=== PATIENT | female | born 1945 | race Caucasian/White ===

== ENCOUNTER → 2018-07-24 14:12 | Outpatient (CLI) | payer MEDICARE, SELFPAY ==
[2018-07-24 16:03] LABS: Microalbumin,Random Urine < 5.0 mg/L (NO RANGE EST.)
[2018-07-24 16:08] LABS: ALB/GLOB Ratio 1.2 RATIO (0.9-2.4); AST(SGOT) 15 U/L (15-37); Alanine Aminotransfer ALT/SGPT 24 U/L (13-56); Albumin, Serum 4.2 g/dL (3.2-5.0); Alkaline Phosphatase 95 U/L (45-117); Anion Gap 11 (5-15); BUN 17 mg/dL (7-18); Calcium,Total 9.4 mg/dL (8.5-10.1); Chloride 87 mmol/L (98-107); Cholesterol 201 mg/dL (200); Creatinine, Serum 1.21 mg/dL (0.55-1.02); EST Glomerular Filtration Rate 46 mL/min (>60); Est Glom Filt Rate - Afr Amer 56 mL/min (>60); Globulin 3.6 g/dL (2.2-4.2); Glucose 93 mg/dL (74-106); High Density Lipoprotein 50 mg/dL; Potassium 3.4 mmol/L (3.5-5.1); Protein, Total 7.8 g/dL (6.4-8.2); Sodium Level 129 mmol/L (136-145); Thyroid Stim Hormone (TSH) 1.27 uIU/mL (0.358-3.74); Triglycerides 247 mg/dL; Very Low Density Lipoprotein 49 mg/dL (5-40)
== END ==
PROVIDERS: Family Provider Family Medicine; PCP Family Medicine; Visit Provider Family Medicine
DX: E11.9 Type 2 diabetes mellitus without complications (principal); I10 Essential (primary) hypertension; E03.9 Hypothyroidism, unspecified; E78.5 Hyperlipidemia, unspecified
CPT/HCPCS: 36415; 80053; 80061; 82043; 82570; 84443

== ENCOUNTER → 2018-08-07 13:58 | Outpatient (CLI) | payer MEDICARE, SELFPAY ==
[2018-08-07 15:53] LABS: Anion Gap 12 (5-15); BUN 19 mg/dL (7-18); Calcium,Total 9.4 mg/dL (8.5-10.1); Chloride 98 mmol/L (98-107); Creatinine, Serum 1.27 mg/dL (0.55-1.02); EST Glomerular Filtration Rate 44 mL/min (>60); Est Glom Filt Rate - Afr Amer 53 mL/min (>60); Glucose 96 mg/dL (74-106); Magnesium 2.4 mg/dL (1.6-2.6); Sodium Level 137 mmol/L (136-145)
== END ==
PROVIDERS: Family Provider Family Medicine; PCP Family Medicine; Visit Provider Family Medicine
DX: E87.1 Hypo-osmolality and hyponatremia (principal)
CPT/HCPCS: 36415; 80048; 83735

== ENCOUNTER 2018-12-25 15:08 | Emergency (ER) | payer MEDICARE, SELFPAY ==
[2018-12-25 15:08] VITALS: BP 145/64; PULSE 68; RESP 14; TEMP 36.6; O2SAT 94; BMI 29.8
--- NOTE | 2018-12-25 15:13 | RAD_ITS ---
STUDY: X-RAY - LEFT ANKLE REASON FOR EXAM: Female, 73 years old. Pain following a fall. TECHNIQUE: 3 view(s) of the ankle. COMPARISON: None. FINDINGS: Normal visualized distal tibia and fibula. Normal medial and lateral malleoli. Normal tibiotalar articulation and ankle mortise. Spur at the insertion of the Achilles tendon. The visualized subtalar, talonavicular, calcaneocuboid and tarsal articulations are normal. Diffuse soft tissue swelling. RAD/Ankle min 3 Views IMPRESSION: Diffuse soft tissue swelling. Electronically Signed: Mario Handley MD at 15:42 EST , Service support ,
--- NOTE | 2018-12-25 16:10 | RAD_ITS ---
STUDY: X-RAY - LEFT HAND REASON FOR EXAM: Female, 73 years old. Pain and swelling TECHNIQUE: 3 view(s) of the hand. COMPARISON: None. FINDINGS: The bones are diffusely demineralized. Degenerative arthrosis noted at all visualized joint spaces. No demonstrated fracture or suspicious osseous lesion. There is however nonspecific soft tissue swelling and a subtle occult fracture cannot be excluded. If there is strong clinical suspicion of a fracture, recommend further evaluation with CT. RAD/Hand Min 3 Views IMPRESSION: Profound osteopenia with degenerative arthrosis. No demonstrated fracture, please see discussion above Electronically Signed: Bentley Hinojosa MD at 17:09 EST , Service support ,
--- NOTE | 2018-12-25 16:10 | RAD_ITS ---
STUDY: X-RAY - LEFT FOOT CLINICAL: Female, 73 years old. Foot pain after a fall TECHNIQUE: 3 view(s) of the foot. COMPARISON: None. FINDINGS: Bones are diffusely demineralized. Degenerative arthrosis noted at all visualized joint spaces, with small calcaneal spurs. No demonstrated fracture or suspicious osseous lesion. However, subtle fracture could be present and overlooked due to the diffuse osteopenia. If there is strong clinical suspicion of a fracture, recommend further evaluation with CT RAD/Foot min 3 Views IMPRESSION: Profound osteopenia with degenerative arthrosis and calcaneal spurs. Electronically Signed: Bentley Hinojosa MD at 17:12 EST , Service support ,
--- NOTE | 2018-12-25 16:50 | ED.DCSUM_ITS ---
- ER Visit Summary Date of Service: 12/25/18 Chief Complaint: [] Fall left hand left foot and ankle pain History of Present Illness: The patient is a 73 F [] lives alone at home she indicates she wears a neck brace chronically related to chronic neck discomfort she was walking holding onto banisters when she inadvertently slipped and fell landing on her left side she did not hit her head or neck or chest she has no head neck pain, her chief complaint is left ankle and foot pain and a contusion to her left hand she has walking aid such as a walker but in general she tries to get around her apartment using holding onto objects that are close to her, a neighbor had to help her back up to her feet she had trouble walking she was brought to the hospital Physical Examination: [] 145/64 General, no distress resting comfortably, she leaned to the right she has no head neck chest or abdominal pain HEENT is generally unremarkable The neck is supple no adenopathy Cardiovascular, regular rate and rhythm Lungs, clear bilateral Abdomen, soft nontender Extremities, no clubbing cyanosis or edema she does have a contusion to the left hand that has full range of motion to all 4 extremities in all major joints, she has contusion and swelling to the left ankle into the left lateral foot Neurologic, awake alert answering questions appropriately moving all 4 extremities her nerves are normal she is awake and alert no neurologic deficits Test Results: [] Emergency Department Course and Treatment: [] X-rays were obtained Aircast we are going to try to walk her in the ED she feels if she can walk in the ED she will be safe for discharge home Hand left ankle left foot x-ray unremarkable for any acute she was for the Aircast and walk around the emergency department and she walk without difficulty felt comfortable with discharge home she will follow with her primary care physicians she is given referral to Dr. Acosta orthopedics, she is given Naprosyn for pain for 5 days ice elevation return for change in symptoms Treatment Plan: [] Disposition: [] Home stable Impression: [] Fall with left lower extremity ankle injury This note was generated with Newtron dictation software. It may contain incorrect words, spelling, and punctuation that were not noted in review of the chart prior to signing ED Disposition - Plan for ED Patient: Referrals: Madhuri Alvarado MD [Primary Care Provider] -
[2018-12-25 19:27] VITALS: BP 156/80; PULSE 67; RESP 18; O2SAT 96
== END 2018-12-25 19:28 | disposition home or self-care (01) ==
LOC: ED 16:47
PROVIDERS: Emergency Provider Emergency Medicine; Family Provider Family Medicine; PCP Family Medicine
DX: S90.02XA Contusion of left ankle, initial encounter (principal); Z79.84 Long term (current) use of oral hypoglycemic drugs; Z79.899 Other long term (current) drug therapy; W01.0XXA Fall on same level from slipping, tripping and stumbling without subsequent striking against object, initial encounter; Y93.01 Activity, walking, marching and hiking; Y92.039 Unspecified place in apartment as the place of occurrence of the external cause; Y99.8 Other external cause status
CPT/HCPCS: 73130; 73610; 73630; 99284

== ENCOUNTER → 2019-01-06 13:14 | Outpatient (CLI) | payer MEDICARE, SELFPAY ==
[2018-12-25 15:08] VITALS: BMI 29.8
[2019-01-06 15:52] LABS: ALB/GLOB Ratio 1.2 RATIO (0.9-2.4); AST(SGOT) 17 U/L (15-37); Alanine Aminotransfer ALT/SGPT 19 U/L (13-56); Albumin, Serum 4.1 g/dL (3.2-5.0); Alkaline Phosphatase 103 U/L (45-117); Anion Gap 10 (5-15); BUN 21 mg/dL (7-18); BUN/Creat Ratio 17.9 RATIO (10-20); Calcium,Total 9.1 mg/dL (8.5-10.1); Chloride 103 mmol/L (98-107); Creatinine, Serum 1.17 mg/dL (0.55-1.02); EST Glomerular Filtration Rate 48 mL/min (>60); Est Glom Filt Rate - Afr Amer 58 mL/min (>60); Globulin 3.5 g/dL (2.2-4.2); Glucose 120 mg/dL (74-106); Potassium 4.4 mmol/L (3.5-5.1); Protein, Total 7.6 g/dL (6.4-8.2); Sodium Level 143 mmol/L (136-145)
== END ==
PROVIDERS: Family Provider Family Medicine; PCP Family Medicine; Visit Provider Family Medicine
DX: E11.9 Type 2 diabetes mellitus without complications (principal); I10 Essential (primary) hypertension
CPT/HCPCS: 36415; 80053

== ENCOUNTER → 2019-03-05 | Outpatient (CLI) | payer MEDICARE, MEDICAID, SELFPAY ==
--- NOTE | 2019-03-05 12:01 | RAD_ITS ---
STUDY: X-RAY - LEFT HAND REASON FOR EXAM: Female, 73 years old. Pain after a fall TECHNIQUE: 3 view(s) of the hand. COMPARISON: FINDINGS: The bones are diffusely demineralized. Degenerative arthrosis noted at all visualized joint spaces. No demonstrated fracture or suspicious osseous lesion. There is however nonspecific soft tissue swelling and a subtle occult fracture cannot be excluded. If there is strong clinical suspicion of a fracture, recommend further evaluation with CT. RAD/Hand Min 3 Views IMPRESSION: Profound osteopenia with degenerative arthrosis. No demonstrated fracture, please see discussion above No interval change Electronically Signed: Bentley Hinojosa MD at 12:29 EDT , Service support ,
== END | disposition home or self-care (01) ==
LOC: HPRAD 11:57
PROVIDERS: Family Provider Family Medicine; PCP Family Medicine; Referring Provider Family Medicine; Visit Provider Family Medicine
DX: M79.646 Pain in unspecified finger(s) (principal)
CPT/HCPCS: 73130

== ENCOUNTER → 2019-04-08 | Outpatient (CLI) | payer MEDICARE, MEDICAID, SELFPAY ==
--- NOTE | 2019-04-08 15:48 | CT_ITS ---
STUDY: CT LEFT HAND REASON FOR EXAM: Female, 73 years old. Fall 5 weeks ago, left hand/wrist injury. Check for occult fracture base of thumb. RADIATION DOSAGE (If Supplied By Facility): CTDIvol = ( ) mGy, DLP = ( ) mGycm TECHNIQUE: Thin section transaxial imaging of the hand was obtained, with sagittal and coronal reconstructed images. Individualized dose optimization techniques were used for this CT. COMPARISON: 3 plain film left hand March 05, 2019 views of the FINDINGS: Normal visualized distal radius and ulna. Normal radiocarpal articulation. Normal distal radioulnar joint. Cystic degenerative changes noted in the lunate and medial distal aspect of the trapezium. Normal carpal articulations There is degenerative arthrosis of the carpometacarpal (CMC) articulation of the thumb. Normal second through fifth carpometacarpal joints. Normal metacarpi. Normal metacarpophalangeal joint of the thumb. Normal interphalangeal joint of the thumb. Normal proximal and distal phalanges of the thumb. Normal metacarpophalangeal joints of the second through fifth fingers. There is some misregistration artifact in the mid to distal phalanges of the fourth and fifth fingers secondary to patient motion. Allowing for this, there are normal proximal and distal interphalangeal joints of the second through fifth fingers. As a normal phalanges of the second through fifth fingers. The soft tissue structures are unremarkable. There is no demonstrated acute fracture. CT/Extremity Upper without Contra IMPRESSION: 1. No acute fracture of the left hand or base of the thumb. There is degenerative arthrosis at the first carpometacarpal joint. 2. Incidental note of cystic degenerative changes in the lunate and trapezium. Electronically Signed: Bentley Dhillon MD at 20:02 EDT , Service support ,
== END | disposition home or self-care (01) ==
PROVIDERS: Family Provider Family Medicine; PCP Family Medicine; Referring Provider Family Medicine; Visit Provider Family Medicine
DX: M25.542 Pain in joints of left hand (principal)
CPT/HCPCS: 73200

== ENCOUNTER → 2019-04-23 | Outpatient (CLI) | payer MEDICARE, SELFPAY ==
--- NOTE | 2019-04-23 13:51 | BI_ITS ---
MAMMOGRAPHY - BILATERAL SCREENING REASON FOR EXAM: Female, 73 years old. Routine annual screening examination. PERTINENT HISTORY: Non-contributory. TECHNIQUE: Digital bilateral breast bjorn (3D mammographic acquisition) in the CC and MLO projections. 2-D mediolateral oblique (MLO) and craniocaudad (CC) views of both breasts were obtained. CAD: Full Field Digital Mammography with Computer Added Detection was performed. COMPARISON: Comparison is made with prior outside examination dated December 27, 2017. FINDINGS: Breast Composition: There are scattered areas of fibroglandular density. There are no dominant masses or suspicious calcifications. No other significant abnormalities are identified. There has been no significant change since the prior study. BI/SCREEN MAMM (CAD) W/BJORN BILAT IMPRESSION: Stable bilateral screening mammogram. Yearly follow-up mammogram recommended. (A) ASSESSMENT CATEGORY: BIRADS Category 1: Negative. A letter regarding these results will be sent to the patient by the facility within 30 days. Approximately 10% of breast cancers are not detected by mammography. A normal mammogram should not delay biopsy of a clinically suspicious abnormality. [id number] Electronically Signed: Mario Handley, at 8:42 EDT , Service support ,
== END | disposition home or self-care (01) ==
LOC: OPBI 13:49
PROVIDERS: Family Provider Family Medicine; PCP Family Medicine; Referring Provider Family Medicine; Visit Provider Family Medicine
DX: Z12.31 Encounter for screening mammogram for malignant neoplasm of breast (principal)
CPT/HCPCS: 77063; 77067

== ENCOUNTER → 2019-06-18 11:52 | Outpatient (CLI) | payer MEDICARE, MEDICAID, SELFPAY ==
[2019-06-18 16:00] LABS: ALB/GLOB Ratio 1.1 RATIO (0.9-2.4); AST(SGOT) 14 U/L (15-37); Alanine Aminotransfer ALT/SGPT 21 U/L (13-56); Albumin, Serum 4.1 g/dL (3.2-5.0); Alkaline Phosphatase 97 U/L (45-117); Anion Gap 10 (5-15); BUN 19 mg/dL (7-18); Calcium,Total 8.9 mg/dL (8.5-10.1); Chloride 104 mmol/L (98-107); Cholesterol 242 mg/dL (200); Creatinine, Serum 1.19 mg/dL (0.55-1.02); EST Glomerular Filtration Rate 47 mL/min (>60); Est Glom Filt Rate - Afr Amer 57 mL/min (>60); Globulin 3.8 g/dL (2.2-4.2); Glucose 109 mg/dL (74-106); High Density Lipoprotein 52 mg/dL; Potassium 4.2 mmol/L (3.5-5.1); Protein, Total 7.9 g/dL (6.4-8.2); Sodium Level 141 mmol/L (136-145); Triglycerides 299 mg/dL; Very Low Density Lipoprotein 60 mg/dL (5-40)
[2019-06-18 16:10] LABS: Microalbumin,Random Urine 27.5 mg/L (NO RANGE EST.); Microalbumin:Creatinine Ratio 76.6 mg/g CRE (<30 mg/g CRE)
== END ==
PROVIDERS: Family Provider Family Medicine; PCP Family Medicine; Referring Provider Family Medicine; Visit Provider Family Medicine
DX: E11.9 Type 2 diabetes mellitus without complications (principal); E03.9 Hypothyroidism, unspecified
CPT/HCPCS: 36415; 80053; 80061; 82043; 82570; 84443

== ENCOUNTER → 2021-04-11 04:00 | Outpatient (REF) | payer MEDICARE, OTHER, SELFPAY ==
[2021-04-11 08:39] LABS: Absolute Lymphocyte Count 1.98 X10^3/uL (0.83-4.51); Absolute Neutrophil Count 6.1 X10^3/uL (2.0-7.7); Basophil# 0.07 X10^3/uL; Basophil% 0.7 % (0-1); Eosinophil# 0.48 X10^3/uL; Eosinophils% 5.1 % (0-5); Hematocrit 35.4 % (37-47); Hemoglobin 10.8 g/dL (12.0-15.0); Lymphocyte # 1.98 X10^3/ul (0.83-4.51); Lymphocyte % 21.1 % (19-41); Mean Corp Hgb Conc 30.5 g/dL (32-36); Mean Corpuscular Volume 95.2 fL (81-99); Mean Platelet Vol. 8.8 fl (6.2-12.0); Monocyte# 0.74 X10^3/uL; Monocyte% 7.9 % (0-10); NRBC Flagged by Analyzer 0 % (0-5); Neutrophil # 6.08 X10^3/uL (2.7-7.7); Neutrophil % 64.7 % (47-70); Platelet Count 426 K/mm3 (150-450); RBC Distribution Width CV 13.3 % (11.6-14.6); RBC Distribution Width SD 46.5 fl (35.1-43.9); Red Blood Count 3.72 M/mm3 (4.2-5.4); White Blood Count 9.4 K/mm3 (4.4-11.0)
[2021-04-11 08:59] LABS: Hemoglobin A1c 6.5 % (3.8-5.6)
[2021-04-11 09:10] LABS: AST(SGOT) 10 U/L (15-37); Alanine Aminotransfer ALT/SGPT 15 U/L (13-56); Albumin, Serum 3.4 g/dL (3.2-5.0); Alkaline Phosphatase 86 U/L (45-117); Anion Gap 8 (5-15); BUN 18 mg/dL (7-18); BUN/Creat Ratio 21.2 RATIO (10-20); Calcium,Total 8.6 mg/dL (8.5-10.1); Chloride 103 mmol/L (98-107); Creatinine, Serum 0.85 mg/dL (0.55-1.02); EST Glomerular Filtration Rate 69 mL/min (>60); Est Glom Filt Rate - Afr Amer 83 mL/min (>60); Globulin 3.4 g/dL (2.2-4.2); Glucose 128 mg/dL (74-106); Potassium 3.9 mmol/L (3.5-5.1); Protein, Total 6.8 g/dL (6.4-8.2); Sodium Level 138 mmol/L (136-145); Thyroid Stim Hormone (TSH) 1.32 uIU/mL (0.358-3.74)
== END ==
LOC: OLS.ACH 04:00
PROVIDERS: PCP Family Medicine; Referring Provider Family Medicine; Visit Provider Family Medicine
DX: E11.42 Type 2 diabetes mellitus with diabetic polyneuropathy (principal); R80.9 Proteinuria, unspecified; E78.5 Hyperlipidemia, unspecified; E03.9 Hypothyroidism, unspecified
CPT/HCPCS: 36415; 80053; 83036; 84443; 85025

== ENCOUNTER → 2021-04-27 00:40 | Outpatient (REF) | payer MEDICARE, MEDICAID, SELFPAY ==
[2021-04-27 07:42] LABS: Bacteria 0 SEEN /hpf (None Seen); Mucous, Urine 0 SEEN /hpf (<or=2+); Red Blood Cells-Urine 0 SEEN /hpf (0-5); Squamous Epithelial Cells - UA 0 SEEN /hpf (5-10); White Blood Cells 0 SEEN /hpf (0-5)
[2021-04-27 07:57] LABS: Color, Urine Yellow (Yellow); Glucose, Dipstick Normal (Normal); Ketone-Dipstick Negative (Negative); Leukocyte Esterase-Dipstick Negative /ul (Negative); Nitrite-Dipstick Negative (Negative); Occult Blood-Urine Negative /ul (Negative); Protein-Dipstick 30 mg/dl (Negative); Urine Bilirubin Dipstick Negative (Negative); Urine Clarity Sl. Cloudy (Clear); Urine Urobilinogen Normal (Normal)
== END ==
LOC: OLS.ACH 00:40
PROVIDERS: PCP Family Medicine; Visit Provider Family Medicine
DX: R32 Unspecified urinary incontinence (principal); R30.0 Dysuria
CPT/HCPCS: 81001; 87086; 87088

== ENCOUNTER → 2021-06-12 04:00 | Outpatient (REF) | payer MEDICARE, MEDICAID, SELFPAY ==
[2021-06-12 08:20] LABS: Absolute Lymphocyte Count 1.85 X10^3/uL (0.83-4.51); Basophil# 0.07 X10^3/uL; Basophil% 0.8 % (0-1); Eosinophil# 0.34 X10^3/uL; Eosinophils% 3.8 % (0-5); Hematocrit 35.2 % (37-47); Hemoglobin 11.1 g/dL (12.0-15.0); Lymphocyte # 1.85 X10^3/ul (0.83-4.51); Lymphocyte % 20.7 % (19-41); Mean Corp Hgb Conc 31.5 g/dL (32-36); Mean Corpuscular Hgb 29.4 pg (27.0-32.0); Mean Corpuscular Volume 93.1 fL (81-99); Mean Platelet Vol. 8.6 fl (6.2-12.0); Monocyte# 0.65 X10^3/uL; Monocyte% 7.3 % (0-10); NRBC Flagged by Analyzer 0 % (0-5); Platelet Count 389 K/mm3 (150-450); RBC Distribution Width CV 13.1 % (11.6-14.6); RBC Distribution Width SD 44.2 fl (35.1-43.9); Red Blood Count 3.78 M/mm3 (4.2-5.4)
[2021-06-12 09:21] LABS: ALB/GLOB Ratio 1.1 RATIO (0.9-2.4); AST(SGOT) 14 U/L (15-37); Alanine Aminotransfer ALT/SGPT 23 U/L (13-56); Albumin, Serum 3.7 g/dL (3.2-5.0); Alkaline Phosphatase 88 U/L (45-117); Anion Gap 8 (5-15); BUN 20 mg/dL (7-18); BUN/Creat Ratio 24.8 RATIO (10-20); Calcium,Total 8.4 mg/dL (8.5-10.1); Chloride 103 mmol/L (98-107); Creatinine, Serum 0.81 mg/dL (0.55-1.02); EST Glomerular Filtration Rate 73 mL/min (>60); Est Glom Filt Rate - Afr Amer 88 mL/min (>60); Globulin 3.3 g/dL (2.2-4.2); Glucose 110 mg/dL (74-106); Potassium 3.9 mmol/L (3.5-5.1); Sodium Level 137 mmol/L (136-145)
[2021-06-12 09:22] LABS: Ferritin 23 ng/mL (8-252); Iron 50 ug/dL (50-170); Iron Binding Capacity,Total 314 ug/dL (250-450); PERCENT IRON SATURATION 15.9 % (15.0-55.0); T4 Total, Thyroxin 8.9 ug/dL (4.8-13.9); Thyroid Stim Hormone (TSH) 0.81 uIU/mL (0.358-3.74)
[2021-06-12 09:35] LABS: T3 Total - Triiodothyronine 0.71 ng/mL (0.6-1.81); Vitamin B12 831 pg/mL (211-911)
[2021-06-13 16:09] LABS: PROEL- A/G Ratio 1.2 (0.7-1.7); PROEL- Albumin 3.6 g/dL (2.9-4.4); PROEL- Alpha-1 Globulin 0.3 g/dL (0.0-0.4); PROEL- Alpha-2 Globulin 0.8 g/dL (0.4-1.0); PROEL- Beta Globulin 1.1 g/dL (0.7-1.3); PROEL- Gamma Globulin 0.8 g/dL (0.4-1.8); PROEL- TOTAL PROTEIN 6.6 g/dL (6.0-8.5)
== END ==
LOC: OLS.ACH 04:00
PROVIDERS: PCP Family Medicine; Visit Provider Family Medicine
DX: M15.9 Polyosteoarthritis, unspecified (principal); I10 Essential (primary) hypertension; K76.89 Other specified diseases of liver; E78.5 Hyperlipidemia, unspecified
CPT/HCPCS: 36415; 80053; 82607; 82728; 82746; 83540; 83550; 84165; 84436; 84443; 84480; 85025

== ENCOUNTER → 2021-07-03 04:00 | Outpatient (REF) | payer MEDICARE, MEDICAID, SELFPAY ==
[2021-07-03 08:12] LABS: Absolute Lymphocyte Count 1.83 X10^3/uL (0.83-4.51); Absolute Neutrophil Count 5.6 X10^3/uL (2.0-7.7); Basophil# 0.05 X10^3/uL; Basophil% 0.6 % (0-1); Eosinophil# 0.34 X10^3/uL; Hematocrit 34.6 % (37-47); Hemoglobin 11.1 g/dL (12.0-15.0); Lymphocyte # 1.83 X10^3/ul (0.83-4.51); Lymphocyte % 21.5 % (19-41); Mean Corp Hgb Conc 32.1 g/dL (32-36); Mean Corpuscular Hgb 29.7 pg (27.0-32.0); Mean Corpuscular Volume 92.5 fL (81-99); Mean Platelet Vol. 8.4 fl (6.2-12.0); Monocyte# 0.67 X10^3/uL; Monocyte% 7.9 % (0-10); NRBC Flagged by Analyzer 0 % (0-5); Neutrophil % 65.8 % (47-70); Platelet Count 382 K/mm3 (150-450); RBC Distribution Width CV 13.4 % (11.6-14.6); RBC Distribution Width SD 45.2 fl (35.1-43.9); Red Blood Count 3.74 M/mm3 (4.2-5.4); White Blood Count 8.5 K/mm3 (4.4-11.0)
[2021-07-03 08:29] LABS: Hemoglobin A1c 6.4 % (3.8-5.6)
[2021-07-03 08:40] LABS: ALB/GLOB Ratio 1.1 RATIO (0.9-2.4); AST(SGOT) 12 U/L (15-37); Alanine Aminotransfer ALT/SGPT 21 U/L (13-56); Albumin, Serum 3.6 g/dL (3.2-5.0); Alkaline Phosphatase 93 U/L (45-117); Anion Gap 8 (5-15); BUN 16 mg/dL (7-18); BUN/Creat Ratio 19.2 RATIO (10-20); Calcium,Total 8.7 mg/dL (8.5-10.1); Chloride 102 mmol/L (98-107); Creatinine, Serum 0.83 mg/dL (0.55-1.02); EST Glomerular Filtration Rate 70 mL/min (>60); Est Glom Filt Rate - Afr Amer 85 mL/min (>60); Globulin 3.3 g/dL (2.2-4.2); Glucose 112 mg/dL (74-106); Potassium 3.6 mmol/L (3.5-5.1); Protein, Total 6.9 g/dL (6.4-8.2); Sodium Level 138 mmol/L (136-145)
== END ==
LOC: OLS.ACH 04:00
PROVIDERS: PCP Family Medicine; Referring Provider Family Medicine; Visit Provider Family Medicine
DX: E11.42 Type 2 diabetes mellitus with diabetic polyneuropathy (principal); R80.9 Proteinuria, unspecified; E78.5 Hyperlipidemia, unspecified
CPT/HCPCS: 36415; 80053; 83036; 85025

== ENCOUNTER → 2021-09-25 05:00 | Outpatient (REF) | payer MEDICARE, MEDICAID, SELFPAY ==
[2021-09-25 08:07] LABS: Absolute Lymphocyte Count 1.82 X10^3/uL (0.83-4.51); Absolute Neutrophil Count 4.3 X10^3/uL (2.0-7.7); Basophil# 0.08 X10^3/uL; Basophil% 1.1 % (0-1); Eosinophil# 0.37 X10^3/uL; Eosinophils% 5.1 % (0-5); Hematocrit 33.4 % (37-47); Hemoglobin 10.7 g/dL (12.0-15.0); Lymphocyte # 1.82 X10^3/ul (0.83-4.51); Mean Corpuscular Hgb 29.6 pg (27.0-32.0); Mean Corpuscular Volume 92.5 fL (81-99); Mean Platelet Vol. 8.6 fl (6.2-12.0); Monocyte# 0.72 X10^3/uL; Monocyte% 9.9 % (0-10); NRBC Flagged by Analyzer 0 % (0-5); Neutrophil # 4.25 X10^3/uL (2.7-7.7); Neutrophil % 58.5 % (47-70); Platelet Count 414 K/mm3 (150-450); RBC Distribution Width CV 14.3 % (11.6-14.6); RBC Distribution Width SD 48.3 fl (35.1-43.9); Red Blood Count 3.61 M/mm3 (4.2-5.4); White Blood Count 7.3 K/mm3 (4.4-11.0)
[2021-09-25 08:18] LABS: Hemoglobin A1c 6.3 % (3.8-5.6)
[2021-09-25 08:23] LABS: AST(SGOT) 13 U/L (15-37); Alanine Aminotransfer ALT/SGPT 14 U/L (13-56); Albumin, Serum 3.4 g/dL (3.2-5.0); Alkaline Phosphatase 88 U/L (45-117); Anion Gap 9 (5-15); BUN 21 mg/dL (7-18); BUN/Creat Ratio 18.1 RATIO (10-20); Calcium,Total 8.8 mg/dL (8.5-10.1); Chloride 103 mmol/L (98-107); Creatinine, Serum 1.16 mg/dL (0.55-1.02); EST Glomerular Filtration Rate 48 mL/min (>60); Est Glom Filt Rate - Afr Amer 58 mL/min (>60); Globulin 3.5 g/dL (2.2-4.2); Glucose 109 mg/dL (74-106); Potassium 3.6 mmol/L (3.5-5.1); Protein, Total 6.9 g/dL (6.4-8.2); Sodium Level 137 mmol/L (136-145)
== END ==
LOC: OLS.ACH 05:00
PROVIDERS: PCP Family Medicine; Visit Provider Family Medicine
DX: E11.42 Type 2 diabetes mellitus with diabetic polyneuropathy (principal); R80.9 Proteinuria, unspecified; E78.5 Hyperlipidemia, unspecified
CPT/HCPCS: 36415; 80053; 83036; 85025

== ENCOUNTER 2021-09-30 15:39 | Inpatient (IN) | payer MEDICARE, MEDICAID, SELFPAY ==
[2021-09-30] VITALS (12 sets, daily range): BP systolic 134–186; BP diastolic 50–91; PULSE 55–86; RESP 12–22; TEMP 36.1–36.8; O2SAT 87–97; BMI 29.7
--- NOTE | 2021-09-30 16:02 | EX.ED.DYSGE1 ---
HPI History of Present Illness Chief Complaint: Constipation Informant: patient Narrative Narrative: 76-year-old female presenting for constipation. Patient states she has been unable to have a bowel movement for the past 4 days. They have tried multiple medications including mag citrate, stool softeners, fleets enema. She had a KUB and chest x-ray today which showed no evidence of bowel obstruction. She denies fever or vomiting. Prior similar symptoms: No Recent Illness/Hospitalization: No PFSH PFSH Medical History (Updated 09/30/21 @ 19:[address] Effie Jaimes MD) Anxiety Depression Diabetes type 2, controlled Dysphagia GERD (gastroesophageal reflux disease) Hyperlipemia Hypertension Hypothyroid Insomnia Liver disease PTSD (post-traumatic stress disorder) Home Medications diltiazem HCl 360 mg PO BID 12/10/15 [History Last Taken 12/10/15] levothyroxine 88 mcg PO DAILY 12/10/15 [History Last Taken 12/10/15] meloxicam 15 mg PO PRN PRN 12/10/15 [History Last Taken Unknown] metformin 500 mg PO DAILY 12/19/16 [History Last Taken Unknown] gabapentin [Neurontin] 100 mg PO QHS 12/20/16 [History Last Taken Unknown] oxybutynin chloride 10 mg PO DAILY 12/20/16 [History Last Taken Unknown] sertraline 100 mg PO DAILY 12/20/16 [History Last Taken Unknown] labetalol 300 mg PO BID 12/25/18 [History Last Taken Unknown] naproxen 500 mg PO BID #14 tab 12/25/18 [Rx Last Taken Unknown] pantoprazole 40 mg PO DAILY 12/25/18 [History Last Taken Unknown] atorvastatin 20 mg DAILY 09/30/21 [History Last Taken Unknown] glucosamine sulfate [Glucosamine] 1,000 mg PO QHS 09/30/21 [History Last Taken Unknown] hydrochlorothiazide 12.5 mg DAILY 09/30/21 [History Last Taken Unknown] losartan 100 mg DAILY 09/30/21 [History Last Taken Unknown] melatonin 10 mg PO QHS 09/30/21 [History Last Taken Unknown] Allergy/AdvReac Type Severity Reaction Status Date / Time ANTIHISTAMINES Allergy PT UNABLE Uncoded 09/30/21 16:08 TO RESPOND-NEEDS F/U DECONGESTANTS Allergy Shortness Uncoded 09/30/21 16:08 of breath Social History Smoking Status: Never smoker ROS ROS ED Constitutional Constitutional ED: Denies fever(s) Eyes Eyes: Denies change in vision ENT ENT ED: Denies rhinorrhea or sore throat Cardiovascular Cardiovascular: Denies chest pain or palpitations Respiratory/Chest Respiratory/Chest: Denies cough or dyspnea Gastrointestinal Gastrointestinal: Reports abdominal pain and constipation; Denies diarrhea, nausea or vomiting Genitourinary Genitourinary ED: Denies dysuria Musculoskeletal Musculoskeletal: Denies myalgias Integumentary Denies rash Neurologic Neurologic: Denies headache(s) EXAM Physical Exam Const Vital Signs: 09/30/21 15:40 09/30/21 17:26 09/30/21 18:00 Temperature 98.3 F Temperature Source Oral Pulse Rate 63 66 55 L Respiratory Rate 12 22 H 20 H Blood Pressure 171/70 H 168/70 H 158/69 H Blood Pressure Mean 103 102 98 Pulse Ox 90 Oxygen Delivery Method Room Air Room Air Positive well nourished and well developed General Appearance ED: well developed HEENT Reports normocephalic and head/scalp atraumatic Eyes PERRL and EOMs intact bilaterally Neck supple General: Negative for tenderness Chest Wall inspection of chest normal Resp normal respiratory effort and clear to auscultation bilaterally Cardio regular rate and regular rhythm GI Inspection: abdominal distention Palpation: soft and tender; Negative for guarding or rebound tenderness present no CVA tenderness Extremity normal to inspection Neuro oriented x3 Sensorium / Orientation: alert Psych mental status grossly normal MDM MDM MDM Narrative Medical decision making narrative: Soapsuds enema was ordered and given without improvement. CBC, chemistries are unremarkable other than creatinine 1.13, glucose 153. CT abdomen pelvis was obtained which shows sigmoid volvulus with probable component of obstruction. Pericolonic edema. No pneumoperitoneum. Findings were discussed with Dr. Balderas who will evaluate the patient in the emergency department. Lab Data Attestation: I reviewed the patient's lab results. Labs: Laboratory Results - last 24 hr 09/30/21 09/30/21 17:05 17:05 WBC 9.8 RBC 4.02 L Hgb 12.1 Hct 36.7 L MCV 91.3 MCH 30.1 MCHC 33.0 RDW Std Deviation 48.0 H RDW Coeff of Tuan 14.4 Plt Count 400 MPV 8.3 Immature Gran % (Auto) 0.600 Neut % (Auto) 82.7 H Lymph % (Auto) 8.8 L Stanly % (Auto) 5.8 Eos % (Auto) 1.5 Baso % (Auto) 0.6 Absolute Neuts (auto) 8.1 H Absolute Lymphs (auto) 0.86 Nucleated RBC % 0 Sodium 134 L Potassium 4.5 Chloride 102 Carbon Dioxide 26.0 Anion Gap 6 BUN 18 Creatinine 1.13 H Estim Creat Clear Calc 38.41 Est GFR (MDRD) Af Amer 60 Est GFR (MDRD) Non-Af 49 L BUN/Creatinine Ratio 15.9 Glucose 153 H Calcium 9.1 Radiography Diagnostic Testing: Clinical Impression(s) from Imaging Studies Abdomen/Pelvis CT 09/30/21 17:58 IMPRESSION: 1. Sigmoid volvulus with probable component of obstruction. Pericolonic edema. No pneumoperitoneum. 2. Right hepatic cyst with central calcifications. ACR White Paper guidelines (Nanette et al. JACR 2017; 14(11):4952-4591.) recommend hepatic MR. Electronically Signed: Medardo Chavarria MD ([place]) at 18:43 EST , Service support , Discharge Plan Triage Chief Complaint: Constipation ED Provider: Effie Jaimes Dx/Rx/DC Orders Clinical Impression: Sigmoid volvulus, Constipation Primary Care Provider: Madhuri Alvarado Disposition Disposition: Acute Care Hospital [facility]
[2021-09-30 17:14] LABS: Absolute Lymphocyte Count 0.86 X10^3/uL (0.83-4.51); Absolute Neutrophil Count 8.1 X10^3/uL (2.0-7.7); Basophil# 0.06 X10^3/uL; Basophil% 0.6 % (0-1); Eosinophil# 0.15 X10^3/uL; Eosinophils% 1.5 % (0-5); Hematocrit 36.7 % (37-47); Hemoglobin 12.1 g/dL (12.0-15.0); Lymphocyte # 0.86 X10^3/ul (0.83-4.51); Lymphocyte % 8.8 % (19-41); Mean Corpuscular Hgb 30.1 pg (27.0-32.0); Mean Corpuscular Volume 91.3 fL (81-99); Mean Platelet Vol. 8.3 fl (6.2-12.0); Monocyte# 0.57 X10^3/uL; Monocyte% 5.8 % (0-10); NRBC Flagged by Analyzer 0 % (0-5); Neutrophil # 8.12 X10^3/uL (2.7-7.7); Neutrophil % 82.7 % (47-70); Platelet Count 400 K/mm3 (150-450); RBC Distribution Width CV 14.4 % (11.6-14.6); Red Blood Count 4.02 M/mm3 (4.2-5.4); White Blood Count 9.8 K/mm3 (4.4-11.0)
[2021-09-30 17:27] LABS: Anion Gap 6 (5-15); BUN 18 mg/dL (7-18); BUN/Creat Ratio 15.9 RATIO (10-20); Calcium,Total 9.1 mg/dL (8.5-10.1); Chloride 102 mmol/L (98-107); Creatinine, Serum 1.13 mg/dL (0.55-1.02); EST Glomerular Filtration Rate 49 mL/min (>60); Est Glom Filt Rate - Afr Amer 60 mL/min (>60); Estimated Creatinine Clearance 38.41 ml/min; Glucose 153 mg/dL (74-106); Potassium 4.5 mmol/L (3.5-5.1); Sodium Level 134 mmol/L (136-145)
[2021-09-30] MEDS: fentaNYL 100 MCG/2 ML Ampul 50 MCG IV ×2 (17:30→19:49)
--- NOTE | 2021-09-30 17:58 | CT_ITS ---
STUDY: CT ABDOMEN AND PELVIS WITH CONTRAST REASON FOR EXAM: Female, 76 years old. abdominal pain RADIATION DOSAGE (If Supplied By Facility): CTDIvol = ( 12.98 ) mGy, DLP = ( 1279.52 ) mGycm TECHNIQUE: Transaxial images were obtained from the dome of the diaphragm to the symphysis pubis without oral contrast. IV 100mL Isovue-370 was administered. Sagittal and coronal images were reconstructed. Individualized dose optimization techniques were used for this CT. COMPARISON: None. FINDINGS: Mild atelectasis in the lung bases. Granuloma in the left lung base. The visualized portions of the heart are within normal limits. Complex cystic lesion of the posterior medial right hepatic lobe measures 2.6 x 4.4 cm with lobular central calcifications. Normal gallbladder and extrahepatic biliary system. Normal spleen. Normal pancreas. Normal bilateral adrenal glands. Bilateral simple renal cysts. No required imaging follow-up needed given high likelihood of benign nature. There is a small hiatal hernia. Nondilated small bowel. The proximal colon is dilated with moderate fecal residue and fluid. The sigmoid colon is tortuous positioned in the right upper abdomen, dilated measuring 7.2 cm. There is swirling of vessels in the lower mesentery with sigmoid feeding (image 83 series 2). Mild pericolonic induration adjacent to the sigmoid colon (image 48 The appendix is visualized and appears normal. There is diffuse atherosclerotic calcification of the abdominal aorta, without a demonstrated aneurysm. Normal inferior vena cava. Normal retroperitoneum. Normal urinary bladder. There is a left-sided inguinal hernia containing adipose tissue. Degenerative changes of the lumbar spine and bilateral hips. CT/Abdomen/Pelvis W IV Cont ONLY IMPRESSION: 1. Sigmoid volvulus with probable component of obstruction. Pericolonic edema. No pneumoperitoneum. 2. Right hepatic cyst with central calcifications. ACR White Paper guidelines (Nanette, et al. JACR 2017; 14(11):1145-8066.) recommend hepatic MR. Electronically Signed: Medardo Chavarria MD (Brooks) at 18:43 EST , Service support ,
--- NOTE | 2021-09-30 19:26 | EKG12_ITS ---
Test Reason : DYSRHYTHMIA Blood Pressure : / mmHG Vent. Rate : 061 BPM Atrial Rate : 061 BPM P-R Int : 200 ms QRS Dur : 092 ms QT Int : 440 ms P-R-T Axes : 047 -21 084 degrees QTc Int : 442 ms Normal sinus rhythm Normal ECG Confirmed by KP CORONA, KRISTINA ([id number]), web editor NELSON GRUBBS ([id number]) on 10/02/2021 1:40:42 PM Referred By: Confirmed By:KRISTINA GOODRICH MD
--- NOTE | 2021-09-30 20:00 | PCM.HP.STD ---
HPI - General General Date of Admission: 09/30/21 HPI Narrative REHAN DUNLAP, is a 76 F who presents from [facility] due to constipation and abdominal distention/pain. Patient states she has not had a bowel movement for 4 days. Patient states she normally has issues with bowel movements and needs laxatives. Patient states she is gotten suppositories and enemas at the [facility] but did not have any results. Patient also got a bottle magnesium citrate here as well as another enema with no results. CT abdomen pelvis was done which showed a sigmoid volvulus. Patient has normal white blood cell count with a left shift. Patient states her abdominal pain started today as well as her abdominal distention. Patient did not have anything to eat today [facility] Medical History (Updated 09/30/21 @ 21:[address] Mei Tineo MD) Anxiety Depression Diabetes type 2, controlled Dysphagia GERD (gastroesophageal reflux disease) Hyperlipemia Hypertension Hypothyroid Insomnia Liver disease PTSD (post-traumatic stress disorder) Home Medications diltiazem HCl 360 mg PO BID 12/10/15 [History Last Taken 12/10/15] levothyroxine 88 mcg PO DAILY 12/10/15 [History Last Taken 12/10/15] meloxicam 15 mg PO PRN PRN 12/10/15 [History Last Taken Unknown] metformin 500 mg PO DAILY 12/19/16 [History Last Taken Unknown] gabapentin [Neurontin] 100 mg PO QHS 12/20/16 [History Last Taken Unknown] oxybutynin chloride 10 mg PO DAILY 12/20/16 [History Last Taken Unknown] sertraline 100 mg PO DAILY 12/20/16 [History Last Taken Unknown] labetalol 300 mg PO BID 12/25/18 [History Last Taken Unknown] naproxen 500 mg PO BID #14 tab 12/25/18 [Rx Last Taken Unknown] pantoprazole 40 mg PO DAILY 12/25/18 [History Last Taken Unknown] atorvastatin 20 mg DAILY 09/30/21 [History Last Taken Unknown] glucosamine sulfate [Glucosamine] 1,000 mg PO QHS 09/30/21 [History Last Taken Unknown] hydrochlorothiazide 12.5 mg DAILY 09/30/21 [History Last Taken Unknown] losartan 100 mg DAILY 09/30/21 [History Last Taken Unknown] melatonin 10 mg PO QHS 09/30/21 [History Last Taken Unknown] Allergy/AdvReac Type Severity Reaction Status Date / Time ANTIHISTAMINES Allergy PT UNABLE Uncoded 09/30/21 16:08 TO RESPOND-NEEDS F/U DECONGESTANTS Allergy Shortness Uncoded 09/30/21 16:08 of breath Surgical History (Updated 09/30/21 @ 21:[address] Mei Tineo MD) History of ankle surgery S/P partial thyroidectomy Social History Smoking Status: Never smoker Vital Signs Vital Signs Vital Signs: 09/30/21 15:40 09/30/21 17:26 09/30/21 18:00 Temperature 98.3 F Temperature Source Oral Pulse Rate 63 66 55 L Respiratory Rate 12 22 H 20 H Blood Pressure 171/70 H 168/70 H 158/69 H Blood Pressure Mean 103 102 98 Pulse Ox 90 Oxygen Delivery Method Room Air Room Air Weight Weight: 183 lb 13.848 oz Body Mass Index (BMI) 29.7 Physical Exam Const alert, oriented x3 and no apparent distress HEENT normocephalic and head/scalp atraumatic Resp normal respiratory effort Cardio regular rate GI soft to palpation; Negative for non-distended Inspection: abdominal distention Palpation: tender other (Mainly in the lower abdomen, mild epigastric, equivocal rebound, no guarding); Negative for guarding Extremity no clubbing, cyanosis or edema Neuro CN's II-XII intact bilaterally Psych mental status grossly normal Results Lab / Micro Data Result Diagrams: 09/30/21 17:05 09/30/21 17:05 Labs: Laboratory Results - last 24 hr 09/30/21 17:05: WBC 9.8, RBC 4.02 L, Hgb 12.1, Hct 36.7 L, MCV 91.3, MCH 30.1, MCHC 33.0, RDW Std Deviation 48.0 H, RDW Coeff of Tuan 14.4, Plt Count 400, MPV 8.3, Immature Gran % (Auto) 0.600, Neut % (Auto) 82.7 H, Lymph % (Auto) 8.8 L, Davie % (Auto) 5.8, Eos % (Auto) 1.5, Baso % (Auto) 0.6, Absolute Neuts (auto) 8.1 H, Absolute Lymphs (auto) 0.86, Nucleated RBC % 0 09/30/21 17:05: Sodium 134 L, Potassium 4.5, Chloride 102, Carbon Dioxide 26.0, Anion Gap 6, BUN 18, Creatinine 1.13 H, Estim Creat Clear Calc 38.41, Est GFR (MDRD) Af Amer 60, Est GFR (MDRD) Non-Af 49 L, BUN/Creatinine Ratio 15.9, Glucose 153 H, Calcium 9.1 Micro: Microbiology 09/30/21 19:30 Nasal Secretion SARS-CoV-2 Antigen (Rapid) - Final Radiology Impression Abdomen/Pelvis CT 09/30/21 17:58 IMPRESSION: 1. Sigmoid volvulus with probable component of obstruction. Pericolonic edema. No pneumoperitoneum. 2. Right hepatic cyst with central calcifications. ACR White Paper guidelines (Nanette, et al. JACR 2017; 14(11):0050-5244.) recommend hepatic MR. Electronically Signed: Medardo Chavarria MD (Brooks) at 18:43 EST , Service support , Assessment & Plan Assessment/Plan (1) Sigmoid volvulus: PLAN: Discussed with the patient as well as the patient's sister who is also the POA plan for a flexible sigmoidoscopy with insertion of rectal tube. As well as the possibility of possible sigmoidectomy/possible ostomy if we are unable to place a rectal tube to decompress the sigmoid volvulus. Discussed the procedure including not limited to risk of bleeding, infection, injury to another organ, need for further surgery/procedure and anesthesia. I also discussed that would recommend prior to discharge from his hospitalization if the rectal tube is successful to have a sigmoidectomy as she does have a higher chance of a repeat volvulus without this. Would plan to try to prep the patient first if possible. Patient and her sister had no further question this time. Marisol Hunt M.D. Pager: [phone] [facility] [address] [place] [address], [address] [place] [address] Office: [phone] Procedure Criteria Type of Procedure Procedure Type: Elective Elective Risks - COVID COVID Risk Discussion: The surgeon/proceduralist and patient have discussed in detail the risk of exposure to and/or potential harm posed by the COVID-19 virus with having a surgery/procedure at this time versus the risk of delaying the surgery/procedure. It is not possible to know either the risk of delaying the surgery or procedure or chance of getting an infection with perfect accuracy, but a joint decision was made between the patient and the surgeon/proceduralist to proceed at this time with the scheduled surgery/procedure as indicated on the consent form.
--- NOTE | 2021-09-30 20:01 | ED.RN ---
HALF-WAY MADE AWARE OF ADMISSION AT THIS TIME
--- NOTE | 2021-09-30 20:16 | PN.HOSP_ITS ---
Subjective Subjective The patient is a 76 y/o F w/ PMHx: HTN, HLD, Hypothyroidism, Anxiety and Depression/PTSD, GERD, Chronic dysphagia, Diabetes mellitus type II, chronic debility with baseline usage frequently of a wheelchair with some ambulation with history of frequent falls who presents to the [facility] ED from the [facility] on 09/30/21 with history of ongoing generalized abdominal discomfort without any bowel movements and decreased flatus over the last 4 days with administration of mag citrate, stool softeners as well as fleets enemas at the facility without any resolution as well as reported KUB and plain film of the c hest with no acute evidence of any obstruction or acute findings with no fevers or chills associated prompting eventual ED evaluation. She currently is rating her pain 10 out of 10. Work-up in the ED included T 98.3, heart rate 63, BP initially 171/70, respiratory rate 12, 90% on room air, CBC with WBC 9.8, hemoglobin 12.1, platelet 400 with left shift, BMP with sodium 134, BUN/creatinine 18/1.13, glucose 153, CT abdomen and pelvis with sigmoid volvulus with probable component of obstruction with pericolonic edema with no evidence of pneumoperitoneum with a right hepatic cyst with central calcifications. In the ED patient ministered fentanyl 50 mcg IV x1. Objective Data Objective Data Vital Signs: Vital Signs Temp Pulse Resp BP Pulse Ox 97.6 F L 58 L 15 186/68 H 96 09/30/21 20:04 09/30/21 20:04 09/30/21 20:04 09/30/21 20:04 09/30/21 20:04 Oxygen Flow Rate (L/min) 2 Oxygen Delivery Method Nasal Cannula Weight: 183 lb 13.848 oz Body Mass Index (BMI) 29.7 Lab / Micro Data Result Diagrams: 09/30/21 17:05 09/30/21 17:05 Labs: Laboratory Results - last 24 hr 09/30/21 17:05: WBC 9.8, RBC 4.02 L, Hgb 12.1, Hct 36.7 L, MCV 91.3, MCH 30.1, MCHC 33.0, RDW Std Deviation 48.0 H, RDW Coeff of Tuan 14.4, Plt Count 400, MPV 8.3, Immature Gran % (Auto) 0.600, Neut % (Auto) 82.7 H, Lymph % (Auto) 8.8 L, Rush % (Auto) 5.8, Eos % (Auto) 1.5, Baso % (Auto) 0.6, Absolute Neuts (auto) 8.1 H, Absolute Lymphs (auto) 0.86, Nucleated RBC % 0 09/30/21 17:05: Sodium 134 L, Potassium 4.5, Chloride 102, Carbon Dioxide 26.0, Anion Gap 6, BUN 18, Creatinine 1.13 H, Estim Creat Clear Calc 38.41, Est GFR (MDRD) Af Amer 60, Est GFR (MDRD) Non-Af 49 L, BUN/Creatinine Ratio 15.9, Glucose 153 H, Calcium 9.1 Micro: Microbiology 09/30/21 19:30 Nasal Secretion SARS-CoV-2 Antigen (Rapid) - Final Radiography Diagnostic Testing: Radiology Impression Abdomen/Pelvis CT 09/30/21 17:58 IMPRESSION: 1. Sigmoid volvulus with probable component of obstruction. Pericolonic edema. No pneumoperitoneum. 2. Right hepatic cyst with central calcifications. ACR White Paper guidelines (Nanette, et al. JACR 2017; 14(11):2437-5866.) recommend hepatic MR. Electronically Signed: Medardo Chavarria MD (Brooks) at 18:43 EST , Service support , Physical Exam Narrative Physical Examination: General: Awake, alert, oriented x 3 and cooperative, seated upright in the ED bed, no acute distress, noting on nominal pain. Skin: Normal color, normal turgor, no icterus, no cyanosis. HEENT: AT/NC, EOMI, PERRLA, mildly dry MM, no carotid bruits or JVD noted. Lungs: Diminished, greater bases, appropriate effort, no rales, ronchi or wheezing. Heart: Regular rate and rhythm; no gallop, rub audible. Abdomen: Soft, obese, generalized discomfort especially bilateral lower quadrant, left greater than right, appears moderately distended, decreased distant nearly absent bowel sounds, difficult assess HSM secondary to pain. Extremities: No cyanosis, clubbing, or edema. Neurological: Patient awake, alert, oriented as noted, cognitive function intact; pupils equally reactive to light and accommodation, cranial nerves II- XII grossly normal, moving all 4 extremities however patient does have chronic debility using a wheelchair frequently baseline but no specific no focal deficits, strength moderately to severely global decrease secondary to acute presentation. Psychiatric: Affect appears fatigued, uncomfortable especially with evaluation, no acute evidence of depressive or anxiety feelings. Assessment & Plan Assessment/Plan (1) Sigmoid volvulus: (2) Constipation: QUALIFIERS: Constipation type: unspecified constipation type Qualified Code(s): K59.00 - Constipation, unspecified PLAN: The patient is a 76 y/o F w/ PMHx: HTN, HLD, Hypothyroidism, Anxiety and Depression/PTSD, GERD, Chronic dysphagia, Diabetes mellitus type II, chronic debility with baseline usage frequently of a wheelchair with some ambulation with history of frequent falls who presents to the [facility] ED from the [facility] on 09/30/21 with history of ongoing generalized abdominal discomfort without any bowel movements and decreased flatus over the last 4 days with administration of mag citrate, stool softeners as well as fleets enemas at the facility without any resolution as well as reported KUB and plain film of the chest with no acute evidence of any obstruction or acute findings. 1. Acute sigmoid volvulus with probable obstruction component with associated pericolonic edema: Patient being transition from the ED to the OR per general surgery with plan admission to suspected medical surgical floor if appropriate following OR per general surgery discretion, would expect continuation of IV fluids, strict I&Os, IV pain/anti-emetics PRN, will defer further imaging to monitor bowel function per general surgery, would expect IV PPI versus famotidine, n.p.o. currently. 2. Diabetes mellitus type II with neuropathy: Hold oral home regimen, n.p.o. status given acute presentation #1, every 6 hours while n.p.o. accu checks w/ ISS until cleared for oral intake by surgery. Holding home gabapentin regimen temporarily. 3. Hypertension: We will temporarily hold patient home diltiazem, hydrochlorothiazide, labetalol, losartan given acute presentation as noted #1, resume once appropriate, IV as needed hydralazine in interim. 4. Hypothyroidism: We will temporarily hold patient Synthroid regimen. 5. Anxiety and depression/PTSD: Temporarily holding patient home sertraline regimen, resume once clinically appropriate. 6. Obesity: Weight loss and lifestyle changes encouraged. 7. GERD: Would expect continuation of IV PPI versus IV PPI until oral intake allowed. 8. DVT prophylaxis: SCDs, will defer any chemoprophylaxis to surgery given plan transition to the OR as noted. 9. CODE status: Patient JATINDER is her sister who is present and living will is currently in place. Discussed CODE status at length including difference between FULL code, DNR-CCA and DNR-CC status. Following discussions about the differences in these status, requested Full Code status. Advanced Care Planning Face to Face Time: 16 minutes. Charges/Coding Visit Charges Inpatient E&M: 80594 Subs Hosp L3 Procedures Hospitalists Procedures: 75977 Advncd Care Plan 30 Min
--- NOTE | 2021-09-30 21:19 | RAD_ITS ---
STUDY: X-RAY - ABDOMEN/PELVIS REASON FOR EXAM: Female, 76 years old. rectal tube -- pacu TECHNIQUE: AP COMPARISON: CT from earlier today FINDINGS: Normal visualized lung bases. Tube overlies the rectum, directed towards the right upper quadrant. No dilated loops of large or small bowel seen. There is no demonstrated free abdominal air. The visualized liver, spleen and kidneys are grossly normal in size and morphology. Excreted contrast in the urinary tract. Normal visualized osseous structures. RAD/Abdomen Single View (Portable) IMPRESSION: Rectal tube placed. Nondilated bowel gas pattern. Electronically Signed: Medardo Chavarria MD (Brooks) at 21:48 EST , Service support ,
--- NOTE | 2021-09-30 21:26 | OP.CCLET_ITS ---
09/30/2021 Madhuri Alvarado [place] [address] [address] Re : Colonoscopy procedure for Hayley Durham Dear Dr. Alvarado This procedure was performed on Saturday, September 30, 2021. My impressions and recommendations are as follows: Impressions : - Decompression of the volvulus was attempted and was successful, with complete decompression achieved. - No specimens collected. Recommendations : - Admit the patient to [facility] for observation. - NPO. - Continue present medications. - No recommendation at this time regarding repeat colonoscopy due to age. My findings are described in the full procedure note, which is enclosed. If I can be of further assistance, please feel free to contact me at Doctor phone number(s): , Work: . Sincerely, MD Marisol Silva MD 09/30/2021 9:25:29 PM This report has been signed electronically.
--- NOTE | 2021-09-30 21:26 | OP.COLON_ITS ---
Patient Name: Hayley Durham Procedure Date: 09/30/2021 8:36 PM Date of : 1945 Age: 76 Procedure: Colonoscopy Indications: Abnormal CT of the GI tract, For therapy of volvulus Providers: Marisol Hunt MD Medicines: Monitored Anesthesia Care Patient Profile: This is a 76 year old female. Last Colonoscopy: date unknown. Complications: No immediate complications. Procedure: Pre-Anesthesia Assessment: - Prior to the procedure, a History and Physical was performed, and patient medications and allergies were reviewed. The patient's tolerance of previous anesthesia was also reviewed. The risks and benefits of the procedure and the sedation options and risks were discussed with the patient. All questions were answered, and informed consent was obtained. Prior Anticoagulants: The patient has taken no previous anticoagulant or antiplatelet agents. ASA Grade Assessment: Per anesthesia. After reviewing the risks and benefits, the patient was deemed in satisfactory condition to undergo the procedure. After I obtained informed consent, the scope was passed under direct vision. Throughout the procedure, the patient's blood pressure, pulse, and oxygen saturations were monitored continuously. The pediatric colonoscope was introduced through the anus and advanced to the descending colon for evaluation. This was the intended extent. The colonoscopy was performed without difficulty. The patient tolerated the procedure well. No bowel preparation was given prior to the procedure. Scope In: 8:47:32 PM Scope Out: 8:54:29 PM Total Procedure Duration Time 0 hours 6 minutes 57 seconds Findings: Decompression of the volvulus was attempted and was successful, with complete decompression achieved. Following the maneuver, a tube was placed to maintain the decompression. Impression: - Decompression of the volvulus was attempted and was successful, with complete decompression achieved. - No specimens collected. Recommendation: - Admit the patient to [facility] for observation. - NPO. - Continue present medications. - No recommendation at this time regarding repeat colonoscopy due to age. Procedure Code(s): --- Professional --- 86987, 52, Colonoscopy, flexible; with decompression (for pathologic distention) (eg, volvulus, megacolon), including placement of decompression tube, when performed Diagnosis Code(s): --- Professional --- K56.2, Volvulus R93.3, Abnormal findings on diagnostic imaging of other parts of digestive tract CPT copyright 2017 [employer]. All rights reserved. The codes documented in this report are preliminary and upon professor of architecture review may be revised to meet current compliance requirements. MD Marisol Silva MD 09/30/2021 9:25:29 PM This report has been signed electronically. Number of Addenda: 0 Note Initiated On: 09/30/2021 8:36 PM
[2021-09-30] MEDS: Ondansetron 4 MG/2 ML Vial IV (22:52)
[2021-09-30] MEDS: Lactated Ringers 1,000 ML 100 ML IV (22:55)
[2021-09-30 23:21] LABS: Bedside Glucose 104 mg/dL (70-110)
[2021-09-30 23:58] LABS: Mucous, Urine 0 SEEN /hpf (<or=2+)
[2021-10-01 00:14] LABS: Color, Urine Yellow (Yellow); Glucose, Dipstick Normal (Normal); Ketone-Dipstick Negative (Negative); Leukocyte Esterase-Dipstick 100 /ul (Negative); Nitrite-Dipstick Negative (Negative); Occult Blood-Urine 25 /ul (Negative); Protein-Dipstick 15 mg/dl (Negative); Urine Bilirubin Dipstick Negative (Negative); Urine Clarity Clear (Clear); Urine Urobilinogen Normal (Normal)
[2021-10-01 00:22] LABS: Bacteria RARE /hpf (None Seen); Red Blood Cells-Urine 0-5 SEEN /hpf (0-5); Squamous Epithelial Cells - UA 0-5 SEEN /hpf (5-10); White Blood Cells 10-25 SEEN /hpf (0-5)
[2021-10-01] MEDS: Lactated Ringers 1,000 ML 100 ML IV ×2 (03:35→15:02)
[2021-10-01 04:00] VITALS: BP 137/43; PULSE 68; RESP 16; TEMP 37.2; O2SAT 94
[2021-10-01 04:01] VITALS: O2SAT 94
[2021-10-01 05:53] LABS: Absolute Lymphocyte Count 1.56 X10^3/uL (0.83-4.51); Absolute Neutrophil Count 6.7 X10^3/uL (2.0-7.7); Basophil# 0.06 X10^3/uL; Basophil% 0.6 % (0-1); Eosinophil# 0.39 X10^3/uL; Hematocrit 32.3 % (37-47); Hemoglobin 10.6 g/dL (12.0-15.0); Lymphocyte # 1.56 X10^3/ul (0.83-4.51); Lymphocyte % 16.1 % (19-41); Mean Corp Hgb Conc 32.8 g/dL (32-36); Mean Corpuscular Hgb 30.1 pg (27.0-32.0); Mean Corpuscular Volume 91.8 fL (81-99); Mean Platelet Vol. 8.4 fl (6.2-12.0); Monocyte# 0.89 X10^3/uL; Monocyte% 9.2 % (0-10); NRBC Flagged by Analyzer 0 % (0-5); Neutrophil # 6.74 X10^3/uL (2.7-7.7); Neutrophil % 69.8 % (47-70); Platelet Count 363 K/mm3 (150-450); RBC Distribution Width CV 14.5 % (11.6-14.6); RBC Distribution Width SD 48.3 fl (35.1-43.9); Red Blood Count 3.52 M/mm3 (4.2-5.4); White Blood Count 9.7 K/mm3 (4.4-11.0)
[2021-10-01 06:19] LABS: AST(SGOT) 12 U/L (15-37); Alanine Aminotransfer ALT/SGPT 15 U/L (13-56); Albumin, Serum 3.2 g/dL (3.2-5.0); Alkaline Phosphatase 84 U/L (45-117); Anion Gap 4 (5-15); BUN 16 mg/dL (7-18); BUN/Creat Ratio 15.8 RATIO (10-20); Calcium,Total 8.3 mg/dL (8.5-10.1); Chloride 101 mmol/L (98-107); Creatinine, Serum 1.01 mg/dL (0.55-1.02); EST Glomerular Filtration Rate 56 mL/min (>60); Est Glom Filt Rate - Afr Amer 68 mL/min (>60); Estimated Creatinine Clearance 42.97 ml/min; Globulin 3.3 g/dL (2.2-4.2); Glucose 100 mg/dL (74-106); Protein, Total 6.5 g/dL (6.4-8.2); Sodium Level 135 mmol/L (136-145)
[2021-10-01 06:56] LABS: Bedside Glucose 97 mg/dL (70-110)
--- NOTE | 2021-10-01 08:18 | PN.SURG_ITS ---
Subjective Subjective Patient denies any abdominal pain or abdominal distention currently. Denies any flatus or bowel movement, rectal tube placed last night Objective Data Objective Data Vital Signs: Vital Signs Temp Pulse Resp BP Pulse Ox 99.0 F 68 16 137/43 H 94 10/01/21 04:00 10/01/21 04:00 10/01/21 04:00 10/01/21 04:00 10/01/21 04:01 Oxygen Flow Rate (L/min) 2 Oxygen Delivery Method Nasal Cannula Weight: 183 lb 13.848 oz Body Mass Index (BMI) 29.7 Intake & Output: Intake and Output for Last 24 Hours 09/29/21 09/30/21 10/01/21 23:59 23:59 23:59 Intake Total 110 / 110 466.67 / 466.67 Output Total 200 / 200 Balance 110 / -90 266.67 / 266.67 Lab / Micro Data Result Diagrams: 10/02/21 06:10 10/02/21 06:10 Labs: Laboratory Results - last 24 hr 09/30/21 17:05: WBC 9.8, RBC 4.02 L, Hgb 12.1, Hct 36.7 L, MCV 91.3, MCH 30.1, MCHC 33.0, RDW Std Deviation 48.0 H, RDW Coeff of Tuan 14.4, Plt Count 400, MPV 8.3, Immature Gran % (Auto) 0.600, Neut % (Auto) 82.7 H, Lymph % (Auto) 8.8 L, Rooks % (Auto) 5.8, Eos % (Auto) 1.5, Baso % (Auto) 0.6, Absolute Neuts (auto) 8.1 H, Absolute Lymphs (auto) 0.86, Nucleated RBC % 0 09/30/21 17:05: Sodium 134 L, Potassium 4.5, Chloride 102, Carbon Dioxide 26.0, Anion Gap 6, BUN 18, Creatinine 1.13 H, Estim Creat Clear Calc 38.41, Est GFR (MDRD) Af Amer 60, Est GFR (MDRD) Non-Af 49 L, BUN/Creatinine Ratio 15.9, Glucose 153 H, Calcium 9.1 09/30/21 23:10: POC Glucose 104 09/30/21 23:45: Urine Color Yellow, Urine Clarity Clear, Urine pH 7.0, Ur Specific [place] 1.010, Urine Protein 15 H, Urine Glucose (UA) Normal, Urine Ketones Negative, Urine Occult Blood 25 H, Urine Nitrite Negative, Urine Bilirubin Negative, Urine Urobilinogen Normal, Ur Leukocyte Esterase 100 H, Urine RBC 0-5 SEEN, Urine WBC 10-25 SEEN, Ur Squamous Epith Cells 0-5 SEEN, Urine Bacteria RARE, Urine Mucus 0 SEEN 10/01/21 05:35: WBC 9.7, RBC 3.52 L, Hgb 10.6 L, Hct 32.3 L, MCV 91.8, MCH 30.1, MCHC 32.8, RDW Std Deviation 48.3 H, RDW Coeff of Tuan 14.5, Plt Count 363, MPV 8.4, Immature Gran % (Auto) 0.300, Neut % (Auto) 69.8, Lymph % (Auto) 16.1 L, Rooks % (Auto) 9.2, Eos % (Auto) 4.0, Baso % (Auto) 0.6, Absolute Neuts (auto) 6.7, Absolute Lymphs (auto) 1.56, Nucleated RBC % 0 10/01/21 05:35: Sodium 135 L, Potassium 4.0, Chloride 101, Carbon Dioxide 30.0, Anion Gap 4 L, BUN 16, Creatinine 1.01, Estim Creat Clear Calc 42.97, Est GFR (MDRD) Af Amer 68, Est GFR (MDRD) Non-Af 56 L, BUN/Creatinine Ratio 15.8, Glucose 100, Calcium 8.3 L, Total Bilirubin 0.30, AST 12 L, ALT 15, Alkaline Phosphatase 84, Total Protein 6.5, Albumin 3.2, Globulin 3.3, Albumin/Globulin Ratio 1.0 10/01/21 06:25: POC Glucose 97 Micro: Microbiology 09/30/21 19:30 Nasal Secretion SARS-CoV-2 Antigen (Rapid) - Final Radiography Diagnostic Testing: Radiology Impression Abdomen/Pelvis CT 09/30/21 17:58 IMPRESSION: 1. Sigmoid volvulus with probable component of obstruction. Pericolonic edema. No pneumoperitoneum. 2. Right hepatic cyst with central calcifications. ACR White Paper guidelines (Nanette et al. JACR 2017; 14(11):1692-9369.) recommend hepatic MR. Electronically Signed: Medardo Chavarria MD (Brooks) at 18:43 EST , Service support , KUB X-Ray 09/30/21 21:19 IMPRESSION: Rectal tube placed. Nondilated bowel gas pattern. Electronically Signed: Medardo Chavarria MD (Brooks) at 21:48 EST , Service support , Physical Exam Resp normal respiratory effort Cardio regular rate GI GI Narrative: Abdomen: Soft, nondistended, nontender, rectal tube in place Assessment & Plan Assessment/Plan (1) Sigmoid volvulus: PLAN: We will plan for a slow prep today with Dulcolax and MiraLAX/Gatorade. Possibly surgery tomorrow afternoon versus Saturday. Clears for today. Marisol Hunt M.D. Pager: [phone] [facility] [address] [place] [address], [facility], [address] [place] [address] Office: [phone] Charges/Coding Visit Charges Inpatient E&M: 82131 Subs Hosp L2
[2021-10-01 09:03] VITALS: BP 138/45; PULSE 58; RESP 20; TEMP 37.3; O2SAT 96
[2021-10-01] MEDS: Bisacodyl 5 MG Tablet 10 MG PO (12:15)
[2021-10-01] MEDS: Polyethylene Glycol 3350 BOWEL PREP PO (15:57)
[2021-10-01 16:01] LABS: Bedside Glucose 99 mg/dL (70-110)
--- NOTE | 2021-10-01 18:49 | PN.HOSP_ITS ---
Subjective Subjective Patient was seen and examined today, I talked with general surgery about her care, patient underwent reduction of a sigmoid volvulus yesterday, she is being prepped for surgery tomorrow. Patient has no complaints of any shortness of breath or chest discomfort at this time, I reviewed her medications and placed her on some of her home medications. I have decided not to place her back on Cardizem due to her blood pressure being somewhat low. Objective Data Objective Data Vital Signs: Vital Signs Temp Pulse Resp BP Pulse Ox 99.1 F 58 L 20 H 138/45 H 96 10/01/21 09:03 10/01/21 09:03 10/01/21 09:03 10/01/21 09:03 10/01/21 09:03 Oxygen Flow Rate (L/min) 1 Oxygen Delivery Method Nasal Cannula Weight: 83.4 kg Body Mass Index (BMI) 29.7 Intake & Output: Intake and Output for Last 24 Hours 09/29/21 09/30/21 10/01/21 23:59 23:59 23:59 Intake Total 110 / 110 1576.67 / 1576.67 Output Total 400 / 400 Balance 110 / -90 1176.67 / 1176.67 Lab / Micro Data Result Diagrams: 10/01/21 05:35 10/01/21 05:35 Labs: Laboratory Results - last 24 hr 09/30/21 23:10: POC Glucose 104 09/30/21 23:45: Urine Color Yellow, Urine Clarity Clear, Urine pH 7.0, Ur Specific [place] 1.010, Urine Protein 15 H, Urine Glucose (UA) Normal, Urine Ketones Negative, Urine Occult Blood 25 H, Urine Nitrite Negative, Urine Bilirubin Negative, Urine Urobilinogen Normal, Ur Leukocyte Esterase 100 H, Urine RBC 0-5 SEEN, Urine WBC 10-25 SEEN, Ur Squamous Epith Cells 0-5 SEEN, Urine Bacteria RARE, Urine Mucus 0 SEEN 10/01/21 05:35: WBC 9.7, RBC 3.52 L, Hgb 10.6 L, Hct 32.3 L, MCV 91.8, MCH 30.1, MCHC 32.8, RDW Std Deviation 48.3 H, RDW Coeff of Tuan 14.5, Plt Count 363, MPV 8.4, Immature Gran % (Auto) 0.300, Neut % (Auto) 69.8, Lymph % (Auto) 16.1 L, [place] % (Auto) 9.2, Eos % (Auto) 4.0, Baso % (Auto) 0.6, Absolute Neuts (auto) 6.7, Absolute Lymphs (auto) 1.56, Nucleated RBC % 0 10/01/21 05:35: Sodium 135 L, Potassium 4.0, Chloride 101, Carbon Dioxide 30.0, Anion Gap 4 L, BUN 16, Creatinine 1.01, Estim Creat Clear Calc 42.97, Est GFR (MDRD) Af Amer 68, Est GFR (MDRD) Non-Af 56 L, BUN/Creatinine Ratio 15.8, Glucose 100, Calcium 8.3 L, Total Bilirubin 0.30, AST 12 L, ALT 15, Alkaline Phosphatase 84, Total Protein 6.5, Albumin 3.2, Globulin 3.3, Albumin/Globulin Ratio 1.0 10/01/21 06:25: POC Glucose 97 10/01/21 12:21: POC Glucose 99 Micro: Microbiology 09/30/21 19:30 Nasal Secretion SARS-CoV-2 Antigen (Rapid) - Final Radiography Diagnostic Testing: Radiology Impression KUB X-Ray 09/30/21 21:19 IMPRESSION: Rectal tube placed. Nondilated bowel gas pattern. Electronically Signed: Medardo Chavarria MD (Brooks) at 21:48 EST , Service support , Physical Exam Const alert, oriented x3 and no apparent distress General Appearance: cooperative, well kempt and well developed Orientation / Consciousness: awake, oriented to person, oriented to place and or iented to time HEENT normocephalic, head/scalp atraumatic and moist oral mucous membranes Head and Scalp: normocephalic Eyes PERRL, EOMs intact bilaterally and conjunctivae normal Neck nuchal rigidity, supple, no JVD, thyroid normal and no carotid bruits General: trachea midline Resp normal respiratory effort, no retractions, no use of accessory muscles and clear to auscultation bilaterally Auscultation: Negative for rales, rhonchi or wheezes Cardio regular rate, regular rhythm, S1 normal heart sound, S2 normal heart sound, no murmurs, no rub and no gallops GI normal to inspection, nondistended, normoactive bowel sounds, soft to palpation, non-tender and non-distended Extremity no clubbing, cyanosis or edema Skin no rashes or lesions noted General Skin Exam: no breakdown Neuro oriented x3, CN's II-XII intact bilaterally, no focal motor deficits and no sensory deficits noted Sensorium / Orientation: awake and alert Speech: speech normal Psych thought process normal and affect normal Assessment & Plan Assessment/Plan (1) Sigmoid volvulus: PLAN: 1. Essential hypertension-I have adjusted the patient since at this time, again I have dropped off her Cardizem due to concerns of low blood pressure #2 hyperlipidemia-patient is on Lipitor #3 hypothyroidism #4 type 2 diabetes-blood sugars will be monitored, sliding scale insulin will be used #5 sigmoid volvulus-patient will undergo surgery tomorrow, patient appears medically stable at this time Charges/Coding Visit Charges Inpatient E&M: 78158 Subs Hosp L2
[2021-10-01 19:06] VITALS: BP 152/59; PULSE 75; RESP 20; TEMP 37.4; O2SAT 94
[2021-10-01 19:11] LABS: Bedside Glucose 137 mg/dL (70-110)
[2021-10-01 21:08] VITALS: BP 158/59; PULSE 71; RESP 18; TEMP 37.2; O2SAT 95
[2021-10-01] MEDS: Labetalol 100 MG Tablet 300 MG PO (21:12)
[2021-10-01] MEDS: Gabapentin 100 MG Capsule PO (21:13)
[2021-10-01] MEDS: diazePAM 2 MG Tablet PO (21:13)
[2021-10-01] MEDS: Atorvastatin Calcium 20 MG Tablet PO (21:13)
--- NOTE | 2021-10-01 22:04 | NURSING ---
rectal tube was removed while pt was having a bowel movement. dr swain notified.
--- NOTE | 2021-10-01 22:05 | PCS.PANDOC ---
PANDEMIC DOCUMENTATION INITIATED: Date: 10/01/2021 Time: 1900
[2021-10-02] MEDS: Menthol/Lanolin/Calamine/Znox 113 GM Tube 1 APPLIC TOPICAL ×4 (00:02→22:05)
[2021-10-02 00:10] LABS: Bedside Glucose 98 mg/dL (70-110)
[2021-10-02 05:09] VITALS: BP 141/61; PULSE 61; RESP 18; TEMP 37; O2SAT 96
[2021-10-02] MEDS: Levothyroxine 88 MCG Tablet PO (06:00)
[2021-10-02 06:06] LABS: Bedside Glucose 102 mg/dL (70-110)
[2021-10-02 06:35] LABS: Absolute Lymphocyte Count 1.58 X10^3/uL (0.83-4.51); Basophil# 0.07 X10^3/uL; Basophil% 0.8 % (0-1); Eosinophil# 0.44 X10^3/uL; Hematocrit 35.4 % (37-47); Lymphocyte # 1.58 X10^3/ul (0.83-4.51); Lymphocyte % 17.8 % (19-41); Mean Corp Hgb Conc 31.1 g/dL (32-36); Mean Corpuscular Hgb 29.5 pg (27.0-32.0); Mean Corpuscular Volume 94.9 fL (81-99); Mean Platelet Vol. 8.4 fl (6.2-12.0); Monocyte# 0.81 X10^3/uL; Monocyte% 9.1 % (0-10); NRBC Flagged by Analyzer 0 % (0-5); Neutrophil # 5.95 X10^3/uL (2.7-7.7); Platelet Count 366 K/mm3 (150-450); RBC Distribution Width CV 14.3 % (11.6-14.6); RBC Distribution Width SD 49.8 fl (35.1-43.9); Red Blood Count 3.73 M/mm3 (4.2-5.4); White Blood Count 8.9 K/mm3 (4.4-11.0)
--- NOTE | 2021-10-02 06:38 | EKG12_ITS ---
Test Reason : AM EKG Blood Pressure : / mmHG Vent. Rate : 068 BPM Atrial Rate : 068 BPM P-R Int : 190 ms QRS Dur : 086 ms QT Int : 288 ms P-R-T Axes : 040 -20 129 degrees QTc Int : 306 ms Normal sinus rhythm Septal infarct , age undetermined Abnormal ECG When compared with ECG of 30-SEP-2021 19:36, MANUAL COMPARISON REQUIRED, DATA IS UNCONFIRMED Confirmed by KP CORONA, KRISTINA ([id number]), book or script editor NELSON GRUBBS ([id number]) on 10/03/2021 1:56:54 PM Referred By: JUNITO Confirmed By:KRISTINA GOODRICH MD
[2021-10-02 06:56] LABS: Anion Gap 5 (5-15); BUN 11 mg/dL (7-18); Calcium,Total 8.4 mg/dL (8.5-10.1); Chloride 101 mmol/L (98-107); Creatinine, Serum 0.91 mg/dL (0.55-1.02); EST Glomerular Filtration Rate 63 mL/min (>60); Est Glom Filt Rate - Afr Amer 77 mL/min (>60); Glucose 109 mg/dL (74-106); Potassium 3.7 mmol/L (3.5-5.1); Sodium Level 137 mmol/L (136-145)
[2021-10-02 07:45] LABS: Thyroid Stim Hormone (TSH) 2.09 uIU/mL (0.358-3.74)
--- NOTE | 2021-10-02 08:19 | PN.SURG_ITS ---
Subjective Subjective Patient rectal tube did follow with a large bowel movement with the prep. Patient denies any abdominal pain nausea or vomiting. Objective Data Objective Data Vital Signs: Vital Signs Temp Pulse Resp BP Pulse Ox 98.6 F 61 18 141/61 H 96 10/02/21 05:09 10/02/21 05:09 10/02/21 05:09 10/02/21 05:09 10/02/21 05:09 Oxygen Flow Rate (L/min) 1 Oxygen Delivery Method Room Air Weight: 183 lb 13.848 oz Body Mass Index (BMI) 29.7 Intake & Output: Intake and Output for Last 24 Hours 09/30/21 10/01/21 10/02/21 23:59 23:59 23:59 Intake Total 110 / 110 2406.67 / 2406.67 Output Total 1340 / 1340 Balance 110 / -90 1066.67 / 1066.67 Lab / Micro Data Result Diagrams: 10/02/21 06:10 10/02/21 06:10 Labs: Laboratory Results - last 24 hr 10/01/21 12:21: POC Glucose 99 10/01/21 18:51: POC Glucose 137 H 10/02/21 00:03: POC Glucose 98 10/02/21 05:59: POC Glucose 102 10/02/21 06:10: WBC 8.9, RBC 3.73 L, Hgb 11.0 L, Hct 35.4 L, MCV 94.9, MCH 29.5, MCHC 31.1 L D, RDW Std Deviation 49.8 H, RDW Coeff of Tuan 14.3, Plt Count 366, MPV 8.4, Immature Gran % (Auto) 0.300, Neut % (Auto) 67.0, Lymph % (Auto) 17.8 L , Mccone % (Auto) 9.1, Eos % (Auto) 5.0, Baso % (Auto) 0.8, Absolute Neuts (auto) 6.0, Absolute Lymphs (auto) 1.58, Nucleated RBC % 0 10/02/21 06:10: Sodium 137, Potassium 3.7, Chloride 101, Carbon Dioxide 31.0, Anion Gap 5, BUN 11, Creatinine 0.91, Estim Creat Clear Calc 47.70, Est GFR (MDRD) Af Amer 77, Est GFR (MDRD) Non-Af 63, BUN/Creatinine Ratio 12.0, Glucose 109 H, Calcium 8.4 L 10/02/21 06:10: TSH 2.09 Micro: Microbiology 09/30/21 19:30 Nasal Secretion SARS-CoV-2 Antigen (Rapid) - Final Physical Exam Const oriented x3 and no apparent distress Resp normal respiratory effort Cardio regular rate GI soft to palpation and non-tender Inspection: Negative for abdominal distention Assessment & Plan Assessment/Plan (1) Sigmoid volvulus: PLAN: Continue clears patient still is having some brown stools. Plan for laparoscopic sigmoidectomy, possible open tomorrow 7:30 AM. Patient no further question this time. Marisol Hunt M.D. Pager: [phone] [facility] [address] [place] [address], [facility], [address] [place] [address] Office: [phone]
--- NOTE | 2021-10-02 08:26 | PCS.PANDOC ---
PANDEMIC DOCUMENTATION INITIATED: Date: 06/26/2021 Time: 190
[2021-10-02] MEDS: Labetalol 100 MG Tablet 300 MG PO ×2 (08:58→20:02)
[2021-10-02] MEDS: Sertraline 100 MG Tablet PO (08:58)
[2021-10-02] MEDS: Losartan Potassium 100 MG Tablet PO (08:58)
[2021-10-02 09:32] LABS: Hemoglobin A1c 6.2 % (3.8-5.6)
--- NOTE | 2021-10-02 10:43 | PN.HOSP_ITS ---
Subjective Subjective Issues overnight. Had a bowel movement with the prep. Plan for laparoscopic sigmoidectomy in the morning secondary to her volvulus Objective Data Objective Data Vital Signs: Vital Signs Temp Pulse Resp BP Pulse Ox 98.6 F 61 18 141/61 H 96 10/02/21 05:09 10/02/21 05:09 10/02/21 05:09 10/02/21 05:09 10/02/21 05:09 Oxygen Flow Rate (L/min) 1 Oxygen Delivery Method Room Air Weight: 183 lb 13.848 oz Body Mass Index (BMI) 29.7 Intake & Output: Intake and Output for Last 24 Hours 10/01/21 10/02/21 10/03/21 03:59 03:59 03:59 Intake Total 576.67 / 576.67 1940.00 / 1940.00 110 / 110 Output Total 200 / 200 1140 / 1140 Balance 376.67 / 376.67 800.00 / 800.00 110 / 110 Lab / Micro Data Result Diagrams: 10/02/21 06:10 10/02/21 06:10 Labs: Laboratory Results - last 24 hr 10/01/21 12:21: POC Glucose 99 10/01/21 18:51: POC Glucose 137 H 10/02/21 00:03: POC Glucose 98 10/02/21 05:59: POC Glucose 102 10/02/21 06:10: WBC 8.9, RBC 3.73 L, Hgb 11.0 L, Hct 35.4 L, MCV 94.9, MCH 29.5, MCHC 31.1 L D, RDW Std Deviation 49.8 H, RDW Coeff of Tuan 14.3, Plt Count 366, MPV 8.4, Immature Gran % (Auto) 0.300, Neut % (Auto) 67.0, Lymph % (Auto) 17.8 L , [place] % (Auto) 9.1, Eos % (Auto) 5.0, Baso % (Auto) 0.8, Absolute Neuts (auto) 6.0, Absolute Lymphs (auto) 1.58, Nucleated RBC % 0 10/02/21 06:10: Sodium 137, Potassium 3.7, Chloride 101, Carbon Dioxide 31.0, Anion Gap 5, BUN 11, Creatinine 0.91, Estim Creat Clear Calc 47.70, Est GFR (MDRD) Af Amer 77, Est GFR (MDRD) Non-Af 63, BUN/Creatinine Ratio 12.0, Glucose 109 H, Calcium 8.4 L 10/02/21 06:10: TSH 2.09 10/02/21 06:10: Hemoglobin A1c 6.2 H Micro: Microbiology 09/30/21 19:30 Nasal Secretion SARS-CoV-2 Antigen (Rapid) - Final Physical Exam Const alert, oriented x3 and no apparent distress General Appearance: cooperative HEENT normocephalic and moist oral mucous membranes Eyes PERRL, EOMs intact bilaterally and conjunctivae normal Neck supple and no JVD Resp normal respiratory effort, no retractions, no use of accessory muscles and clear to auscultation bilaterally Auscultation: Negative for crackles, rales, rhonchi or wheezes Cardio regular rate, regular rhythm, S1 normal heart sound, S2 normal heart sound and no murmurs GI soft to palpation, non-tender and non-distended; Negative for hepatosplenomegaly Extremity no clubbing, cyanosis or edema Skin no rashes or lesions noted Neuro no focal motor deficits and no sensory deficits noted Psych affect normal Appearance: appropriate Assessment & Plan Assessment/Plan (1) Sigmoid volvulus: PLAN: 1. Bowel obstruction secondary to sigmoid volvulus -Continue with clear liquid diet, she is having bowel movements and has a rectal tube in place -Plan for operative repair in the morning laparoscopic versus possible open sigmoidectomy ?Continue with IV fluids 2. HTN/HLD ?Blood pressure stable ?Her home Cardizem and hydrochlorothiazide have been discontinued secondary to some low blood pressures, continue with her losartan and labetalol ?Continue with statin 3. DM2 ?Hold her home Metformin ?Continue with sliding scale insulin ?Accu-Cheks AC at bedtime, will make adjustments as necessary 4. Hypothyroidism ?Stable ?Continue with Synthroid 5. GERD ?Stable ?Continue with PPI DVT: SCDs Charges/Coding Visit Charges Inpatient E&M: 97201 Subs Hosp L2
[2021-10-02 11:00] VITALS: BP 165/65; PULSE 70; RESP 16; TEMP 36.6; O2SAT 92
[2021-10-02] MEDS: oxyCODONE 5 MG Tablet PO (12:08)
[2021-10-02] MEDS: QUEtiapine 25 MG Tablet PO (12:08)
[2021-10-02 12:15] LABS: Bedside Glucose 107 mg/dL (70-110)
--- NOTE | 2021-10-02 14:17 | CASEMGMT ---
Social Work Note JENNIFER reviewed chart. Pt is listed as being from [facility]. SW in to speak with pt. SW introduced self and role at [facility]. Pt confirms she came from [facility] and plans to return. SW informed pt that this worker will keep [facility] updated. SW went to leave the room then and pt states you're a SW and that's all you wanted, aren't you supposed to talk to me. SW informed pt that this worker can talk with her and asked pt what she wanted to talk about. Pt states never mind. SW again asked pt if there was something she wanted to talk about and pt denied. SW informed pt that if she changes her mind to let this worker know and this worker can talk to her. Pt states understanding. JENNIFER placed a call to Jacinta in admissions at [facility]. 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 JENNIFER faxed updated clinicals to [facility]. Plan: Return to [facility] alf when medically cleared Leila Lopez PINION AND WHEEL TRUER, LIVING SUPERVISOR
[2021-10-02 17:25] LABS: Bedside Glucose 97 mg/dL (70-110)
[2021-10-02 17:41] VITALS: BP 160/66; PULSE 68; RESP 16; TEMP 36.9; O2SAT 92
[2021-10-02 19:56] VITALS: BP 175/68; PULSE 64; RESP 18; TEMP 37.3; O2SAT 94
[2021-10-02] MEDS: Atorvastatin Calcium 20 MG Tablet PO (22:05)
[2021-10-02] MEDS: Gabapentin 100 MG Capsule PO (22:06)
[2021-10-02] MEDS: diazePAM 2 MG Tablet PO (22:07)
[2021-10-03] VITALS (11 sets, daily range): BP systolic 150–185; BP diastolic 57–82; PULSE 61–78; RESP 13–18; TEMP 35.8–37.4; O2SAT 95–98; BMI 29.5
--- NOTE | 2021-10-03 | COL_PTH ---
PATIENT: REHAN DUNLAP LOC: MS3 U#:[id number] AGE/SX: 76/F ROOM: [facility] [place]: Dr. Quoc Saab DO : 1945 BED: 1 DIS: 10/09/2021 SPEC #: [id number] RECD: 10/03/21 11:44 STATUS: LINDA REQ #: [id number] KAYLIN: 10/03/21 00:[address]: Marisol Hunt DEPT: SURGICAL PATHOLOGY RECD BY: Augusto Pedraza ENTERED: 10/03/21 11:45 SP TYPE: COLON OTHR DR: MD Dr. Linwood Rubio DO Dr. Nicholas F Kotsonis, MD Dr. Tamera Robotham, MD Tissues: A - Colon, NOS B - Colon Donuts C - Colon Donuts Procedures: Surgery Specimen Level III Surgery Specimen Level V Comments: @ Ordering doctor for SUIII edited from to DR.TROBOT Sutton by TYRESE at 10/03/211705 @ Ordering doctor for SUV edited from to @ by TYRESE at 10/03/21 170 @ Submitting doctor edited from to DR.TROBOT Sutton by TYRESE at 10/03/211705 HEADER OPERATION: Laparoscopic sigmoid colectomy PRE-OP DIAGNOSIS: Sigmoid volvulus TISSUE SUBMITTED: A ? Sigmoid colon ? distal is staple line, B ? Distal (rectal) donut, C ? Proximal (sigmoid) donut MICROSCOPIC DIAGNOSIS A ? Sigmoid colon, colectomy: Dilated segment of colon, consistent with clinical diagnosis of volvulus. Diverticulosis. B ? Distal (rectal) donut: Colonic donut with focal mucosal congestion and hemorrhage. C ? Proximal (sigmoid) donut: Colonic donut, no pathologic diagnosis. 10/06/21 MICROSCOPIC DESCRIPTION Slides are reviewed. GROSS DESCRIPTION A - Received in fixative is one container labeled with the patient's name and designated sigmoid colon - distal is the staple line. The specimen consists of a segment of colon measuring 40 cm in length. 27 cm segment of colon is dilated and measures up to 9 cm in diameter. The rest of the colon measures 2.5 cm in diameter. Staple line is identified as distal margin. The lumen contains a small amount of fecal material. No mucosal lesion is identified. The mucosa is flattened without any mucosal fold in the dilated portion of the bowel. Sections will be submitted after fixation. / : 10/03/2021 Sections of non-dilated segment reveal multiple diverticula. No ruptured diverticula are identified. Sections of the pericolonic adipose tissue do not reveal any obviously enlarged lymph nodes. . Direct Chill Casting Operator sections are submitted in six cassettes as follows: 1- resection margins, distal margin, inked black, 2 ? dilated segment of colon, 3 to 5 diverticula, 6 pericolonic adipose tissue. 10/04/21 B - Received in fixative is one container labeled with the patient's name and designated distal (///rectal) donut. The specimen consists of a donut-shaped piece of colonic tissue measuring 2 x 1.5 x 0.5 cm. Multiple mendoza are noted. The mucosa is congested. Direct Chill Casting Operator sections are submitted in one cassette. / : 10/03/2021 C - Received in fixative is one container labeled with the patient's name and designated proximal (sigmoid) donut. The specimen consists of a donut-shaped piece of colonic tissue measuring 1.5 x 1.5 x 1 cm. Multiple sutures are noted. Direct Chill Casting Operator sections are submitted in one cassette. / : 10/03/2021 TC:5 CPT: 68186, [id number]
[2021-10-03 00:36] LABS: Bedside Glucose 98 mg/dL (70-110)
[2021-10-03] MEDS: Labetalol 100 MG Tablet 300 MG PO ×2 (05:24→23:04)
[2021-10-03] MEDS: Morphine 2 MG/ML Syringe IV ×2 (05:25→14:03)
[2021-10-03] MEDS: 0.9% Saline Lock 10 ML Syringe IV (05:25)
[2021-10-03] MEDS: Menthol/Lanolin/Calamine/Znox 113 GM Tube 1 APPLIC TOPICAL ×3 (05:26→23:03)
[2021-10-03 06:20] LABS: Bedside Glucose 87 mg/dL (70-110)
[2021-10-03 06:36] LABS: Absolute Lymphocyte Count 1.37 X10^3/uL (0.83-4.51); Absolute Neutrophil Count 5.8 X10^3/uL (2.0-7.7); Basophil# 0.05 X10^3/uL; Basophil% 0.6 % (0-1); Eosinophil# 0.49 X10^3/uL; Eosinophils% 5.7 % (0-5); Hematocrit 33.4 % (37-47); Hemoglobin 10.5 g/dL (12.0-15.0); Lymphocyte # 1.37 X10^3/ul (0.83-4.51); Mean Corp Hgb Conc 31.4 g/dL (32-36); Mean Corpuscular Hgb 29.6 pg (27.0-32.0); Mean Corpuscular Volume 94.1 fL (81-99); Mean Platelet Vol. 8.3 fl (6.2-12.0); Monocyte# 0.81 X10^3/uL; Monocyte% 9.5 % (0-10); NRBC Flagged by Analyzer 0 % (0-5); Neutrophil % 67.7 % (47-70); Platelet Count 352 K/mm3 (150-450); RBC Distribution Width CV 14.2 % (11.6-14.6); RBC Distribution Width SD 47.9 fl (35.1-43.9); Red Blood Count 3.55 M/mm3 (4.2-5.4); White Blood Count 8.6 K/mm3 (4.4-11.0)
[2021-10-03 06:59] LABS: Anion Gap 6 (5-15); BUN 10 mg/dL (7-18); BUN/Creat Ratio 11.6 RATIO (10-20); Calcium,Total 8.5 mg/dL (8.5-10.1); Chloride 101 mmol/L (98-107); Creatinine, Serum 0.86 mg/dL (0.55-1.02); EST Glomerular Filtration Rate 67 mL/min (>60); Est Glom Filt Rate - Afr Amer 81 mL/min (>60); Estimated Creatinine Clearance 50.47 ml/min; Glucose 91 mg/dL (74-106); Potassium 3.5 mmol/L (3.5-5.1); Sodium Level 137 mmol/L (136-145)
[2021-10-03] MEDS: Lactated Ringers 1,000 ML 75 ML IV ×3 (07:30→22:30)
[2021-10-03] MEDS: Lubricating Jelly 60 GM Tube 30 GM (09:00)
[2021-10-03] MEDS: Bupivacaine 0.25% 30 ML Vial (09:45)
--- NOTE | 2021-10-03 09:49 | PCM.OPRPT ---
Report of Operation Date of Procedure: 10/03/21 Pre-Operative Diagnosis: Sigmoid volvulus Post-Operative Diagnosis: Same Surgery/Procedure Performed:: Laparoscopic sigmoidectomy Surgeon: Marisol Hunt Type of Anesthesia: General/Supplemental Anesthesiologist: Feliz Boo Special Medications: Cefotetan 2 g IV x1 Specimen's removed: Sigmoid colon, proximal donut, distal donut Estimated Blood Loss (mL): 20 cc Fluids Replaced: 1000 cc Description of Procedure: Indications this is a 76-year-old female who initially presented to the ER with a sigmoid volvulus this was decompressed with flex sigmoidoscopy and a rectal tube. Patient was able to do bowel prep. Laparoscopic sigmoidectomy was elected. Description procedure: The patient was placed on operating table in low lithotomy position with appropriate padding. General Anesthesia was induced. Reynolds catheter was placed?urine appeared cloudy urine culture and UA were sent off. A timeout was completed verifying correct patient, procedure, site, position, social, and special equipment prior to beginning procedure. The rectum was irrigated with Betadine solution. The abdomen was prepped and draped in usual sterile fashion. An incision was made in the natural skin line above the umbilicus. The fascia was elevated and incised. The peritoneum was elevated and incised. Entry into the peritoneum was confirmed visually and no bowel was noted in the vicinity of the incision. Shea trocar was placed. The abdomen was insufflated with carbon dioxide to a pressure of 12-15 mmHg. Patient tolerated insufflation well. The laparoscope was then inserted and abdomen inspected. No injuries from initial trocar placement were noted. Additional trochars were then inserted in the following locations 5 mm trocar in the right lower quadrant and another in the right mid lateral abdomen. The abdomen was inspected there is noted to be redundant sigmoid colon. The table is placed in Trendelenburg position with the left side up. The junction of the rectosigmoid colon was identified and was circumferential dissected. The right lower quadrant trocar was enlarged to accommodate the 12 mm trocar for the stapler. The [place] 60 regular load stapler was used to divide the colon at the rectosigmoid junction. The sigmoid mesentery was divided using the Enseal. Due to the redundant sigmoid colon minimal mobilization was needed. The area of proximal sigmoid colon plan for the anastomosis appeared normal/viable. Small inferior midline incision was made to remove the sigmoid colon and wound protector was placed.. The proximal sigmoid colon was cut using scissors, good blood supply to edges. 29 sizer fit easily in the colon. Anvil was sutured in place with 1 Prolene. The 29 EEA stapler was introduced to the rectum brought up to the staple line. Was opened and the anvil was attached after ensuring the mesentery was not twisted and there was no tension. The stapler was closed carefully making sure nothing was caught in the stapler. Stapler was fired and carefully removed. 2 complete donuts were removed from the stapler. A leak test with air was completed-- did not show any bubbles. Wound protector was removed and all gowns and gloves were changed. The supraumbilical as well as right lower quadrant port sites were closed with [id number] 0 Vicryl suture. The lower midline incision fascia was closed with a running 1 PDS. All wounds were irrigated. Skin was closed with Monocryl. Telfa and OpSite were placed. Sponge and instrument counts were correct at the end of case. The patient was extubated. The patient tolerated procedure well and was taken to the postanesthesia care unit in stable condition. Complications none
[2021-10-03 10:33] LABS: Mucous, Urine 0 SEEN /hpf (<or=2+)
--- NOTE | 2021-10-03 10:35 | CASEMGMT ---
Social Work Note Per inside sales questions, pt has completed HCPOA but not LW. Pt states she has not provided copy of HCPOA to [facility] and pt is unable to bring in copy. Leila Lopez BUSINESS MACHINES TEACHER, SHOTGUN SHELL ASSEMBLY MACHINE OPERATOR
--- NOTE | 2021-10-03 10:48 | CASEMGMT ---
Social Work Note Pt not medically cleared for discharge. SW ordered PT/OT as SNF may want to get registered medical transcriptionist. SW faxed updated clinicals to [facility]. Plan: Return to [facility] when medically cleared Leila Lopez MSW, SLITTER PROCESSED FILM
[2021-10-03 11:04] LABS: Color, Urine Yellow (Yellow); Glucose, Dipstick Normal (Normal); Ketone-Dipstick Negative (Negative); Leukocyte Esterase-Dipstick 500 /ul (Negative); Nitrite-Dipstick Positive (Negative); Occult Blood-Urine 150 /ul (Negative); Protein-Dipstick 100 mg/dl (Negative); Specific Gravity, Urine 1.015 (1.002-1.030); Urine Bilirubin Dipstick Negative (Negative); Urine Clarity Turbid (Clear); Urine Urobilinogen Normal (Normal)
[2021-10-03 11:13] LABS: Bacteria 2+ /hpf (None Seen); Red Blood Cells-Urine 10-25 SEEN /hpf (0-5); Squamous Epithelial Cells - UA 0-5 SEEN /hpf (5-10); White Blood Cells 50-100 SEEN /hpf (0-5)
--- NOTE | 2021-10-03 11:34 | PN.HOSP_ITS ---
Subjective Subjective No issues overnight. Yesterday she was little bit agitated but that improved with some Seroquel Objective Data Objective Data Vital Signs: Vital Signs Temp Pulse Resp BP Pulse Ox 96.4 F L 66 13 176/75 H 97 10/03/21 11:00 10/03/21 11:00 10/03/21 11:00 10/03/21 11:00 10/03/21 11:00 Oxygen Flow Rate (L/min) 2 Oxygen Delivery Method Nasal Cannula Weight: 183 lb 13.848 oz Body Mass Index (BMI) 29.5 Intake & Output: Intake and Output for Last 24 Hours 10/02/21 10/03/21 10/04/21 03:59 03:59 03:59 Intake Total 1940.00 / 1940.00 710 / 710 1120 / 1120 Output Total 1140 / 1140 0 / 0 275 / 275 Balance 800.00 / 800.00 710 / 710 845 / 845 Lab / Micro Data Result Diagrams: 10/03/21 06:06 10/03/21 06:06 Labs: Laboratory Results - last 24 hr 10/02/21 12:04: POC Glucose 107 10/02/21 17:21: POC Glucose 97 10/03/21 00:29: POC Glucose 98 10/03/21 06:06: WBC 8.6, RBC 3.55 L, Hgb 10.5 L, Hct 33.4 L, MCV 94.1, MCH 29.6, MCHC 31.4 L, RDW Std Deviation 47.9 H, RDW Coeff of Tuan 14.2, Plt Count 352, MPV 8.3, Immature Gran % (Auto) 0.500, Neut % (Auto) 67.7, Lymph % (Auto) 16.0 L, [place] % (Auto) 9.5, Eos % (Auto) 5.7 H, Baso % (Auto) 0.6, Absolute Neuts (auto) 5.8, Absolute Lymphs (auto) 1.37, Nucleated RBC % 0 10/03/21 06:06: Sodium 137, Potassium 3.5, Chloride 101, Carbon Dioxide 30.0, Anion Gap 6, BUN 10, Creatinine 0.86, Estim Creat Clear Calc 50.47, Est GFR (MDRD) Af Amer 81, Est GFR (MDRD) Non-Af 67, BUN/Creatinine Ratio 11.6, Glucose 91, Calcium 8.5 10/03/21 06:06: POC Glucose 87 10/03/21 : Urine Color Yellow, Urine Clarity Turbid, Urine pH 7.0, Ur Specific [place] 1.015, Urine Protein 100 H, Urine Glucose (UA) Normal, Urine Ketones Negative, Urine Occult Blood 150 H, Urine Nitrite Positive H, Urine Bilirubin Negative, Urine Urobilinogen Normal, Ur Leukocyte Esterase 500 H, Urine RBC 10- 25 SEEN, Urine WBC 50-100 SEEN, Ur Squamous Epith Cells 0-5 SEEN, Urine Bacteria 2+, Urine Mucus 0 SEEN Micro: Microbiology 09/30/21 19:30 Nasal Secretion SARS-CoV-2 Antigen (Rapid) - Final Physical Exam Narrative Const alert, oriented x3 and no apparent distress General Appearance: cooperative HEENT normocephalic and moist oral mucous membranes Eyes PERRL, EOMs intact bilaterally and conjunctivae normal Neck supple and no carotid bruits Resp normal respiratory effort, no retractions, no use of accessory muscles and clear to auscultation bilaterally Auscultation: Negative for crackles, rales, rhonchi or wheezes Cardio regular rate, regular rhythm, S1 normal heart sound, S2 normal heart sound and no murmurs GI soft to palpation, non-tender and non-distended; Negative for hepatosplenomegaly Extremity no clubbing, cyanosis or edema Skin no rashes or lesions noted Neuro no focal motor deficits and no sensory deficits noted Psych affect normal Appearance: appropriate Assessment & Plan Assessment/Plan (1) Sigmoid volvulus: PLAN: 1. Bowel obstruction secondary to sigmoid volvulus -N.p.o. for surgery, pain management per primary ?Continue with IV fluids ?PT/OT for evaluation for possible placement 2. HTN/HLD ?Blood pressure stable ?Her home Cardizem and hydrochlorothiazide have been discontinued secondary to some low blood pressures, continue with her losartan and labetalol ?Continue with statin 3. DM2 ?Hold her home Metformin ?Continue with sliding scale insulin ?Accu-Cheks AC at bedtime, will make adjustments as necessary 4. Hypothyroidism ?Stable ?Continue with Synthroid 5. GERD ?Stable ?Continue with PPI DVT: SCDs Charges/Coding Visit Charges Inpatient E&M: 95479 Subs Hosp L2
[2021-10-03 12:00] LABS: Bedside Glucose 131 mg/dL (70-110)
[2021-10-03] MEDS: Losartan Potassium 100 MG Tablet PO (13:54)
[2021-10-03] MEDS: Sertraline 100 MG Tablet PO (13:54)
[2021-10-03] MEDS: Ceftriaxone 1 GM/50 ML BAG IV (14:04)
[2021-10-03] MEDS: Ondansetron 4 MG/2 ML Vial IV (14:09)
--- NOTE | 2021-10-03 14:20 | CASEMGMT ---
Social Work SW met with pt and introduced self. Pt previous inquired about speaking to a SW. At this time pt denies any needs or desire to speak to a SW. SW will remain available should needs arise. ESTEBAN Calvert
[2021-10-03 16:51] LABS: Bedside Glucose 117 mg/dL (70-110)
[2021-10-03] MEDS: oxyCODONE 5 MG Tablet PO (20:24)
[2021-10-03] MEDS: Gabapentin 100 MG Capsule PO (23:05)
[2021-10-03] MEDS: Atorvastatin Calcium 20 MG Tablet PO (23:05)
[2021-10-03 23:11] LABS: Bedside Glucose 82 mg/dL (70-110)
[2021-10-03] MEDS: diazePAM 2 MG Tablet PO (23:55)
[2021-10-04 00:06] VITALS: BP 164/86; PULSE 77; RESP 18; TEMP 36.5; O2SAT 98
[2021-10-04] MEDS: oxyCODONE 5 MG Tablet PO ×4 (01:28→19:10)
[2021-10-04 02:02] LABS: Absolute Lymphocyte Count 1.29 X10^3/uL (0.83-4.51); Absolute Neutrophil Count 11.5 X10^3/uL (2.0-7.7); Basophil# 0.04 X10^3/uL; Basophil% 0.3 % (0-1); Eosinophil# 0.05 X10^3/uL; Eosinophils% 0.4 % (0-5); Hematocrit 31.5 % (37-47); Lymphocyte # 1.29 X10^3/ul (0.83-4.51); Lymphocyte % 9.2 % (19-41); Mean Corp Hgb Conc 31.7 g/dL (32-36); Mean Corpuscular Hgb 29.9 pg (27.0-32.0); Mean Platelet Vol. 8.6 fl (6.2-12.0); Monocyte# 1.05 X10^3/uL; Monocyte% 7.5 % (0-10); NRBC Flagged by Analyzer 0 % (0-5); Neutrophil # 11.46 X10^3/uL (2.7-7.7); Platelet Count 344 K/mm3 (150-450); RBC Distribution Width SD 47.9 fl (35.1-43.9); Red Blood Count 3.35 M/mm3 (4.2-5.4)
[2021-10-04 05:18] VITALS: BP 145/49; PULSE 69; RESP 18; TEMP 36.7; O2SAT 92
[2021-10-04] MEDS: Menthol/Lanolin/Calamine/Znox 113 GM Tube 1 APPLIC TOPICAL ×3 (05:28→20:18)
[2021-10-04] MEDS: Levothyroxine 88 MCG Tablet PO (05:28)
[2021-10-04 05:46] LABS: Bedside Glucose 85 mg/dL (70-110)
[2021-10-04 06:54] LABS: Absolute Lymphocyte Count 1.62 X10^3/uL (0.83-4.51); Basophil# 0.04 X10^3/uL; Basophil% 0.3 % (0-1); Eosinophil# 0.14 X10^3/uL; Eosinophils% 1.2 % (0-5); Hematocrit 27.5 % (37-47); Hemoglobin 8.9 g/dL (12.0-15.0); Lymphocyte # 1.62 X10^3/ul (0.83-4.51); Lymphocyte % 13.8 % (19-41); Mean Corp Hgb Conc 32.4 g/dL (32-36); Mean Corpuscular Hgb 30.4 pg (27.0-32.0); Mean Corpuscular Volume 93.9 fL (81-99); Mean Platelet Vol. 8.2 fl (6.2-12.0); Monocyte% 7.7 % (0-10); NRBC Flagged by Analyzer 0 % (0-5); Neutrophil # 8.98 X10^3/uL (2.7-7.7); Neutrophil % 76.7 % (47-70); Platelet Count 308 K/mm3 (150-450); RBC Distribution Width CV 14.3 % (11.6-14.6); RBC Distribution Width SD 48.9 fl (35.1-43.9); Red Blood Count 2.93 M/mm3 (4.2-5.4); White Blood Count 11.7 K/mm3 (4.4-11.0)
[2021-10-04 07:20] LABS: Anion Gap 9 (5-15); BUN 12 mg/dL (7-18); BUN/Creat Ratio 14.5 RATIO (10-20); Chloride 100 mmol/L (98-107); Creatinine, Serum 0.83 mg/dL (0.55-1.02); EST Glomerular Filtration Rate 71 mL/min (>60); Est Glom Filt Rate - Afr Amer 86 mL/min (>60); Estimated Creatinine Clearance 52.29 ml/min; Glucose 115 mg/dL (74-106); Potassium 3.8 mmol/L (3.5-5.1); Sodium Level 136 mmol/L (136-145)
--- NOTE | 2021-10-04 07:37 | PN.SURG_ITS ---
Subjective Subjective Patient evaluated resting comfortably in bed. She denies pain laying in bed. She denies nausea, vomiting. She denies flatus. She notes single bowel movement over night which was consistent with blood clots. Dr. Hunt was contacted and recommended labs. Hgb dropped from 10.5 to 10.0. She denies chest pain and last rtness of breath. She tolerated clears. Objective Data Objective Data Vital Signs: Vital Signs Temp Pulse Resp BP Pulse Ox 98.1 F 69 18 145/49 H 92 10/04/21 05:18 10/04/21 05:18 10/04/21 05:18 10/04/21 05:18 10/04/21 05:18 Oxygen Flow Rate (L/min) 1.5 Oxygen Delivery Method Nasal Cannula Weight: 183 lb 13.848 oz Body Mass Index (BMI) 29.5 Intake & Output: Intake and Output for Last 24 Hours 10/02/21 10/03/21 10/04/21 23:59 23:59 23:59 Intake Total 470 / 470 2457.5 / 2457.5 Output Total 0 / 0 1025 / 1275 600 / 600 Balance 470 / 470 1432.5 / 1182.5 -600 / -600 Lab / Micro Data Result Diagrams: 10/04/21 06:41 10/04/21 06:41 Labs: Laboratory Results - last 24 hr 10/03/21 11:54: POC Glucose 131 H 10/03/21 16:38: POC Glucose 117 H 10/03/21 23:01: POC Glucose 82 10/03/21 : Urine Color Yellow, Urine Clarity Turbid, Urine pH 7.0, Ur Specific [place] 1.015, Urine Protein 100 H, Urine Glucose (UA) Normal, Urine Ketones Negative, Urine Occult Blood 150 H, Urine Nitrite Positive H, Urine Bilirubin N egative, Urine Urobilinogen Normal, Ur Leukocyte Esterase 500 H, Urine RBC 10-25 SEEN, Urine WBC 50-100 SEEN, Ur Squamous Epith Cells 0-5 SEEN, Urine Bacteria 2+, Urine Mucus 0 SEEN 10/04/21 01:50: WBC 14.0 H, RBC 3.35 L, Hgb 10.0 L, Hct 31.5 L, MCV 94.0, MCH 29 .9, MCHC 31.7 L, RDW Std Deviation 47.9 H, RDW Coeff of Tuan 14.0, Plt Count 344, MPV 8.6, Immature Gran % (Auto) 0.600, Neut % (Auto) 82.0 H, Lymph % (Auto) 9.2 L, [place] % (Auto) 7.5, Eos % (Auto) 0.4, Baso % (Auto) 0.3, Absolute Neuts (auto) 11.5 H, Absolute Lymphs (auto) 1.29, Nucleated RBC % 0 10/04/21 01:50: Blood Type A POSITIVE, Antibody Screen NEGATIVE 10/04/21 05:39: POC Glucose 85 10/04/21 06:41: WBC 11.7 H, RBC 2.93 L, Hgb 8.9 L, Hct 27.5 L, MCV 93.9, MCH 30.4, MCHC 32.4, RDW Std Deviation 48.9 H, RDW Coeff of Tuan 14.3, Plt Count 308, MPV 8.2, Immature Gran % (Auto) 0.300, Neut % (Auto) 76.7 H, Lymph % (Auto) 13.8 L, [place] % (Auto) 7.7, Eos % (Auto) 1.2, Baso % (Auto) 0.3, Absolute Neuts (auto) 9.0 H, Absolute Lymphs (auto) 1.62, Nucleated RBC % 0 10/04/21 06:41: Sodium 136, Potassium 3.8, Chloride 100, Carbon Dioxide 27.0, Anion Gap 9, BUN 12, Creatinine 0.83, Estim Creat Clear Calc 52.29, Est GFR (MDRD) Af Amer 86, Est GFR (MDRD) Non-Af 71, BUN/Creatinine Ratio 14.5, Glucose 115 H, Calcium 8.0 L Micro: Microbiology 09/30/21 19:30 Nasal Secretion SARS-CoV-2 Antigen (Rapid) - Final Physical Exam Const alert, oriented x3 and no apparent distress Resp normal respiratory effort, normal air movement and clear to auscultation bilaterally Cardio regular rate and regular rhythm GI soft to palpation Auscultation: hypoactive bowel sounds Palpation: tender LLQ (And near midline incision) Assessment & Plan Assessment/Plan (1) Sigmoid volvulus: PLAN: I have discussed this patient with Dr. Theodore. He will be taking over care today. Dr. Smith will be taking over this patient's care tomorrow. Labs reviewed and will reorder labs for tomorrow Remove engle catheter Continue patient at clear liquids today and await further bowel function return Continue antibiotics today Ambulating or sitting in the chair today Leave dressing in place today Remove dressing tomorrow. May leave wound open to air starting tomorrow unless there is drainage. Plan is for patient to return to custodial when surgically/medically ready Charges/Coding Visit Charges Inpatient E&M: 21469 Init Hosp L1 (no charge)
[2021-10-04 08:00] VITALS: BP 125/43; PULSE 61; RESP 16; TEMP 36.7; O2SAT 95
--- NOTE | 2021-10-04 10:01 | PCM.PN.HOSP ---
Subjective Subjective Doing well, denies any significant abdominal pain. She is passing blood clots, and her hemoglobin dropped from 10-8.9. We will recheck this afternoon Objective Data Objective Data Vital Signs: Vital Signs Temp Pulse Resp BP Pulse Ox 98.0 F 61 16 125/43 H 95 10/04/21 08:00 10/04/21 08:00 10/04/21 08:00 10/04/21 08:00 10/04/21 08:00 Oxygen Flow Rate (L/min) 2 Oxygen Delivery Method Nasal Cannula Weight: 183 lb 13.848 oz Body Mass Index (BMI) 29.5 Intake & Output: Intake and Output for Last 24 Hours 10/03/21 10/04/21 10/05/21 03:59 03:59 03:59 Intake Total 710 / 710 2217.5 / 2217.5 Output Total 0 / 0 1275 / 1275 350 / 350 Balance 710 / 710 942.5 / 942.5 -350 / -350 Lab / Micro Data Result Diagrams: 10/04/21 06:41 10/04/21 06:41 Labs: Laboratory Results - last 24 hr 10/03/21 11:54: POC Glucose 131 H 10/03/21 16:38: POC Glucose 117 H 10/03/21 23:01: POC Glucose 82 10/03/21 : Urine Color Yellow, Urine Clarity Turbid, Urine pH 7.0, Ur Specific Crawford 1.015, Urine Protein 100 H, Urine Glucose (UA) Normal, Urine Ketones Negative, Urine Occult Blood 150 H, Urine Nitrite Positive H, Urine Bilirubin Negative, Urine Urobilinogen Normal, Ur Leukocyte Esterase 500 H, Urine RBC 10-25 SEEN, Urine WBC 50-100 SEEN, Ur Squamous Epith Cells 0-5 SEEN, Urine Bacteria 2+, Urine Mucus 0 SEEN 10/04/21 01:50: WBC 14.0 H, RBC 3.35 L, Hgb 10.0 L, Hct 31.5 L, MCV 94.0, MCH 29.9, MCHC 31.7 L, RDW Std Deviation 47.9 H, RDW Coeff of Tuan 14.0, Plt Count 344, MPV 8.6, Immature Gran % (Auto) 0.600, Neut % (Auto) 82.0 H, Lymph % (Auto) 9.2 L, [place] % (Auto) 7.5, Eos % (Auto) 0.4, Baso % (Auto) 0.3, Absolute Neuts (auto) 11.5 H, Absolute Lymphs (auto) 1.29, Nucleated RBC % 0 10/04/21 01:50: Blood Type A POSITIVE, Antibody Screen NEGATIVE 10/04/21 05:39: POC Glucose 85 10/04/21 06:41: WBC 11.7 H, RBC 2.93 L, Hgb 8.9 L, Hct 27.5 L, MCV 93.9, MCH 30.4, MCHC 32.4, RDW Std Deviation 48.9 H, RDW Coeff of Tuan 14.3, Plt Count 308, MPV 8.2, Immature Gran % (Auto) 0.300, Neut % (Auto) 76.7 H, Lymph % (Auto) 13.8 L, [place] % (Auto) 7.7, Eos % (Auto) 1.2, Baso % (Auto) 0.3, Absolute Neuts (auto) 9.0 H, Absolute Lymphs (auto) 1.62, Nucleated RBC % 0 10/04/21 06:41: Sodium 136, Potassium 3.8, Chloride 100, Carbon Dioxide 27.0, Anion Gap 9, BUN 12, Creatinine 0.83, Estim Creat Clear Calc 52.29, Est GFR (MDRD) Af Amer 86, Est GFR (MDRD) Non-Af 71, BUN/Creatinine Ratio 14.5, Glucose 115 H, Calcium 8.0 L Micro: Microbiology 09/30/21 19:30 Nasal Secretion SARS-CoV-2 Antigen (Rapid) - Final Physical Exam Narrative Const alert, oriented x3 and no apparent distress General Appearance: cooperative HEENT normocephalic and moist oral mucous membranes Eyes PERRL, EOMs intact bilaterally and conjunctivae normal Neck supple and no carotid bruits Resp normal respiratory effort, no retractions, no use of accessory muscles and clear to auscultation bilaterally Auscultation: Negative for crackles, rales, rhonchi or wheezes Cardio regular rate, regular rhythm, S1 normal heart sound, S2 normal heart sound and no murmurs GI soft to palpation and non-distended; Negative for hepatosplenomegaly Palpation: tender LLQ (Mild) Extremity no clubbing, cyanosis or edema Skin no rashes or lesions noted Skin Narrative: CDI Neuro no focal motor deficits and no sensory deficits noted Psych affect normal Appearance: appropriate Assessment & Plan Assessment/Plan (1) Sigmoid volvulus: PLAN: 1. Bowel obstruction secondary to sigmoid volvulus/acute blood loss anemia after surgery/UTI -Clear diet, advance as tolerated per primary ?Pain management per primary ?Continue with IV fluids ?We will check an H&H this evening and if necessary transfuse ?PT/OT for evaluation ?Urine was noted to be cloudy during surgery so UA was obtained which did indicate a UTI and she was started on Rocephin. A urine culture is pending currently preliminarily with E. coli greater than 100,000 CFU's 2. HTN/HLD ?Blood pressure stable ?Can restart her Cardizem but hold her hydrochlorothiazide, continue with her losartan and labetalol ?Continue with statin 3. DM2 ?Hold her home Metformin ?Continue with sliding scale insulin ?Accu-Cheks AC at bedtime, will make adjustments as necessary 4. Hypothyroidism ?Stable ?Continue with Synthroid 5. GERD ?Stable ?Continue with PPI DVT: SCDs Charges/Coding Visit Charges Inpatient E&M: 42884 Subs Hosp L2
[2021-10-04] MEDS: Ceftriaxone 1 GM/50 ML BAG IV (10:25)
[2021-10-04 10:35] VITALS: O2SAT 95
--- NOTE | 2021-10-04 10:49 | CASEMGMT ---
Social Work Note Pt not medically ready for discharge today. JENNIFER placed a call to Jacinta at [facility] and left message that pt is not medically cleared, maybe in next few days. JENNIFER faxed updated clinicals to [facility]. SW to fax PT/OT. JENNIFER placed Green Sheet, transport forms, COVID tool on pt's chart. Pt will need COVID test on day of discharge. Plan: Return to [facility] manager long term care when medically cleared Leila Lopez [employer], CARE TEAM COORDINATOR SCHEDULER
[2021-10-04] MEDS: Labetalol 100 MG Tablet 300 MG PO ×2 (11:21→20:23)
[2021-10-04] MEDS: Sertraline 100 MG Tablet PO (11:21)
[2021-10-04] MEDS: Losartan Potassium 100 MG Tablet PO (11:21)
[2021-10-04] MEDS: Acetaminophen 325 MG Tablet 650 MG PO ×2 (11:42→19:09)
--- NOTE | 2021-10-04 11:53 | TREXTCAR_ITS ---
Documented by User: Luba ALAN PA-C 10/04/21 11:59 Diet Diet: Advance as tolerated. Carb controlled. Wound(s) rectum: Wound Type: rectal tube in place abd: Wound Type: Surgical Incision Problem/Diagnosis (1) Sigmoid volvulus: Status: Resolved Allergies/Procedures Done in Hospital Allergies ANTIHISTAMINES Allergy (Uncoded 09/30/21 16:08) PT UNABLE TO RESPOND-NEEDS F/U DECONGESTANTS Allergy (Uncoded 09/30/21 16:08) Shortness of breath Type of Care/Length of Stay Estimated LOS: Convalescent Care Less Than 30 days Type of Care Needed: Skilled Rehab Potential: Fair Prognosis: Fair Dietary and Speech Recommendations Dietitian Recommendations/Changes: Advance PO as tolerated once medically able to Carbohydrate-Controlled/Transitional diet. Will add 120ml ensure clear TID w/ meals given 3 days NPO/clear liquids. Adjust ONS as needed once diet advanced to solids. Discharge Plan Admission Admit Date/Time: 09/30/21 20:10 Primary Reason for Your Visit: Sigmoid Volvulus Attending Provider: Quoc Saab Primary Care Provider: Linwood June Consulting Providers: Mei Tineo Discharge Orders/Prescriptions Prescriptions: Continued diltiazem HCl 240 MG capsule,extended release 24hr 240 mg PO BID RF: 0 levothyroxine 50 MCG tablet 88 mcg PO DAILY RF: 0 metformin 500 MG tablet 500 mg PO DINNER RF: 0 gabapentin [Neurontin] 300 MG capsule 100 mg PO QHS RF: 0 oxybutynin chloride 5 MG tablet 10 mg PO DAILY RF: 0 sertraline 50 MG tablet 100 mg PO DAILY RF: 0 pantoprazole 40 MG tablet 40 mg PO DAILY RF: 0 labetalol 300 MG tablet 300 mg PO BID RF: 0 losartan 50 mg tablet 100 mg PO DAILY RF: 0 atorvastatin 20 mg tablet 20 mg PO QHS RF: 0 glucosamine sulfate [Glucosamine] 500 mg Tablet 1,000 mg PO QHS RF: 0 hydrochlorothiazide 12.5 mg tablet 12.5 mg PO DAILY RF: 0 melatonin 10 mg Tablet 10 mg PO QHS RF: 0 multivitamin Tablet 1 tab PO DAILY RF: 0 polyethylene glycol 3350 [Miralax] 17 gram Powder In Packet 17 g PO MOWEFR RF: 0 diazepam [Valium] 2 mg Tablet 1 mg PO DAILY RF: 0 diazepam [Valium] 2 mg Tablet 2 mg PO QHS RF: 0 naproxen sodium [Aleve] 220 mg Tablet 220 mg PO BID RF: 0 vitamin B complex Tablet 1 tab PO DAILY RF: 0 senna 8.6 mg Capsule 8.6 mg PO BID RF: 0 Referrals / Follow Up: Linwood June DO [Primary Care Provider] - Marisol Hunt MD [STAFF PHYSICIAN] - (Follow-up in 2 weeks. Please call to schedule an appointment) Disposition Disposition (needs filled in before D/C Order can be placed): Long Term Facility Documented by User: Dr. Marisol Hunt MD 10/09/21 08:52 Allergies/Procedures Done in Hospital Allergies ANTIHISTAMINES Allergy (Uncoded 09/30/21 16:08) PT UNABLE TO RESPOND-NEEDS F/U DECONGESTANTS Allergy (Uncoded 09/30/21 16:08) Shortness of breath Additional Orders/Day of Discharge Day of Discharge: 10/09/21 Discharge Plan Admission Admit Date/Time: 09/30/21 20:10 Primary Reason for Your Visit: Sigmoid Volvulus Attending Provider: Quoc Saab Primary Care Provider: Linwood June Consulting Providers: Mei Tineo Discharge Orders/Prescriptions Prescriptions: Continued diltiazem HCl 240 MG capsule,extended release 24hr 240 mg PO BID RF: 0 levothyroxine 50 MCG tablet 88 mcg PO DAILY RF: 0 metformin 500 MG tablet 500 mg PO DINNER RF: 0 gabapentin [Neurontin] 300 MG capsule 100 mg PO QHS RF: 0 oxybutynin chloride 5 MG tablet 10 mg PO DAILY RF: 0 sertraline 50 MG tablet 100 mg PO DAILY RF: 0 pantoprazole 40 MG tablet 40 mg PO DAILY RF: 0 labetalol 300 MG tablet 300 mg PO BID RF: 0 losartan 50 mg tablet 100 mg PO DAILY RF: 0 atorvastatin 20 mg tablet 20 mg PO QHS RF: 0 glucosamine sulfate [Glucosamine] 500 mg Tablet 1,000 mg PO QHS RF: 0 hydrochlorothiazide 12.5 mg tablet 12.5 mg PO DAILY RF: 0 melatonin 10 mg Tablet 10 mg PO QHS RF: 0 multivitamin Tablet 1 tab PO DAILY RF: 0 polyethylene glycol 3350 [Miralax] 17 gram Powder In Packet 17 g PO MOWEFR RF: 0 diazepam [Valium] 2 mg Tablet 1 mg PO DAILY RF: 0 diazepam [Valium] 2 mg Tablet 2 mg PO QHS RF: 0 naproxen sodium [Aleve] 220 mg Tablet 220 mg PO BID RF: 0 vitamin B complex Tablet 1 tab PO DAILY RF: 0 senna 8.6 mg Capsule 8.6 mg PO BID RF: 0 Referrals / Follow Up: Linwood June DO [Primary Care Provider] - Marisol Hunt MD [STAFF PHYSICIAN] - (Follow-up in 2 weeks. Please call to schedule an appointment) Disposition Disposition (needs filled in before D/C Order can be placed): Long Term Facility
--- NOTE | 2021-10-04 11:55 | PCM.DC ---
Discharge Instructions Diet Discharge Diet: Carb Control Diet Activity Discharge Activity: May Not Drive May shower in (days): 1 Lifting Restrictions: 10 pounds until evaluated in the office Dressing / Incision Call your doctor if your incision/area has: Continuous Slow Oozing, Sudden Increased Bleeding, Increased Pain/ Swelling, Increased Redness, Foul Smelling Discharge and Swelling at the incision site Call your doctor if you observe: Fever of 101 or Higher Suture Line Care: Avoid Pulling/Pushing and Avoid Pinching/Bending Remove Dressing in: 1 day Cleanse incision/area with: Soap & Water Additional Dressing/Incision Instructions:: Leave steri-strips in place until they fall off Follow Up Care Please Follow Up With: Marisol Hunt MD When: 2 weeks Test Results: Test results from this visit will be discussed in further detail at your follow-up appointment, if applicable. Discharge Plan Admission Admit Date/Time: 09/30/21 20:10 Primary Reason for Your Visit: Sigmoid Volvulus Attending Provider: Gary Carbajal Primary Care Provider: Linwood June Consulting Providers: Mei Tineo Discharge Orders/Prescriptions Prescriptions: Continued diltiazem HCl 240 MG capsule,extended release 24hr 240 mg PO BID RF: 0 levothyroxine 50 MCG tablet 88 mcg PO DAILY RF: 0 metformin 500 MG tablet 500 mg PO DINNER RF: 0 gabapentin [Neurontin] 300 MG capsule 100 mg PO QHS RF: 0 oxybutynin chloride 5 MG tablet 10 mg PO DAILY RF: 0 sertraline 50 MG tablet 100 mg PO DAILY RF: 0 pantoprazole 40 MG tablet 40 mg PO DAILY RF: 0 labetalol 300 MG tablet 300 mg PO BID RF: 0 losartan 50 mg tablet 100 mg PO DAILY RF: 0 atorvastatin 20 mg tablet 20 mg PO QHS RF: 0 glucosamine sulfate [Glucosamine] 500 mg Tablet 1,000 mg PO QHS RF: 0 hydrochlorothiazide 12.5 mg tablet 12.5 mg PO DAILY RF: 0 melatonin 10 mg Tablet 10 mg PO QHS RF: 0 multivitamin Tablet 1 tab PO DAILY RF: 0 polyethylene glycol 3350 [Miralax] 17 gram Powder In Packet 17 g PO MOWEFR RF: 0 diazepam [Valium] 2 mg Tablet 1 mg PO DAILY RF: 0 diazepam [Valium] 2 mg Tablet 2 mg PO QHS RF: 0 naproxen sodium [Aleve] 220 mg Tablet 220 mg PO BID RF: 0 vitamin B complex Tablet 1 tab PO DAILY RF: 0 senna 8.6 mg Capsule 8.6 mg PO BID RF: 0 Referrals / Follow Up: Linwood June DO [Primary Care Provider] - Marisol Hunt MD [STAFF PHYSICIAN] - (Follow-up in 2 weeks. Please call to schedule an appointment) Disposition Disposition (needs filled in before D/C Order can be placed): [facility]
[2021-10-04 12:43] LABS: Bedside Glucose 125 mg/dL (70-110)
[2021-10-04] MEDS: Lactated Ringers 1,000 ML 75 ML IV (13:18)
[2021-10-04 19:16] LABS: Bedside Glucose 121 mg/dL (70-110)
[2021-10-04 20:06] VITALS: BP 167/59; PULSE 71; RESP 18; TEMP 36.5; O2SAT 98
[2021-10-04] MEDS: diazePAM 2 MG Tablet PO (20:22)
[2021-10-04] MEDS: dilTIAZem CD 240 MG Capsule PO (20:23)
[2021-10-04] MEDS: Gabapentin 100 MG Capsule PO (20:23)
[2021-10-04] MEDS: Atorvastatin Calcium 20 MG Tablet PO (20:24)
[2021-10-04 21:21] LABS: Hematocrit 29.3 % (37-47); Hemoglobin 9.4 g/dL (12.0-15.0)
[2021-10-05] MEDS: Lactated Ringers 1,000 ML 75 ML IV (00:29)
[2021-10-05 05:01] VITALS: BP 153/50; PULSE 67; RESP 16; TEMP 36.8; O2SAT 95
[2021-10-05] MEDS: Menthol/Lanolin/Calamine/Znox 113 GM Tube 1 APPLIC TOPICAL ×3 (05:16→21:10)
[2021-10-05] MEDS: Levothyroxine 88 MCG Tablet PO (05:17)
[2021-10-05] MEDS: oxyCODONE 5 MG Tablet PO ×3 (05:19→20:59)
[2021-10-05 05:26] LABS: Bedside Glucose 132 mg/dL (70-110)
[2021-10-05 06:56] LABS: Absolute Lymphocyte Count 1.41 X10^3/uL (0.83-4.51); Absolute Neutrophil Count 5.6 X10^3/uL (2.0-7.7); Basophil# 0.06 X10^3/uL; Basophil% 0.7 % (0-1); Eosinophil# 0.44 X10^3/uL; Eosinophils% 5.3 % (0-5); Hematocrit 26.3 % (37-47); Hemoglobin 8.4 g/dL (12.0-15.0); Lymphocyte # 1.41 X10^3/ul (0.83-4.51); Lymphocyte % 16.9 % (19-41); Mean Corp Hgb Conc 31.9 g/dL (32-36); Mean Corpuscular Hgb 30.9 pg (27.0-32.0); Mean Corpuscular Volume 96.7 fL (81-99); Mean Platelet Vol. 8.1 fl (6.2-12.0); Monocyte# 0.75 X10^3/uL; NRBC Flagged by Analyzer 0 % (0-5); Neutrophil # 5.64 X10^3/uL (2.7-7.7); Neutrophil % 67.6 % (47-70); Platelet Count 286 K/mm3 (150-450); RBC Distribution Width CV 14.3 % (11.6-14.6); RBC Distribution Width SD 49.6 fl (35.1-43.9); Red Blood Count 2.72 M/mm3 (4.2-5.4); White Blood Count 8.3 K/mm3 (4.4-11.0)
[2021-10-05] MEDS: dilTIAZem CD 240 MG Capsule PO ×2 (08:48→21:01)
[2021-10-05] MEDS: Sertraline 100 MG Tablet PO (08:48)
[2021-10-05] MEDS: Labetalol 100 MG Tablet 300 MG PO ×2 (08:48→21:01)
[2021-10-05] MEDS: Losartan Potassium 100 MG Tablet PO (08:48)
[2021-10-05 09:02] VITALS: BP 148/57; PULSE 68; RESP 16; TEMP 36.4; O2SAT 94
--- NOTE | 2021-10-05 09:44 | PCM.PN.HOSP ---
Subjective Subjective States she is feels like she is passing gas but is not eating a whole lot, maintained on clears by the primary team Objective Data Objective Data Vital Signs: Vital Signs Temp Pulse Resp BP Pulse Ox 97.6 F L 68 16 148/57 H 94 10/05/21 09:02 10/05/21 09:02 10/05/21 09:02 10/05/21 09:02 10/05/21 09:02 Oxygen Flow Rate (L/min) 2 Oxygen Delivery Method Nasal Cannula Weight: 183 lb 13.848 oz Body Mass Index (BMI) 29.5 Intake & Output: Intake and Output for Last 24 Hours 10/04/21 10/05/21 10/06/21 03:59 03:59 03:59 Intake Total 2217.5 / 2217.5 1997.75 / 1997.75 110 / 110 Output Total 1275 / 1275 650 / 650 400 / 400 Balance 942.5 / 942.5 1348.75 / 1348.75 -290 / -290 Lab / Micro Data Result Diagrams: 10/05/21 06:35 10/04/21 06:41 Labs: Laboratory Results - last 24 hr 10/04/21 12:36: POC Glucose 125 H 10/04/21 19:09: POC Glucose 121 H 10/04/21 20:24: Hgb 9.4 L, Hct 29.3 L 10/05/21 05:07: POC Glucose 132 H 10/05/21 06:35: WBC 8.3, RBC 2.72 L, Hgb 8.4 L, Hct 26.3 L, MCV 96.7, MCH 30.9, MCHC 31.9 L, RDW Std Deviation 49.6 H, RDW Coeff of Tuan 14.3, Plt Count 286, MPV 8.1, Immature Gran % (Auto) 0.500, Neut % (Auto) 67.6, Lymph % (Auto) 16.9 L, [place] % (Auto) 9.0, Eos % (Auto) 5.3 H, Baso % (Auto) 0.7, Absolute Neuts (auto) 5.6, Absolute Lymphs (auto) 1.41, Nucleated RBC % 0 Micro: Microbiology 10/03/21 Unknown Urine Catheter - Reynolds Urine Culture - Final Presumptive E. coli 09/30/21 19:30 Nasal Secretion SARS-CoV-2 Antigen (Rapid) - Final Physical Exam Narrative Const alert, oriented x3 and no apparent distress General Appearance: cooperative HEENT normocephalic and moist oral mucous membranes Eyes PERRL, EOMs intact bilaterally and conjunctivae normal Neck supple and no carotid bruits Resp normal respiratory effort, no retractions, no use of accessory muscles and clear to auscultation bilaterally Auscultation: Negative for crackles, rales, rhonchi or wheezes Cardio regular rate, regular rhythm, S1 normal heart sound, S2 normal heart sound and no murmurs GI soft to palpation and non-distended; Negative for hepatosplenomegaly Palpation: tender LLQ (Mild) Extremity no clubbing, cyanosis or edema Skin no rashes or lesions noted Skin Narrative: CDI Neuro no focal motor deficits and no sensory deficits noted Psych affect normal Appearance: appropriate Assessment & Plan Assessment/Plan (1) Sigmoid volvulus: PLAN: 1. Bowel obstruction secondary to sigmoid volvulus/acute blood loss anemia after surgery/UTI due to E. coli -Clear diet, advance as tolerated per primary ?Pain management per primary ?Continue with IV fluids ?Hemoglobin appears to be stabilizing ?PT/OT for evaluation ?Urine with an E. coli sensitive to Rocephin, will continue for a total of 5 days 2. HTN/HLD ?Blood pressure stable ?Can restart her Cardizem but hold her hydrochlorothiazide, continue with her losartan and labetalol ?Continue with statin 3. DM2 ?Hold her home Metformin ?Continue with sliding scale insulin ?Accu-Cheks AC at bedtime, will make adjustments as necessary 4. Hypothyroidism ?Stable ?Continue with Synthroid 5. GERD ?Stable ?Continue with PPI Thank you for allowing us to be part of her care, will continue to follow peripherally DVT: SCDs Charges/Coding Visit Charges Inpatient E&M: 12873 Subs Hosp L2
--- NOTE | 2021-10-05 10:34 | PN.SURG_ITS ---
Subjective Subjective Patient reports positive flatus Objective Data Objective Data Abdomen is soft dressings are dry Vital Signs: Vital Signs Temp Pulse Resp BP Pulse Ox 97.6 F L 68 16 148/57 H 94 10/05/21 09:02 10/05/21 09:02 10/05/21 09:02 10/05/21 09:02 10/05/21 09:02 Oxygen Flow Rate (L/min) 2 Oxygen Delivery Method Nasal Cannula Weight: 183 lb 13.848 oz Body Mass Index (BMI) 29.5 Intake & Output: Intake and Output for Last 24 Hours 10/03/21 10/04/21 10/05/21 23:59 23:59 23:59 Intake Total 2457.5 / 2457.5 1160 / 1160 948.75 / 948.75 Output Total 1025 / 1275 600 / 900 700 / 700 Balance 1432.5 / 1182.5 560 / 260 248.75 / 248.75 Lab / Micro Data Result Diagrams: 10/05/21 06:35 10/04/21 06:41 Labs: Laboratory Results - last 24 hr 10/04/21 12:36: POC Glucose 125 H 10/04/21 19:09: POC Glucose 121 H 10/04/21 20:24: Hgb 9.4 L, Hct 29.3 L 10/05/21 05:07: POC Glucose 132 H 10/05/21 06:35: WBC 8.3, RBC 2.72 L, Hgb 8.4 L, Hct 26.3 L, MCV 96.7, MCH 30.9, MCHC 31.9 L, RDW Std Deviation 49.6 H, RDW Coeff of Tuan 14.3, Plt Count 286, MPV 8.1, Immature Gran % (Auto) 0.500, Neut % (Auto) 67.6, Lymph % (Auto) 16.9 L, [place] % (Auto) 9.0, Eos % (Auto) 5.3 H, Baso % (Auto) 0.7, Absolute Neuts (auto) 5.6, Absolute Lymphs (auto) 1.41, Nucleated RBC % 0 Micro: Microbiology 10/03/21 Unknown Urine Catheter - Reynolds Urine Culture - Final Presumptive E. coli 09/30/21 19:30 Nasal Secretion SARS-CoV-2 Antigen (Rapid) - Final Assessment & Plan Assessment/Plan (1) Sigmoid volvulus: PLAN: Await placement.
[2021-10-05] MEDS: Ceftriaxone 1 GM/50 ML BAG IV (10:35)
--- NOTE | 2021-10-05 11:12 | NURSING ---
DR WILD CALLED FOR UPDATE
[2021-10-05 12:56] VITALS: O2SAT 94
[2021-10-05] MEDS: Acetaminophen 325 MG Tablet 650 MG PO ×2 (13:35→20:59)
[2021-10-05 13:36] VITALS: BP 164/55; PULSE 67
[2021-10-05] MEDS: hydrALAZINE 20 MG/ML Vial 10 MG IV (13:36)
[2021-10-05] MEDS: 0.9% Saline Lock 10 ML Syringe IV (13:36)
[2021-10-05 14:00] VITALS: BP 164/55; PULSE 67; RESP 16; TEMP 36.6; O2SAT 96
--- NOTE | 2021-10-05 15:21 | NURSING ---
[facility] DID ASK THAT THEY BE CALLED WHEN PT WAS READY TO GO BACK TO BED BECAUSE PT HAS BEEN REFUSING THERAPY THE LAST COUPLE DAYS
[2021-10-05 21:00] VITALS: BP 153/59; PULSE 76; RESP 16; TEMP 37.2; O2SAT 95
[2021-10-05] MEDS: Atorvastatin Calcium 20 MG Tablet PO (21:01)
[2021-10-05] MEDS: diazePAM 2 MG Tablet PO (21:04)
[2021-10-05] MEDS: Gabapentin 100 MG Capsule PO (21:04)
[2021-10-05 21:15] LABS: Bedside Glucose 121 mg/dL (70-110)
[2021-10-06 05:00] VITALS: BP 156/58; PULSE 66; RESP 16; TEMP 36.7; O2SAT 96
[2021-10-06] MEDS: Levothyroxine 88 MCG Tablet PO (05:41)
[2021-10-06] MEDS: oxyCODONE 5 MG Tablet PO ×3 (05:41→20:52)
[2021-10-06] MEDS: Menthol/Lanolin/Calamine/Znox 113 GM Tube 1 APPLIC TOPICAL ×3 (05:42→20:55)
[2021-10-06] MEDS: 0.9% Saline Lock 10 ML Syringe IV ×2 (05:46→10:03)
[2021-10-06 08:04] VITALS: O2SAT 95
[2021-10-06 09:57] VITALS: BP 154/69; PULSE 65; RESP 16; TEMP 37; O2SAT 94
[2021-10-06] MEDS: Labetalol 100 MG Tablet 300 MG PO ×2 (10:02→20:54)
[2021-10-06] MEDS: Sertraline 100 MG Tablet PO (10:02)
[2021-10-06] MEDS: dilTIAZem CD 240 MG Capsule PO ×2 (10:03→20:55)
[2021-10-06] MEDS: Losartan Potassium 100 MG Tablet PO (10:03)
[2021-10-06] MEDS: Lactated Ringers 1,000 ML 15 ML IV (10:04)
[2021-10-06] MEDS: Acetaminophen 325 MG Tablet 650 MG PO ×2 (10:04→20:52)
[2021-10-06] MEDS: Ceftriaxone 1 GM/50 ML BAG IV (11:03)
--- NOTE | 2021-10-06 11:30 | PN.SURG_ITS ---
Subjective Subjective Patient states still passing flatus. Tolerating liquids. Objective Data Objective Data Abdomen is soft nontender slightly distended. Vital Signs: Vital Signs Temp Pulse Resp BP Pulse Ox 98.6 F 65 16 154/69 H 94 10/06/21 09:57 10/06/21 09:57 10/06/21 09:57 10/06/21 09:57 10/06/21 09:57 Oxygen Flow Rate (L/min) 2 Oxygen Delivery Method Room Air Weight: 183 lb 13.848 oz Body Mass Index (BMI) 29.5 Intake & Output: Intake and Output for Last 24 Hours 10/04/21 10/05/21 10/06/21 23:59 23:59 23:59 Intake Total 1160 / 1160 2698.75 / 2698.75 110 / 110 Output Total 600 / 900 1600 / 1700 200 / 200 Balance 560 / 260 1098.75 / 998.75 -90 / -90 Lab / Micro Data Result Diagrams: 10/05/21 06:35 10/04/21 06:41 Labs: Laboratory Results - last 24 hr 10/05/21 21:09: POC Glucose 121 H Micro: Microbiology 10/03/21 Unknown Urine Catheter - Reynolds Urine Culture - Final Presumptive E. coli 09/30/21 19:30 Nasal Secretion SARS-CoV-2 Antigen (Rapid) - Final Assessment & Plan Assessment/Plan (1) Sigmoid volvulus: PLAN: We will advance to full liquids. More than likely will be able to get back to [facility] sometime this weekend
--- NOTE | 2021-10-06 12:06 | CASEMGMT ---
Social Work Note JENNIFER placed a call to Jacinta in admissions at [facility] and left message that pt is not medically ready for discharge today, likely over the weekend. JENNIFER Faxed updated clinicals to Jacinta. Green sheet, transport forms, COVID tool on pt's chart. Pt will need COVID test on day of discharge. 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
[2021-10-06 14:10] VITALS: BP 120/43; PULSE 65; RESP 16; TEMP 36.8
[2021-10-06 20:50] VITALS: BP 151/56; PULSE 71; RESP 16; TEMP 37.4; O2SAT 95
[2021-10-06] MEDS: diazePAM 2 MG Tablet PO (20:52)
[2021-10-06] MEDS: Gabapentin 100 MG Capsule PO (20:54)
[2021-10-06] MEDS: Atorvastatin Calcium 20 MG Tablet PO (20:55)
[2021-10-06 21:10] LABS: Bedside Glucose 138 mg/dL (70-110)
[2021-10-07 05:30] VITALS: BP 167/65; PULSE 68; RESP 16; TEMP 37.1; O2SAT 91
[2021-10-07] MEDS: Levothyroxine 88 MCG Tablet PO ×2 (05:59→06:00)
[2021-10-07] MEDS: Menthol/Lanolin/Calamine/Znox 113 GM Tube 1 APPLIC TOPICAL ×3 (06:00→20:10)
[2021-10-07] MEDS: oxyCODONE 5 MG Tablet PO ×3 (06:07→20:09)
[2021-10-07 06:25] LABS: Bedside Glucose 111 mg/dL (70-110)
[2021-10-07 07:32] LABS: Absolute Lymphocyte Count 1.49 X10^3/uL (0.83-4.51); Absolute Neutrophil Count 4.7 X10^3/uL (2.0-7.7); Basophil# 0.05 X10^3/uL; Basophil% 0.7 % (0-1); Eosinophils% 5.5 % (0-5); Hematocrit 26.6 % (37-47); Hemoglobin 8.5 g/dL (12.0-15.0); Lymphocyte # 1.49 X10^3/ul (0.83-4.51); Lymphocyte % 20.6 % (19-41); Mean Platelet Vol. 8.7 fl (6.2-12.0); Monocyte# 0.62 X10^3/uL; Monocyte% 8.6 % (0-10); NRBC Flagged by Analyzer 0 % (0-5); Neutrophil # 4.66 X10^3/uL (2.7-7.7); Neutrophil % 64.2 % (47-70); Platelet Count 354 K/mm3 (150-450); RBC Distribution Width SD 48.4 fl (35.1-43.9); Red Blood Count 2.83 M/mm3 (4.2-5.4); White Blood Count 7.3 K/mm3 (4.4-11.0)
[2021-10-07 07:56] VITALS: O2SAT 95
--- NOTE | 2021-10-07 08:04 | PN.SURG_ITS ---
Subjective Subjective Not complaining of any abdominal pain. Reportedly has some blood clots in the bowel movement yesterday. Objective Data Objective Data Abdomen is soft slightly distended all dressings are dry. No rebound guarding or peritoneal signs are identified. Vital Signs: Vital Signs Temp Pulse Resp BP Pulse Ox 98.8 F 68 16 167/65 H 91 10/07/21 05:30 10/07/21 05:30 10/07/21 05:30 10/07/21 05:30 10/07/21 05:30 Oxygen Flow Rate (L/min) 2 Oxygen Delivery Method Room Air Weight: 183 lb 13.848 oz Body Mass Index (BMI) 29.5 Intake & Output: Intake and Output for Last 24 Hours 10/05/21 10/06/21 10/07/21 23:59 23:59 23:59 Intake Total 2698.75 / 2698.75 414 / 414 120 / 120 Output Total 1600 / 1700 400 / 400 Balance 1098.75 / 998.75 14 / 14 120 / 120 Lab / Micro Data Result Diagrams: 10/07/21 06:38 10/04/21 06:41 Labs: Laboratory Results - last 24 hr 10/06/21 21:02: POC Glucose 138 H 10/07/21 06:17: POC Glucose 111 H 10/07/21 06:38: WBC 7.3, RBC 2.83 L, Hgb 8.5 L, Hct 26.6 L, MCV 94.0, MCH 30.0, MCHC 32.0, RDW Std Deviation 48.4 H, RDW Coeff of Tuan 14.0, Plt Count 354, MPV 8.7, Immature Gran % (Auto) 0.400, Neut % (Auto) 64.2, Lymph % (Auto) 20.6, [place] % (Auto) 8.6, Eos % (Auto) 5.5 H, Baso % (Auto) 0.7, Absolute Neuts (auto) 4.7, Absolute Lymphs (auto) 1.49, Nucleated RBC % 0 Micro: Microbiology 10/03/21 Unknown Urine Catheter - Reynolds Urine Culture - Final Presumptive E. coli 09/30/21 19:30 Nasal Secretion SARS-CoV-2 Antigen (Rapid) - Final Assessment & Plan Assessment/Plan (1) Sigmoid volvulus: PLAN: Hemoglobin appears stable at this point. Tolerating full liquids. Not ready for discharge today.
[2021-10-07 08:08] LABS: Anion Gap 6 (5-15); BUN 8 mg/dL (7-18); BUN/Creat Ratio 13.9 RATIO (10-20); Calcium,Total 8.6 mg/dL (8.5-10.1); Chloride 105 mmol/L (98-107); Creatinine, Serum 0.58 mg/dL (0.55-1.02); EST Glomerular Filtration Rate 108 mL/min (>60); Est Glom Filt Rate - Afr Amer 131 mL/min (>60); Glucose 114 mg/dL (74-106); Potassium 3.4 mmol/L (3.5-5.1); Sodium Level 139 mmol/L (136-145)
[2021-10-07] MEDS: dilTIAZem CD 240 MG Capsule PO ×2 (09:17→21:16)
[2021-10-07] MEDS: Losartan Potassium 100 MG Tablet PO (09:24)
[2021-10-07] MEDS: Labetalol 100 MG Tablet 300 MG PO ×2 (09:25→21:16)
[2021-10-07] MEDS: Sertraline 100 MG Tablet PO (09:25)
[2021-10-07] MEDS: Ceftriaxone 1 GM/50 ML BAG IV (09:37)
--- NOTE | 2021-10-07 09:43 | NURSING ---
pt refusing to sit up to eat, refused to get up in chair, refusing to use I.S. or do deep breathing. pt sat up at 40 degrees to take pills w. water and complained the entire length of time she was up, placed back at 30 degrees and pt returned to sleep-told me she won't eat unless she can lay down and eat , explained to pt that would be a risk for choking and pt sent me out of room after taking am pills
[2021-10-07 10:00] VITALS: BP 149/71; PULSE 88; RESP 18; TEMP 36.7; O2SAT 95
[2021-10-07] MEDS: Potassium Chloride Oral Tablet 20 MEQ 40 MEQ PO (12:57)
[2021-10-07 14:00] VITALS: BP 136/78; PULSE 70; RESP 18; TEMP 36.6; O2SAT 95
[2021-10-07] MEDS: Acetaminophen 325 MG Tablet 650 MG PO (15:24)
[2021-10-07 17:00] VITALS: O2SAT 95
[2021-10-07 20:00] VITALS: BP 156/78; PULSE 71; RESP 18; TEMP 36.6; O2SAT 96
[2021-10-07] MEDS: Atorvastatin Calcium 20 MG Tablet PO (21:15)
[2021-10-07] MEDS: diazePAM 2 MG Tablet PO (21:16)
[2021-10-07] MEDS: Gabapentin 100 MG Capsule PO (21:16)
[2021-10-08 02:10] VITALS: BP 149/59; PULSE 66; RESP 18; TEMP 37.1; O2SAT 94
[2021-10-08] MEDS: Menthol/Lanolin/Calamine/Znox 113 GM Tube 1 APPLIC TOPICAL ×3 (06:37→21:30)
[2021-10-08 06:46] LABS: Bedside Glucose 114 mg/dL (70-110)
[2021-10-08] MEDS: dilTIAZem CD 240 MG Capsule PO ×2 (09:02→21:31)
[2021-10-08] MEDS: Losartan Potassium 100 MG Tablet PO (09:02)
[2021-10-08] MEDS: Ceftriaxone 1 GM/50 ML BAG IV (09:05)
[2021-10-08] MEDS: Sertraline 100 MG Tablet PO (09:05)
[2021-10-08] MEDS: Labetalol 100 MG Tablet 300 MG PO ×2 (09:05→21:31)
--- NOTE | 2021-10-08 09:05 | PCM.PN.SRG ---
Subjective Subjective Patient has not had any real bowel movements as of yet. States that she is still passing blood. Objective Data Objective Data Abdomen is distended dressings are dry she has no rebound guarding or peritoneal signs Vital Signs: Vital Signs Temp Pulse Resp BP Pulse Ox 98.8 F 66 18 149/59 H 94 10/08/21 02:10 10/08/21 02:10 10/08/21 02:10 10/08/21 02:10 10/08/21 02:10 Oxygen Flow Rate (L/min) 2 Oxygen Delivery Method Room Air Weight: 183 lb 13.848 oz Body Mass Index (BMI) 29.5 Intake & Output: Intake and Output for Last 24 Hours 10/06/21 10/07/21 10/08/21 23:59 23:59 23:59 Intake Total 414 / 414 980 / 980 Output Total 400 / 400 700 / 700 Balance 980 / 980 -700 / -700 Lab / Micro Data Result Diagrams: 10/07/21 06:38 10/07/21 06:38 Labs: Laboratory Results - last 24 hr 10/08/21 06:35: POC Glucose 114 H Micro: Microbiology 10/03/21 Unknown Urine Catheter - Reynolds Urine Culture - Final Presumptive E. coli 09/30/21 19:30 Nasal Secretion SARS-CoV-2 Antigen (Rapid) - Final Assessment & Plan Assessment/Plan (1) Sigmoid volvulus: PLAN: Will need to have a bowel movement which is normal prior to being discharged back to her facility.
[2021-10-08 11:00] VITALS: BP 144/78; PULSE 70; RESP 16; TEMP 36.7; O2SAT 94
[2021-10-08] MEDS: Acetaminophen 325 MG Tablet 650 MG PO (13:54)
[2021-10-08] MEDS: oxyCODONE 5 MG Tablet PO ×2 (13:54→23:32)
[2021-10-08 14:24] VITALS: O2SAT 94
[2021-10-08 15:33] VITALS: BP 153/75; PULSE 73; RESP 18; TEMP 37.1; O2SAT 98
[2021-10-08 20:10] VITALS: BP 144/55; PULSE 69; RESP 16; TEMP 36.6; O2SAT 94
[2021-10-08] MEDS: diazePAM 2 MG Tablet PO (21:30)
[2021-10-08] MEDS: Gabapentin 100 MG Capsule PO (21:31)
[2021-10-08] MEDS: Atorvastatin Calcium 20 MG Tablet PO (21:31)
[2021-10-08 21:41] LABS: Bedside Glucose 130 mg/dL (70-110)
[2021-10-09 02:15] VITALS: BP 124/43; PULSE 69; RESP 18; TEMP 36.6; O2SAT 94
[2021-10-09] MEDS: Levothyroxine 88 MCG Tablet PO (06:21)
[2021-10-09] MEDS: Menthol/Lanolin/Calamine/Znox 113 GM Tube 1 APPLIC TOPICAL ×2 (06:24→14:26)
[2021-10-09 06:31] LABS: Bedside Glucose 117 mg/dL (70-110)
--- NOTE | 2021-10-09 08:37 | PCM.PN.SRG ---
Subjective Subjective Patient states abdominal pain is improving. Patient has been having flatus tolerating regular diet previously did have some loose stools, no loose stools yesterday. Objective Data Objective Data Vital Signs: Vital Signs Temp Pulse Resp BP Pulse Ox 98 F 69 18 124/43 H 94 10/09/21 02:15 10/09/21 02:15 10/09/21 02:15 10/09/21 02:15 10/09/21 02:15 Oxygen Flow Rate (L/min) 2 Oxygen Delivery Method Room Air Weight: 183 lb 13.848 oz Body Mass Index (BMI) 29.5 Intake & Output: Intake and Output for Last 24 Hours 10/07/21 10/08/21 10/09/21 23:59 23:59 23:59 Intake Total 980 / 980 760 / 760 Output Total 1200 / 1200 700 / 700 Balance 980 / 980 -440 / -440 -700 / -700 Lab / Micro Data Result Diagrams: 10/07/21 06:38 10/07/21 06:38 Labs: Laboratory Results - last 24 hr 10/08/21 21:23: POC Glucose 130 H 10/09/21 06:22: POC Glucose 117 H Micro: Microbiology 10/03/21 Unknown Urine Catheter - Reynolds Urine Culture - Final Presumptive E. coli 09/30/21 19:30 Nasal Secretion SARS-CoV-2 Antigen (Rapid) - Final Physical Exam Resp normal respiratory effort Cardio regular rate GI GI Narrative: Abdomen: Soft, nondistended, tender near incision's dressed clean dry and intact, no peritoneal signs Assessment & Plan Assessment/Plan (1) S/P laparoscopic-assisted sigmoidectomy: PLAN: Patient is tolerating diet having bowel function no further loose stools. Patient initially did have some bleeding postop however that also resolved. Plan to return back to patient's retirement today. Marisol Hunt M.D. Pager: [phone] [facility] [address] [place] [address], [address] [place] [address] Office: [phone]
--- NOTE | 2021-10-09 08:53 | DS.PCM_ITS ---
Providers Date of Admission: 09/30/21 Primary Care Physician: Dr. Linwood June DO Consultations 09/30/21 21:09 Consult: Hospitalist Routine Consulting Provider: Mei Tineo Reason for Consult: medical management EMERGENT Consult: No MD Notified: Yes Date Notified: 09/30/21 Time Notified: 21:09 Method of Notification: Verbal Reason For Visit: BOWEL OBSTRUCTION Diagnosis Discharge Diagnosis (1) S/P laparoscopic-assisted sigmoidectomy: Status: Acute Code(s): Z90.49 - Acquired absence of other specified parts of digestive tract Medications at Discharge Home Medications diltiazem HCl 240 mg PO BID 12/10/15 levothyroxine 88 mcg PO DAILY 12/10/15 metformin 500 mg PO DINNER 12/19/16 gabapentin [Neurontin] 100 mg PO QHS 12/20/16 oxybutynin chloride 10 mg PO DAILY 12/20/16 sertraline 100 mg PO DAILY 12/20/16 labetalol 300 mg PO BID 12/25/18 pantoprazole 40 mg PO DAILY 12/25/18 atorvastatin 20 mg PO QHS 09/30/21 glucosamine sulfate [Glucosamine] 1,000 mg PO QHS 09/30/21 hydrochlorothiazide 12.5 mg PO DAILY 09/30/21 losartan 100 mg PO DAILY 09/30/21 melatonin 10 mg PO QHS 09/30/21 diazepam [Valium] 1 mg PO DAILY 10/01/21 diazepam [Valium] 2 mg PO QHS 10/01/21 multivitamin 1 tab PO DAILY 10/01/21 naproxen sodium [Aleve] 220 mg PO BID 10/01/21 polyethylene glycol 3350 [Miralax] 17 g PO MOWEFR 10/01/21 senna 8.6 mg PO BID 10/01/21 vitamin B complex 1 tab PO DAILY 10/01/21 Hospital Course Operations colectomy (Laparoscopic sigmoid colectomy) and - (Flexible sigmoidoscopy with rectal tube placement) Procedures None Summary of Care Provided Minutes Spent on Discharge: 15 Hospital Course: Patient presented to the ER due to constipation and abdominal pain. CT abdomen pelvis showed sigmoid volvulus. Patient was taken for flexible sigmoidoscopy and placement of rectal tube. Patient did have a good results with that tube placement and belly pain resolved patient was able to have bowel function. Was able to do a bowel prep then underwent a laparoscopic sigmoidectomy on 10/03. Postoperatively patient did have some clots per rectum which did resolve on its own without needing any transfusions. Patient's hemoglobin did drop from about 10-8.5 after surgery partially dilutional as well. Patient also had a urine culture prior to surgery which was positive for E. coli patient was treated with Rocephin x5 days of IV in the hospital. Postoperatively patient was able to tolerate clears was initially having some looser stools however those did resolve and patient was able to tolerate a regular diet. Physical Exam Const alert, oriented x3 and no apparent distress Resp normal respiratory effort Cardio regular rate GI GI Narrative: Abdomen: Soft, nondistended, tender near incision, incisions clean dry and intact with Steri's. Weight / BMI Weight Weight: 183 lb 13.848 oz Body Mass Index (BMI) 29.5 ABG / Lab / Microbiology Data Result Diagrams: 10/07/21 06:38 10/07/21 06:38 Laboratory: Laboratory Results - last 24 hr 10/08/21 21:23: POC Glucose 130 H 10/09/21 06:22: POC Glucose 117 H Microbiology: Microbiology 10/03/21 Unknown Urine Catheter - Reynolds Urine Culture - Final Presumptive E. coli 09/30/21 19:30 Nasal Secretion SARS-CoV-2 Antigen (Rapid) - Final D/C Instructions Discharge Diet: Carb Control Diet Call your doctor if your incision/area has: Continuous Slow Oozing, Sudden Increased Bleeding, Increased Pain/ Swelling, Increased Redness, Foul Smelling Discharge and Swelling at the incision site Call your doctor if you observe: Fever of 101 or Higher Suture Line Care: Avoid Pulling/Pushing and Avoid Pinching/Bending Cleanse incision/area with: Soap & Water Additional Dressing/Incision Instructions: Leave steri-strips in place until they fall off Please Follow Up With: Marisol Hunt MD When: 2 weeks Meaningful Use Info Meaningful Use Diagnoses (Choose all that apply): None applicable Discharge Plan Admission Admit Date/Time: 09/30/21 20:10 Primary Reason for Your Visit: Sigmoid Volvulus Attending Provider: Quoc Saab Primary Care Provider: Linwood June Consulting Providers: Mei Tineo Discharge Orders/Prescriptions Prescriptions: Continued diltiazem HCl 240 MG capsule,extended release 24hr 240 mg PO BID RF: 0 levothyroxine 50 MCG tablet 88 mcg PO DAILY RF: 0 metformin 500 MG tablet 500 mg PO DINNER RF: 0 gabapentin [Neurontin] 300 MG capsule 100 mg PO QHS RF: 0 oxybutynin chloride 5 MG tablet 10 mg PO DAILY RF: 0 sertraline 50 MG tablet 100 mg PO DAILY RF: 0 pantoprazole 40 MG tablet 40 mg PO DAILY RF: 0 labetalol 300 MG tablet 300 mg PO BID RF: 0 losartan 50 mg tablet 100 mg PO DAILY RF: 0 atorvastatin 20 mg tablet 20 mg PO QHS RF: 0 glucosamine sulfate [Glucosamine] 500 mg Tablet 1,000 mg PO QHS RF: 0 hydrochlorothiazide 12.5 mg tablet 12.5 mg PO DAILY RF: 0 melatonin 10 mg Tablet 10 mg PO QHS RF: 0 multivitamin Tablet 1 tab PO DAILY RF: 0 polyethylene glycol 3350 [Miralax] 17 gram Powder In Packet 17 g PO MOWEFR RF: 0 diazepam [Valium] 2 mg Tablet 1 mg PO DAILY RF: 0 diazepam [Valium] 2 mg Tablet 2 mg PO QHS RF: 0 naproxen sodium [Aleve] 220 mg Tablet 220 mg PO BID RF: 0 vitamin B complex Tablet 1 tab PO DAILY RF: 0 senna 8.6 mg Capsule 8.6 mg PO BID RF: 0 Referrals / Follow Up: Linwood June DO [Primary Care Provider] - Marisol Hunt MD [STAFF PHYSICIAN] - (Follow-up in 2 weeks. Please call to schedule an appointment) Disposition Disposition (needs filled in before D/C Order can be placed): [facility]
[2021-10-09 09:11] VITALS: BP 151/50; PULSE 66; RESP 18; TEMP 36.6; O2SAT 92
[2021-10-09] MEDS: Sertraline 100 MG Tablet PO (09:17)
[2021-10-09] MEDS: Labetalol 100 MG Tablet 300 MG PO (09:17)
[2021-10-09] MEDS: dilTIAZem CD 240 MG Capsule PO (09:17)
[2021-10-09] MEDS: Losartan Potassium 100 MG Tablet PO (09:17)
[2021-10-09] MEDS: 0.9% Saline Lock 10 ML Syringe IV (09:18)
[2021-10-09 11:56] LABS: Bedside Glucose 130 mg/dL (70-110)
--- NOTE | 2021-10-09 13:30 | CASEMGMT ---
Social Work Note Pt medically ready for discharge. JENNIFER placed a call to [facility] and left message for Jacinta in admissions and updated her that pt will be discharged back to [facility] today. JENNIFER faxed discharge paperwork to [facility] including transfer to extended care facility, signed medication list, any scripts, COVID tool/test. Original in SNF folder and copy on pt's chart. JENNIFER spoke with RN, pt to transport via cot. JENNIFER assessed trip assist and arranged transportation via cot for 3:00pm. Transportation form completed and placed on SNF folder and copy on pt's chart. SW in to speak with pt. SW informed pt that she will be discharged back to [facility] at 3:00pm. Pt states understanding. SW asked pt if this worker could call her sister to update and pt gave this worker permission to call her sister to update. JENNIFER placed a call to pt's sister Leila and updated her that pt will discharge back to [facility] today. Leila states understanding. JENNIFER placed a call to Jacinta at [facility] and left message that transportation is arranged for 3:00pm. JENNIFER also faxed PT/OT to [facility]. Plan: Return to [facility] skilled with Physician's transporting pt via cot at 3:00pm Leila Lopez [employer] OPERATOR, ROTARY OPERATOR
--- NOTE | 2021-10-09 13:48 | NURSING ---
REPORT CALLED TO NURSE AT THE AVENUE
[2021-10-09 14:30] VITALS: BP 125/43; PULSE 71; RESP 18; TEMP 37; O2SAT 94
== END 2021-10-09 11:15 | disposition skilled nursing facility (03) | DRG 330 ==
LOC: ED 17:45 → SDC 19:34 → AC 19:42 → MS3 20:00 → SDC 20:48 → MS3 20:48
PROVIDERS: Anesthesiology; Family Medicine; Admitting Provider Surgery; Emergency Provider Emergency Medicine; PCP Family Medicine; Visit Provider Internal Medicine
PROC: 0DJD8ZZ Inspection of Lower Intestinal Tract, Via Natural or Artificial Opening Endoscopic (ICD-10-PCS; CPT 45378; principal; 2021-09-30 20:30)
PROC: 0DTN0ZZ Resection of Sigmoid Colon, Open Approach (ICD-10-PCS; CPT 44204; principal; 2021-10-03 07:05)
DX: K56.2 Volvulus (principal); Q43.8 Other specified congenital malformations of intestine; N39.0 Urinary tract infection, site not specified; R71.0 Precipitous drop in hematocrit; E11.42 Type 2 diabetes mellitus with diabetic polyneuropathy; I10 Essential (primary) hypertension; E03.9 Hypothyroidism, unspecified; F41.9 Anxiety disorder, unspecified; F32.A Depression, unspecified; F43.10 Post-traumatic stress disorder, unspecified; K21.9 Gastro-esophageal reflux disease without esophagitis; E66.9 Obesity, unspecified; E78.5 Hyperlipidemia, unspecified; B96.20 Unspecified Escherichia coli [E. coli] as the cause of diseases classified elsewhere; Z79.84 Long term (current) use of oral hypoglycemic drugs; Z79.899 Other long term (current) drug therapy; Z68.29 Body mass index [BMI] 29.0-29.9, adult
CPT/HCPCS: 36415; 74018; 74177; 80048; 80053; 81001; 82962; 83036; 84443; 85014; 85018; 85025; 86850; 86900; 86901; 87086; 87088; 87186; 87426; 88304; 88307; 93005; 97162; 97166; 97530; 97535; 99251; 99285; J7050; J7120; A4216; C1760; G0463; J0330; J2405

== ENCOUNTER → 2021-10-19 12:54 | Outpatient (CLI) | payer MEDICARE, MEDICAID, SELFPAY ==
--- NOTE | 2021-10-19 13:31 | MRI_ITS ---
STUDY: MRI ABDOMEN WITH AND WITHOUT CONTRAST REASON FOR EXAM: Female, 76 years old. LIVER LESION, PRIOR ABNORMAL IMAGING TECHNIQUE: Standardized fat and water weighted pulse sequences were obtained in all 3 orthogonal planes post contrast administration. IV Yes YES was administered for the contrast portion of the examination. COMPARISON: CT dated 10/01/2021 FINDINGS: The visualized lung bases are unremarkable. The visualized portions of the heart are within normal limits. Within the posterior right hepatic lobe there is a 3.1 x 4.9 x 4.0 cm T1 hypointense mildly T2 hyperintense round focus that contains a hypodense central focus on the T1 and T2 weighted images consistent with a central calcification. There is no enhancement. Normal gallbladder and extrahepatic biliary system. Normal spleen. Normal pancreas. Normal bilateral adrenal glands. There are bilateral renal cysts. Normal visualized stomach. Normal small intestine. Normal colon. There is non-visualization of the appendix. Normal abdominal aorta. Normal inferior vena cava. Normal retroperitoneum. Normal abdominal wall. Normal osseous structures. MRI/MRI Abd WITH and W/O Contrast IMPRESSION: 3.1 x 4.9 x 4.0 cm hepatic cyst with a central calcification, may be secondary to a prior Echinococcus infection. Electronically Signed: Karla Balbuena MD at 15:50 EST Tel , Service support ,
== END ==
PROVIDERS: PCP Family Medicine; Referring Provider Family Medicine; Visit Provider Family Medicine
DX: K76.9 Liver disease, unspecified (principal)
CPT/HCPCS: 74183; A9575

== ENCOUNTER 2021-10-24 12:43 | Outpatient (REF) | payer MEDICARE, SELFPAY ==
[2021-10-24 09:19] LABS: Color, Urine Yellow (Yellow); Glucose, Dipstick Normal (Normal); Ketone-Dipstick Negative (Negative); Leukocyte Esterase-Dipstick 500 /ul (Negative); Nitrite-Dipstick Negative (Negative); Occult Blood-Urine 10 /ul (Negative); Protein-Dipstick 30 mg/dl (Negative); Specific Gravity, Urine 1.015 (1.002-1.030); Urine Bilirubin Dipstick Negative (Negative); Urine Clarity Sl. Cloudy (Clear); Urine Urobilinogen Normal (Normal)
[2021-10-24 09:31] LABS: Red Blood Cells-Urine 0 SEEN /hpf (0-5)
[2021-10-24 09:32] LABS: Bacteria 1+ /hpf (None Seen); Mucous, Urine RARE /hpf (<or=2+); Squamous Epithelial Cells - UA 0-5 SEEN /hpf (5-10); White Blood Cells 25-50 SEEN /hpf (0-5)
== END 2021-10-24 23:59 | disposition home or self-care (01) ==
LOC: OLS.ACH 12:43
PROVIDERS: PCP Family Medicine; Referring Provider Family Medicine; Visit Provider Family Medicine
DX: N39.0 Urinary tract infection, site not specified (principal)
CPT/HCPCS: 81001; 87086

== ENCOUNTER → 2021-12-18 | Outpatient (REF) | payer MEDICARE, SELFPAY ==
[2021-12-18 09:16] LABS: Absolute Lymphocyte Count 1.76 X10^3/uL (0.83-4.51); Basophil# 0.07 X10^3/uL; Basophil% 0.7 % (0-1); Eosinophil# 0.22 X10^3/uL; Eosinophils% 2.2 % (0-5); Hematocrit 32.7 % (37-47); Hemoglobin 10.5 g/dL (12.0-15.0); Lymphocyte # 1.76 X10^3/ul (0.83-4.51); Lymphocyte % 17.9 % (19-41); Mean Corp Hgb Conc 32.1 g/dL (32-36); Mean Corpuscular Hgb 29.4 pg (27.0-32.0); Mean Corpuscular Volume 91.6 fL (81-99); Mean Platelet Vol. 8.9 fl (6.2-12.0); Monocyte# 0.71 X10^3/uL; Monocyte% 7.2 % (0-10); NRBC Flagged by Analyzer 0 % (0-5); Neutrophil # 7.01 X10^3/uL (2.7-7.7); Neutrophil % 71.6 % (47-70); Platelet Count 482 K/mm3 (150-450); RBC Distribution Width CV 14.1 % (11.6-14.6); RBC Distribution Width SD 47.7 fl (35.1-43.9); Red Blood Count 3.57 M/mm3 (4.2-5.4); White Blood Count 9.8 K/mm3 (4.4-11.0)
[2021-12-18 09:37] LABS: Hemoglobin A1c 6.6 % (3.8-5.6)
[2021-12-18 09:51] LABS: AST(SGOT) 9 U/L (15-37); Alanine Aminotransfer ALT/SGPT 15 U/L (13-56); Albumin, Serum 3.5 g/dL (3.2-5.0); Alkaline Phosphatase 107 U/L (45-117); Anion Gap 5 (5-15); BUN 32 mg/dL (7-18); BUN/Creat Ratio 39.1 RATIO (10-20); Calcium,Total 8.5 mg/dL (8.5-10.1); Chloride 104 mmol/L (98-107); Creatinine, Serum 0.82 mg/dL (0.55-1.02); EST Glomerular Filtration Rate 72 mL/min (>60); Est Glom Filt Rate - Afr Amer 87 mL/min (>60); Globulin 3.5 g/dL (2.2-4.2); Glucose 123 mg/dL (74-106); Potassium 3.9 mmol/L (3.5-5.1); Sodium Level 138 mmol/L (136-145)
== END | disposition home or self-care (01) ==
LOC: OLS.ACH 04:00
PROVIDERS: PCP Family Medicine; Referring Provider Family Medicine; Visit Provider Family Medicine
DX: E11.42 Type 2 diabetes mellitus with diabetic polyneuropathy (principal)
CPT/HCPCS: 36415; 80053; 83036; 85025

== ENCOUNTER → 2022-02-21 | Outpatient (REF) | payer MEDICARE, MEDICAID, SELFPAY ==
[2022-02-21 12:28] LABS: Color, Urine Yellow (Yellow); Glucose, Dipstick Normal (Normal); Ketone-Dipstick Negative (Negative); Leukocyte Esterase-Dipstick 500 /ul (Negative); Nitrite-Dipstick Negative (Negative); Occult Blood-Urine 150 /ul (Negative); Protein-Dipstick 30 mg/dl (Negative); Urine Bilirubin Dipstick Negative (Negative); Urine Clarity Cloudy (Clear); Urine Urobilinogen Normal (Normal)
== END | disposition home or self-care (01) ==
LOC: OLS.ACH 10:00
PROVIDERS: PCP Family Medicine; Visit Provider Family Medicine
DX: R30.0 Dysuria (principal); R41.82 Altered mental status, unspecified
CPT/HCPCS: 81002; 87086; 87088

== ENCOUNTER → 2022-03-12 | Outpatient (REF) | payer MEDICARE, MEDICAID, SELFPAY ==
[2022-03-12 10:12] LABS: Absolute Lymphocyte Count 1.29 X10^3/uL (0.83-4.51); Absolute Neutrophil Count 9.1 X10^3/uL (2.0-7.7); Basophil# 0.06 X10^3/uL; Basophil% 0.5 % (0-1); Eosinophil# 0.53 X10^3/uL; Eosinophils% 4.4 % (0-5); Hematocrit 29.6 % (37-47); Hemoglobin 9.1 g/dL (12.0-15.0); Lymphocyte # 1.29 X10^3/ul (0.83-4.51); Lymphocyte % 10.7 % (19-41); Mean Corp Hgb Conc 30.7 g/dL (32-36); Mean Corpuscular Hgb 28.3 pg (27.0-32.0); Mean Corpuscular Volume 92.2 fL (81-99); Mean Platelet Vol. 8.6 fl (6.2-12.0); Monocyte# 1.02 X10^3/uL; Monocyte% 8.4 % (0-10); NRBC Flagged by Analyzer 0 % (0-5); Neutrophil # 9.11 X10^3/uL (2.7-7.7); Neutrophil % 75.4 % (47-70); Platelet Count 589 K/mm3 (150-450); RBC Distribution Width CV 14.1 % (11.6-14.6); RBC Distribution Width SD 47.8 fl (35.1-43.9); Red Blood Count 3.21 M/mm3 (4.2-5.4); White Blood Count 12.1 K/mm3 (4.4-11.0)
[2022-03-12 10:31] LABS: ALB/GLOB Ratio 0.7 RATIO (0.9-2.4); AST(SGOT) 14 U/L (15-37); Alanine Aminotransfer ALT/SGPT 15 U/L (13-56); Albumin, Serum 2.9 g/dL (3.2-5.0); Alkaline Phosphatase 135 U/L (45-117); Anion Gap 7 (5-15); BUN 28 mg/dL (7-18); BUN/Creat Ratio 21.4 RATIO (10-20); Calcium,Total 8.6 mg/dL (8.5-10.1); Chloride 100 mmol/L (98-107); Creatinine, Serum 1.31 mg/dL (0.55-1.02); EST Glomerular Filtration Rate 42 mL/min (>60); Est Glom Filt Rate - Afr Amer 50 mL/min (>60); Globulin 4.3 g/dL (2.2-4.2); Glucose 142 mg/dL (74-106); Potassium 3.8 mmol/L (3.5-5.1); Protein, Total 7.2 g/dL (6.4-8.2); Sodium Level 135 mmol/L (136-145)
[2022-03-12 10:56] LABS: Hemoglobin A1c 7.3 % (3.8-5.6)
== END | disposition home or self-care (01) ==
LOC: OLS.ACH 07:25
PROVIDERS: PCP Family Medicine; Visit Provider Family Medicine
DX: E11.42 Type 2 diabetes mellitus with diabetic polyneuropathy (principal); I10 Essential (primary) hypertension; K21.9 Gastro-esophageal reflux disease without esophagitis
CPT/HCPCS: 36415; 80053; 83036; 85025

== ENCOUNTER → 2022-03-30 | Outpatient (REF) | payer MEDICARE, MEDICAID, SELFPAY ==
[2022-03-30 16:07] LABS: Absolute Lymphocyte Count 1.03 X10^3/uL (0.83-4.51); Absolute Neutrophil Count 10.1 X10^3/uL (2.0-7.7); Basophil# 0.06 X10^3/uL; Basophil% 0.5 % (0-1); Eosinophil# 0.46 X10^3/uL; Eosinophils% 3.5 % (0-5); Hemoglobin 8.4 g/dL (12.0-15.0); Lymphocyte # 1.03 X10^3/ul (0.83-4.51); Lymphocyte % 7.8 % (19-41); Mean Corp Hgb Conc 31.1 g/dL (32-36); Mean Corpuscular Hgb 28.3 pg (27.0-32.0); Mean Corpuscular Volume 90.9 fL (81-99); Mean Platelet Vol. 8.7 fl (6.2-12.0); Monocyte# 1.33 X10^3/uL; Monocyte% 10.1 % (0-10); NRBC Flagged by Analyzer 0 % (0-5); Neutrophil # 10.14 X10^3/uL (2.7-7.7); Neutrophil % 77.2 % (47-70); Platelet Count 438 K/mm3 (150-450); RBC Distribution Width CV 14.2 % (11.6-14.6); RBC Distribution Width SD 47.5 fl (35.1-43.9); Red Blood Count 2.97 M/mm3 (4.2-5.4); White Blood Count 13.1 K/mm3 (4.4-11.0)
[2022-03-30 16:15] LABS: Anion Gap 10 (5-15); BUN 42 mg/dL (7-18); Calcium,Total 8.5 mg/dL (8.5-10.1); Chloride 96 mmol/L (98-107); EST Glomerular Filtration Rate 26 mL/min (>60); Est Glom Filt Rate - Afr Amer 31 mL/min (>60); Glucose 213 mg/dL (74-106); Potassium 3.9 mmol/L (3.5-5.1); Sodium Level 131 mmol/L (136-145)
== END | disposition home or self-care (01) ==
LOC: OLS.ACH 15:15
PROVIDERS: PCP Family Medicine; Visit Provider Family Medicine
DX: M62.81 Muscle weakness (generalized) (principal)
CPT/HCPCS: 36415; 80048; 85025

== ENCOUNTER → 2022-04-05 | Outpatient (REF) | payer MEDICARE, MEDICAID, SELFPAY ==
[2022-04-05 08:45] LABS: Absolute Lymphocyte Count 1.66 X10^3/uL (0.83-4.51); Absolute Neutrophil Count 7.4 X10^3/uL (2.0-7.7); Basophil# 0.07 X10^3/uL; Basophil% 0.7 % (0-1); Eosinophil# 0.48 X10^3/uL; Eosinophils% 4.6 % (0-5); Hematocrit 26.6 % (37-47); Hemoglobin 8.3 g/dL (12.0-15.0); Lymphocyte # 1.66 X10^3/ul (0.83-4.51); Lymphocyte % 15.7 % (19-41); Mean Corp Hgb Conc 31.2 g/dL (32-36); Mean Corpuscular Hgb 28.5 pg (27.0-32.0); Mean Corpuscular Volume 91.4 fL (81-99); Mean Platelet Vol. 8.4 fl (6.2-12.0); Monocyte# 0.79 X10^3/uL; Monocyte% 7.5 % (0-10); NRBC Flagged by Analyzer 0 % (0-5); Neutrophil # 7.41 X10^3/uL (2.7-7.7); Neutrophil % 70.3 % (47-70); Platelet Count 581 K/mm3 (150-450); RBC Distribution Width CV 14.4 % (11.6-14.6); RBC Distribution Width SD 48.2 fl (35.1-43.9); Red Blood Count 2.91 M/mm3 (4.2-5.4); White Blood Count 10.5 K/mm3 (4.4-11.0)
[2022-04-05 09:09] LABS: Anion Gap 12 (5-15); BUN 36 mg/dL (7-18); BUN/Creat Ratio 23.4 RATIO (10-20); Calcium,Total 8.4 mg/dL (8.5-10.1); Chloride 97 mmol/L (98-107); Creatinine, Serum 1.54 mg/dL (0.55-1.02); EST Glomerular Filtration Rate 35 mL/min (>60); Est Glom Filt Rate - Afr Amer 42 mL/min (>60); Ferritin 79 ng/mL (8-252); Glucose 136 mg/dL (74-106); Iron 34 ug/dL (50-170); Iron Binding Capacity,Total 256 ug/dL (250-450); PERCENT IRON SATURATION 13.3 % (15.0-55.0); Potassium 3.9 mmol/L (3.5-5.1); Sodium Level 134 mmol/L (136-145); Thyroid Stim Hormone (TSH) 2.22 uIU/mL (0.358-3.74)
[2022-04-05 09:46] LABS: Vitamin B12 615 pg/mL (211-911)
[2022-04-06 13:08] LABS: PROEL- A/G Ratio 0.9 (0.7-1.7); PROEL- Alpha-1 Globulin 0.3 g/dL (0.0-0.4); PROEL- Alpha-2 Globulin 1.1 g/dL (0.4-1.0); PROEL- Beta Globulin 0.8 g/dL (0.7-1.3); PROEL- Globulin, Total 3.3 g/dL (2.2-3.9); PROEL- TOTAL PROTEIN 6.3 g/dL (6.0-8.5)
== END | disposition home or self-care (01) ==
LOC: OLS.ACH 05:00
PROVIDERS: PCP Family Medicine; Visit Provider Family Medicine
DX: E11.42 Type 2 diabetes mellitus with diabetic polyneuropathy (principal); I10 Essential (primary) hypertension; E03.9 Hypothyroidism, unspecified; E78.5 Hyperlipidemia, unspecified
CPT/HCPCS: 36415; 80048; 82607; 82728; 82746; 83540; 83550; 84165; 84443; 85025

== ENCOUNTER → 2022-04-10 | Outpatient (REF) | payer MEDICARE, MEDICAID, SELFPAY ==
[2022-04-10 21:31] LABS: Absolute Lymphocyte Count 1.84 X10^3/uL (0.83-4.51); Absolute Neutrophil Count 7.2 X10^3/uL (2.0-7.7); Basophil# 0.09 X10^3/uL; Basophil% 0.9 % (0-1); Eosinophils% 3.9 % (0-5); Hematocrit 32.3 % (37-47); Hemoglobin 10.3 g/dL (12.0-15.0); Lymphocyte # 1.84 X10^3/ul (0.83-4.51); Lymphocyte % 17.8 % (19-41); Mean Corp Hgb Conc 31.9 g/dL (32-36); Mean Corpuscular Hgb 29.3 pg (27.0-32.0); Mean Platelet Vol. 8.2 fl (6.2-12.0); Monocyte# 0.75 X10^3/uL; Monocyte% 7.3 % (0-10); NRBC Flagged by Analyzer 0 % (0-5); Neutrophil # 7.15 X10^3/uL (2.7-7.7); Neutrophil % 69.2 % (47-70); Platelet Count 532 K/mm3 (150-450); RBC Distribution Width CV 14.8 % (11.6-14.6); RBC Distribution Width SD 49.8 fl (35.1-43.9); Red Blood Count 3.51 M/mm3 (4.2-5.4); White Blood Count 10.3 K/mm3 (4.4-11.0)
[2022-04-10 21:43] LABS: Anion Gap 9 (5-15); BUN 38 mg/dL (7-18); BUN/Creat Ratio 23.2 RATIO (10-20); Calcium,Total 9.2 mg/dL (8.5-10.1); Chloride 100 mmol/L (98-107); Creatinine, Serum 1.64 mg/dL (0.55-1.02); EST Glomerular Filtration Rate 32 mL/min (>60); Est Glom Filt Rate - Afr Amer 39 mL/min (>60); Glucose 116 mg/dL (74-106); Potassium 4.2 mmol/L (3.5-5.1); Sodium Level 134 mmol/L (136-145)
[2022-04-16 05:42] LABS: Thyroid Stim Hormone (TSH) 3.73 uIU/mL (0.358-3.74)
== END | disposition home or self-care (01) ==
LOC: OLS.ACH 19:42
PROVIDERS: PCP Family Medicine; Referring Provider Family Medicine; Visit Provider Family Medicine
DX: E03.9 Hypothyroidism, unspecified (principal); E11.42 Type 2 diabetes mellitus with diabetic polyneuropathy
CPT/HCPCS: 36415; 80048; 84443; 85025

== ENCOUNTER → 2022-04-18 | Outpatient (REF) | payer MEDICARE, MEDICAID, SELFPAY ==
[2022-04-18 07:41] LABS: Hematocrit 31.6 % (37-47); Hemoglobin 9.7 g/dL (12.0-15.0); Mean Corp Hgb Conc 30.7 g/dL (32-36); Mean Corpuscular Hgb 28.6 pg (27.0-32.0); Mean Corpuscular Volume 93.2 fL (81-99); Mean Platelet Vol. 8.9 fl (6.2-12.0); Platelet Count 427 K/mm3 (150-450); RBC Distribution Width CV 14.9 % (11.6-14.6); RBC Distribution Width SD 51.2 fl (35.1-43.9); Red Blood Count 3.39 M/mm3 (4.2-5.4); White Blood Count 9.3 K/mm3 (4.4-11.0)
== END | disposition home or self-care (01) ==
LOC: OLS.ACH 05:00
PROVIDERS: PCP Family Medicine; Visit Provider Family Medicine
DX: E03.9 Hypothyroidism, unspecified (principal); E78.5 Hyperlipidemia, unspecified
CPT/HCPCS: 36415; 85027

== ENCOUNTER → 2022-05-23 | Outpatient (REF) | payer MEDICARE, MEDICAID, SELFPAY ==
[2022-05-23 08:52] LABS: Hematocrit 30.2 % (37-47); Hemoglobin 9.4 g/dL (12.0-15.0); Mean Corp Hgb Conc 31.1 g/dL (32-36); Mean Corpuscular Hgb 28.1 pg (27.0-32.0); Mean Corpuscular Volume 90.4 fL (81-99); Mean Platelet Vol. 8.9 fl (6.2-12.0); Platelet Count 421 K/mm3 (150-450); RBC Distribution Width CV 15.9 % (11.6-14.6); RBC Distribution Width SD 53.4 fl (35.1-43.9); Red Blood Count 3.34 M/mm3 (4.2-5.4); White Blood Count 7.7 K/mm3 (4.4-11.0)
[2022-05-23 09:10] LABS: ALB/GLOB Ratio 0.9 RATIO (0.9-2.4); AST(SGOT) 13 U/L (15-37); Alanine Aminotransfer ALT/SGPT 13 U/L (13-56); Albumin, Serum 3.4 g/dL (3.2-5.0); Alkaline Phosphatase 100 U/L (45-117); Anion Gap 5 (5-15); BUN 27 mg/dL (7-18); BUN/Creat Ratio 23.3 RATIO (10-20); Calcium,Total 8.9 mg/dL (8.5-10.1); Chloride 106 mmol/L (98-107); Creatinine, Serum 1.16 mg/dL (0.55-1.02); EST Glomerular Filtration Rate 48 mL/min (>60); Est Glom Filt Rate - Afr Amer 58 mL/min (>60); Ferritin 58 ng/mL (8-252); Globulin 3.6 g/dL (2.2-4.2); Glucose 125 mg/dL (74-106); Iron 45 ug/dL (50-170); Sodium Level 138 mmol/L (136-145)
== END | disposition home or self-care (01) ==
LOC: OLS.ACH 04:00
PROVIDERS: PCP Family Medicine; Visit Provider Family Medicine
DX: R60.9 Edema, unspecified (principal); K76.89 Other specified diseases of liver; E78.5 Hyperlipidemia, unspecified; K21.9 Gastro-esophageal reflux disease without esophagitis
CPT/HCPCS: 36415; 80053; 82728; 83540; 85027

== ENCOUNTER → 2022-06-04 | Outpatient (REF) | payer MEDICARE, MEDICAID, SELFPAY ==
[2022-06-04 08:41] LABS: Absolute Lymphocyte Count 1.92 X10^3/uL (0.83-4.51); Absolute Neutrophil Count 5.4 X10^3/uL (2.0-7.7); Basophil# 0.07 X10^3/uL; Basophil% 0.8 % (0-1); Eosinophil# 0.38 X10^3/uL; Eosinophils% 4.4 % (0-5); Hematocrit 31.8 % (37-47); Hemoglobin 9.7 g/dL (12.0-15.0); Lymphocyte # 1.92 X10^3/ul (0.83-4.51); Lymphocyte % 22.2 % (19-41); Mean Corp Hgb Conc 30.5 g/dL (32-36); Mean Corpuscular Hgb 28.6 pg (27.0-32.0); Mean Corpuscular Volume 93.8 fL (81-99); Mean Platelet Vol. 9.2 fl (6.2-12.0); Monocyte# 0.86 X10^3/uL; NRBC Flagged by Analyzer 0 % (0-5); Neutrophil # 5.38 X10^3/uL (2.7-7.7); Neutrophil % 62.4 % (47-70); Platelet Count 368 K/mm3 (150-450); RBC Distribution Width CV 16.1 % (11.6-14.6); RBC Distribution Width SD 55.6 fl (35.1-43.9); Red Blood Count 3.39 M/mm3 (4.2-5.4); White Blood Count 8.6 K/mm3 (4.4-11.0)
[2022-06-04 08:45] LABS: AST(SGOT) 11 U/L (15-37); Alanine Aminotransfer ALT/SGPT 12 U/L (13-56); Albumin, Serum 3.5 g/dL (3.2-5.0); Alkaline Phosphatase 93 U/L (45-117); Anion Gap 5 (5-15); BUN 32 mg/dL (7-18); BUN/Creat Ratio 25.6 RATIO (10-20); Calcium,Total 8.8 mg/dL (8.5-10.1); Chloride 106 mmol/L (98-107); Creatinine, Serum 1.25 mg/dL (0.55-1.02); EST Glomerular Filtration Rate 44 mL/min (>60); Est Glom Filt Rate - Afr Amer 53 mL/min (>60); Globulin 3.6 g/dL (2.2-4.2); Glucose 85 mg/dL (74-106); Potassium 3.9 mmol/L (3.5-5.1); Protein, Total 7.1 g/dL (6.4-8.2); Sodium Level 138 mmol/L (136-145)
[2022-06-04 10:16] LABS: Hemoglobin A1c 6.7 % (3.8-5.6)
== END | disposition home or self-care (01) ==
LOC: OLS.ACH 05:00
PROVIDERS: PCP Family Medicine; Visit Provider Family Medicine
DX: E11.42 Type 2 diabetes mellitus with diabetic polyneuropathy (principal); I10 Essential (primary) hypertension; R60.9 Edema, unspecified; E78.5 Hyperlipidemia, unspecified
CPT/HCPCS: 36415; 80053; 83036; 85025

== ENCOUNTER → 2022-06-15 | Outpatient (REF) | payer MEDICARE, MEDICAID, SELFPAY ==
[2022-06-15 17:26] LABS: Mucous, Urine 0 SEEN /hpf (<or=2+)
[2022-06-15 17:44] LABS: Absolute Lymphocyte Count 1.01 X10^3/uL (0.83-4.51); Basophil# 0.05 X10^3/uL; Basophil% 0.3 % (0-1); Eosinophil# 0.09 X10^3/uL; Eosinophils% 0.6 % (0-5); Hematocrit 32.9 % (37-47); Hemoglobin 10.2 g/dL (12.0-15.0); Lymphocyte # 1.01 X10^3/ul (0.83-4.51); Lymphocyte % 6.8 % (19-41); Mean Corpuscular Volume 90.4 fL (81-99); Mean Platelet Vol. 9.2 fl (6.2-12.0); Monocyte# 1.58 X10^3/uL; Monocyte% 10.7 % (0-10); NRBC Flagged by Analyzer 0 % (0-5); Neutrophil # 11.96 X10^3/uL (2.7-7.7); Neutrophil % 80.9 % (47-70); POSITIVE DIFFERENTIAL YES; Platelet Count 358 K/mm3 (150-450); RBC Distribution Width CV 16.4 % (11.6-14.6); RBC Distribution Width SD 54.7 fl (35.1-43.9); Red Blood Count 3.64 M/mm3 (4.2-5.4); White Blood Count 14.8 K/mm3 (4.4-11.0)
[2022-06-15 17:45] LABS: Color, Urine Straw (Yellow); Glucose, Dipstick Normal (Normal); Ketone-Dipstick Negative (Negative); Leukocyte Esterase-Dipstick 500 /ul (Negative); Nitrite-Dipstick Positive (Negative); Occult Blood-Urine 250 /ul (Negative); Protein-Dipstick 100 mg/dl (Negative); Specific Gravity, Urine 1.015 (1.002-1.030); Urine Bilirubin Dipstick Negative (Negative); Urine Clarity Cloudy (Clear); Urine Urobilinogen Normal (Normal)
[2022-06-15 17:55] LABS: Differential Indicated SCAN CRITERIA MET
[2022-06-15 17:58] LABS: Anion Gap 7 (5-15); BUN 20 mg/dL (7-18); BUN/Creat Ratio 16.4 RATIO (10-20); Calcium,Total 9.2 mg/dL (8.5-10.1); Chloride 102 mmol/L (98-107); Creatinine, Serum 1.22 mg/dL (0.55-1.02); EST Glomerular Filtration Rate 45 mL/min (>60); Est Glom Filt Rate - Afr Amer 55 mL/min (>60); Glucose 99 mg/dL (74-106); Potassium 3.9 mmol/L (3.5-5.1); Sodium Level 134 mmol/L (136-145)
[2022-06-15 18:00] LABS: Bacteria 4+ /hpf (None Seen); Red Blood Cells-Urine 25-50 SEEN /hpf (0-5); Squamous Epithelial Cells - UA 5-10 SEEN /hpf (5-10); White Blood Cells >100 SEEN /hpf (0-5)
[2022-06-15 18:49] LABS: Platelet Estimate ADEQUATE (ADEQ)
[2022-06-15 18:50] LABS: Anisocytosis RARE; Macrocytosis RARE; Red Cell Morphology N CHROM NORMAL (NORM C&C)
[2022-06-18 12:22] LABS: Pathologist Review Reviewed
== END ==
LOC: OLS.ACH 16:50
PROVIDERS: PCP Family Medicine; Visit Provider Family Medicine
DX: R06.02 Shortness of breath (principal); R50.9 Fever, unspecified
CPT/HCPCS: 36415; 80048; 81001; 85025; 87040; 87086; 87088; 87186

== ENCOUNTER → 2022-08-27 | Outpatient (REF) | payer MEDICARE, MEDICAID, SELFPAY ==
[2022-08-27 07:30] LABS: Absolute Lymphocyte Count 1.98 X10^3/uL (0.83-4.51); Absolute Neutrophil Count 5.6 X10^3/uL (2.0-7.7); Basophil# 0.07 X10^3/uL; Basophil% 0.8 % (0-1); Eosinophil# 0.47 X10^3/uL; Eosinophils% 5.3 % (0-5); Hematocrit 31.5 % (37-47); Hemoglobin 9.8 g/dL (12.0-15.0); Lymphocyte # 1.98 X10^3/ul (0.83-4.51); Lymphocyte % 22.1 % (19-41); Mean Corp Hgb Conc 31.1 g/dL (32-36); Mean Corpuscular Hgb 28.4 pg (27.0-32.0); Mean Corpuscular Volume 91.3 fL (81-99); Mean Platelet Vol. 8.9 fl (6.2-12.0); Monocyte# 0.82 X10^3/uL; Monocyte% 9.2 % (0-10); NRBC Flagged by Analyzer 0 % (0-5); Neutrophil # 5.57 X10^3/uL (2.7-7.7); Neutrophil % 62.3 % (47-70); Platelet Count 448 K/mm3 (150-450); RBC Distribution Width CV 15.9 % (11.6-14.6); RBC Distribution Width SD 52.5 fl (35.1-43.9); Red Blood Count 3.45 M/mm3 (4.2-5.4); White Blood Count 8.9 K/mm3 (4.4-11.0)
[2022-08-27 08:01] LABS: AST(SGOT) 9 U/L (15-37); Alanine Aminotransfer ALT/SGPT 13 U/L (13-56); Albumin, Serum 3.4 g/dL (3.2-5.0); Alkaline Phosphatase 97 U/L (45-117); Anion Gap 10 (5-15); BUN 34 mg/dL (7-18); BUN/Creat Ratio 26.6 RATIO (10-20); Calcium,Total 8.7 mg/dL (8.5-10.1); Chloride 105 mmol/L (98-107); Creatinine, Serum 1.28 mg/dL (0.55-1.02); EST Glomerular Filtration Rate 43 mL/min (>60); Est Glom Filt Rate - Afr Amer 52 mL/min (>60); Globulin 3.4 g/dL (2.2-4.2); Glucose 82 mg/dL (74-106); Potassium 3.8 mmol/L (3.5-5.1); Protein, Total 6.8 g/dL (6.4-8.2); Sodium Level 140 mmol/L (136-145)
[2022-08-27 09:07] LABS: Hemoglobin A1c 5.7 % (3.8-5.6)
== END ==
LOC: OLS.ACH 05:00
PROVIDERS: PCP Family Medicine; Visit Provider Family Medicine
DX: E11.42 Type 2 diabetes mellitus with diabetic polyneuropathy (principal); D64.9 Anemia, unspecified
CPT/HCPCS: 36415; 80053; 83036; 85025

== ENCOUNTER → 2022-08-28 | Outpatient (REF) | payer MEDICARE, MEDICAID, SELFPAY ==
[2022-08-28 09:04] LABS: Vitamin B12 390 pg/mL (211-911)
[2022-08-28 09:21] LABS: Ferritin 46 ng/mL (8-252); Iron 38 ug/dL (50-170); Iron Binding Capacity,Total 304 ug/dL (250-450); PERCENT IRON SATURATION 12.5 % (15.0-55.0)
[2022-08-29 13:08] LABS: PROEL- A/G Ratio 1.2 (0.7-1.7); PROEL- Albumin 3.5 g/dL (2.9-4.4); PROEL- Alpha-1 Globulin 0.3 g/dL (0.0-0.4); PROEL- Alpha-2 Globulin 0.9 g/dL (0.4-1.0); PROEL- Beta Globulin 0.9 g/dL (0.7-1.3); PROEL- TOTAL PROTEIN 6.5 g/dL (6.0-8.5)
== END ==
LOC: OLS.ACH 05:00
PROVIDERS: PCP Family Medicine; Visit Provider Family Medicine
DX: D64.9 Anemia, unspecified (principal)
CPT/HCPCS: 36415; 82607; 82728; 82746; 83540; 83550; 84165

== ENCOUNTER → 2022-09-22 | Outpatient (REF) | payer MEDICARE, MEDICAID, SELFPAY ==
[2022-09-22 20:22] LABS: Bacteria 0 SEEN /hpf (None Seen); Mucous, Urine 0 SEEN /hpf (<or=2+); Red Blood Cells-Urine 0 SEEN /hpf (0-5); Squamous Epithelial Cells - UA 0 SEEN /hpf (5-10)
[2022-09-22 20:46] LABS: Hematocrit 33.5 % (37-47); Hemoglobin 10.4 g/dL (12.0-15.0); Mean Corpuscular Hgb 28.3 pg (27.0-32.0); Mean Corpuscular Volume 91.3 fL (81-99); Mean Platelet Vol. 9.1 fl (6.2-12.0); Platelet Count 361 K/mm3 (150-450); RBC Distribution Width CV 15.4 % (11.6-14.6); RBC Distribution Width SD 51.6 fl (35.1-43.9); Red Blood Count 3.67 M/mm3 (4.2-5.4); White Blood Count 22.8 K/mm3 (4.4-11.0)
[2022-09-22 20:47] LABS: Color, Urine Yellow (Yellow); Glucose, Dipstick Normal (Normal); Ketone-Dipstick Negative (Negative); Leukocyte Esterase-Dipstick 500 /ul (Negative); Nitrite-Dipstick Positive (Negative); Occult Blood-Urine 150 /ul (Negative); Protein-Dipstick 500 mg/dl (Negative); Urine Bilirubin Dipstick Negative (Negative); Urine Clarity Cloudy (Clear); Urine Urobilinogen Normal (Normal)
[2022-09-22 20:59] LABS: White Blood Cells >100 SEEN /hpf (0-5)
[2022-09-22 21:01] LABS: Anion Gap 8 (5-15); BUN 29 mg/dL (7-18); BUN/Creat Ratio 18.4 RATIO (10-20); Calcium,Total 8.7 mg/dL (8.5-10.1); Chloride 99 mmol/L (98-107); Creatinine, Serum 1.58 mg/dL (0.55-1.02); EST Glomerular Filtration Rate 34 mL/min (>60); Est Glom Filt Rate - Afr Amer 41 mL/min (>60); Glucose 172 mg/dL (74-106); Potassium 3.6 mmol/L (3.5-5.1); Sodium Level 134 mmol/L (136-145)
== END ==
LOC: OLS.ACH 19:40
PROVIDERS: PCP Family Medicine; Referring Provider Family Medicine; Visit Provider Family Medicine
DX: N39.0 Urinary tract infection, site not specified (principal); R53.1 Weakness
CPT/HCPCS: 36415; 80048; 81001; 85027; 87077; 87086; 87088; 87186

== ENCOUNTER → 2022-09-24 | Outpatient (REF) | payer MEDICARE, MEDICAID, SELFPAY ==
[2022-09-24 08:12] LABS: Hematocrit 30.4 % (37-47); Hemoglobin 9.4 g/dL (12.0-15.0); Mean Corp Hgb Conc 30.9 g/dL (32-36); Mean Corpuscular Hgb 28.2 pg (27.0-32.0); Mean Corpuscular Volume 91.3 fL (81-99); Mean Platelet Vol. 9.2 fl (6.2-12.0); Platelet Count 358 K/mm3 (150-450); RBC Distribution Width CV 14.9 % (11.6-14.6); RBC Distribution Width SD 50.3 fl (35.1-43.9); Red Blood Count 3.33 M/mm3 (4.2-5.4); White Blood Count 14.2 K/mm3 (4.4-11.0)
[2022-09-24 08:32] LABS: Anion Gap 11 (5-15); BUN 35 mg/dL (7-18); BUN/Creat Ratio 21.5 RATIO (10-20); Calcium,Total 8.4 mg/dL (8.5-10.1); Chloride 97 mmol/L (98-107); Creatinine, Serum 1.63 mg/dL (0.55-1.02); EST Glomerular Filtration Rate 32 mL/min (>60); Est Glom Filt Rate - Afr Amer 39 mL/min (>60); Glucose 95 mg/dL (74-106); Potassium 3.2 mmol/L (3.5-5.1); Sodium Level 134 mmol/L (136-145)
== END ==
LOC: OLS.ACH 05:00
PROVIDERS: PCP Family Medicine; Visit Provider Family Medicine
DX: N39.0 Urinary tract infection, site not specified (principal); E86.0 Dehydration
CPT/HCPCS: 36415; 80048; 85027

== ENCOUNTER → 2022-09-27 | Outpatient (REF) | payer MEDICARE, MEDICAID, SELFPAY ==
[2022-09-27 09:26] LABS: Anion Gap 7 (5-15); BUN 25 mg/dL (7-18); BUN/Creat Ratio 20.7 RATIO (10-20); Calcium,Total 9.1 mg/dL (8.5-10.1); Chloride 101 mmol/L (98-107); Creatinine, Serum 1.21 mg/dL (0.55-1.02); EST Glomerular Filtration Rate 46 mL/min (>60); Est Glom Filt Rate - Afr Amer 55 mL/min (>60); Glucose 92 mg/dL (74-106); Potassium 3.3 mmol/L (3.5-5.1); Sodium Level 137 mmol/L (136-145)
== END ==
LOC: OLS.ACH 05:00
PROVIDERS: PCP Family Medicine; Visit Provider Family Medicine
DX: E11.42 Type 2 diabetes mellitus with diabetic polyneuropathy (principal)
CPT/HCPCS: 36415; 80048

== ENCOUNTER → 2022-10-16 | Outpatient (REF) | payer MEDICARE, MEDICAID, SELFPAY ==
[2022-10-16 08:53] LABS: Hematocrit 31.2 % (37-47); Mean Corp Hgb Conc 32.1 g/dL (32-36); Mean Corpuscular Hgb 29.3 pg (27.0-32.0); Mean Corpuscular Volume 91.5 fL (81-99); Mean Platelet Vol. 8.8 fl (6.2-12.0); Platelet Count 371 K/mm3 (150-450); RBC Distribution Width CV 14.6 % (11.6-14.6); Red Blood Count 3.41 M/mm3 (4.2-5.4); White Blood Count 11.2 K/mm3 (4.4-11.0)
[2022-10-16 09:04] LABS: Anion Gap 5 (5-15); BUN 29 mg/dL (7-18); Calcium,Total 8.8 mg/dL (8.5-10.1); Chloride 104 mmol/L (98-107); Creatinine, Serum 1.38 mg/dL (0.55-1.02); EST Glomerular Filtration Rate 39 mL/min (>60); Est Glom Filt Rate - Afr Amer 47 mL/min (>60); Glucose 92 mg/dL (74-106); Potassium 3.9 mmol/L (3.5-5.1); Sodium Level 137 mmol/L (136-145)
[2022-10-16 12:20] LABS: Mucous, Urine 0 SEEN /hpf (<or=2+); Red Blood Cells-Urine 0 SEEN /hpf (0-5)
[2022-10-16 12:37] LABS: Color, Urine Yellow (Yellow); Glucose, Dipstick Normal (Normal); Ketone-Dipstick Negative (Negative); Leukocyte Esterase-Dipstick 500 /ul (Negative); Nitrite-Dipstick Positive (Negative); Occult Blood-Urine 25 /ul (Negative); Protein-Dipstick 100 mg/dl (Negative); Specific Gravity, Urine 1.015 (1.002-1.030); Urine Bilirubin Dipstick Negative (Negative); Urine Clarity Cloudy (Clear); Urine Urobilinogen Normal (Normal)
[2022-10-16 13:27] LABS: Squamous Epithelial Cells - UA 0-5 SEEN /hpf (5-10)
[2022-10-16 13:28] LABS: White Blood Cells >100 SEEN /hpf (0-5)
[2022-10-16 13:29] LABS: Bacteria 1+ /hpf (None Seen)
== END ==
LOC: OLS.ACH 05:00
PROVIDERS: PCP Family Medicine; Visit Provider Family Medicine
DX: E11.42 Type 2 diabetes mellitus with diabetic polyneuropathy (principal); R13.13 Dysphagia, pharyngeal phase; R50.9 Fever, unspecified; R05.9 Cough, unspecified
CPT/HCPCS: 36415; 80048; 81001; 85027; 87077; 87086; 87088; 87186

== ENCOUNTER → 2022-10-29 | Outpatient (REF) | payer MEDICARE, MEDICAID, SELFPAY ==
[2022-10-29 08:53] LABS: BNP,B-Type NATRIURETIC PEPTIDE 293.2 pg/mL (0-100)
[2022-10-29 08:54] LABS: Anion Gap 7 (5-15); BUN 29 mg/dL (7-18); BUN/Creat Ratio 28.7 RATIO (10-20); Calcium,Total 8.9 mg/dL (8.5-10.1); Chloride 101 mmol/L (98-107); Creatinine, Serum 1.01 mg/dL (0.55-1.02); EST Glomerular Filtration Rate 56 mL/min (>60); Est Glom Filt Rate - Afr Amer 68 mL/min (>60); Glucose 103 mg/dL (74-106); Potassium 3.8 mmol/L (3.5-5.1); Sodium Level 136 mmol/L (136-145)
== END ==
LOC: OLS.ACH 05:00
PROVIDERS: PCP Family Medicine; Visit Provider Family Medicine
DX: I10 Essential (primary) hypertension (principal); R60.9 Edema, unspecified; R06.9 Unspecified abnormalities of breathing
CPT/HCPCS: 36415; 80048; 83880

== ENCOUNTER → 2022-11-19 | Outpatient (REF) | payer MEDICARE, MEDICAID, SELFPAY ==
[2022-11-19 09:11] LABS: Absolute Lymphocyte Count 1.65 X10^3/uL (0.83-4.51); Absolute Neutrophil Count 4.4 X10^3/uL (2.0-7.7); Basophil# 0.07 X10^3/uL; Eosinophil# 0.32 X10^3/uL; Eosinophils% 4.6 % (0-5); Hematocrit 32.3 % (37-47); Hemoglobin 10.4 g/dL (12.0-15.0); Lymphocyte # 1.65 X10^3/ul (0.83-4.51); Lymphocyte % 23.5 % (19-41); Mean Corp Hgb Conc 32.2 g/dL (32-36); Mean Corpuscular Hgb 29.5 pg (27.0-32.0); Mean Corpuscular Volume 91.8 fL (81-99); Mean Platelet Vol. 8.9 fl (6.2-12.0); Monocyte# 0.61 X10^3/uL; Monocyte% 8.7 % (0-10); NRBC Flagged by Analyzer 0 % (0-5); Neutrophil # 4.35 X10^3/uL (2.7-7.7); Neutrophil % 61.9 % (47-70); Platelet Count 400 K/mm3 (150-450); RBC Distribution Width CV 14.1 % (11.6-14.6); RBC Distribution Width SD 47.2 fl (35.1-43.9); Red Blood Count 3.52 M/mm3 (4.2-5.4)
[2022-11-19 09:39] LABS: AST(SGOT) 7 U/L (15-37); Alanine Aminotransfer ALT/SGPT 16 U/L (13-56); Albumin, Serum 3.4 g/dL (3.2-5.0); Alkaline Phosphatase 85 U/L (45-117); Anion Gap 10 (5-15); BUN 28 mg/dL (7-18); BUN/Creat Ratio 25.9 RATIO (10-20); Chloride 101 mmol/L (98-107); Creatinine, Serum 1.08 mg/dL (0.55-1.02); EST Glomerular Filtration Rate 52 mL/min (>60); Est Glom Filt Rate - Afr Amer 63 mL/min (>60); Globulin 3.5 g/dL (2.2-4.2); Glucose 85 mg/dL (74-106); Potassium 3.7 mmol/L (3.5-5.1); Protein, Total 6.9 g/dL (6.4-8.2); Sodium Level 138 mmol/L (136-145)
[2022-11-19 09:53] LABS: Hemoglobin A1c 5.2 % (3.8-5.6)
== END ==
LOC: OLS.ACH 05:00
PROVIDERS: PCP Family Medicine; Visit Provider Internal Medicine
DX: E11.42 Type 2 diabetes mellitus with diabetic polyneuropathy (principal)
CPT/HCPCS: 36415; 80053; 83036; 85025

== ENCOUNTER → 2022-12-18 | Outpatient (REF) | payer MEDICARE, MEDICAID, SELFPAY ==
[2022-12-18 09:41] LABS: Hematocrit 32.8 % (37-47); Hemoglobin 10.2 g/dL (12.0-15.0); Mean Corp Hgb Conc 31.1 g/dL (32-36); Mean Corpuscular Hgb 28.8 pg (27.0-32.0); Mean Corpuscular Volume 92.7 fL (81-99); Mean Platelet Vol. 8.9 fl (6.2-12.0); Platelet Count 432 K/mm3 (150-450); RBC Distribution Width CV 13.7 % (11.6-14.6); RBC Distribution Width SD 46.9 fl (35.1-43.9); Red Blood Count 3.54 M/mm3 (4.2-5.4); White Blood Count 8.6 K/mm3 (4.4-11.0)
[2022-12-18 09:47] LABS: AST(SGOT) 9 U/L (15-37); Alanine Aminotransfer ALT/SGPT 11 U/L (13-56); Albumin, Serum 3.5 g/dL (3.2-5.0); Alkaline Phosphatase 90 U/L (45-117); Anion Gap 5 (5-15); BUN 28 mg/dL (7-18); BUN/Creat Ratio 23.7 RATIO (10-20); Calcium,Total 8.8 mg/dL (8.5-10.1); Chloride 108 mmol/L (98-107); Creatinine, Serum 1.18 mg/dL (0.55-1.02); EST Glomerular Filtration Rate 47 mL/min (>60); Est Glom Filt Rate - Afr Amer 57 mL/min (>60); Globulin 3.5 g/dL (2.2-4.2); Glucose 124 mg/dL (74-106); Potassium 4.1 mmol/L (3.5-5.1); Sodium Level 141 mmol/L (136-145)
== END ==
LOC: OLS.ACH 05:00
PROVIDERS: PCP Family Medicine; Visit Provider Internal Medicine
DX: E11.42 Type 2 diabetes mellitus with diabetic polyneuropathy (principal); Z51.81 Encounter for therapeutic drug level monitoring
CPT/HCPCS: 36415; 80053; 85027

== ENCOUNTER → 2023-01-09 | Outpatient (REF) | payer MEDICARE, MEDICAID, SELFPAY ==
[2023-01-09 09:20] LABS: Hematocrit 28.9 % (37-47); Mean Corp Hgb Conc 31.1 g/dL (32-36); Mean Corpuscular Hgb 28.8 pg (27.0-32.0); Mean Corpuscular Volume 92.6 fL (81-99); Mean Platelet Vol. 8.8 fl (6.2-12.0); Platelet Count 415 K/mm3 (150-450); RBC Distribution Width CV 13.9 % (11.6-14.6); RBC Distribution Width SD 47.3 fl (35.1-43.9); Red Blood Count 3.12 M/mm3 (4.2-5.4); White Blood Count 9.3 K/mm3 (4.4-11.0)
[2023-01-09 09:37] LABS: Vitamin B12 540 pg/mL (211-911)
[2023-01-09 09:43] LABS: Ferritin 88 ng/mL (8-252); Iron 45 ug/dL (50-170); Iron Binding Capacity,Total 268 ug/dL (250-450); PERCENT IRON SATURATION 16.8 % (15.0-55.0)
== END ==
LOC: OLS.ACH 05:00
PROVIDERS: PCP Family Medicine; Visit Provider Internal Medicine
DX: D64.9 Anemia, unspecified (principal)
CPT/HCPCS: 36415; 82607; 82728; 83540; 83550; 85027

== ENCOUNTER → 2023-02-11 | Outpatient (REF) | payer MEDICARE, MEDICAID, SELFPAY ==
[2023-02-11 10:20] LABS: Absolute Lymphocyte Count 1.32 X10^3/uL (0.83-4.51); Absolute Neutrophil Count 8.3 X10^3/uL (2.0-7.7); Basophil# 0.07 X10^3/uL; Basophil% 0.6 % (0-1); Eosinophil# 0.39 X10^3/uL; Eosinophils% 3.5 % (0-5); Hematocrit 30.1 % (37-47); Hemoglobin 9.4 g/dL (12.0-15.0); Lymphocyte # 1.32 X10^3/ul (0.83-4.51); Lymphocyte % 11.9 % (19-41); Mean Corp Hgb Conc 31.2 g/dL (32-36); Mean Corpuscular Volume 92.9 fL (81-99); Mean Platelet Vol. 8.8 fl (6.2-12.0); Monocyte# 0.91 X10^3/uL; Monocyte% 8.2 % (0-10); NRBC Flagged by Analyzer 0 % (0-5); Neutrophil # 8.32 X10^3/uL (2.7-7.7); Neutrophil % 75.3 % (47-70); Platelet Count 408 K/mm3 (150-450); RBC Distribution Width CV 14.2 % (11.6-14.6); RBC Distribution Width SD 48.2 fl (35.1-43.9); Red Blood Count 3.24 M/mm3 (4.2-5.4); White Blood Count 11.1 K/mm3 (4.4-11.0)
[2023-02-11 10:23] LABS: AST(SGOT) 7 U/L (15-37); Alanine Aminotransfer ALT/SGPT 15 U/L (13-56); Albumin, Serum 3.5 g/dL (3.2-5.0); Alkaline Phosphatase 88 U/L (45-117); Anion Gap 6 (5-15); BUN 32 mg/dL (7-18); BUN/Creat Ratio 27.4 RATIO (10-20); Calcium,Total 8.9 mg/dL (8.5-10.1); Chloride 103 mmol/L (98-107); Creatinine, Serum 1.17 mg/dL (0.55-1.02); EST Glomerular Filtration Rate 47 mL/min (>60); Est Glom Filt Rate - Afr Amer 57 mL/min (>60); Globulin 3.5 g/dL (2.2-4.2); Glucose 112 mg/dL (74-106); Potassium 4.4 mmol/L (3.5-5.1); Sodium Level 137 mmol/L (136-145)
[2023-02-11 10:34] LABS: Hemoglobin A1c 5.6 % (3.8-5.6)
== END ==
LOC: OLS.ACH 04:00
PROVIDERS: PCP Family Medicine; Referring Provider Internal Medicine; Visit Provider Internal Medicine
DX: E11.42 Type 2 diabetes mellitus with diabetic polyneuropathy (principal); D64.9 Anemia, unspecified; I10 Essential (primary) hypertension
CPT/HCPCS: 36415; 80053; 83036; 85025

== ENCOUNTER → 2023-02-12 | Outpatient (REF) | payer MEDICARE, MEDICAID, SELFPAY ==
[2023-02-12 08:43] LABS: Hematocrit 30.1 % (37-47); Hemoglobin 9.5 g/dL (12.0-15.0); Mean Corp Hgb Conc 31.6 g/dL (32-36); Mean Corpuscular Hgb 29.5 pg (27.0-32.0); Mean Corpuscular Volume 93.5 fL (81-99); Mean Platelet Vol. 8.9 fl (6.2-12.0); Platelet Count 409 K/mm3 (150-450); RBC Distribution Width CV 14.3 % (11.6-14.6); RBC Distribution Width SD 49.1 fl (35.1-43.9); Red Blood Count 3.22 M/mm3 (4.2-5.4); White Blood Count 8.9 K/mm3 (4.4-11.0)
== END ==
LOC: OLS.ACH 05:00
PROVIDERS: PCP Family Medicine; Visit Provider Internal Medicine
DX: D64.9 Anemia, unspecified (principal)
CPT/HCPCS: 36415; 85027

== ENCOUNTER → 2023-02-19 | Outpatient (REF) | payer MEDICARE, MEDICAID, SELFPAY | LOC: OLS.ACH 11:30 | PROVIDERS: PCP Family Medicine; Visit Provider Internal Medicine | DX: R05.9 Cough, unspecified (principal); R53.83 Other fatigue | CPT/HCPCS: 87633 ==

== ENCOUNTER → 2023-02-27 | Outpatient (REF) | payer MEDICARE, MEDICAID, SELFPAY ==
[2023-02-27 10:34] LABS: Hematocrit 33.9 % (37-47); Hemoglobin 10.4 g/dL (12.0-15.0); Mean Corp Hgb Conc 30.7 g/dL (32-36); Mean Corpuscular Volume 91.1 fL (81-99); Mean Platelet Vol. 8.8 fl (6.2-12.0); Platelet Count 548 K/mm3 (150-450); RBC Distribution Width CV 13.5 % (11.6-14.6); RBC Distribution Width SD 45.3 fl (35.1-43.9); Red Blood Count 3.72 M/mm3 (4.2-5.4); White Blood Count 8.8 K/mm3 (4.4-11.0)
[2023-02-27 10:59] LABS: AST(SGOT) 11 U/L (15-37); Alanine Aminotransfer ALT/SGPT 17 U/L (13-56); Albumin, Serum 3.7 g/dL (3.2-5.0); Alkaline Phosphatase 92 U/L (45-117); Anion Gap 8 (5-15); BUN 41 mg/dL (7-18); BUN/Creat Ratio 33.3 RATIO (10-20); Chloride 102 mmol/L (98-107); Creatinine, Serum 1.23 mg/dL (0.55-1.02); EST Glomerular Filtration Rate 45 mL/min (>60); Est Glom Filt Rate - Afr Amer 54 mL/min (>60); Globulin 3.8 g/dL (2.2-4.2); Glucose 106 mg/dL (74-106); Potassium 4.7 mmol/L (3.5-5.1); Protein, Total 7.5 g/dL (6.4-8.2); Sodium Level 134 mmol/L (136-145)
== END ==
LOC: OLS.ACH 05:00
PROVIDERS: PCP Family Medicine; Visit Provider Internal Medicine
DX: R60.9 Edema, unspecified (principal); E11.42 Type 2 diabetes mellitus with diabetic polyneuropathy; D64.9 Anemia, unspecified; I10 Essential (primary) hypertension
CPT/HCPCS: 36415; 80053; 85027

== ENCOUNTER → 2023-03-25 | Outpatient (REF) | payer MEDICARE, MEDICAID, SELFPAY ==
[2023-03-26 08:42] LABS: Mucous, Urine 0 SEEN /hpf (<or=2+); Red Blood Cells-Urine 0 SEEN /hpf (0-5)
[2023-03-26 08:59] LABS: Color, Urine Yellow (Yellow); Glucose, Dipstick Normal (Normal); Ketone-Dipstick Negative (Negative); Leukocyte Esterase-Dipstick 500 /ul (Negative); Nitrite-Dipstick Negative (Negative); Occult Blood-Urine 25 /ul (Negative); Protein-Dipstick 30 mg/dl (Negative); Urine Bilirubin Dipstick Negative (Negative); Urine Clarity Sl. Cloudy (Clear); Urine Urobilinogen Normal (Normal)
[2023-03-26 09:13] LABS: Squamous Epithelial Cells - UA 0-5 SEEN /hpf (5-10); White Blood Cells 50-100 SEEN /hpf (0-5)
[2023-03-26 09:14] LABS: Amorphous Sediment 2+; Bacteria 2+ /hpf (None Seen)
== END ==
LOC: OLS.ACH 15:00
PROVIDERS: PCP Family Medicine; Visit Provider Internal Medicine
DX: N32.81 Overactive bladder (principal); R33.9 Retention of urine, unspecified; R30.9 Painful micturition, unspecified
CPT/HCPCS: 81001; 87077; 87086; 87088; 87186

== ENCOUNTER → 2023-04-15 | Outpatient (REF) | payer MEDICARE, MEDICAID, SELFPAY ==
[2023-04-15 09:25] LABS: Thyroid Stim Hormone (TSH) 0.63 uIU/mL (0.358-3.74)
== END ==
LOC: OLS.ACH 04:00
PROVIDERS: PCP Family Medicine; Referring Provider Internal Medicine; Visit Provider Internal Medicine
DX: E03.9 Hypothyroidism, unspecified (principal)
CPT/HCPCS: 36415; 84443

== ENCOUNTER → 2023-05-06 04:00 | Outpatient (REF) | payer MEDICARE, MEDICAID, SELFPAY ==
[2023-05-06 09:19] LABS: Absolute Lymphocyte Count 1.84 X10^3/uL (0.83-4.51); Basophil# 0.07 X10^3/uL; Basophil% 0.9 % (0-1); Eosinophil# 0.21 X10^3/uL; Eosinophils% 2.7 % (0-5); Hematocrit 30.5 % (37-47); Hemoglobin 9.4 g/dL (12.0-15.0); Lymphocyte # 1.84 X10^3/ul (0.83-4.51); Lymphocyte % 23.9 % (19-41); Mean Corp Hgb Conc 30.8 g/dL (32-36); Mean Corpuscular Hgb 28.1 pg (27.0-32.0); Mean Corpuscular Volume 91.3 fL (81-99); Mean Platelet Vol. 8.8 fl (6.2-12.0); Monocyte# 0.55 X10^3/uL; Monocyte% 7.1 % (0-10); NRBC Flagged by Analyzer 0 % (0-5); Platelet Count 418 K/mm3 (150-450); RBC Distribution Width CV 14.5 % (11.6-14.6); RBC Distribution Width SD 48.7 fl (35.1-43.9); Red Blood Count 3.34 M/mm3 (4.2-5.4); White Blood Count 7.7 K/mm3 (4.4-11.0)
[2023-05-06 09:38] LABS: AST(SGOT) 12 U/L (15-37); Alanine Aminotransfer ALT/SGPT 12 U/L (13-56); Albumin, Serum 3.3 g/dL (3.2-5.0); Alkaline Phosphatase 78 U/L (45-117); Anion Gap 6 (5-15); BUN 34 mg/dL (7-18); BUN/Creat Ratio 31.2 RATIO (10-20); Calcium,Total 8.6 mg/dL (8.5-10.1); Chloride 108 mmol/L (98-107); Creatinine, Serum 1.09 mg/dL (0.55-1.02); EST Glomerular Filtration Rate 51 mL/min (>60); Est Glom Filt Rate - Afr Amer 62 mL/min (>60); Globulin 3.2 g/dL (2.2-4.2); Glucose 112 mg/dL (74-106); Potassium 4.3 mmol/L (3.5-5.1); Protein, Total 6.5 g/dL (6.4-8.2); Sodium Level 141 mmol/L (136-145)
[2023-05-06 09:52] LABS: Hemoglobin A1c 6.3 % (3.8-5.6)
== END ==
LOC: OLS.ACH 04:00
PROVIDERS: PCP Family Medicine; Referring Provider Internal Medicine; Visit Provider Internal Medicine
DX: E11.42 Type 2 diabetes mellitus with diabetic polyneuropathy (principal); I10 Essential (primary) hypertension; D64.9 Anemia, unspecified; E78.5 Hyperlipidemia, unspecified
CPT/HCPCS: 36415; 80053; 83036; 85025

== ENCOUNTER → 2023-07-22 | Outpatient (REF) | payer MEDICARE, MEDICAID, SELFPAY ==
[2023-07-22 21:28] LABS: Bacteria 0 SEEN /hpf (None Seen); Mucous, Urine 0 SEEN /hpf (<or=2+); Red Blood Cells-Urine 0 SEEN /hpf (0-5); Squamous Epithelial Cells - UA 0 SEEN /hpf (5-10)
[2023-07-22 21:29] LABS: Hematocrit 33.7 % (37-47); Hemoglobin 10.4 g/dL (12.0-15.0); Mean Corp Hgb Conc 30.9 g/dL (32-36); Mean Corpuscular Hgb 28.6 pg (27.0-32.0); Mean Corpuscular Volume 92.6 fL (81-99); Mean Platelet Vol. 8.6 fl (6.2-12.0); Platelet Count 377 K/mm3 (150-450); RBC Distribution Width CV 13.8 % (11.6-14.6); RBC Distribution Width SD 46.9 fl (35.1-43.9); Red Blood Count 3.64 M/mm3 (4.2-5.4); White Blood Count 8.1 K/mm3 (4.4-11.0)
[2023-07-22 21:45] LABS: Color, Urine Yellow (Yellow); Glucose, Dipstick Normal (Normal); Ketone-Dipstick Negative (Negative); Leukocyte Esterase-Dipstick 500 /ul (Negative); Nitrite-Dipstick Positive (Negative); Occult Blood-Urine 25 /ul (Negative); Protein-Dipstick 100 mg/dl (Negative); Specific Gravity, Urine 1.015 (1.002-1.030); Urine Bilirubin Dipstick Negative (Negative); Urine Clarity Cloudy (Clear); Urine Urobilinogen Normal (Normal)
[2023-07-22 21:46] LABS: ALB/GLOB Ratio 1.1 RATIO (0.9-2.4); AST(SGOT) 7 U/L (15-37); Alanine Aminotransfer ALT/SGPT 16 U/L (13-56); Albumin, Serum 3.5 g/dL (3.2-5.0); Alkaline Phosphatase 95 U/L (45-117); Anion Gap 9 (5-15); BUN 20 mg/dL (7-18); BUN/Creat Ratio 13.7 RATIO (10-20); Calcium,Total 8.5 mg/dL (8.5-10.1); Chloride 103 mmol/L (98-107); Creatinine, Serum 1.46 mg/dL (0.55-1.02); EST Glomerular Filtration Rate 37 mL/min (>60); Est Glom Filt Rate - Afr Amer 44 mL/min (>60); Globulin 3.3 g/dL (2.2-4.2); Glucose 181 mg/dL (74-106); Protein, Total 6.8 g/dL (6.4-8.2); Sodium Level 138 mmol/L (136-145)
[2023-07-22 21:51] LABS: White Blood Cells >100 SEEN /hpf (0-5)
== END ==
LOC: OLS.ACH 20:11
PROVIDERS: PCP Family Medicine; Referring Provider Internal Medicine; Visit Provider Internal Medicine
DX: D64.9 Anemia, unspecified (principal); I10 Essential (primary) hypertension; E11.51 Type 2 diabetes mellitus with diabetic peripheral angiopathy without gangrene; Z79.899 Other long term (current) drug therapy
CPT/HCPCS: 36415; 80053; 81001; 85027; 87077; 87086; 87088; 87186

== ENCOUNTER → 2023-07-29 | Outpatient (REF) | payer MEDICARE, MEDICAID, SELFPAY ==
[2023-07-29 08:37] LABS: Absolute Lymphocyte Count 1.51 X10^3/uL (0.83-4.51); Absolute Neutrophil Count 6.1 X10^3/uL (2.0-7.7); Basophil# 0.06 X10^3/uL; Basophil% 0.7 % (0-1); Eosinophil# 0.21 X10^3/uL; Eosinophils% 2.4 % (0-5); Hematocrit 33.9 % (37-47); Hemoglobin 10.2 g/dL (12.0-15.0); Lymphocyte # 1.51 X10^3/ul (0.83-4.51); Lymphocyte % 17.3 % (19-41); Mean Corp Hgb Conc 30.1 g/dL (32-36); Mean Corpuscular Hgb 27.9 pg (27.0-32.0); Mean Corpuscular Volume 92.9 fL (81-99); Mean Platelet Vol. 8.9 fl (6.2-12.0); Monocyte# 0.72 X10^3/uL; Monocyte% 8.3 % (0-10); NRBC Flagged by Analyzer 0 % (0-5); Neutrophil # 6.14 X10^3/uL (2.7-7.7); Neutrophil % 70.4 % (47-70); Platelet Count 416 K/mm3 (150-450); RBC Distribution Width CV 13.7 % (11.6-14.6); RBC Distribution Width SD 46.7 fl (35.1-43.9); Red Blood Count 3.65 M/mm3 (4.2-5.4); White Blood Count 8.7 K/mm3 (4.4-11.0)
[2023-07-29 08:48] LABS: AST(SGOT) 12 U/L (15-37); Alanine Aminotransfer ALT/SGPT 18 U/L (13-56); Albumin, Serum 3.4 g/dL (3.2-5.0); Alkaline Phosphatase 93 U/L (45-117); Anion Gap 6 (5-15); BUN 25 mg/dL (7-18); BUN/Creat Ratio 23.4 RATIO (10-20); Calcium,Total 8.7 mg/dL (8.5-10.1); Chloride 104 mmol/L (98-107); Creatinine, Serum 1.07 mg/dL (0.55-1.02); EST Glomerular Filtration Rate 52 mL/min (>60); Est Glom Filt Rate - Afr Amer 63 mL/min (>60); Globulin 3.4 g/dL (2.2-4.2); Glucose 141 mg/dL (74-106); Potassium 4.2 mmol/L (3.5-5.1); Protein, Total 6.8 g/dL (6.4-8.2); Sodium Level 138 mmol/L (136-145)
[2023-07-29 09:29] LABS: Hemoglobin A1c 6.9 % (3.8-5.6)
== END ==
LOC: OLS.ACH 05:00
PROVIDERS: PCP Family Medicine; Visit Provider Internal Medicine
DX: E11.42 Type 2 diabetes mellitus with diabetic polyneuropathy (principal); R80.9 Proteinuria, unspecified; E78.5 Hyperlipidemia, unspecified
CPT/HCPCS: 36415; 80053; 83036; 85025

== ENCOUNTER → 2023-09-03 | Outpatient (REF) | payer MEDICARE, MEDICAID, SELFPAY ==
[2023-09-03 08:44] LABS: Cholesterol 202 mg/dL (200); High Density Lipoprotein 44 mg/dL; Triglycerides 314 mg/dL; Very Low Density Lipoprotein 63 mg/dL (5-40)
== END ==
LOC: OLS.ACH 05:00
PROVIDERS: PCP Family Medicine; Visit Provider Internal Medicine
DX: E78.5 Hyperlipidemia, unspecified (principal)
CPT/HCPCS: 36415; 80061

== ENCOUNTER → 2023-09-10 | Outpatient (REF) | payer MEDICARE, MEDICAID, SELFPAY ==
[2023-09-10 08:36] LABS: ALB/GLOB Ratio 1.1 RATIO (0.9-2.4); AST(SGOT) 12 U/L (15-37); Alanine Aminotransfer ALT/SGPT 17 U/L (13-56); Albumin, Serum 3.4 g/dL (3.2-5.0); Alkaline Phosphatase 75 U/L (45-117); Anion Gap 6 (5-15); BUN 21 mg/dL (7-18); BUN/Creat Ratio 18.4 RATIO (10-20); CPK Total, Creatine Kinase 34 U/L (26-192); Calcium,Total 8.7 mg/dL (8.5-10.1); Chloride 104 mmol/L (98-107); Creatinine, Serum 1.14 mg/dL (0.55-1.02); EST Glomerular Filtration Rate 49 mL/min (>60); Est Glom Filt Rate - Afr Amer 59 mL/min (>60); Globulin 3.1 g/dL (2.2-4.2); Glucose 133 mg/dL (74-106); Potassium 3.9 mmol/L (3.5-5.1); Protein, Total 6.5 g/dL (6.4-8.2); Sodium Level 139 mmol/L (136-145)
== END ==
LOC: OLS.ACH 05:00
PROVIDERS: PCP Family Medicine; Visit Provider Internal Medicine
DX: E78.5 Hyperlipidemia, unspecified (principal)
CPT/HCPCS: 36415; 80053; 82550

== ENCOUNTER → 2023-10-02 | Outpatient (REF) | payer MEDICARE, MEDICAID, SELFPAY ==
[2023-10-02 07:29] LABS: Hematocrit 34.5 % (37-47); Hemoglobin 10.5 g/dL (12.0-15.0); Mean Corp Hgb Conc 30.4 g/dL (32-36); Mean Corpuscular Hgb 28.2 pg (27.0-32.0); Mean Corpuscular Volume 92.7 fL (81-99); Mean Platelet Vol. 8.8 fl (6.2-12.0); Platelet Count 335 K/mm3 (150-450); RBC Distribution Width CV 14.1 % (11.6-14.6); Red Blood Count 3.72 M/mm3 (4.2-5.4)
[2023-10-02 07:53] LABS: AST(SGOT) 12 U/L (15-37); Alanine Aminotransfer ALT/SGPT 16 U/L (13-56); Albumin, Serum 3.3 g/dL (3.2-5.0); Alkaline Phosphatase 70 U/L (45-117); Anion Gap 3 (5-15); BUN 24 mg/dL (7-18); BUN/Creat Ratio 20.9 RATIO (10-20); Calcium,Total 8.5 mg/dL (8.5-10.1); Chloride 105 mmol/L (98-107); Creatinine, Serum 1.15 mg/dL (0.55-1.02); EST Glomerular Filtration Rate 48 mL/min (>60); Est Glom Filt Rate - Afr Amer 58 mL/min (>60); Globulin 3.2 g/dL (2.2-4.2); Glucose 144 mg/dL (74-106); Potassium 4.2 mmol/L (3.5-5.1); Protein, Total 6.5 g/dL (6.4-8.2); Sodium Level 139 mmol/L (136-145); Thyroid Stim Hormone (TSH) 0.54 uIU/mL (0.358-3.74)
== END ==
LOC: OLS.ACH 05:00
PROVIDERS: PCP Family Medicine; Visit Provider Internal Medicine
DX: E11.51 Type 2 diabetes mellitus with diabetic peripheral angiopathy without gangrene (principal); D64.9 Anemia, unspecified; E03.9 Hypothyroidism, unspecified
CPT/HCPCS: 36415; 80053; 84443; 85027

== ENCOUNTER → 2023-10-21 | Outpatient (REF) | payer MEDICARE, MEDICAID, SELFPAY ==
[2023-10-21 08:34] LABS: Absolute Lymphocyte Count 1.81 X10^3/uL (0.83-4.51); Absolute Neutrophil Count 8.1 X10^3/uL (2.0-7.7); Basophil# 0.09 X10^3/uL; Basophil% 0.8 % (0-1); Eosinophils% 4.3 % (0-5); Hematocrit 34.5 % (37-47); Hemoglobin 10.4 g/dL (12.0-15.0); Lymphocyte # 1.81 X10^3/ul (0.83-4.51); Lymphocyte % 15.4 % (19-41); Mean Corp Hgb Conc 30.1 g/dL (32-36); Mean Corpuscular Hgb 27.6 pg (27.0-32.0); Mean Corpuscular Volume 91.5 fL (81-99); Mean Platelet Vol. 9.6 fl (6.2-12.0); Monocyte# 1.11 X10^3/uL; Monocyte% 9.5 % (0-10); NRBC Flagged by Analyzer 0 % (0-5); Neutrophil # 8.08 X10^3/uL (2.7-7.7); Neutrophil % 68.9 % (47-70); Platelet Count 354 K/mm3 (150-450); RBC Distribution Width CV 14.6 % (11.6-14.6); RBC Distribution Width SD 48.4 fl (35.1-43.9); Red Blood Count 3.77 M/mm3 (4.2-5.4); White Blood Count 11.7 K/mm3 (4.4-11.0)
[2023-10-21 08:50] LABS: Hemoglobin A1c 6.7 % (3.8-5.6)
[2023-10-21 09:22] LABS: ALB/GLOB Ratio 1.1 RATIO (0.9-2.4); AST(SGOT) 8 U/L (15-37); Alanine Aminotransfer ALT/SGPT 13 U/L (13-56); Albumin, Serum 3.2 g/dL (3.2-5.0); Alkaline Phosphatase 72 U/L (45-117); Anion Gap 8 (5-15); BUN 39 mg/dL (7-18); BUN/Creat Ratio 28.5 RATIO (10-20); Chloride 99 mmol/L (98-107); Creatinine, Serum 1.37 mg/dL (0.55-1.02); EST Glomerular Filtration Rate 39 mL/min (>60); Est Glom Filt Rate - Afr Amer 48 mL/min (>60); Glucose 134 mg/dL (74-106); Protein, Total 6.2 g/dL (6.4-8.2); Sodium Level 133 mmol/L (136-145)
== END ==
LOC: OLS.ACH 04:00
PROVIDERS: PCP Family Medicine; Visit Provider Internal Medicine
DX: E11.42 Type 2 diabetes mellitus with diabetic polyneuropathy (principal); R80.9 Proteinuria, unspecified; E78.5 Hyperlipidemia, unspecified
CPT/HCPCS: 36415; 80053; 83036; 85025

== ENCOUNTER → 2023-10-22 | Outpatient (REF) | payer MEDICARE, MEDICAID, SELFPAY ==
--- OUTSIDE RECORDS SUMMARY | 2023-10-22 04:30 | XMS RPT_ITS | CCD ---
Author Name Unknown Address 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 Name Role Phone Linwood June Primary Care Provider TERRENCE TOMLINSON MD Primary Care Physician ([phone] Dianelys PT, Suzi Unavailable Unavailable Philip Rodriguez MD Unavailable TERRENCE TOMLINSON MD Primary Care Physician ([phone] Unavailable Primary Care Provider Unavailabl e Linwood June DO Primary Care Provider TREMAINE PANIAGUA Attending Unavailable TREMAINE PANIAGUA Referring Unavailable LINWOOD JUNE Primary Care Unavailable TREMAINE PANIAGUA Attending Unavailable TREMAINE PANIAGUA Referring Unavailable LINWOOD JUNE Primary Care Unavailable ANA CRISTINA DILL Admitting Unavailable ANA CRISTINA DILL Attending Unavailable Unavailable Primary Care Provider Unavailabl e PROVIDER, UNKNOWN Attending Unavailable PROVIDER, UNKNOWN Admitting Unavailable PROVIDER, UNKNOWN Admitting Unavailable PROVIDER, UNKNOWN Attending Unavailable PROVIDER, UNKNOWN Admitting Unavailable PROVIDER, UNKNOWN Attending Unavailable RONNY DE LA TORRE Referring Unavailable PROVIDER, UNKNOWN Attending Unavailable PROVIDER, UNKNOWN Admitting Unavailable RONNY DE LA TORRE Referring Unavailable POLI WILSON, DR NEWMAN Primary Care Physician [phone] Luba Gordon Unavailable Unavailable POLI WILSON, DR NEWMAN Primary Care Unavailab gonzález WELLER MD, DR BEBE Sheth Admitting Haley WELLER MD, DR BEBE Sheth Attending Haley FOURNIER APRN-JAMI VICTORIA Admitting Unavailab le POLI WILSON, DR NEWMAN Primary Care Unavailab gonzález AL MDAIDE Consulting Unavailable RODOLFO CORONA, AIDE Attending Unavailable NITHIN CORONA, DR BEBE Sheth Consulting Haley arechiga Allergies Allergy Classification Reported Allergen(s) Allergy Type Date of Onset Reaction(s) Facility (1 source) Pseudoephedrine Drug Allergy 8 [place], [place] (4 sources) Pseudoephedrine / Triprolidine; Translations: [pseudoephedrine-tr iprolidine] Drug Allergy COULDN'T BREATH VERY WELL [facility] (1 source) Antihistamines drug allergy 2 [facility] Work Phone: (1 source) [facility] drug allergy 2 difficulty breathing [facility] Work Phone: (6 sources) Pseudoephedrine Drug Allergy 8 [facility] Medications Current Medications Medication Drug Class(es) Dates Sig (Normalized) Sig (Original) acetaminophen 650 mg oral tablet (15 sources) Start: 10-11-2023 take 1 dose by mouth every four hours as needed for fever acetaminophen Dose : 650 mg =, Oral, q4h, PRN as needed for fever, 0 Refill(s) Start Date: 10/11/23 Status: Ordered Completed/Discontinued Medications Medication Drug Class(es) Dates Sig (Normalized) Sig (Original) acetaminophen 325 mg / HYDROcodone bitartrate 5 mg oral tablet (2 sources) Opioid Agonist Start: 08-07-2022 End: 08-10-2022 take 1 tablet by mouth every six hours as needed for pain hydrocodone-acetam inophen (NORCO) 5-325 mg per tablet Indications: Pain following oral surgery Take 1 Tablet by mouth every 6 hours as needed for Pain for up to 3 days. 12 Tablet 0 08/07/2022 08/07/2022 Discontinued (Error) Amoxicillin (7 sources) Penicillin-class Antibacterial Start: 10-11-2023 amoxicillin Dose : 500 mg =, Oral, TID, 0 Refill(s), 84.1 Start Date: 10/11/23 Status: Ordered Problems Active Problems Problem Classification Problem Date Documented Date Episodic/Chronic Abdominal hernia (4 sources) Left inguinal hernia 11-20-2021 Episodic Anxiety disorders (3 sources) Anxiety; Translations: [Anxiety disorder] Onset: 08-19-2019 04-16-2023 Chronic Conduction disorders (6 sources) Left bundle branch block; Translations: [Left bundle-branch block, unspecified] Onset: 10-16-2022 10-16-2022 Chronic Congestive heart failure; nonhypertensive (6 sources) Acute congestive heart failure; Translations: [Heart failure, unspecified] Onset: 10-16-2022 10-16-2022 Chronic Delirium, dementia, and amnestic and other cognitive disorders (2 sources) Senile asthenia; Translations: [Age-related physical debility] Onset: 08-19-2019 04-16-2023 Chronic Diabetes mellitus without complication (20 sources) Type 2 diabetes mellitus; Translations: [Diabetes mellitus] Onset: 08-19-2019 04-26-2020 Chronic Disorders of lipid metabolism (16 sources) Mixed hyperlipidemia; Translations: [Hyperlipidemia] Onset: 08-19-2019 04-26-2020 Chronic Esophageal disorders (15 sources) Gastroesophageal reflux disease without esophagitis; Translations: [Gastric reflux] Onset: 08-19-2019 04-26-2020 Chronic Essential hypertension (15 sources) Hypertensive disorder; Translations: [Essential hypertension] Onset: 08-19-2019 08-03-2020 Chronic Genitourinary symptoms and ill-defined conditions (4 sources) Urinary incontinence 08-30-2017 Chronic Mood disorders (14 sources) Recurrent depression; Translations: [Depressive disorder] Onset: 04-26-2020 08-05-2020 Chronic Osteoarthritis (18 sources) Unilateral primary osteoarthritis, right hip; Translations: [Osteoarthrosis, localized, primary, pelvic region and thigh] Onset: 12-25-2021 12-25-2021 Chronic Other diseases of bladder and urethra (7 sources) Overactive bladder; Translations: [Overactive bladder] Onset: 04-26-2020 04-26-2020 Chronic Other diseases of kidney and ureters (4 sources) Cyst of kidney 11-20-2021 Episodic Other eye disorders (4 sources) Vitreous detachment 08-30-2017 Chronic Other liver diseases (4 sources) Liver mass 08-30-2017 Episodic Other lower respiratory disease (4 sources) Dyspnea 08-30-2017 Episodic Other nervous system disorders (8 sources) Metabolic encephalopathy; Translations: [Metabolic encephalopathy] Onset: 08-05-2020 08-05-2020 Chronic Other nervous system disorders (6 sources) Neuropathy; Translations: [Polyneuropathy, unspecified] Onset: 04-16-2023 08-30-2017 Chronic Other nervous system disorders (2 sources) Difficulty walking; Translations: [Difficulty in walking, not elsewhere classified] Onset: 08-19-2019 04-16-2023 Chronic Other nervous system disorders (1 source) Painful mouth; Translations: [Other acute postprocedural pain] Episodic Other non-traumatic joint disorders (4 sources) Hip pain 08-30-2017 Episodic Other nutritional; endocrine; and metabolic disorders (4 sources) Overweight 08-30-2017 Episodic Residual codes; unclassified (4 sources) Edema of lower extremity 08-30-2017 Episodic Residual codes; unclassified (4 sources) Insomnia 08-30-2017 Episodic Schizophrenia and other psychotic disorders (9 sources) Delusions of parasitosis; 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] Onset: 08-06-2020 08-06-2020 Chronic Thyroid disorders (20 sources) Hypothyroidism; Translations: [Multinodular goiter] Onset: 08-19-2019 04-26-2020 Chronic Unclassified (1 source) Patient encounter status; Translations: [NSAID long-term use] Onset: 04-26-2020 04-26-2020 Viral infection (4 sources) Disease caused by 2019-nCoV; Translations: [COVID-19] Onset: 10-11-2023 Past or Other Problems Problem Classification Problem Date Documented Da te Episodic/Chronic Deficiency and other anemia (2 sources) Anemia, unspecified; Translations: [Anemia, unspecified] Onset: 09-19-2022 Episodic Disorders of teeth and jaw (7 sources) Carious exposure of pulp ; Translations: [Dental caries, unspecified] Onset: 08-07-2022 Episodic Other aftercare (6 sources) Patient encounter status; Translations: [director long term care (current) use of non-steroidal anti-inflammatories (NSAID)] Onset: 04-26-2020 08-23-2022 Episodic Other gastrointestinal disorders (2 sources) Other constipation; Translations: [Other constipation] Onset: 09-19-2022 Episodic Other nervous system disorders (8 sources) Impaired cognition; Translations: [Other symptoms and signs involving cognitive functions and awareness] Onset: 08-05-2020 08-05-2020 Episodic Other nervous system disorders (1 source) Other acute postprocedural pain; Translations: [Other acute postprocedural pain] Onset: 08-07-2022 Episodic Pneumonia (except that caused by tuberculosis or sexually transmitted disease) (6 sources) Infective pneumonia; Translations: [Pneumonia, unspecified organism] Onset: 10-16-2022 10-16-2022 Episodic Unclassified (1 source) Problem Results Test Name Value Interpretation Reference Range Facil ity Vital Signs Date Time Vital Sign Value Performing Clinician Facility 10-14-2023 11:43-0500 Body temperature 97.7 [degF] JAMI FOURNIER FIXED ROUTE OPERATOR-HAND [employer] [facility] 10-14-2023 11:43-0500 Diastolic Blood Pressure Non-Invasive 53 mm[Hg] JAMI FOURNIER FIXED ROUTE OPERATOR-HAND [employer] [facility] 10-14-2023 11:43-0500 Heart rate 74 /min JAMI FOURNIER FIXED ROUTE OPERATOR-HAND [employer] [facility] 10-14-2023 11:43-0500 Reason For Taking VItal Signs JAMI FOURNIER FIXED ROUTE OPERATOR-HAND [employer] [facility] 10-14-2023 11:43-0500 Respiratory rate 18 /min JAMI FOURNIER FIXED ROUTE OPERATOR-HAND [employer] [facility] 10-14-2023 11:43-0500 Systolic Blood Pressure Non-Invasive 140 mm[Hg] JAMI FOURNIER FIXED ROUTE OPERATOR-HAND [employer] [facility] 10-14-2023 10:02-0500 Diastolic Blood Pressure Non-Invasive 68 mm[Hg] JAMI FOURNIER FIXED ROUTE OPERATOR-HAND [employer] [facility] 10-14-2023 10:02-0500 Systolic Blood Pressure Non-Invasive 142 mm[Hg] JAMI FOURNIER FIXED ROUTE OPERATOR-HAND [employer] [facility] 10-14-2023 08:35-0500 Diastolic Blood Pressure Non-Invasive 82 mm[Hg] JAMI FOURNIER FIXED ROUTE OPERATOR-HAND [employer] [facility] 10-14-2023 08:35-0500 Heart rate 72 /min JAMI FOURNIER FIXED ROUTE OPERATOR-HAND [employer] [facility] 10-14-2023 08:35-0500 Systolic Blood Pressure Non-Invasive 178 mm[Hg] JAMI FOURNIER FIXED ROUTE OPERATOR-HAND [employer] [facility] 10-14-2023 08:17-0500 Body temperature 97.7 [degF] JAMI FOURNIER FIXED ROUTE OPERATOR-HAND [employer] [facility] 10-14-2023 08:17-0500 Heart rate 71 /min JAMI FOURNIER FIXED ROUTE OPERATOR-HAND [employer] [facility] 10-14-2023 08:17-0500 Reason For Taking VItal Signs JAMI FOURNIER FIXED ROUTE OPERATOR-HAND [employer] [facility] 10-14-2023 08:17-0500 Respiratory rate 18 /min JAMI FOURNIER FIXED ROUTE OPERATOR-HAND [employer] [facility] 10-14-2023 03:52-0500 Body temperature 97.7 [degF] JAMI FOURNIER FIXED ROUTE OPERATOR-HAND [employer] [facility] 10-14-2023 03:52-0500 Respiratory rate 18 /min JAMI FOURNIER FIXED ROUTE OPERATOR-HAND [employer] [facility] 10-13-2023 16:25-0500 Heart rate 66 /min JAMI FOURNIER FIXED ROUTE OPERATOR-HAND [employer] [facility] 10-13-2023 16:25-0500 Reason For Taking VItal Signs JAMI FOURNIER FIXED ROUTE OPERATOR-HAND [employer] [facility] 10-13-2023 07:35-0500 Heart rate 61 /min JAMI FOITH FIXED ROUTE OPERATOR-HAND [employer] [facility] 10-12-2023 22:28-0500 Heart rate 70 /min JAMI FOITH FIXED ROUTE OPERATOR-HAND [employer] [facility] 10-12-2023 19:51-0500 Heart rate 72 /min JAMI FOITH FIXED ROUTE OPERATOR-HAND [employer] [facility] 10-12-2023 04:02-0500 Heart rate 63 /min JAMI FOITH FIXED ROUTE OPERATOR-HAND [employer] [facility] 03-18-2023 09:39-0400 Heart rate 72 /min Tremaine Paniagua MD Work Phone: [facility] 03-18-2023 09:39-0400 SaO2% (BldA) [Mass fraction] 97 % Tremaine Paniagua MD Work Phone: [facility] 03-04-2023 11:15-0400 Heart rate 71 /min Tremaine Paniagua MD Work Phone: [facility] 03-04-2023 11:15-0400 SaO2% (BldA) [Mass fraction] 95 % Tremaine Paniagua MD Work Phone: [facility] 08-07-2022 08:34-0400 Diastolic blood pressure 66 mm[Hg] Nickolas Ernst DDS Work Phone: [facility] 08-07-2022 08:34-0400 Heart rate 62 /min Nickolas Ernst DDS Work Phone: [facility] [place] 08-07-2022 08:34-0400 Systolic blood pressure 179 mm[Hg] Nickolas Ernst DDS Work Phone: [facility] 08-06-2020 08:00-0400 Body Temperature 98.29 [degF] [place] 08-06-2020 08:00-0400 BP Diastolic 75 mm[Hg] Harjit Wilson [facility]- [place] , [place] 08-06-2020 08:00-0400 BP Systolic 164 mm[Hg] [facility] [place] [facility] [place] 08-06-2020 08:00-0400 Pulse (Heart Rate) 57 /min [facility] [place] [place] 08-06-2020 08:00-0400 Pulse Oximetry 94 % Harjit Alvarado [facility] [place] , [place] 08-06-2020 08:00-0400 Respiratory Rate 18 /min [facility] [place] [place] 08-03-2020 11:42-0400 Body weight 81.65 kg Harjit Wilson [facility]- [place] , [place] NEGATED: Highlighted [id number] 13:45-0500 Body height 168 cm Jacinta Soto [facility] Work Phone: NEGATED: Highlighted [id number] 13:45-0500 Body height 167.64 cm Jacinta Soto [facility] Work Phone: NEGATED: Highlighted [id number] 13:45-0500 Body mass index (BMI) [Ratio] 29.97 kg/m2 Jacinta Soto [facility] Work Phone: NEGATED: Highlighted [id number] 13:45-0500 Body temperature 96.8 [degF] Jacinta Soto [facility] Work Phone: NEGATED: Highlighted [id number] 13:45-0500 Body weight 84 kg Jacinta Soto [facility] Work Phone: NEGATED: Highlighted [id number] 13:45-0500 Body weight 83.92 kg Jacinta Soto [facility] Work Phone: Encounters Encounter Date Encounter Type Care Provider Facility Start: 10-11-[address] LINWOOD IBARRA acility:A Start: 10-11-2023 End: 10-14-2023 Evaluation and management of inpatient JAMI FOURNIER APRN-HAND [employer] Facility:B Start: 10-11-2023 End: 10-14-2023 Evaluation and management of inpatient JAMI FOURNIER FIXED ROUTE OPERATOR-HAND [employer] [facility] Start: 04-15-2023 End: 04-18-2023 ambulatory UNKNOWN PROVIDER Facility:[facility] Start: 04-15-2023 End: 04-15-2023 Follow-up encounter Nickolas Ernst DDS Work Phone: [facility] Oral Surgery Start: 04-15-2023 End: 04-15-2023 Patient encounter procedure Nickolas rEnst DDS Work Phone: [facility] Oral Surgery Procedures Date Procedure Procedure Detail Performing Clinician Start: 04-15-2023 panoramic radiograph ic image Jimmie Metz DMD Work Phone: Start: 03-18-2023 IR JOINT Tremaine andersen MD Work Phone: Start: 03-04-2023 IR JOINT Tremaine andersen MD Work Phone: Start: 09-19-2022 Colonoscopy Magda gordillo RN Start: 12-25-2021 End: 12-25-2021 BP scrn no perf at interval Philip michaels MD Work Phone: Start: 12-25-2021 End: 12-25-2021 Calc BMI abv up susana f/u Philip johnson MD Work Phone: Start: 12-25-2021 End: 12-25-2021 Current tobacco non-user cad cap copd pv dm Philip Rodriguez MD Work Phone: Start: 12-25-2021 End: 12-25-2021 Docrev cur meds by alisah Rodriguez MD Work Phone: Start: 12-25-2021 End: 12-25-2021 Osteoarthritis symptoms and functional status not assessed Philip Rodriguez MD Work Phone: Start: 12-25-2021 End: 12-25-2021 Pain doc pos and plan Philip Rodriguez MD Work Phone: Start: 12-25-2021 End: 12-25-2021 Patient encounter procedure Philip michaels MD Work Phone: Start: 12-25-2021 End: 12-25-2021 Radex hip unilateral with pelvis 2-3 views Philip Rodriguez MD Work Phone: Start: 10-03-2021 Sigmoid colectomy YONATAN FLOREZ MD Plan of Treatment Date Care Activity Detail Author Start: 09-30-2031 Screening for malignant neoplasm of colon Colonoscopy [facility] Start: 09-20-2025 Screening for malignant neoplasm of colon [facility] Start: 01-12-2024 Glaucoma screening Diabetes: Retinopathy Screening [facility] Start: 08-13-2023 Hemoglobin A1c measurement Hemoglobin A1C [facility] Start: 04-01-2023 Basic metabolic 2000 panel - Serum or Plasma Basic Metabolic Panel [facility] Start: 04-01-2023 Creatinine measurement Creatinine Level [facility] Start: 04-01-2023 Potassium measurement Potassium Level [facility] Start: 03-18-2023 End: 03-18-2023 Patient encounter procedure 03/18/2023 Appointment Radiology [facility] Start: 03-04-2023 End: 03-04-2023 Patient encounter procedure 03/04/2023 Appointment Radiology [facility] Start: 09-11-2022 Annual wellness visit Annual Wellness Visit (G0438) [facility] Start: 09-04-2022 End: 09-04-2022 Patient encounter procedure 09/04/2022 Office Visit Oral Surgery Nickolas Ernst, HONG [address] [facility] [place] [address] [facility] Oral Surgery Start: 08-11-2022 Influenza vaccination Influenza Vaccine (#1) [facility] Start: 08-07-2022 End: 08-07-2022 Patient encounter procedure 08/07/2022 Office Visit Oral Surgery Nickolas Ernst DDS [address] [place] [address] [facility] Oral Surgery Start: 01-08-2022 COVID-19 Vaccine (4 - Booster for Pfizer series) COVID-19 Vaccine (4 - Booster for Pfizer series) [facility] Start: 12-25-2021 End: 12-25-2021 Patient encounter procedure Appointment [facility] Work Phone: Start: 11-03-2021 COVID-19 Vaccine (4 - Booster for Pfizer series) COVID-19 Vaccine (4 - Booster for Pfizer series) [facility] Start: 09-11-2021 Welcome to Medicare Visit (G0402) Welcome to Medicare Visit (G0402) [facility] Start: 08-05-2021 Creatinine measurement Creatinine monitoring [place], [place] Start: 08-05-2021 Potassium monitoring Potassium monitoring [place], [place] Start: 08-04-2021 Thyroid stimulating hormone measurement TSH Level [facility] Start: 08-04-2021 TSH Qn TSH testing [place], [place] Start: 11-03-2020 Hemoglobin A1c measurement Diabetes: Hemoglobin A1C [facility] Start: 02-16-2020 Annual Wellness Visit (AWV) Annual Wellness Visit (AWV) [place], [place] Start: 11-23-2017 Pneumococcal vaccination [facility] Start: 01-18-2017 Pneumococcal vaccination Pneumococcal Vaccine(s) (65+ yrs) (2 - PPSV23 if available, else PCV20) [facility] Start: 01-06-2014 Zoster Vaccines (2 of 3) Zoster Vaccines (2 of 3) [facility] Start: 2008 Pneumococcal 65+ years Vaccine (1 of 1 - PPSV23) Pneumococcal 65+ years Vaccine (1 of 1 - PPSV23) [place], [place] Start: 2008 Screening for osteoporosis [facility] Start: 2003 Hepatitis B Vaccines (1 of 3 - Risk 3-dose series) Hepatitis B Vaccines (1 of 3 - Risk 3-dose series) [facility] Start: 1998 Screening for osteoporosis DEXA (modify frequency per FRAX score) [place], [place] Start: 1993 Shingles (RZV) Vaccine (1 of 2) Shingles (RZV) Vaccine (1 of 2) [facility] Start: 1993 Shingles Vaccine (1 of 2) Shingles Vaccine (1 of 2) [place] Start: 1962 DTaP/Tdap/Td vaccine (1 - Tdap) DTaP/Tdap/Td vaccine (1 - Tdap) [place] Start: 1962 DTaP/Tdap/Td Vaccines (1 - Tdap) DTaP/Tdap/Td Vaccines (1 - Tdap) [facility] Start: 1962 Urine screening for protein Diabetes: Urine Protein Screening [facility] Start: 1961 [facility] Start: 1961 Tetanus + diphtheria + acellular pertussis vaccine (product) [facility] Start: 1955 Depresssion Monitoring Depresssion Monitoring [facility] Start: 1953 Diabetic foot examination Diabetes: Foot Exam [facility] Start: 1953 Lipid panel Lipid screen [place], [place] Start: 1953 Preventive dental service Diabetes: Dental Exam [facility] Start: 1944 Hepatitis A Vaccines (1 of 2 - Risk 2-dose series) Hepatitis A Vaccines (1 of 2 - Risk 2-dose series) [facility] Start: 1943 Diabetic retinal eye exam Eye Exam [facility] Start: 1943 Lipid panel Lipid Profile [facility] Start: 1943 Urine screening for protein Microalbumin [facility] Start: 1943 Diabetic foot examination Foot Exam [facility] Start: 1943 Echocardiography Echocardiogram [facility] Start: 1943 Lipid panel Lipid Panel [facility] Start: 1943 Screening for malignant neoplasm of colon [facility] Start: 1943 Screening for osteoporosis Bone Density Scan [facility] Start: 1943 Thyroid Nodule Ultrasound Thyroid Nodule Ultrasound [facility] Start: 1943 Thyroid stimulating hormone measurement TSH [facility] End: 08-03-2020 Add On Lab Test Add On Lab Test Lab Add-On One Time for 1 Occurrences starting 08/03/2020 until 08/03/2020 [facility] [place], [place] Immunizations Immunization Date Immunization Notes Care Provider Linh dickinson 08-06-2023 influenza virus vaccine, unspecified formulation JAMI FOURNIER FIXED ROUTE OPERATOR-HAND [employer] [facility] 02-11-2023 Hemoglobin A1C Nickolas Ernst DDS Work Phone: [facility] 09-21-2022 influenza virus vaccine, unspecified formulation JAMI FOURNIER FIXED ROUTE OPERATOR-HAND [employer] [facility] 09-08-2021 Pfizer Monovalent (1 2+ yrs) SARS-COV-2 (COVID-19) vaccine, mRNA, spike protein, LNP, pres. free, 30 mcg/0.3mL dose (QRT=802) Nickolas Ernst DDS Work Phone: [facility] Payers Date Payer Category Payer Medicaid [id number] 2023 Medicare [id number] 2023 Medicare [id number] 2022 Medicaid [id number] 2021 Medicare [employer] U[employer] MEDICARE [id number] 2021-Present [address] [place] [address] Medicare HMO [id number] 2021 Private Health Insurance [facility] [id number] 2021-Present [phone] [address] [address] [place] [address] Medicare HMO [id number] 2020 Medicare [id number] 1943 Unknown [id number] 1943 Unknown [id number] 1943 Unknown [id number] 1943 Unknown [id number] 1943 Unknown [id number] 1943 Unknown [id number] Social History Date Type Detail Facility Start: 08-04-2020 End: 10-11-2023 Tobacco smoking status NHIS Never smoker [place], [place] Start: 08-04-2020 End: 02-15-2023 Alcohol intake Current non-drinker of alcohol (finding) [place], [place] Start: 1945 Sex Assigned At Not on file [place] Start: 02-22-2023 End: 03-18-2023 Exposure to SARS-CoV-2 (event) Not sure [place], [place] Sex Assigned At Female [facility] Start: 06-26-2022 Tobacco use and exposure Smokeless tobacco non-user [facility] Start: 09-19-2022 History SDOH IPV Fear 2 [facility] Gender identity Not on file [facility] NEGATED: Highlighted rowStart: 12-25-2021 End: 12-25-2021 Alcohol use Alcohol use [facility] Work Phone: NEGATED: Highlighted rowStart: 12-25-2021 End: 12-25-2021 Details of drug misuse behavior Details of drug misuse behavior [facility] Work Phone: NEGATED: Highlighted rowStart: 12-25-2021 End: 12-25-2021 Assertion Never smoker [facility] Work Phone: Functional Status Date Assessment Result Facility 10-14-2023 Functional Status toileting refused [facility] 10-13-2023 Functional Status Returned to bed [facility] 10-13-2023 Functional Status [facility] 10-13-2023 Functional Status Positioning Repositione d back [facility] 10-13-2023 Functional Status 1st floor bedr oom, 1st floor bathroom [facility] 10-13-2023 Functional Status [facility] 10-13-2023 Functional Status [facility] 10-12-2023 Functional Status [facility] 10-12-2023 Functional Status [facility] 10-12-2023 Functional Status [facility] 10-12-2023 Functional Status [facility] 10-12-2023 Functional Status [facility] 10-11-2023 Functional Status None [facility] Mental Status Date Assessment Result Facility 10-14-2023 Mental Status Oriented x 4 [facility] 10-13-2023 Mental Status [facility] 10-13-2023 [facility] Status [facility] Clinical Notes 11-20-2021 to 10-14-2023 Note Date & Type Note Facility 10-14-2023 Note Discharge Instructions Thank you for allowing [facility] to assist you with your healthcare needs. The following is important discharge information regarding your hospital visit. Your Care Team Suzi Ortiz FIXED ROUTE OPERATOR Your Diagnosis COVID-19 HTN - Hypertension Hypothyroid Type 2 diabetes mellitus What to do next Instructions From Your Doctor Patient was admitted to [facility] due to hypoxia from COVID-19 infection. She has been treated with Remdesivir IV to help reduce the viral load in her body. She has also been given dexamethasone 6 mg oral daily. She is to continue taking the dexamethasone for another 7 days. She has been weaned to room air today with acceptable oxygen saturations. The goal would be to maintain oxygen saturations above 90% on room air. She can use supplemental oxygen as needed to maintain good oxygen saturations. Patient needs to follow-up with her PCP in the next week for a post-hospitalization follow-up. If there are any new or worsening symptoms, please contact patient's PCP or return to the ED. Follow Up Appointments Follow Up with LINWOOD JUNE DO When Within 5 to 7 days Why: follow-up with PCP in next week for post-hospitalization follow-up Where: [address] [place] [id number] The Following Activity and Diet Have Been Ordered for You Discharge Activity - Ordered -- Resume your pre-hospitalization activity, 10/14/23 12:39:00 EST Discharge Diet - Ordered -- No changes were made to your diet during your hospital stay. Please resume your pre hospitalization diet on discharge., 10/14/23 12:39:00 EST The Following Treatments Have Been Ordered for You Discharge Labs No qualifying data available. Discharge Radiology No qualifying data available. Other Therapies No qualifying data available. Post Acute Orders No qualifying data available. Allergies Antihistamine-Decongestant (COULDN'T BREATH VERY WELL) Medications Please ask your primary doctor or pharmacist before taking any other medication not listed, including over the counter drugs, herbal medications, vitamins and or supplements as they may interact with your home medications. What How Much When Instructions Last Dose New dexAMETHasone (dexAMETHasone 4 mg oral tablet) 1.5 tab(s) by mouth Every day 10/14/23 at 0835am Unchanged acetaminophen 325 Milligram by mouth Every 12 hours as needed for as needed for pain none Unchanged acetaminophen 650 Milligram in the rectum Every 4 hours as needed for as needed for fever none Unchanged acetaminophen 500 Milligram by mouth Every 12 hours as needed for as needed for pain none Unchanged acetaminophen 650 Milligram by mouth Every 4 hours as needed for as needed for fever none Unchanged amoxicillin 500 Milligram by mouth Three (3) times a day none Unchanged ARIPiprazole (Abilify 2 mg oral tablet) 1 tab(s) by mouth Once a day 10/14/23 at 0835am Unchanged ascorbic acid (Vitamin C 500 mg oral tablet) 1 tab(s) by mouth Once a day none Unchanged aspirin (aspirin buffered 325 mg oral tablet) 1 tab(s) by mouth Once a day 10/14/23 at 0835am Unchanged bisacodyl 10 Milligram in the rectum Once a day as needed for as needed for constipation none Unchanged camphor-menthol topical (Biofreeze) 5% gel Topical Every 6 hours as needed for as needed for pain none today Unchanged camphor-menthol topical (Biofreeze) 5% gel Topical Every 12 hours as needed for as needed for pain none today Unchanged camphor-menthol topical (Biofreeze) 5% gel Topical Daily at bedtime none today Unchanged cholecalciferol (Vitamin D3) 25 Microgram by mouth Every day none today Unchanged diazePAM (diazePAM 2 mg oral tablet) 1 tab(s) by mouth Two (2) times a day 10/14/23 at 0835am Unchanged ferrous sulfate 325 Milligram by mouth Once a day 10/14/23 at 1130am Unchanged fluticasone nasal (fluticasone proprionate NASAL 50 mcg/ spray) 1 spray(s) each nostril Two (2) times a day 10/14/23 at 0835am Unchanged furosemide (Lasix) 10 Milligram by mouth Once a day 10/14/23 at 0835am Unchanged gabapentin 400 Milligram by mouth Daily at bedtime none Unchanged gabapentin (gabapentin 300 mg oral capsule) 1 cap by mouth Once a day 10/14/23 at 0835am Unchanged herbal/ nutritional product (cranberry oral capsule) 400 Milligram by mouth Every day none Unchanged hydrALAZINE 100 Milligram by mouth Three (3) times a day 10/14/23 at 0835am Unchanged hydrocortisone topical (Hydrocortisone 1% cream) Topical Two (2) times a day none Unchanged labetalol (labetalol 300 mg oral tablet) 1 tab(s) by mouth Two (2) times a day 10/14/23 at 0835am Unchanged levothyroxine (levothyroxine 88 mcg (0.088 mg) oral tablet) 1 tab(s) by mouth Once a day before a meal 10/14/23 at 0356am Unchanged lidocaine topical (lidocaine 4% patch) Topical Once a day 10/14/23 at 0835am Unchanged losartan (losartan 50 mg oral tablet) 2 tablets by mouth Once a day 10/14/23 at 0835am Unchanged magnesium hydroxide (Milk of Magnesia) 400mg/5 by mouth Three (3) times a day as needed for as needed for constipation none Unchanged melatonin 3 Milligram by mouth Daily at bedtime none Unchanged petrolatum topical (CeraVe Healing topical ointment) Topical Every 12 hours none Unchanged potassium chloride (Potassium Chloride (Eqv-K-Tab) 10 mEq oral tablet, extended release) 1 tab(s) by mouth Two (2) times a day none Unchanged senna (senna (sennosides) 8.6 mg oral tablet) 1 tab(s) by mouth Once a day as needed for as needed for constipation none Unchanged sertraline (sertraline 50 mg oral tablet) 2 tab(s) by mouth Every day 10/14/23 at 0835am Unchanged sodium biphosphate-sodium phosphate (sodium biphosphate-sodium phosphate 19 g-7 g rectal enema) 133 Milliliter in the rectum Once as needed for as needed for constipation none Unchanged traMADol 50 Milligram by mouth Daily at bedtime none Unchanged traMADol 50 Milligram by mouth Every 6 hours as needed for as needed for pain none Unchanged zinc sulfate (zinc sulfate 220 mg oral capsule) 1 cap by mouth Once a day none Please take this list to your next doctor s visit. Bring all medications you take, including over the counter medications, herbals and other supplements with you to your doctor s visit. Patients and families are reminded to discard old lists and to update any records with all medication providers or retail pharmacies. Education Materials COVID-19 COVID-19 is a respiratory infection that is caused by a virus called severe acute respiratory syndrome coronavirus 2 (SARS-CoV-2). The disease is also known as coronavirus disease or novel coronavirus. In some people, the virus may not cause any symptoms. In others, it may cause a serious infection. The infection can get worse quickly and can lead to complications, such as: Pneumonia, or infection of the lungs. Acute respiratory distress syndrome or ARDS. This is fluid build-up in the lungs. Acute respiratory failure. This is a condition in which there is not enough oxygen passing from the lungs to the body. Sepsis or septic shock. This is a serious bodily reaction to an infection. Blood clotting problems. Secondary infections due to bacteria or fungus. The virus that causes COVID-19 is contagious. This means that it can spread from person to person through droplets from coughs and sneezes (respiratory secretions). What are the causes? This illness is caused by a virus. You may catch the virus by: Breathing in droplets from an infected person's cough or sneeze. Touching something, like a table or a doorknob, that was exposed to the virus (contaminated) and then touching your mouth, nose, or eyes. What increases the risk? Risk for infection You are more likely to be infected with this virus if you: Live in or travel to an area with a COVID-19 outbreak. Come in contact with a sick person who recently traveled to an area with a COVID-19 outbreak. Provide care for or live with a person who is infected with COVID-19. Risk for serious illness You are more likely to become seriously ill from the virus if you: Are 65 years of age or older. Have a long-term disease that lowers your body's ability to fight infection (immunocompromised). Live in a long term or long-term care facility. Have a long-term (chronic) disease such as: ? Chronic lung disease, including chronic obstructive pulmonary disease or asthma ? Heart disease. ? Diabetes. ? Chronic kidney disease. ? Liver disease. Are obese. What are the signs or symptoms? Symptoms of this condition can range from mild to severe. Symptoms may appear any time from 2 to 14 days after being exposed to the virus. They include: A fever. A cough. Difficulty breathing. Chills. Muscle pains. A sore throat. Loss of taste or smell. Some people may also have stomach problems, such as nausea, vomiting, or diarrhea. Other people may not have any symptoms of COVID-19. How is this diagnosed? This condition may be diagnosed based on: Your signs and symptoms, especially if: ? You live in an area with a COVID-19 outbreak. ? You recently traveled to or from an area where the virus is common. ? You provide care for or live with a person who was diagnosed with COVID-19. A physical exam. Lab tests, which may include: ? A nasal swab to take a sample of fluid from your nose. ? A throat swab to take a sample of fluid from your throat. ? A sample of mucus from your lungs (sputum). ? Blood tests. Imaging tests, which may include, X-rays, CT scan, or ultrasound. How is this treated? At present, there is no medicine to treat COVID-19. Medicines that treat other diseases are being used on a trial basis to see if they are effective against COVID-19. Your health care provider will talk with you about ways to treat your symptoms. For most people, the infection is mild and can be managed at home with rest, fluids, and kzcr-nfr-usqhejh medicines. Treatment for a serious infection usually takes places in a hospital intensive care unit (ICU). It may include one or more of the following treatments. These treatments are given until your symptoms improve. Receiving fluids and medicines through an IV. Supplemental oxygen. Extra oxygen is given through a tube in the nose, a face mask, or a garcia. Positioning you to lie on your stomach (prone position). This makes it easier for oxygen to get into the lungs. Continuous positive airway pressure (CPAP) or bi-level positive airway pressure (BPAP) machine. This treatment uses mild air pressure to keep the airways open. A tube that is connected to a motor delivers oxygen to the body. Ventilator. This treatment moves air into and out of the lungs by using a tube that is placed in your windpipe. Tracheostomy. This is a procedure to create a hole in the neck so that a breathing tube can be inserted. Extracorporeal membrane oxygenation (ECMO). This procedure gives the lungs a chance to recover by taking over the functions of the heart and lungs. It supplies oxygen to the body and removes carbon dioxide. Follow these instructions at home: Lifestyle If you are sick, stay home except to get medical care. Your health care provider will tell you how long to stay home. Call your health care provider before you go for medical care. Rest at home as told by your health care provider. Do not use any products that contain nicotine or tobacco, such as cigarettes, e-cigarettes, and chewing tobacco. If you need help quitting, ask your health care provider. Return to your normal activities as told by your health care provider. Ask your health care provider what activities are safe for you. General instructions Take dmjl-bem-xyzcxcd and prescription medicines only as told by your health care provider. Drink enough fluid to keep your urine pale yellow. Keep all follow-up visits as told by your health care provider. This is important. How is this prevented? There is no vaccine to help prevent COVID-19 infection. However, there are steps you can take to protect yourself and others from this virus. To protect yourself: Do not travel to areas where COVID-19 is a risk. The areas where COVID-19 is reported change often. To identify high-risk areas and travel restrictions, check the [facility] travel website: wwwnc.cdc.gov/travel/notices If you live in, or must travel to, an area where COVID-19 is a risk, take precautions to avoid infection. ? Stay away from people who are sick. ? Wash your hands often with soap and water for 20 seconds. If soap and water are not available, use an alcohol-based hand lumber carrier operator. ? Avoid touching your mouth, face, eyes, or nose. ? Avoid going out in public, follow guidance from your state and local health authorities. ? If you must go out in public, wear a cloth face covering or face mask. ? Disinfect objects and surfaces that are frequently touched every day. This may include: ? Counters and tables. ? Doorknobs and light switches. ? Sinks and faucets. ? Electronics, such as phones, remote controls, keyboards, computers, and tablets. To protect others: If you have symptoms of COVID-19, take steps to prevent the virus from spreading to others. If you think you have a COVID-19 infection, contact your health care provider right away. Tell your health care team that you think you may have a COVID-19 infection. Stay home. Leave your house only to seek medical care. Do not use public transport. Do not travel while you are sick. Wash your hands often with soap and water for 20 seconds. If soap and water are not available, use alcohol-based hand lumber carrier operator. Stay away from other members of your household. Let healthy household members care for children and pets, if possible. If you have to care for children or pets, wash your hands often and wear a mask. If possible, stay in your own room, separate from others. Use a different bathroom. Make sure that all people in your household wash their hands well and often. Cough or sneeze into a tissue or your sleeve or elbow. Do not cough or sneeze into your hand or into the air. Wear a cloth face covering or face mask. Where to find more information Centers for Disease Control and Prevention: www.cdc.gov/coronavirus/2019-nco v/index.html World Health Organization: www.who.int/health-topics/valentino virus Contact a health care provider if: You live in or have traveled to an area where COVID-19 is a risk and you have symptoms of the infection. You have had contact with someone who has COVID-19 and you have symptoms of the infection. Get help right away if: You have trouble breathing. You have pain or pressure in your chest. You have confusion. You have bluish lips and fingernails. You have difficulty waking from sleep. You have symptoms that get worse. These symptoms may represent a serious problem that is an emergency. Do not wait to see if the symptoms will go away. Get medical help right away. Call your local emergency services (911 in the [place] Do not drive yourself to the hospital. Let the emergency medical personnel know if you think you have COVID-19. Summary COVID-19 is a respiratory infection that is caused by a virus. It is also known as coronavirus disease or novel coronavirus. It can cause serious infections, such as pneumonia, acute respiratory distress syndrome, acute respiratory failure, or sepsis. The virus that causes COVID-19 is contagious. This means that it can spread from person to person through droplets from coughs and sneezes. You are more likely to develop a serious illness if you are 65 years of age or older, have a weak immunity, live in a long term, or have chronic disease. There is no medicine to treat COVID-19. Your health care provider will talk with you about ways to treat your symptoms. Take steps to protect yourself and others from infection. Wash your hands often and disinfect objects and surfaces that are frequently touched every day. Stay away from people who are sick and wear a mask if you are sick. This information is not intended to replace advice given to you by your health care provider. Make sure you discuss any questions you have with your health care provider. Document Released: 12/03/2019 Document Revised: 03/24/2020 Document Reviewed: 12/03/2019 Elsevier Patient Education 2020 [employer] Inc. Additional Information VACCINATE! IT SAVES LIVES! Members of the community who have not yet received the COVID-19 vaccine and would like to receive it can visit one of [facility] vaccine clinics. There are many vaccine clinic locations within the [facility]. For locations and available times, please visit https://gettheshot.coronavirus.o hio.gov/. It is important to note that some COVID mobile vaccine clinics are held outdoors and may be canceled in rainy or stormy conditions. To learn more about pediatric vaccinations (ages 5-11), we invite you to visit the [facility] webpage. https://www.Posses.org/p ages/0598-Fyvqg-Bgzgxriuosb-Freq ekayta-Jsafg-Sdxzkfcsg.html To learn more about the COVID-19 vaccine, we invite you to visit the CDC website for a list of frequently asked questions.https://www.cdc.gov/co ronavirus/2019-ncov/vaccines/faq .html [facility] Patient Portal Access Instructions: Stay connected with your healthcare team and access your personal medical information anytime with the [facility] Patient Portal. Please follow the directions below to create your [facility] account: 1.Access the email account you provided upon registration to the hospital/physician office.2.Look for an invitation email from [facility].3.Open the email and access the invitation link: Accept Invitation to [facility].4.Fill in the required zuniga to create your account. To access your account, visit [email or web address]. Click the blue button labeled Access Patient Portal and then log in with the username and password that you created in the steps above. You will be able to view your test results, lab results, a summary of your visits, upcoming appointments and more. There is also a convenient messaging option where you can send secure messages to your provider. In addition, you will have the ability to download any documents or summaries to your computer and/or send the information securely to a physician. Remember that your healthcare information is confidential, so carefully consider who you will allow to register on the [facility] Patient Portal for access to your information. You can also access the [facility] Patient Portal on the [facility] alisa. Simply click on Patient Portal and then log into your account. If you would like to receive a full copy of your medical records, please contact the [facility] Medical Records Department by calling [phone], Saturday through Saturday between 8 a.m. and 4:30 p.m. HOW TO SAFELY DISPOSE OF PRESCRIPTION MEDICATIONS Please use one of the following methods to safely dispose of your unused medications. 1.Use a drug disposal kit: the drug disposal pouch allows you to safely discard your old and unused drugs. Ask your nurse to give you one when you are discharged.2.Visit a local take-back location: Many local pharmacies and police departments have programs that collect old and unwanted prescription drugs. Call your local pharmacy or go to http://SiteWit.Community Investors/7M3Ri7y to find one close to you.3.Make use of household items: Use cat litter or old coffee grounds to dispose medications if other options are not available. Mix your drugs with these household products, seal them in an airtight container and throw it into the garbage. Call [facility]: [phone] to be sure your drugs can be disposed of in this way. Some medicines may require a different approach.4.Never flush your medications down the toilet. IF YOU HAVE BEEN PRESCRIBED AN OPIOID FOR PAIN If you have been prescribed an opioid (such as hydrocodone, oxycodone or morphine), it is critical to understand the possible side effects and risks of opioid pain medications. Even when taken as directed, opioids can have several side effects including: Tolerance, meaning you might need to take more of a medication for the same pain relief. Nausea, vomiting and/or constipation. Sleepiness, dizziness, dry mouth, confusion, depression or itching. Physical dependence, meaning you have withdrawal symptoms when a medication is stopped, can develop within a few days. KNOW YOUR RESPONSIBILITIES It is important to know exactly how much and how often to take the opioid pain medications you are prescribed. Never take opioids in higher amounts or more often than prescribed. Do not combine opioids with alcohol or other drugs that cause drowsiness, such as benzodiazepines, also known as benzos, including diazepam and alprazolam, muscle relaxants or sleep aids. Never sell or share prescription opioids. This is illegal. Store opioids in a secure place and out of reach of others (including children, family, friends and visitors). The last page of this document has been signed and retained as a CHART COPY. Signatures Patient Education Materials COVID-19 Medication Leaflets My discharge plan and instructions have been reviewed and explained to me and I,GERMÁN REHAN Zeeshan understand my current condition and have read and understand these discharge instructions. I have received a written copy of the plan/instructions. If I have questions, I am aware that I should contact my doctor. 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 She is aware and alert and answering questions appropriately. Nursing has been able to wean patient off of her oxygen. She has maintained 91% or greater on room air. Discussed with the patient the plan to transfer her back to her SNF today if they are able to take her. She is aware that there is a COVID outbreak at her SNF and they are extremely short-staffed today. Patient is medically optimized for discharge when her SNF can accommodate her. She denies any fever, chills, cough, shortness of breath, chest pain, abdominal pain, nausea or dysuria. All questions answered. Objective Vitals and Measurements T: 36.5 C (Oral) TMIN: 36.5 C (Oral) TMAX: 36.6 C (Oral) HR: 74(Apical) RR: 18 BP: 140/53 SpO2: 91% Intake and Output 7AM Yesterday to 7AM Today Intake and Output (Last 24 hours) Intake Oral Intake 540.00 Output Urine Count 2.00 Total Summary Total Intake 540.00 Total Output 0.00 Fluid Balance 540.00 Physical Exam General: No acute distress. Patient is alert, chronically ill-appearing. Skin: No rash. Skin is warm, dry and intact. HEENT: Head is normocephalic, atraumatic. Pupils are equal, round and reactive. Neck: Supple. No lymphadenopathy, thyromegaly. Lungs: Bilaterally clear but diminished without crepitation or wheeze. Unlabored. Heart: Heart is regular rhythm, S1, S2. No murmurs, gallops or rubs. Abdomen: Abdomen is soft, nontender, obese. Bowels sounds present in all quadrants. Extremities: No clubbing, cyanosis, or edema. Peripheral pulses palpable. No calf tenderness. Neurological: Patient is awake and alert to person, place and time. Following simple commands, moving all extremities. No qualifying data available. Medications Medications (34) Active Scheduled: (22) ARIPiprazole 2 mg tablet 2 mg 1 tab(s), Oral, qDay aspirin 325 mg tablet 325 mg 1 tab(s), Oral, qDay dexamethasone 4 mg tablet 6 mg 1.5 tab(s), Oral, Daily diazepam 2 mg tablet 2 mg 1 tab(s), Oral, BID enoxaparin 40 mg/ 0.4mL syringe 40 mg 0.4 mL, Subcutaneous, qDay famotidine 20 mg tablet 20 mg 1 tab(s), Oral, qDay ferrous sulfate 325 mg Tablet 325 mg 1 tab(s), Oral, BID fluticasone nasal 0.05 mg/inh [place] 50 mcg 1 spray(s), Nostril, each, BID furosemide 20 mg tablet 10 mg 0.5 tab(s), Oral, qDay gabapentin 300 mg Capsule 300 mg 1 cap(s), Oral, qDay gabapentin 400 mg capsule 400 mg 1 cap(s), Oral, qHS hydralazine 25 mg Tablet 100 mg 4 tab(s), Oral, TID insulin lispro 100 units/mL Soln (3 mL) Give 0-10 units/dose, Subcutaneous, achs labetalol 100 mg tablet 300 mg 3 tab(s), Oral, BID levothyroxine 88 mcg tablet 88 mcg 1 tab(s), Oral, qDayAC lidocaine patch REMOVAL 1 EA, Miscellaneous, q24h lidocaine topical 4% patch 1 patch(es), Transdermal, qDay losartan 50 mg tablet 100 mg 2 tab(s), Oral, qDay menthol (Biofreeze) gel packet 1 alisa, Topical, qHS remdesivir 100 mg 20 mL, IV Piggyback, qDay sertraline 50 mg tablet 100 mg 2 tab(s), Oral, Daily Sodium Chloride 0.9% 100 mL, IV Piggyback, qDay Continuous: (0) PRN: (12) acetaminophen 325 mg Tablet 650 mg 2 tab(s), Oral, q4h acetaminophen 325 mg Tablet 650 mg 2 tab(s), Oral, q4h Al hydrox/Mg hydrox/simethicone 200-200-20 mg/5 mL Susp UD 15 mL, Oral, q4h albuterol - ipratropium 2.5 mg-0.5 mg/3 mL Inhal Alicia UD 3 mL, Inhalation, q4hRT bisacodyl 10 mg Suppository 10 mg 1 supp, Rectal, qDay calcium carbonate 500 mg Chewable 500 mg 1 tab(s), Chewed, TID docusate sodium 100 mg Capsule 100 mg 1 cap(s), Oral, BID docusate-senna (Senokot S) 50 mg-8.6 mg Tablet 1 tab(s), Oral, qDay magnesium hydroxide 8% Suspension 30 mL UD 30 mL, Oral, TID melatonin 3 mg tablet 6 mg 2 tab(s), Oral, qHS menthol (Biofreeze) gel packet 1 alisa, Topical, q6h tramadol 50 mg Tablet 50 mg 1 tab(s), Oral, q6hr Lab Results 10/14 05:16 WBC: 8.1 Hgb: 10.2 L Hct: 31.4 L Platelet: 355 Neutrophil %: 75.5 Glucose Level: 133 H Sodium Level: 138 Potassium Level: 4.1 BUN: 41 H Creatinine Lvl (s): 1.48 H 10/13 05:19 WBC: 7.5 Hgb: 10.1 L Hct: 30.9 L Platelet: 342 Neutrophil %: 82.2 H Glucose Level: 153 H Sodium Level: 142 Potassium Level: 4.3 BUN: 35 H Creatinine Lvl (s): 1.52 H Imaging Results and Diagnostics XR Chest 1 View Result Date: October 11, 2023 Verified By: MANDI KELLY MD CLINICAL STATEMENT: IMPRESSION: No acute cardiopulmonary process is seen. EKG No qualifying data available. Assessment/Plan 1. COVID-19 Acute, new onset, accompanied by hypoxia and confusion, improving. We will discontinue Remdesivir 100 mg IV after today's dose. Continue dexamethasone 6 mg PO daily for a total of 10 days; day 3/10. Continue supplemental oxygen as needed to maintain oxygen saturations above 92%. Wean oxygen as able. Continue aerosols as needed and scheduled. Repeat CBC and BMP in the am. 2. Type 2 diabetes mellitus Chronic, controlled. Blood sugar checks before meals and at bedtime. Cover with sliding scale insulin. Continue ADA diet. Blood sugar goal of 180 or less and avoid hypoglycemia. 3. HTN - Hypertension Chronic, controlled. Continue current antihypertensives. SBP goal of 140 or less. 4. Hypothyroid Chronic. Continue Levothyroxine at home dose. Patient is medically optimized for discharge back to SNF. social services director waiting for reply from [facility] on when they can accept her back. DVT prophylaxis with Lovenox sc. Code status: Full Code. Labs, diagnostic test and progress notes reviewed as noted in HPI. Plan of care discussed with patient. All questions answered. Patient verbalizes understanding and is agreeable with plan of care. This case was discussed with collaborating physician, Dr. Aide Al.lkOO Time Spent 35 minutes spent reviewing past diagnostic tests, reviewing lab results, vital sign trends, medical history, reviewing medications and ordering home medications, examining patient, discussed plan of care with nursing, neonatal social worker and therapy, collaborating with physician, and documenting in chart. Digitally Signed by SUZI ORTIZ on 10/14/2023 12:33 PM [facility] 10-14-2023 Hospital Discharg e instructions Patient Education 10/14/2023 07:43:30 COVID-19 COVID-19 COVID-19 is a respiratory infection that is caused by a virus called severe acute respiratory syndrome coronavirus 2 (SARS-CoV-2). The disease is also known as coronavirus disease or novel coronavirus. In some people, the virus may not cause any symptoms. In others, it may cause a serious infection. The infection can get worse quickly and can lead to complications, such as: Pneumonia, or infection of the lungs. Acute respiratory distress syndrome or ARDS. This is fluid build-up in the lungs. Acute respiratory failure. This is a condition in which there is not enough oxygen passing from the lungs to the body. Sepsis or septic shock. This is a serious bodily reaction to an infection. Blood clotting problems. Secondary infections due to bacteria or fungus. The virus that causes COVID-19 is contagious. This means that it can spread from person to person through droplets from coughs and sneezes (respiratory secretions). What are the causes? This illness is caused by a virus. You may catch the virus by: Breathing in droplets from an infected person's cough or sneeze. Touching something, like a table or a doorknob, that was exposed to the virus (contaminated) and then touching your mouth, nose, or eyes. What increases the risk? Risk for infection You are more likely to be infected with this virus if you: Live in or travel to an area with a COVID-19 outbreak. Come in contact with a sick person who recently traveled to an area with a COVID-19 outbreak. Provide care for or live with a person who is infected with COVID-19. Risk for serious illness You are more likely to become seriously ill from the virus if you: Are 65 years of age or older. Have a long-term disease that lowers your body's ability to fight infection (immunocompromised). Live in a long term or long-term care facility. Have a long-term (chronic) disease such as: ?Chronic lung disease, including chronic obstructive pulmonary disease or asthma ?Heart disease. ?Diabetes. ?Chronic kidney disease. ?Liver disease. Are obese. What are the signs or symptoms? Symptoms of this condition can range from mild to severe. Symptoms may appear any time from 2 to 14 days after being exposed to the virus. They include: A fever. A cough. Difficulty breathing. Chills. Muscle pains. A sore throat. Loss of taste or smell. Some people may also have stomach problems, such as nausea, vomiting, or diarrhea. Other people may not have any symptoms of COVID-19. How is this diagnosed? This condition may be diagnosed based on: Your signs and symptoms, especially if: ?You live in an area with a COVID-19 outbreak. ?You recently traveled to or from an area where the virus is common. ?You provide care for or live with a person who was diagnosed with COVID-19. A physical exam. Lab tests, which may include: ?A nasal swab to take a sample of fluid from your nose. ?A throat swab to take a sample of fluid from your throat. ?A sample of mucus from your lungs (sputum). ?Blood tests. Imaging tests, which may include, X-rays, CT scan, or ultrasound. How is this treated? At present, there is no medicine to treat COVID-19. Medicines that treat other diseases are being used on a trial basis to see if they are effective against COVID-19. Your health care provider will talk with you about ways to treat your symptoms. For most people, the infection is mild and can be managed at home with rest, fluids, and yxzw-brh-cyftfne medicines. Treatment for a serious infection usually takes places in a hospital intensive care unit (ICU). It may include one or more of the following treatments. These treatments are given until your symptoms improve. Receiving fluids and medicines through an IV. Supplemental oxygen. Extra oxygen is given through a tube in the nose, a face mask, or a garcia. Positioning you to lie on your stomach (prone position). This makes it easier for oxygen to get into the lungs. Continuous positive airway pressure (CPAP) or bi-level positive airway pressure (BPAP) machine. This treatment uses mild air pressure to keep the airways open. A tube that is connected to a motor delivers oxygen to the body. Ventilator. This treatment moves air into and out of the lungs by using a tube that is placed in your windpipe. Tracheostomy. This is a procedure to create a hole in the neck so that a breathing tube can be inserted. Extracorporeal membrane oxygenation (ECMO). This procedure gives the lungs a chance to recover by taking over the functions of the heart and lungs. It supplies oxygen to the body and removes carbon dioxide. Follow these instructions at home: Lifestyle If you are sick, stay home except to get medical care. Your health care provider will tell you how long to stay home. Call your health care provider before you go for medical care. Rest at home as told by your health care provider. Do not use any products that contain nicotine or tobacco, such as cigarettes, e-cigarettes, and chewing tobacco. If you need help quitting, ask your health care provider. Return to your normal activities as told by your health care provider. Ask your health care provider what activities are safe for you. General instructions Take dbah-yhn-kxlwhsa and prescription medicines only as told by your health care provider. Drink enough fluid to keep your urine pale yellow. Keep all follow-up visits as told by your health care provider. This is important. How is this prevented? There is no vaccine to help prevent COVID-19 infection. However, there are steps you can take to protect yourself and others from this virus. To protect yourself: Do not travel to areas where COVID-19 is a risk. The areas where COVID-19 is reported change often. To identify high-risk areas and travel restrictions, check the [facility] travel website: wwwnc.cdc.gov/travel/notices If you live in, or must travel to, an area where COVID-19 is a risk, take precautions to avoid infection. ?Stay away from people who are sick. ?Wash your hands often with soap and water for 20 seconds. If soap and water are not available, use an alcohol-based hand lumber carrier operator. ?Avoid touching your mouth, face, eyes, or nose. ?Avoid going out in public, follow guidance from your state and local health authorities. ?If you must go out in public, wear a cloth face covering or face mask. ?Disinfect objects and surfaces that are frequently touched every day. This may include: ?Counters and tables. ?Doorknobs and light switches. ?Sinks and faucets. ?Electronics, such as phones, remote controls, keyboards, computers, and tablets. To protect others: If you have symptoms of COVID-19, take steps to prevent the virus from spreading to others. If you think you have a COVID-19 infection, contact your health care provider right away. Tell your health care team that you think you may have a COVID-19 infection. Stay home. Leave your house only to seek medical care. Do not use public transport. Do not travel while you are sick. Wash your hands often with soap and water for 20 seconds. If soap and water are not available, use alcohol-based hand lumber carrier operator. Stay away from other members of your household. Let healthy household members care for children and pets, if possible. If you have to care for children or pets, wash your hands often and wear a mask. If possible, stay in your own room, separate from others. Use a different bathroom. Make sure that all people in your household wash their hands well and often. Cough or sneeze into a tissue or your sleeve or elbow. Do not cough or sneeze into your hand or into the air. Wear a cloth face covering or face mask. Where to find more information Centers for Disease Control and Prevention: www.cdc.gov/coronavirus/2019-nco v/index.html World Health Organization: www.who.int/health-topics/[place] virus Contact a health care provider if: You live in or have traveled to an area where COVID-19 is a risk and you have symptoms of the infection. You have had contact with someone who has COVID-19 and you have symptoms of the infection. Get help right away if: You have trouble breathing. You have pain or pressure in your chest. You have confusion. You have bluish lips and fingernails. You have difficulty waking from sleep. You have symptoms that get worse. These symptoms may represent a serious problem that is an emergency. Do not wait to see if the symptoms will go away. Get medical help right away. Call your local emergency services (911 in the [place] Do not drive yourself to the hospital. Let the emergency medical personnel know if you think you have COVID-19. Summary COVID-19 is a respiratory infection that is caused by a virus. It is also known as coronavirus disease or novel coronavirus. It can cause serious infections, such as pneumonia, acute respiratory distress syndrome, acute respiratory failure, or sepsis. The virus that causes COVID-19 is contagious. This means that it can spread from person to person through droplets from coughs and sneezes. You are more likely to develop a serious illness if you are 65 years of age or older, have a weak immunity, live in a long term, or have chronic disease. There is no medicine to treat COVID-19. Your health care provider will talk with you about ways to treat your symptoms. Take steps to protect yourself and others from infection. Wash your hands often and disinfect objects and surfaces that are frequently touched every day. Stay away from people who are sick and wear a mask if you are sick. This information is not intended to replace advice given to you by your health care provider. Make sure you discuss any questions you have with your health care provider. Document Released: 12/03/2019 Document Revised: 03/24/2020 Document Reviewed: 12/03/2019 [employer] Patient Education 2020 [employer]. Follow Up Care 10/11/2023 11:49:39 With:LINWOOD JUNE DO Address: [address] [place] [id number] When:5 to 7 days Comments:follow-up with PCP in next week for post-hospitalization follow-up [facility] 10-13-2023 Note Date of Service 10/13/2023 Chief Complaint shortness of breath Subjective Patient seen and evaluated this morning while resting in bed. She awakens to name but is drowsy this morning. She states that she feels like she is breathing better today. She denies any new problems or concerns. Patient understands the plan of care of continuing the Remdesivir today. She can likely be discharged back to her long term tomorrow with or without oxygen. She denies any fever, chills, cough, chest pain, abdominal pain, nausea or dysuria. All questions answered. Intake and Output 7AM Yesterday to 7AM Today Intake and Output (Last 24 hours) Intake Oral Intake 240.00 Output Urine Voided 200.00 Stool Count 1.00 Urine Count 2.00 Diaper Count 1.00 Total Summary Total Intake 240.00 Total Output 200.00 Fluid Balance 40.00 Physical Exam General: No acute distress. Patient is drowsy, chronically ill-appearing. Skin: No rash. Skin is warm, dry and intact. HEENT: Head is normocephalic, atraumatic. Pupils are equal, round and reactive. Neck: Supple. No lymphadenopathy, thyromegaly. Lungs: Bilaterally clear but diminished without crepitation or wheeze. Unlabored. Heart: Heart is regular rhythm, S1, S2. No murmurs, gallops or rubs. Abdomen: Abdomen is soft, nontender, obese. Bowels sounds present in all quadrants. Extremities: No clubbing, cyanosis, or edema. Peripheral pulses palpable. No calf tenderness. Neurological: Patient is drowsy but alert to person, place. Following simple commands, moving all extremities. No qualifying data available. Medications Medications (34) Active Scheduled: (22) ARIPiprazole 2 mg tablet 2 mg 1 tab(s), Oral, qDay aspirin 325 mg tablet 325 mg 1 tab(s), Oral, qDay dexamethasone 4 mg tablet 6 mg 1.5 tab(s), Oral, Daily diazepam 2 mg tablet 2 mg 1 tab(s), Oral, BID enoxaparin 40 mg/ 0.4mL syringe 40 mg 0.4 mL, Subcutaneous, qDay famotidine 20 mg tablet 20 mg 1 tab(s), Oral, qDay ferrous sulfate 325 mg Tablet 325 mg 1 tab(s), Oral, BID fluticasone nasal 0.05 mg/inh [place] 50 mcg 1 spray(s), Nostril, each, BID furosemide 20 mg tablet 10 mg 0.5 tab(s), Oral, qDay gabapentin 300 mg Capsule 300 mg 1 cap(s), Oral, qDay gabapentin 400 mg capsule 400 mg 1 cap(s), Oral, qHS hydralazine 25 mg Tablet 100 mg 4 tab(s), Oral, TID insulin lispro 100 units/mL Soln (3 mL) Give 0-10 units/dose, Subcutaneous, achs labetalol 100 mg tablet 300 mg 3 tab(s), Oral, BID levothyroxine 88 mcg tablet 88 mcg 1 tab(s), Oral, qDayAC lidocaine patch REMOVAL 1 EA, Miscellaneous, q24h lidocaine topical 4% patch 1 patch(es), Transdermal, qDay losartan 50 mg tablet 100 mg 2 tab(s), Oral, qDay menthol (Biofreeze) gel packet 1 alisa, Topical, qHS remdesivir 100 mg 20 mL, IV Piggyback, qDay sertraline 50 mg tablet 100 mg 2 tab(s), Oral, Daily Sodium Chloride 0.9% 100 mL, IV Piggyback, qDay Continuous: (0) PRN: (12) acetaminophen 325 mg Tablet 650 mg 2 tab(s), Oral, q4h acetaminophen 325 mg Tablet 650 mg 2 tab(s), Oral, q4h Al hydrox/Mg hydrox/simethicone 200-200-20 mg/5 mL Susp UD 15 mL, Oral, q4h albuterol - ipratropium 2.5 mg-0.5 mg/3 mL Inhal Alicia UD 3 mL, Inhalation, q4hRT bisacodyl 10 mg Suppository 10 mg 1 supp, Rectal, qDay calcium carbonate 500 mg Chewable 500 mg 1 tab(s), Chewed, TID docusate sodium 100 mg Capsule 100 mg 1 cap(s), Oral, BID docusate-senna (Senokot S) 50 mg-8.6 mg Tablet 1 tab(s), Oral, qDay magnesium hydroxide 8% Suspension 30 mL UD 30 mL, Oral, TID melatonin 3 mg tablet 6 mg 2 tab(s), Oral, qHS menthol (Biofreeze) gel packet 1 alisa, Topical, q6h tramadol 50 mg Tablet 50 mg 1 tab(s), Oral, q6hr Lab Results 10/13 05:19 WBC: 7.5 Hgb: 10.1 L Hct: 30.9 L Platelet: 342 Neutrophil %: 82.2 H Glucose Level: 153 H Sodium Level: 142 Potassium Level: 4.3 BUN: 35 H Creatinine Lvl (s): 1.52 H 10/12 05:17 WBC: 5.3 Hgb: 10.5 L Hct: 32.5 L Platelet: 339 Neutrophil %: 86.8 H Glucose Level: 175 H Sodium Level: 136 Potassium Level: 4.8 BUN: 26 H Creatinine Lvl (s): 1.33 H Imaging Results and Diagnostics XR Chest 1 View Result Date: October 11, 2023 Verified By: MANDI KELLY MD CLINICAL STATEMENT: IMPRESSION: No acute cardiopulmonary process is seen. EKG No qualifying data available. Assessment/Plan 1. COVID-19 Acute, new onset, accompanied by hypoxia and confusion, improving. We will continue Remdesivir 100 mg IV daily for 1 more day. Continue dexamethasone 6 mg PO daily for a total of 10 days. Continue supplemental oxygen as needed to maintain oxygen saturations above 92%. Wean oxygen as able. Continue aerosols as needed and scheduled. Repeat CBC and BMP in the am. 2. Type 2 diabetes mellitus Chronic, controlled. Blood sugar checks before meals and at bedtime. Cover with sliding scale insulin. Continue ADA diet. Blood sugar goal of 180 or less and avoid hypoglycemia. 3. HTN - Hypertension Chronic, controlled. Continue current antihypertensives. SBP goal of 140 or less. 4. Hypothyroid Chronic. Continue Levothyroxine at home dose. Anticipate discharge to SNF in next 24-48 hours. DVT prophylaxis with Lovenox sc. Code status: Full Code. Labs, diagnostic test and progress notes reviewed as noted in HPI. Plan of care discussed with patient. All questions answered. Patient verbalizes understanding and is agreeable with plan of care. This case was discussed with collaborating physician, Dr. Aide Al. Time Spent 35 minutes spent reviewing past diagnostic tests, reviewing lab results, vital sign trends, medical history, reviewing medications and ordering home medications, examining patient, discussed plan of care with nursing, collaborating with physician, and documenting in chart. Digitally Signed by SUZI ORTIZ on 10/13/2023 11:07 AM [facility] 1. COVID-19 Acute, new onset, accompanied by hypoxia and confusion. Admit to medical surgical unit for further evaluation and treatment. We will continue Remdesivir 100 mg IV daily for 2 more days. Continue dexamethasone 6 mg PO daily for a total of 10 days. Continue supplemental oxygen as needed to maintain oxygen saturations above 92%. Continue aerosols as needed and scheduled. Repeat CBC and BMP in the am. 2. Type 2 diabetes mellitus Chronic, controlled. Blood sugar checks before meals and at bedtime. Cover with sliding scale insulin. Continue ADA diet. Blood sugar goal of 180 or less and avoid hypoglycemia. 3. HTN - Hypertension Chronic, controlled. Continue current antihypertensives. SBP goal of 140 or less. 4. Hypothyroid Chronic. Continue Levothyroxine at home dose. DVT prophylaxis with Lovenox sc. Code status: Full Code. Labs, diagnostic test and progress notes reviewed as noted in HPI. Plan of care discussed with patient. All questions answered. Patient verbalizes understanding and is agreeable with plan of care. This case was discussed with collaborating physician, Dr. Aide Al. 75 minutes spent reviewing past diagnostic tests, reviewing lab results, vital sign trends, medical history, reviewing medications and ordering home medications, examining patient, discussed plan of care with nursing, collaborating with physician, and documenting in chart. [facility] 12-02-2023 Note Date of Service 10/12/2023 Chief Complaint pt sent from [facility] d/t low oxygen levels. pt states she has been sick for a couple days and tested positive today for COVID. History of Present Illness Patient is an 78-year-old female, who follows with Dr. Linwood June with a past medical history significant for type 2 diabetes mellitus, hypertension, hypothyroidism, and depression, presents to [facility] emergency department with the chief complaint of hypoxia. Patient is a resident at [facility] and has reportedly been coughing more the last few days. A check of her vital signs yesterday revealed that she was hypoxic, 83% on room, at her SNF. She was placed on 2L of oxygen and improved to only 90%. After she started coughing, she was tested for COVID-19 andwas positive. Nursing felt yesterday that patient was less alert and more confused and sent her to [facility] ED for evaluation. Patient denies any fever, chills, chest pain, abdominal pain, nausea or dysuria. In the emergency department, chest x-ray revealed no acute cardiopulmonary process. CBC was remarkable for hemoglobin 11.2 and hematocrit 34.0. BMP significant for BUN 25 and creatinine 1.24. D-. BNP 944. Troponin negative. Lactic acid less than 0.03. Patient was administered IV fluids, 200 mg Remdesivir IV, 10 mg dexamethasone PO and 650 mg Tylenol PO in the ED. The case was discussed with the ED physician who recommended admission due to hypoxia from COVID-19 infection. Patient was transferred to telemetry for further evaluation and treatment. We will continue Remdesivir 100 mg IV daily and dexamethasone 6 mg PO daily for a total of 9 more days. We will continue supplemental oxygen as needed to maintain oxygen saturations above 90%. Continue PRN and scheduled breathing treatments. Repeat CBC and BMP in the am. Patient seen and evaluated this morning while resting in bed. She states that she is feeling a little better this morning. She is still coughing and it is sometimes productive. She remains on 3L of oxygen this morning with acceptable oxygen saturations. Discussed the plan of care with patient including continuing the Remdesivir and dexamethasone and then most likely discharge back to her facilityearly next week. She is agreeable with this plan. All questions answered. Review of Systems Review of Systems: Reviewed in detail, including general health, HEENT, cardiovascular, respiratory, gastrointestinal, genitourinary, endocrine, musculoskeletal, neurologic, vascular, skin, and psychiatric. All are negative except for those listed in the History of Present Illness. Physical Exam Vitals and Measurements T: 36.4 C (Oral) TMIN: 36.4 C (Oral) TMAX: 37.8 C (Oral) HR: 62(Apical) RR: 18 BP: 143/55 SpO2: 95% No qualifying data available. General: No acute distress. Patient is alert, chronically ill-appearing. Skin: No rash. Skin is warm, dry and intact. HEENT: Head is normocephalic, atraumatic. Pupils are equal, round and reactive. Neck: Supple. No lymphadenopathy, thyromegaly. Lungs: Bilaterally clear but diminished without crepitation or wheeze. Unlabored. Heart: Heart is regular rhythm, S1, S2. No murmurs, gallops or rubs. Abdomen: Abdomen is soft, nontender, obese. Bowels sounds present in all quadrants. Extremities: No clubbing, cyanosis, or edema. Peripheral pulses palpable. No calf tenderness. Neurological: Patient is awake and alert to person, place and time. Following simple commands, moving all extremities. Lab Results 10/12 05:17 WBC: 5.3 Hgb: 10.5 L Hct: 32.5 L Platelet: 339 Neutrophil %: 86.8 H Glucose Level: 175 H Sodium Level: 136 Potassium Level: 4.8 BUN: 26 H Creatinine Lvl (s): 1.33 H 10/11 12:01 WBC: 9.0 Hgb: 11.2 L Hct: 34.0 L Platelet: 339 Neutrophil %: 70.9 Glucose Level: 135 H Sodium Level: 138 Potassium Level: 4.5 BUN: 25 H Creatinine Lvl (s): 1.24 H Imaging Results and Diagnostics .radimp XR Chest 1 View Result Date: October 11, 2023 Verified By: MANDI KELLY MD CLINICAL STATEMENT: IMPRESSION: No acute cardiopulmonary process is seen. Assessment/Plan 1. COVID-19 Acute, new onset, accompanied by hypoxia and confusion. Admit to medical surgical unit for further evaluation and treatment. We will continue Remdesivir 100 mg IV daily for 2 more days. Continue dexamethasone 6 mg PO daily for a total of 10 days. Continue supplemental oxygen as needed to maintain oxygen saturations above 92%. Continue aerosols as needed and scheduled. Repeat CBC and BMP in the am. 2. Type 2 diabetes mellitus Chronic, controlled. Blood sugar checks before meals and at bedtime. Cover with sliding scale insulin. Continue ADA diet. Blood sugar goal of 180 or less and avoid hypoglycemia. 3. HTN - Hypertension Chronic, controlled. Continue current antihypertensives. SBP goal of 140 or less. 4. Hypothyroid Chronic. Continue Levothyroxine at home dose. DVT prophylaxis with Lovenox sc. Code status: Full Code. Labs, diagnostic test and progress notes reviewed as noted in HPI. Plan of care discussed with patient. All questions answered. Patient verbalizes understanding and is agreeable with plan of care. This case was discussed with collaborating physician, Dr. Aide Al. 75 minutes spent reviewing past diagnostic tests, reviewing lab results, vital sign trends, medicalhistory, reviewing medications and ordering home medications, examining patient, discussed plan of care with nursing, collaborating with physician, and documenting in chart. Problem List/Past Medical History Ongoing Depression Dyspnea Edema of both legs Gastric reflux Hip pain, chronic HTN - Hypertension Hypothyroid Incontinence of urine Insomnia Left inguinal hernia Liver mass Neuropathy Over weight Renal cyst Type 2 diabetes mellitus Vitreous detachment, bilateral Historical No qualifying data Procedure/Surgical History Sigmoid colectomy: 10/03/21 Colonoscopy, flexible; with rectal tube decompression: 09/30/21 Carpal tunnel release Thyroidectomy Cataract [place] tooth Eye Medications Home Medications (36) Active Abilify 2 mg oral tablet 2 mg = 1 tab(s), Oral, qDay acetaminophen 500 mg, PRN, Oral, q12h acetaminophen 650 mg, PRN, Oral, q4h acetaminophen 325 mg, PRN, Oral, q12h acetaminophen 650 mg, PRN, Rectal, q4h amoxicillin 500 mg, Oral, TID aspirin buffered 325 mg oral tablet 325 mg = 1 tab(s), Oral, qDay Biofreeze 5% gel, PRN, Topical, q6h Biofreeze 5% gel, PRN, Topical, q12h Biofreeze 5% gel, Topical, qHS bisacodyl 10 mg, PRN, Rectal, qDay CeraVe Healing topical ointment , Topical, q12h cranberry oral capsule 400 mg, Oral, Daily diazePAM 2 mg oral tablet 2 mg = 1 tab(s), Oral, BID ferrous sulfate 325 mg, Oral, qDay fluticasone proprionate NASAL 50 mcg/ spray 50 mcg = 1 spray(s), Nostril, each, BID gabapentin 400 mg, Oral, qHS gabapentin 300 mg oral capsule 300 mg = 1 cap(s), Oral, qDay hydrALAZINE 100 mg, Oral, TID Hydrocortisone 1% cream , Topical, BID labetalol 300 mg oral tablet 300 mg = 1 tab(s), Oral, BID Lasix 10 mg, Oral, qDay levothyroxine 88 mcg (0.088 mg) oral tablet 88 mcg = 1 tab(s), Oral, qDayAC lidocaine 4% patch , Topical, qDay losartan 50 mg oral tablet 2 tablets, Oral, qDay melatonin 3 mg, Oral, qHS Milk of Magnesia 400mg/5, PRN, Oral, TID Potassium Chloride (Eqv-K-Tab) 10 mEq oral tablet, extended release 10 mEq = 1 tab(s), Oral, BID senna (sennosides) 8.6 mg oral tablet 8.6 mg = 1 tab(s), PRN, Oral, qDay sertraline 50 mg oral tablet 100 mg = 2 tab(s), Oral, Daily sodium biphosphate-sodium phosphate 19 g-7 g rectal enema 133 mL, PRN, Rectal, Once traMADol 50 mg, PRN, Oral, q6hr traMADol 50 mg, Oral, qHS Vitamin C 500 mg oral tablet 500 mg = 1 tab(s), Oral, qDay Vitamin D3 25 mcg = 1 tab(s), Oral, Daily zinc sulfate 220 mg oral capsule 220 mg = 1 cap(s), Oral, qDay Allergies Antihistamine-Decongestant (COULDN'T BREATH VERY WELL) Social History Smoking Status - 08/19/2017 Never smoker Alcohol - Denies Alcohol Use, 08/19/2017 Use: Past., 08/16/2019 Sexual Sexually active: No., 08/16/2019 Substance Abuse - Denies Substance Abuse, 08/19/2017 Use: Never., 08/16/2019 Tobacco Nicotine Use: Never (less than 100 in lifetime)., 10/11/2023 Tobacco Use: Never (less than 100 in lifetime)., 08/16/2019 Family History Cancer: Sister and Brother. Diabetes mellitus: Sister. Heart disease: Mother, Father and Brother. Mental illness: Sister. Stroke: Brother. Immunizations pneumococcal 13-valent conjugate vaccine: 0 unknown unit (11/23/16) pneumococcal 23-valent vaccine(Pneumovax: 0 unknown unit (11/11/13) pneumococcal 23-valent vaccine(Pneumovax: 0 unknown unit (11/11/12) pneumococcal 23-valent vaccine(Pneumovax: 0 unknown unit (08/11/08) SARS-CoV-2 mRNA (tozinameran) vaccine: 0 unknown unit (09/08/21) SARS-CoV-2 mRNA (tozinameran) vaccine: 0.3 unknown unit (11/30/20) SARS-CoV-2 mRNA (tozinameran) vaccine: 0.3 unknown unit (11/09/20) zoster vaccine live: 0 unknown unit (11/11/13) Code Status Code Status - Ordered -- 10/11/23 14:27:00 EST, Full Code, Constant Order Digitally Signed by SUZI ORTIZ on 10/12/2023 12:21 PM [facility]12-01-2023 Note ORIGINAL EXAMINATION: ONE XRAY VIEW OF THE CHEST10/11/2023 12:41 pm COMPARISON: 08/16/2019 HISTORY: ORDERING SYSTEM PROVIDED HISTORY: Reason for Exam: SOB/cough/fever FINDINGS: Stable heart and mediastinum with no vascular congestion, consolidation, significant pleural effusion or pneumothorax. There is probably some pleural thickening at the left base. Mild prominence of the vascular interstitial markings may be exaggerated by shallow inspiration or chronic. Bilateral shoulder moderate to severe osteoarthritis. IMPRESSION: No acute cardiopulmonary process is seen. Interpreted by: Mandi Kelly MD Preliminary Report By: Mandi Kelly MD Electronically signed By Mandi Kelly MD Dictated Date: 10/11/2023 12:43:25 PM Prelim Date: 10/11/2023 12:44:32 PM Sign Date: 10/11/2023 12:44:32 PM [facility]ing [facility] Sinus rhythm Left ventricular hypertrophy Electronic Signature: IVAN EVANS MD 10/11/2023 12:07:37[facility] 06-08-2023 History of Present illness Narrative* Nickolas Ernst, RAMAS - 04/18/2023 11:36 AM EDT Teaching Physician Note: I saw and evaluated the patient. I personally obtained the cabrera and critical portions of the historyand physical exam. I reviewed the resident's documentation and discussed the patient with the resident. I agree with the resident's medical decision making as documented in the resident's note. Nickolas Ernst DDS \ * Venita Jimenez - 04/15/2023 11:57 AM EDT Images from the original note were not included. * Jimmie Mezt DMD - 04/15/2023 11:22 AM EDT ORAL SURGERY CLINIC FOLLOW UP VISIT Chief Complaint: My bridge fell out and I want all my teeth out History of present illness: 77 yrs old White female with PMH significant for HTN, HLD, DMII, neuropathy, hypothyroidism, GERD, anxiety, depression presents for f/u visit s/p teeth extraction #2,15,16,18 on 08/07/22. Pt reports no issues or concerns associated with her previous surgery. Pt's CC is my bridge fell out and I want all my teeth out. Pt states that her teeth keep breaking every time she eats and she just wants them out. Pt has not seen a dentist since prior to her previous consultation/surgery and has no updated referral for extraction of all remaining teeth. Review of Systems: no change Patient Active Problem List: Age-related physical debility [R54] Difficulty in walking, not elsewhere classified [R26.2] Essential (primary) hypertension [I10] Gastric reflux [K21.9] Gastroesophageal reflux disease without esophagitis [K21.9] Hyperlipidemia [E78.5] Neuropathy [G62.9] Generalized osteoarthritis [M15.9] Depressive disorder [F32.A] Type 2 diabetes mellitus with diabetic polyneuropathy, without long-term current use of insulin (HCC) [E11.42] Anxiety disorder, unspecified [F41.9] Hypothyroidism [E03.9] Physical findings: EXTRAORAL No significant findings No s/s of infection, redness or tenderness to palpation No facial asymmetry or swelling No appreciable LAD No popping/clicking/crepitus of TMJ b/l No tenderness to palpation of temporalis or masseter asymptomatic function Range of motion WNL CN V and VII intact INTRAORAL Incisions are fully epithelialized at previous extraction sites No s/s of infection Erythematous mucosa around dentition with plaque accumulation Oropharynx clear No pathological soft lesions appreciated Oral cancer screen negative Oral hygiene poor Multiple fx teeth with caries Missing FPD #8-10 Recession on dentition Generalized decay Radiographic Interpretation: LOZANO radiograph captured on 04/15/2023 Multiple fx teeth Missing FPD #8-10 Generalized decay Generalized bone loss Assessment / Diagnosis: 77 yrs old White female with PMH significant for HTN, HLD, DMII, neuropathy, hypothyroidism, GERD, anxiety, depression presents missing FPD #8-10 and multiple teeth with caries and a poor prognosis. Pt needs to be evaluated by dentist for definitve treatment planning and updated referral needs to be sent to [facility]. Plan: - f/u with dentist for comprehensive evaluation and care of dentition - Return to [facility] with updated referral for any treatment deemed necessary by dentist Jimmie Metz DMD documented in this [id number] Note- Schedule appointment with dentist for evaluation of remaining dentition. - Have them send updated referral to our office, fax and email on provided business card. - Once updated referral is sent to our office, call us directly to notify, so insurance prior authorization can be placed. - You can schedule the appointment at this time. - No surgery will be completed until updated referral is received.[id number] Instructions* Patient Instructions* Jimmie Metz DMD - 04/15/2023 12:02 PM EDT - Schedule appointment with dentist for evaluation of remaining dentition. - Have them send updated referral to our office, fax and email on provided business card. - Once updated referral is sent to our office, call us directly to notify, so insurance prior authorization can be placed. - You can schedule the appointment at this time. - No surgery will be completed until updated referral is received. documented in this [id number] Instructions* Patient Instructions* Jimmie Metz DMD - 04/15/2023 12:02 PM EDT - Schedule appointment with dentist for evaluation of remaining dentition. - Have them send updated referral to our office, fax and email on provided business card. - Once updated referral is sent to our office, call us directly to notify, so insurance prior authorization can be placed. - You can schedule the appointment at this time. - No surgery will be completed until updated referral is received. documented in this [id number] History of Present illness Narrative* Venita Jimenez - 04/15/2023 11:57 AM EDT Images from the original note were not included. * Jimmie Metz DMD - 04/15/2023 11:22 AM EDT ORAL SURGERY CLINIC FOLLOW UP VISIT Chief Complaint: My bridge fell out and I want all my teeth out History of present illness: 77 yrs old White female with PMH significant for HTN, HLD, DMII, neuropathy, hypothyroidism, GERD, anxiety, depression presents for f/u visit s/p teeth extraction #2,15,16,18 on 08/07/22. Pt reports no issues or concerns associated with her previous surgery. Pt's CC is my bridge fell out and I want all my teeth out. Pt states that her teeth keep breaking every time she eats and she just wants them out. Pt has not seen a dentist since prior to her previous consultation/surgery and has no updated referral for extraction of all remaining teeth. Review of Systems: no change Patient Active Problem List: Age-related physical debility [R54] Difficulty in walking, not elsewhere classified [R26.2] Essential (primary) hypertension [I10] Gastric reflux [K21.9] Gastroesophageal reflux disease without esophagitis [K21.9] Hyperlipidemia [E78.5] Neuropathy [G62.9] Generalized osteoarthritis [M15.9] Depressive disorder [F32.A] Type 2 diabetes mellitus with diabetic polyneuropathy, without long-term current use of insulin (HCC) [E11.42] Anxiety disorder, unspecified [F41.9] Hypothyroidism [E03.9] Physical findings: EXTRAORAL No significant findings No s/s of infection, redness or tenderness to palpation No facial asymmetry or swelling No appreciable LAD No popping/clicking/crepitus of TMJ b/l No tenderness to palpation of temporalis or masseter asymptomatic function Range of motion WNL CN V and VII intact INTRAORAL Incisions are fully epithelialized at previous extraction sites No s/s of infection Erythematous mucosa around dentition with plaque accumulation Oropharynx clear No pathological soft lesions appreciated Oral cancer screen negative Oral hygiene poor Multiple fx teeth with caries Missing FPD #8-10 Recession on dentition Generalized decay Radiographic Interpretation: LOZANO radiograph captured on 04/15/2023 Multiple fx teeth Missing FPD #8-10 Generalized decay Generalized bone loss Assessment / Diagnosis: 77 yrs old White female with PMH significant for HTN, HLD, DMII, neuropathy, hypothyroidism, GERD, anxiety, depression presents missing FPD #8-10 and multiple teeth with caries and a poor prognosis. Pt needs to be evaluated by dentist for definitve treatment planning and updated referral needs to be sent to [facility]. Plan: - f/u with dentist for comprehensive evaluation and care of dentition - Return to [facility] with updated referral for any treatment deemed necessary by dentist Jimmie Metz DMD documented in this [id number] Nurse Note* Opal Zimmerman RN - 03/18/2023 9:36 AM EDT Patient presents to IR today for a left hip injection, patient is alert and oriented on arrival, Reji magallon to obtain consent. Patient moved onto procedure table, prepped and draped in sterile fashion, monitors applied. Patient positioned for comfort, Reji magallon to begin procedure. Steroid in jected and patient assisted off procedure table. Patient will be moved to discharge with family. [facility] [id number] Nurse Note* Opal Zimmerman RN - 03/18/2023 9:36 AM EDT Patient presents to IR today for a left hip injection, patient is alert and oriented on arrival, Reji ALAN bedside to obtain consent. Patient moved onto procedure table, prepped and draped in sterile fashion, monitors applied. Patient positioned for comfort, Reji bedside to begin procedure. Steroid in jected and patient assisted off procedure table. Patient will be moved to discharge with family. documented in this [facility]05-05-2023 Note* Care Coordination - Magda Snyder RN - 03/15/2023 11:57 AM EDT Spoke with [facility] [place] regarding patient's hip injection scheduled at 10:00 am on 03/18/23. Aware patient needs to arrive 30 minutes prior to appointment. Patient may take medications and eat prior to procedure. [facility] providing transportation. [facility] [id number] Miscellaneous Notes* Care Coordination - Magda Snyder RN - 03/15/2023 11:57 AM EDT Spoke with [facility] regarding patient's hip injection scheduled at 10:00 am on 03/18/23. Aware patient needs to arrive 30 minutes prior to appointment. Patient may take medications and eat prior to procedure. [facility] providing transportation. documented in this [facility]04-24-2023 Nurse Note* Meche Rocha RN - 03/04/2023 11:09 AM EDT Patient arrived from [facility] in to speak with the patient regarding right hip injection, consent obtained. Patient was placed supine on exam table prepped and draped in sterile fashion. Telemetry monitors placed, conscious sedation administered. Patient tolerated procedure well. Pt dischargedhome [facility] [id number] Nurse Note* Meche Rocha RN - 03/04/2023 11:09 AM EDT [facility] right hip injection, consent obtained. Patient was placed supine on exam table prepped and draped in sterile fashion. Telemetry monitors placed, conscious sedation administered. Patient tolerated procedure well. Pt dischargedhome documented in this [facility]04-24-2023 Miscellaneous Notes* Post- Procedure Note - Sugar Bates PA-C - 03/04/2023 10:30 AM EDT Brief Postoperative Note Name: Rehan Durham Date of : 1945 Pre-operative Diagnosis: Hip pain Procedure: Fluoroscopy guided right hip injection Anesthesia: Local Procedural Personnel: Sugar Bates PA-C Estimated Blood Loss: Minimal Complications: None Findings: Successful injection of right hip. See full report in PACS/Imaging tab for further details. Electronically signed by Sugar Bates PA-C Date: 03/04/23 at 11:32 AM documented in this [place] [address]-24-2023 Note* Post-Procedure Note - Sugar Bates PA-C - 03/04/2023 10:30 AM EDT Brief Postoperative Note Name: Rehan Durham Date of : 1945 Pre-operative Diagnosis: Hip pain Procedure: Fluoroscopy guided right hip injection Anesthesia: Local Procedural Personnel: Sugar Bates PA-C Estimated Blood Loss: Minimal Complications: None Findings: Successful injection of right hip. See full report in PACS/Imaging tab for further details. Electronically signed by Sugar Bates PA-C Date: 03/04/23 at 11:32 AM [place] Phone: [phone] 192-905304-24-2023 Note* Post-Procedure Note - Sugar Bates PA-C - 03/04/2023 10:30 AM EDT Brief Postoperative Note Name: Rehan Durham Date of : 1945 Pre-operative Diagnosis: Hip pain Procedure: Fluoroscopy guided right hip injection Anesthesia: Local Procedural Personnel: Sugar Bates PA-C Estimated Blood Loss: Minimal Complications: None Findings: Successful injection of right hip. See full report in PACS/Imaging tab for further details. Electronically signed by Sugar Bates PA-C Date: 03/04/23 at 11:32 AM [place] Phone: [phone] [phone] Note* Care Coordination - Magda Snyder RN - 02/28/2023 2:05 PM EDT Spoke with patient's nurse at [facility]. Aware that patient has a hip injections scheduled for 03/04/23 at 10:30 am. Patient to arrive 30 minutes prior to appointment. Patient may also eat and take medications prior. [facility] providing transportation. Placements.[id number] Miscellaneous Notes* Care Coordination - Magda Snyder RN - 02/28/2023 2:05 PM EDT Spoke with patient's nurse at [facility]. Aware that patient has a hip injections scheduled for 03/04/23 at 10:30 am. Patient to arrive 30 minutes prior to appointment. Patient may also eat and take medications prior. [facility] providing transportation. documented in this [facility]11-09-2022 NotePatient: Rehan Durham Procedure Summary Date: 09/19/22 Room / Location: [facility] Anesthesia Start: 924 Anesthesia Stop: 100 Procedures: COLONOSCOPY EGD DIAGNOSTIC Diagnosis: Anemia Intermittent constipation (Anemia [D64.9]) (Intermittent constipation [K59.09]) Providers: Ana Cristina Dill MD Responsible Provider: DHRUV Whitaker CRNA Anesthesia Type: TIVA, general ASA Status: 3 Anesthesia Type: TIVA, general Vitals Value Taken Time BP 164/75 09/19/22 1001 Temp 97.6 09/19/22 1003 Pulse 59 09/19/22 1001 Resp 16 09/19/22 1001 SpO2 94 % 09/19/22 1001 Anesthesia Post Evaluation Patient location during evaluation: PACU Patient participation: complete - patient participated Level of consciousness: awake and alert Pain management: adequate Airway patency: patent Dental Injury: no Cardiovascular status: acceptable, blood pressure returned to baseline and hemodynamically stable Respiratory status: acceptable and spontaneous ventilation Hydration status: euvolemic Nausea/Vomiting: controlled No notable events documented. Patient can be discharged once all PACU criteria has been met.[facility]11-09-2022 NotePatient: Rehan Durham Procedure Summary Date: 09/19/22 Room / Location: [facility] Anesthesia Start: 924 Anesthesia Stop: 100 Procedures: COLONOSCOPY EGD DIAGNOSTIC Diagnosis: Anemia Intermittent constipation (Anemia [D64.9]) (Intermittent constipation [K59.09]) Providers: Ana Cristina Dill MD Responsible Provider: DHRUV Whitaker CRNA Anesthesia Type: TIVA, general ASA Status: 3 Anesthesia Type: TIVA, general Vitals Value Taken Time BP 164/78 09/19/22 1003 Temp 98.2 09/19/22 1003 Pulse 68 09/19/22 1003 Resp 16 09/19/22 1003 SpO2 96 09/19/22 1003 Anesthesia Post Evaluation Patient location during evaluation: PACU Patient participation: complete - patient participated Level of consciousness: awake and alert Pain management: satisfactory to patient Multimodal analgesia pain management approach Airway patency: patent Cardiovascular status: acceptable and hemodynamically stable Respiratory status: acceptable and room air Hydration status: acceptable No notable events documented. MIPS #[id number] PONV Patient did not receive an inhalational anesthetic ([id number] MIPS # [phone] Perioperative Temperature Management Anesthesia time was less than 60 minutes ([id number]) MIPS #477 Multimodal Pain Management Not emergent case Patient was not administered multimodal pain management Patient reports no pain in PACU (G2149) I completed my handoff to the receiving clinician during which we: 1. Identified the patient 2. Identified the responsible provider 3. Reviewed the pertinent medical history 4. Discussed the surgical course 5. Reviewed intra-op anesthesia management and issues during anesthesia 6. Set expectations for post-procedure period 7. Allowed opportunity for questions and acknowledgement of understanding.[facility]11-09-2022 NotePatient: Rehan Durham Procedure Information Date/Time: 09/19/2245 Procedures: COLONOSCOPY EGD DIAGNOSTIC Location: [facility] Providers: Ana Cristina Dill MD Relevant Problems Anesthesia (within normal limits) Cardio (+) Hyperlipidemia (+) Hypertension (+) Mixed hyperlipidemia Endo (+) Hypothyroidism (+) Type 2 diabetes mellitus with diabetic polyneuropathy, without long-term current use of insulin ([facility]) (HCC) GI (+) Gastroesophageal reflux disease without esophagitis Neuro/Psych (+) Recurrent depression ([facility]) Past Medical History: Past Medical History: No date: Anemia No date: Diabetes mellitus (HCC) No date: GERD (gastroesophageal reflux disease) No date: Hyperlipidemia No date: Hypertension No date: Osteoarthritis of hip No date: Pharyngeal dysphagia No date: Thyroid disease Past Surgical History: Past Surgical History: No date: THYROID SURGERY Social History: TOBACCO: reports that she has never smoked. She has never used smokeless tobacco. ETOH: reports no history of alcohol use. Social History Substance and Sexual Activity Drug Use No Family History: No family history on file. Clinical information reviewed: OB Status Physical Exam Airway Mallampati: III TM distance: >3 FB Neck ROM: full Cardiovascular Rhythm: regular Rate: normal Dental Comments: Missing teeth top and bottom Pulmonary - normal exam Abdominal Anesthesia Plan ASA 3 TIVA and general The patient is not a current smoker. Education provided regarding risk of obstructive sleep apnea. Anesthetic plan and risks discussed with patient. CYNTHIA Screening Labs: Lab Results Component Value Date WBC 9.1 08/04/2020 HGB 11.3 (L) 08/04/2020 MCV 92.7 08/04/2020 Lab Results Component Value Date NA 129 (L) 04/01/2022 K 3.9 04/01/2022 CL 91 (L) 04/01/2022 CO2 25 04/01/2022 BUN 42 (H) 04/01/2022 CREATININE 1.87 (H) 04/01/2022 GLUCOSE 267 (H) 04/01/2022 CALCIUM 8.3 (L) 04/01/2022 PROT 7.2 04/01/2022 ALKPHOS 92 08/03/2020 AST 9 (L) 04/01/2022 Sinus rhythm LVH by voltage Nonspecific T abnormalities, diffuse leads Electronically Signed On 08-05-2020 No components found [facility] Patient Name: Rehan Durham Procedure Date: 09/19/2022 9:15 AM Gender: Female Date of : 1945 Age: 77 Admit Type: Outpatient Note Status: Finalized Endoscopist: Ana Cristina Dill MD Procedure: Upper GI endoscopy Indications: Anemia Findings: The examined duodenum was normal. Biopsies for histology were taken with a cold forceps for evaluation of celiac disease. Patchy mildly erythematous mucosa was found in the stomach. Biopsies were taken with a cold forceps for Helicobacter pylori testing. Multiple semi-pedunculated polyps were found in the stomach. Biopsies were taken with a cold forceps for histology. Congested mucosa was found in the stomach. Biopsies were taken with a cold forceps for histology. The examined esophagus was normal. Impression: - Normal examined duodenum. Biopsied. - Erythematous mucosa in the stomach. Biopsied. - Multiple gastric polyps. Biopsied. - Congestive gastropathy. Biopsied. - Normal esophagus. Recommendation: - Patient has a contact number available for emergencies. The signs and symptoms of potential delayed complications were discussed with the patient. Return to normal activities tomorrow. Written discharge instructions were provided to the patient. - Await pathology results. - Continue present medications. - Resume previous diet. - Return to referring physician as previously scheduled. - Perform a colonoscopy today. Referring MD: Linwood June DO CC Letter to: Linwood June DO Medicines: Monitored Anesthesia Care Procedure: Pre-Anesthesia Assessment: - Prior to the procedure, a History and Physical was performed, and patient medications and allergies were reviewed. The patient is competent. The risks and benefits of the procedure and the sedation options and risks were discussed with the patient. All questions were answered and informed consent was obtained. Patient identification and proposed procedure were verified by the physician, the nurse and the wardrobe image consultant in the pre-procedure area in the procedure room. Mental Status Examination: alert and oriented. Respiratory Examination: clear to auscultation. CV Examination: normal. Prophylactic Antibiotics: The patient does not require prophylactic antibiotics. Prior Anticoagulants: The patient has taken no anticoagulant or antiplatelet agents. ASA Grade Assessment: II - A patient with mild systemic disease. After reviewing the risks and benefits, the patient was deemed in satisfactory condition to undergo the procedure. The anesthesia plan was to use monitored anesthesia care (MAC). Immediately prior to administration of medications, the patient was re-assessed for adequacy to receive sedatives. The heart rate, respiratory rate, oxygen saturations, blood pressure, adequacy of pulmonary ventilation, and response to care were monitored throughout the procedure. The physical status of the patient was re-assessed after the procedure. After obtaining informed consent, the endoscope was passed under direct vision. Throughout the procedure, the patient's blood pressure, pulse, and oxygen saturations were monitored continuously. The Endoscope was introduced through the mouth, and advanced to the second part of duodenum. The upper GI endoscopy was accomplished with ease. The patient tolerated the procedure well. Complications: No immediate complications. Estimated blood loss: None. Procedure Code(s): --- Professional --- 87203, Esophagogastroduodenoscopy, flexible, transoral; with biopsy, single or multiple --- Technical --- 54529, Esophagogastroduodenoscopy, flexible, transoral; with biopsy, single or multiple Diagnosis Code(s): --- Professional --- K31.89, Other diseases of stomach and duodenum K31.7, Polyp of stomach and duodenum D64.9, Anemia, unspecified --- Technical --- K31.89, Other diseases of stomach and duodenum K31.7, Polyp of stomach and duodenum D64.9, Anemia, unspecified CPT copyright 2020 [employer]. All rights reserved. The codes documented in this report are preliminary and upon road train driver review may be revised to meet current compliance requirements. Attending Participation: I personally performed the entire procedure. Ana Cristina Dill MD 09/19/2022 9:43:10 AM Number of Addenda: 0 Note Initiated On: 09/19/2022 9:15 [facility] [id number] Note Endoscopy Center- [facility] Patient Name: Rehan Durham Procedure Date: 09/19/2022 9:15 AM Gender: Female Date of : 1945 Age: 77 Admit Type: Outpatient Note Status: Finalized Endoscopist: Ana Cristina Dill MD Procedure: Colonoscopy Indications: This is the patient's first colonoscopy, Anemia, Incidental constipation noted Findings: The digital rectal exam was normal. Internal hemorrhoids were found during retroflexion. The hemorrhoids were medium-sized and Grade I (internal hemorrhoids that do not prolapse). Impression: - Preparation of the colon was fair. - Internal hemorrhoids. - No specimens collected. Recommendation: - Patient has a contact number available for emergencies. The signs and symptoms of potential delayed complications were discussed with the patient. Return to normal activities tomorrow. Written discharge instructions were provided to the patient. - Continue present medications. - Resume previous diet. - High fiber diet. - Repeat colonoscopy in 3 years with 2 day bowel preparation and a morning appointment. - Return to referring physician as previously scheduled. - Return to GI clinic at appointment to be scheduled. Referring MD: Linwood June DO CC Letter to: Linwood June DO Medicines: Monitored Anesthesia Care Procedure: Pre-Anesthesia Assessment: - Prior to the procedure, a History and Physical was performed, and patient medications and allergies were reviewed. The patient is competent. The risks and benefits of the procedure and the sedation options and risks were discussed with the patient. All questions were answered and informed consent was obtained. Patient identification and proposed procedure were verified by the physician, the nurse and the wardrobe image consultant in the pre-procedure area in the procedure room. Mental Status Examination: alert and oriented. Respiratory Examination: clear to auscultation. CV Examination: normal. Prophylactic Antibiotics: The patient does not require prophylactic antibiotics. Prior Anticoagulants: The patient has taken no anticoagulant or antiplatelet agents. ASA Grade Assessment: II - A patient with mild systemic disease. After reviewing the risks and benefits, the patient was deemed in satisfactory condition to undergo the procedure. The anesthesia plan was to use monitored anesthesia care (MAC). Immediately prior to administration of medications, the patient was re-assessed for adequacy to receive sedatives. The heart rate, respiratory rate, oxygen saturations, blood pressure, adequacy of pulmonary ventilation, and response to care were monitored throughout the procedure. The physical status of the patient was re-assessed after the procedure. After I obtained informed consent, the scope was passed under direct vision. Throughout the procedure, the patient's blood pressure, pulse, and oxygen saturations were monitored continuously. The Colonoscope was introduced through the anus and advanced to the cecum, identified by appendiceal orifice and ileocecal valve. The colonoscopy was performed with ease. The patient tolerated the procedure well. The quality of the bowel preparation was adequate in most parts of colon and fair in some areas of colon. The ileocecal valve, appendiceal orifice, and rectum were photographed. Complications: No immediate complications. Procedure Code(s): --- Professional --- 66659, Colonoscopy, flexible; diagnostic, including collection of specimen(s) by brushing or washing, when performed (separate procedure) --- Technical --- 44119, Colonoscopy, flexible; diagnostic, including collection of specimen(s) by brushing or washing, when performed (separate procedure) Diagnosis Code(s): --- Professional --- K64.0, First degree hemorrhoids D64.9, Anemia, unspecified --- Technical --- K64.0, First degree hemorrhoids D64.9, Anemia, unspecified CPT copyright 2020 [employer]. All rights reserved. The codes documented in this report are preliminary and upon road train driver review may be revised to meet current compliance requirements. Attending Participation: I personally performed the entire procedure. Ana Cristina Dill MD 09/19/2022 10:01:32 AM Number of Addenda: 0 Note Initiated On: 09/19/2022 9:15 [facility]11-09-2022 Note GASTROENTEROLOGY H&P Procedure Note Patient: Rehan Durham Date of : 1945 Age: 77 y.o. Sex: female PCP: Linwood June DO Subjective: Indication: anemia, constipation Prior progress notes reviewed in [facility] and chart Past Medical History: Diagnosis Date Diabetes mellitus (CMS/HCC) Hyperlipidemia Hypertension Thyroid disease Initial interdisciplinary assessment reviewed and concur with information Past Surgical History: Procedure Laterality Date THYROID SURGERY Social History Occupational History Not on file Tobacco Use Smoking status: Never Smokeless tobacco: Never Substance and Sexual Activity Alcohol use: No Drug use: No Sexual activity: Not on file No family history on file. Additional Family History reviewed in [facility] Prior to Admission medications Medication Sig Start Date End Date Taking? Authorizing Provider acetaminophen (Tylenol) 500 MG tablet Take 1,000 mg by mouth. Historical Provider, aluminum-magnesium hydroxide-simethicone (Maalox MAX) 400-400-40 MG/5ML suspension Take 30 mL by mouth. Historical Provider, amoxicillin (Amoxil) 500 MG capsule Take 500 mg by mouth. Historical Provider, aspirin 81 MG EC tablet Take 81 mg by mouth in the morning. Historical Provider, atorvastatin (Lipitor) 20 MG tablet Take 20 mg by mouth in the morning. Historical Provider, bisacodyl (Dulcolax) 10 MG suppository Insert 10 mg into the rectum. Historical Provider, carboxymethylcellulose 1 % ophthalmic solution Administer into affected eye(s). Historical Provider, chlorhexidine (Peridex) 0.12 % solution Take 15 mL by mouth in the morning and 15 mL in the evening. 08/07/22 Historical Provider, Cranberry 400 MG tablet Take by mouth. Historical Provider, diazePAM (Valium) 2 MG tablet Take 2 mg by mouth. Historical Provider, dilTIAZem ER (Tiazac) 360 MG 24 hr capsule Take 1 capsule by mouth in the morning. 08/07/20 Historical Provider, gabapentin (Neurontin) 300 MG capsule Take 300 mg by mouth. Historical Provider, glimepiride (Amaryl) 1 MG tablet Take 1 mg by mouth. Historical Provider, labetalol (Normodyne) 300 MG tablet Take 300 mg by mouth. Historical Provider, levothyroxine (Synthroid, Levoxyl) 88 MCG tablet Take 88 mcg by mouth in the morning. Historical ProviderMD losartan (Cozaar) 50 MG tablet Take 100 mg by mouth in the morning. Historical ProviderMD melatonin 10 MG tablet AT BEDTIME 09/30/21 Historical ProviderMD meloxicam (Mobic) 15 MG tablet Take 15 mg by mouth in the morning. Historical ProviderMD Menthol, Topical Analgesic, (Biofreeze Roll-On) 4 % gel Apply topically. Historical ProviderMD metFORMIN (Glucophage) 500 MG tablet Take 500 mg by mouth. Historical ProviderMD omeprazole (PriLOSEC) [address] capsule Take 20 mg by mouth in the morning. Historical ProviderMD oxybutynin XL (Ditropan-XL) 10 MG 24 hr tablet Take 10 mg by mouth in the morning. Historical ProviderMD pantoprazole (ProtoNix) 40 MG packet Take 40 mg by mouth. Historical ProviderMD polyethylene glycol, PEG, 3350 (Glycolax) 17 GM/SCOOP powder Take 17 g by mouth. Historical ProviderMD QUEtiapine (SEROquel) 25 MG tablet Take 12.5 mg by mouth. 08/06/20 Historical ProviderMD senna-docusate (Bernadine-Colace) 8.6-50 MG tablet Take 1 tablet by mouth in the morning and 1 tablet before bedtime. Historical ProviderMD simvastatin (Zocor) 40 MG tablet Take 40 mg by mouth Nightly. Historical ProviderMD traMADol (Ultram) 50 MG tablet Take 50 mg by mouth every 6 hours as needed. Historical ProviderMD Initial interdisciplinary assessment reviewed and concur with information Allergies: Allergies Allergen Reactions Pseudoephedrine Pertinent Review of Systems: Reviewed with patient Objective: Physical Exam: See graphic record for vital signs HEENT: anicteric Neck: FROM Abdomen: benign Chest: CTA Neuro: nonfocal Ext: FROM B/L Impression: As above Plan: Proceed with endoscopy Physician Attestation: I affirm that prior to performing the procedure noted herein, that I have discussed with my patient the risks, benefits, and alternatives of: --Patient ID confirmed --the procedure to be performed as stated in the plan and on the consent form --the use of sedation and the plan --the patient has been assessed pre-sedation/pre-procedure and there are no changes Signed By: ANA CRISTINA DILL MD 09/19/2022 8:49 [facility]10-25-2022 History of Present illness Narrative* Nickolas Ernst DDS - 09/04/2022 9:59 AM EDT Chief Complaint: Pt presents for follow up. History of present illness: 3 week postop S/P extraction of carious teeth Review of Systems: no change Physical findings: No purulence or erythema is noted at the extraction site. Extraction sites are healing well. No V3 paraesthesia. Diagnosis: normal post op course Treatment: exam Patient instructions: RTC if symptoms worsen. Pt may use remainder of postop analgesic prescriptionor OTC analgesics to manage postop pain. Medications: None Return to Clinic: PRN Disposition: Home No further evaluation or surgical intervention needed at this time. Nickolas Ernst DDS documented in this [id number] NoteI was personally present for the cabrera portions of the procedure. MUNIRA Dawsonhe [facility]10-04-2022 History of Present illness Narrative* Nickolas Ernst DDS - 08/14/2022 10:42 AM EDT I was personally present for the cabrera portions of the procedure. Nickolas Ernst DDS * Augusto Deutsch DMD - 08/07/2022 1:14 PM EDT ORAL SURGERY PROCEDURE ROOM NOTE [facility] Surgical Product(s): Routine extraction teeth # 2, # 15, # 16, and # 18 PMH: Reviewed, no change. Antibiotic prophylaxis indicated/taken: no Discussed risks, benefits, and alternatives of treatment. All of the patient s questions were answered, and informed consent was obtained: yes Pre-op Diagnosis: Pain following oral surgery [[id number]] Caries PROCEDURE TIME OUT CHECK LIST 1. Radiograph is correctly matched to the patient,diagnostic quality, correctly oriented for laterality: Yes 2. Time out performed confirming correct surgical site and/or involved teeth verified by the patient and the surgeon: Yes Anesthesia: 20% topical Benzocaine paste on oral mucosa, 2% Xylocaine with 1/100,000 epinephrine: 1carpules, 0.5% Bupivicaine: 1 carpules, and 4% Articaine with 1/100,000 epinephrine 1 carpules, infiltration administration only Attending: Nickolas Ernst DDS Resident: Augusto Deutsch DMD Circulating Nurse: None Assistants: YESI Ralph Procedure in Detail: Procedures, alternatives, pros, cons, and questions were discussed regarding treatment options for #. Patient elected for extraction. Reviewed all possible risks-benefits for extractions. All questions answered. OMS general consent obtained. Administered anesthetic via PSA, MSA, GP b/l, ZEB, LB, local infiltration. Sulcular incision at site #14-15 made w/ #15. DB release made and FTMPF reflected. Throat screen was placed. Tooth was elevated w/ small elevator. Rongeur forceps used to extract. Entire tooth was removed and then inspected. Used #15 blade to make sulcular incision on tooth #18. Used elevator to luxate tooth. Tooth was notable to elevate. Section tooth in half and used elevator to section the remaining tooth into two roots. Buccal trough made with surgical handpiece and elevator each tooth root individually. No abnormal hemorrhage noted. Special care was taken to ensure removal of granulation tissue, bone file was used on sharp bone. Copious irrigation completed. B/L plates compressed w/ wet 2x2. FTMPF flaps sutured w/ 3-0 chromic gut x1 per site. + hemostasis obtained. Pt stated they felt fully recovered and normal prior to dismissal. Post op instructions given verbally and in writing, all questions answered. Patient was given instructions for IBU usage (Ibuprofen 400-600 mg) [place]. Amoxicillin 500mg sent over via fax after discussion with senior resident. Advised pt to call back if she has any concerns or experiences severe post op discomfort. Pt expressed understanding. Complications: During extraction of #2 the crown broke off at the gum line consistent with the radiographic appearance. The tooth was section in a Y formation with a straight surgical handpiece. The remaining tooth was split with an elevator. Delivered the palatal root first and distal buccal root. Mesiobuccal root was did not move with elevator. Made buccal trough and removed interseptal bone. Tooth root snapped. Repeated process. Decision made to leave the remaining root tip, less than 3 mm, as floor of the sinus was seen. Patient was informed that possibility of sinus perforation could arise and displacement of the root into the sinus if the retrieval of the root tip continued. Patient understood. Placed a collagen plug and suture site with 3x 3.0 gut chromic. Gave patient post op instruction including sinus precautions. Patient understood. All questions answered. Specimens: Intact teeth Estimated blood loss: Minimal (<5 ml) Disposition: Home Augusto Deutsch DMD documented in this [id number] NoteORAL SURGERY PROCEDURE ROOM NOTE [facility] Surgical Product(s): Routine extraction teeth # 2, # 15, # 16, and # 18 PMH: Reviewed, no change. Antibiotic prophylaxis indicated/taken: no Discussed risks, benefits, and alternatives of treatment. All of the patient's questions were answered, and informed consent was obtained: yes Pre-op Diagnosis: Pain following oral surgery [[id number]] Caries PROCEDURE TIME OUT CHECK LIST 1. Radiograph is correctly matched to the patient,diagnostic quality, correctly oriented for laterality: Yes 2. Time out performed confirming correct surgical site and/or involved teeth verified by the patient and the surgeon: Yes Anesthesia: 20% topical Benzocaine paste on oral mucosa, 2% Xylocaine with 1/100,000 epinephrine: 1 carpules, 0.5% Bupivicaine: 1 carpules, and 4% Articaine with 1/100,000 epinephrine 1 carpules, infiltration administration only Attending: Nickolas Ernst DDS Resident: Augusto Deutsch DMD Circulating Nurse: None Assistants: YESI Ralph Procedure in Detail: Procedures, alternatives, pros, cons, and questions were discussed regarding treatment options for #. Patient elected for extraction. Reviewed all possible risks-benefits for extractions. All questions answered. OMS general consent obtained. Administered anesthetic via PSA, MSA, GP b/l, ZEB, LB, local infiltration. Sulcular incision at site #14-15 made w/ #15. DB release made and FTMPF reflected. Throat screen was placed. Tooth was elevated w/ small elevator. Rongeur forceps used to extract. Entire tooth was removed and then inspected. Used #15 blade to make sulcular incision on tooth #18. Used elevator to luxate tooth. Tooth was not able to elevate. Section tooth in half and used elevator to section the remaining tooth into two roots. Buccal trough made with surgical handpiece and elevator each tooth root individually. No abnormal hemorrhage noted. Special care was taken to ensure removal of granulation tissue, bone file was used on sharp bone. Copious irrigation completed. B/L plates compressed w/ wet 2x2. FTMPF flaps sutured w/ 3-0 chromic gut x1 per site. + hemostasis obtained. Pt stated they felt fully recovered and normal prior to dismissal. Post op instructions given verbally and in writing, all questions answered. Patient was given instructions for IBU usage (Ibuprofen 400-600 mg) Stanford. Amoxicillin 500mg sent over via fax after discussion with senior resident. Advised pt to call back if she has any concerns or experiences severe post op discomfort. Pt expressed understanding. Complications: During extraction of #2 the crown broke off at the gum line consistent with the radiographic appearance. The tooth was section in a Y formation with a straight surgical handpiece. The remaining tooth was split with an elevator. Delivered the palatal root first and distal buccal root. Mesiobuccal root was did not move with elevator. Made buccal trough and removed interseptal bone. Tooth root snapped. Repeated process. Decision made to leave the remaining root tip, less than 3 mm, as floor of the sinus was seen. Patient was informed that possibility of sinus perforation could arise and displacement of the root into the sinus if the retrieval of the root tip continued. Patient understood. Placed a collagen plug and suture site with 3x 3.0 gut chromic. Gave patient post op instruction including sinus precautions. Patient understood. All questions answered. Specimens: Intact teeth Estimated blood loss: Minimal (<5 ml) Disposition: Home Augusto Deutsch DMDWhite [id number] Instructions* Patient Instructions* Augusto Deutsch DMD - 08/07/2022 10:45 AM EDT Dental extraction Instructions Biting on Gauze to Control Bleeding Bleeding may occur for some time after you extraction. In most cases this bleeding can be easily controlled by placing a piece of clean gauze DIRECTLY over the empty tooth socket. Then make sure thatyou bite firmly on this gauze for 30 to 60 minutes. Use the gauze we supplied to you in the bag. Wash your hands with soap and water before touching the gauze and placing it in your mouth. Place the used gauze from your mouth in a plastic bag and dispose the bag in a trash container. Make sure to wash your hands again when you are done touching the used gauze and before touching anything else. If a small amount of bleeding continues after 45 minutes then repeat these instructions. Sometimes biting a tea bag may be helpful in controlling minor bleeding. Very light bleeding for 2 days is not uncommon. If heavy bleeding is still persistent during normal clinic hours than call the Clinic where the extraction was done to speak with an oral surgeon. [facility] [phone]. HELPING THE HEALING PROCESS AND STOPPING THE BLEEDING FOR THE NEXT 24 HOURS (1 DAY) AFTER THE EXTRACTION: DO NOT RINSE YOUR MOUTH OR SPIT 2. DO NOT DRINK ANY HOT LIQUIDS SUCH SOUP, COFFEE, TEA, HOT CHOCOLATE AVOID HEAVY LIFTING, BENDING OR OTHER STENUOUS EXERCISES SLEEP WITH 2 PILLOWS OR IN A RECLINER CHAIR. KEEPING HEAD ELEVATED WILL REDUCE SWELLING. SUTURE WILL DISSOLVE IN 7-10 DAYS FOR THE NEXT 72 HOURS (3 DAYS) AFTER THE EXTRACTION: DO NOT SMOKE OR DRINK ALCOHOL DO NOT DRINK OR SUCK FROM A STRAW OR ANYTHING ELSEDO NOT DRINK. Stitches may have been placed to help healing. Your surgeon will advise you if you need to return to have them removed. TOOTH BRUSHING On the day of the extraction it is best to avoid brushing the teeth right next to the extraction site. On the next day you can start brushing ALL your teeth but in a gentle fashion. Remember to not rinse strongly because it may cause you to start bleeding from the extraction site again. SWELLING AND PAIN After the extraction you may feel some pain and experience some swelling. An ice pack of unopened bag of frozen peas of corn applied to the area should keep the swelling down. Put the ice pack on youface for 10 minutes and then leave it off for the next 20 minutes. You can repeat this patter as you feel is necessary for up to 24 hours after the extraction. To avoid injury, make sure that adults or children avoid biting or chewing on their lips of cheeks, which may be numb following an extraction. If your pain or swelling seems to be getting worse or you feel as though something is not right then call your dentist, as directed above. ANTIBIOTICS AND PAIN MEDICATION If antibiotics have been prescribed then you should take them as directed; this includes taking allthe antibiotic (or liquid) pills that were prescribed. If you don't finish them completely a serious infection could result. You may have little of no discomfort after the extraction. If you have minor pain then you may wantto take acetaminophen (Tylenol) or ibuprofen (Motrin). It is very important that before taking any medications that you read and follow the directions and warnings that come with these products so you know whether they are right for you and you situation. If you have any questions on whether these medications are right for you, first talk to your doctor or pharmacist before taking the medication. Your surgeon may have given you a written prescription for pain relief. It is important that if youdecide to take it you read and understand all the precautions, warnings and directions that come with the medication. If you have any questions on whether the medication is right for you, first talk to your doctor or pharmacist before taking the medication. The pain medication prescription that your dentist gave you may contain a narcotic (like codeine). If so, most narcotic pain medications may upset your stomach. If so, then it is best to take them with food. The pain medication prescription that you were given can also make you drowsy or make you act strangely. If so, you should limit or stop activities such as driving a motor vehicle, operate machinery or other activities that require your full attention. EATING AND DRINKING A soft or liquid diet may be best for you after a difficult extraction. For a simpler extraction just make sure you do your chewing with those teeth that are NOT near the extraction site. POSTOPERATIVE INSTRUCTION AFTER SEDATION / GENERAL ANESTHESIA If you had general anesthesia of IV sedation, do not drive or operate machinery for 24 hours. A responsible adult should be with you for the remainder of the day. When starting oral intake, be sure to consume CLEAR LIQUIDS first. Clear liquids consist of water, Sprite, nataly radhika, Jell-O, and non-pulp containing juices such as cranberry and apple juice. Once tolerating clear-liquids, you may advance your diet. Be sure to follow the specific diet instructions from your doctor according to the type of surgery you have had. It is important that you take any narcotic containing pain medications with food. Patients should not participate in any strenuous activity. Standing and sitting up too quickly following surgery can also result in dizziness and exacerbate these problems. It is also important that patients be supervised for an appropriate amount of time following sedation in order to ensure that they remain safe in the post- operative period. Under NO circumstances should a patient drive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 grossly intact, formal cognitive testing deferred to geriatrics if deemed appropriate Gait - not observed Language - fluent and spontaneous without dysarthric features Fund of Knowledge - limited DATA: Recent Results (from the past 24 hour(s)) POCT Glucose Collection Time: 08/04/20 5:38 PM Result Value Ref Range POC Glucose 129 (H) 70 - 100 mg/dL Add On Lab Test Collection Time: 08/04/20 6:20 PM Result Value Ref Range Add On Accepted NA POCT Glucose Collection Time: 08/04/20 7:59 PM Result Value Ref Range POC Glucose 112 (H) 70 - 100 mg/dL POCT Glucose Collection Time: 08/04/20 8:59 PM Result Value Ref Range POC Glucose 92 70 - 100 mg/dL POCT Glucose Collection Time: 08/05/20 1:32 AM Result Value Ref Range POC Glucose 104 (H) 70 - 100 mg/dL Vitamin D 25 Hydroxy Collection Time: 08/05/20 1:37 AM Result Value Ref Range Vit D, 25-Hydroxy 21 (L) 30 - 100 ng/mL Basic Metabolic Panel w/ Reflex to MG Collection Time: 08/05/20 1:37 AM Result Value Ref Range Sodium 142 135 - 145 mmol/L Potassium 3.9 3.5 - 5.1 mmol/L Chloride 106 98 - 107 mmol/L CO2 26 22 - 30 mmol/L Anion Gap 10 NA Glucose 102 (H) 70 - 100 mg/dL BUN 14 7 - 20 mg/dL CREATININE 0.80 0.52 - 1.25 mg/dL eGFR 82.3 >60 mL/min EGFR IF NonAfrican Singaporean 71.0 >60 mL/min Calcium 8.7 8.4 - 10.4 mg/dL POCT Glucose Collection Time: 08/05/20 8:39 AM Result Value Ref Range POC Glucose 108 (H) 70 - 100 mg/dL POCT Glucose Collection Time: 08/05/20 1:37 PM Result Value Ref Range POC Glucose 88 70 - 100 mg/dL Assessment: Delirium, multifactorial (polypharmacy, UTI) Delusional parasitosis, 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 Continue medical treatment, given onset of symptoms likely related to delirium. Delusional parasitosis is often persistent and difficult to treat (may become a chronic issue whichresponds best to supportive care and reassurance from trusted medical providers), may not require or benefit from inpatient psychiatric admission depending on pt ongoing behavior. Plan at this point for return to SNF when medically stable, would continue to provide seroquel PRN for episodes of agitation as patient continues to clear. Please page myself or ad operations specialist psychiatrist should emergent issues arise or with follow up questions. Thank you for allowing me to participate int he care of this patient. * Nohelia Macias APRN - CNP - 08/05/2020 12:37 PM EDT Rehan Durham is a 75 y.o. female Chief Complaint Patient presents with Psychiatric Evaluation Presents from long term for aggressive behavior, seeing bugs. Attempted to see pt for follow up on consult re: VH, delusional parasitosis. Pt off unit for X-ray at this time. Will re-attempt contact later as able. Plan at this point for return to ECF once medically stable. Continue seroquel PRN for agitation, continues to wax and wane (likely related in part to delirium). * Shonda Vuong - 08/05/2020 10:35 AM EDT Nutrition rescreen completed. Chart reviewed. Patient to be monitored and followed by the diet electromedical equipment technician. EVAN Fournier * Kaitlin Segundo MD - 08/05/2020 9:41 AM EDT PROGRESS NOTE SUBJECTIVE: Patient seen and examined, I was wearing N95 mask throughout the patient encounter Interval history: On admission Presented with aggressive and visual hallucination Overnight event : No States both legs have bug crawling and eating her. demands xray, agitated and aggressive. Review of System: No CP No SOB No fever No cough No nausea No constipation No diarrhea No Abdominal Pain No dizziness No headache No focal weakness No edema DIET CARB CONTROL; VITALS: BP (!) 150/87 Pulse 66 Temp 98.6 F (37 C) (Temporal) Resp 17 Wt 180 lb (81.6 kg) SpO2 94% BLOOD PRESSURE RANGE: Systolic (24hrs), Av , Min:150 , Max:197 ; Diastolic (24hrs), Av, Min:79, Max:87 24HR INTAKE/OUTPUT: Intake/Output Summary (Last 24 hours) at 08/05/2020 0941 Last data filed at 08/05/2020 0704 Gross per 24 hour Intake Output 900 ml Net -900 ml PHYSICAL EXAM: General appearance: No apparent distress, appears stated age AOx3 HEENT: Normal cephalic, atraumatic without obvious deformity. PERRL. Extra ocular muscles intact. Conjunctivae/corneas clear. Neck: Supple, No JVD. Trachea midline. No lymphadenopathy. Respiratory: Normal respiratory effort. no Rales. no Wheezes. No Rhonchi. Cardiovascular: Regular rate and rhythm, normal S1/S2. no murmurs, no rubs, no gallops. Abdomen: Soft, non-tender, non-distended, normal bowel sounds. No rebound or guarding. Musculoskeletal: No clubbing, no cyanosis. No LE edema bilaterally. Skin: No rashes. Neurologic: No focal sensory, no motor deficits. Cranial nerves: II-XII intact LABS: Recent Labs 08/03/20 1210 08/04/20 0123 WBC 8.0 9.1 HGB 11.9 11.3* HCT 36.1 34.3* MCV 92.1 92.7 PLT 386 393 Recent Labs 08/03/20 1210 08/04/20 0123 08/05/20 0137 NA 140 140 142 K 4.3 4.7 3.9 CL 101 103 106 CO2 28 27 26 GLUCOSE 112* 108* 102* BUN 19 16 14 CREATININE 0.89 0.88 0.80 Ionized Calcium: No results found for: IONCA Magnesium: No results found for: MG Phosphorus: No results found for: PHOS LIVER PROFILE: Recent Labs 08/03/20 1210 AST 24 ALT 12 BILITOT 0.3 ALKPHOS 92 LABALBU 4.4 PROT 7.5 PT/INR: No results for input(s): PROTIME, INR in the last 72 hours. CARDIAC ENZYMES: No results for input(s): TROPONINI in the last 72 hours. Procalcitonin: Lab Results Component Value Date PROCAL <0.10 08/04/2020 U/A: Lab Results Component Value Date COLORU Yellow 08/03/2020 WBCUA >100 08/03/2020 RBCUA 0-2 08/03/2020 BACTERIA Many 08/03/2020 LEUKOCYTESUR 500 08/03/2020 UROBILINOGEN Normal 08/03/2020 BILIRUBINUR Negative 08/03/2020 GLUCOSEU Normal 08/03/2020 Urine Culture: Recent Labs 08/03/20 1219 LABURIN Escherichia coli* >100,000 CFU/ml Blood Culture: No results found for: BC IMAGINGS: CT HEAD WO CONTRAST Final Result Scheduled Meds: acetaminophen 1,000 mg Oral Q8H melatonin 2 mg Oral Nightly LORazepam 1 mg Oral BID aspirin 81 mg Oral Daily losartan 50 mg Oral Daily sennosides-docusate sodium 1 tablet Oral BID levothyroxine 88 mcg Oral Daily pantoprazole 40 mg Oral QAM AC cefTRIAXone (ROCEPHIN) IV 1 g Intravenous Q24H sodium chloride flush 3 mL Intravenous Q8H dilTIAZem 360 mg Oral Daily gabapentin 300 mg Oral Nightly labetalol 300 mg Oral BID meloxicam 15 mg Oral Daily metFORMIN 500 mg Oral QPM atorvastatin 20 mg Oral Daily sodium chloride flush 10 mL Intravenous 2 times per day enoxaparin 40 mg Subcutaneous Daily insulin lispro 0-6 Units Subcutaneous 4x Daily AC & HS Continuous Infusions: dextrose PRN Meds:QUEtiapine, acetaminophen, sodium chloride flush, [DISCONTINUED] acetaminophen OR acetaminophen, magnesium hydroxide, promethazine OR ondansetron, glucose, dextrose, glucagon (rDNA),dextrose, hydrALAZINE DIET CARB CONTROL; Advance Directive: Full Code ASSESSMENT AND PLAN Aggressive behavior Visual hallucination Delusional parasitosis UTI with Ecoli Hypertension DM2 with neuropathy Vitamin D deficiency-replace SSI, monitor BS seroquel PRN for agitation Appreciate psych and geriatric Resume Ativan to avoid withdrawal, will taper as able Empiric ceftriaxone, follow cultures, discussed with ASP, 3 days course of abx Home meds reviewed and resumed PE normal, but will XR both legs, to avoid aggressive behavior, hopefully help with delusion Discharge planning: return to NH after aggressive improved Following past medical problems has been monitored in hospital Diagnosis Date Diabetes mellitus (HCC) Hyperlipidemia Hypertension Thyroid disease Kaitlin Segundo MD On 08/05/2020 at 9:41 AM * Dino Mishra RN - 08/04/2020 6:[address] Segundo regarding patient agitation. * Dino Mishra RN - 08/04/2020 6:03 PM EDT Pt demanding x-ray, demanded new socks. Asked to be placed in recliner refusing pure whicc. PRN Seroquel given, will continue to monitor. * Kaitlin Segundo MD - 08/04/2020 9:01 AM EDT PROGRESS NOTE SUBJECTIVE: Patient seen and examined, I was wearing N95 mask throughout the patient encounter Interval history: On admission Presented with aggressive and visual hallucination Overnight event : No C/o left leg has bug crawling and eating her leg, demands xray, agitated about question of if she has hallucination Frequent urination but she is on IVF Review of System: No CP No SOB No fever No cough No nausea No constipation No diarrhea No Abdominal Pain No dizziness No headache No focal weakness No edema DIET CARB CONTROL; VITALS: BP (!) 164/76 Pulse 69 Temp 97.6 F (36.4 C) (Temporal) Resp 18 Wt 180 lb (81.6 kg) SpO2 95% BLOOD PRESSURE RANGE: Systolic (24hrs), Av , Min:147 , Max:196 ; Diastolic (24hrs), Av, Min:76, Max:86 24HR INTAKE/OUTPUT: No intake or output data in the 24 hours ending 08/04/20 09 PHYSICAL EXAM: General appearance: No apparent distress, appears stated age AOx3 HEENT: Normal cephalic, atraumatic without obvious deformity. PERRL. Extra ocular muscles intact. Conjunctivae/corneas clear. Neck: Supple, No JVD. Trachea midline. No lymphadenopathy. Respiratory: Normal respiratory effort. no Rales. no Wheezes. No Rhonchi. Cardiovascular: Regular rate and rhythm, normal S1/S2. no murmurs, no rubs, no gallops. Abdomen: Soft, non-tender, non-distended, normal bowel sounds. No rebound or guarding. Musculoskeletal: No clubbing, no cyanosis. No LE edema bilaterally. Skin: No rashes. Neurologic: No focal sensory, no motor deficits. Cranial nerves: II-XII intact LABS: Recent Labs 08/03/20 1210 08/04/20 0123 WBC 8.0 9.1 HGB 11.9 11.3* HCT 36.1 34.3* MCV 92.1 92.7 PLT 386 393 Recent Labs 08/03/20 1210 08/04/20 0123 NA 140 140 K 4.3 4.7 CL 101 103 CO2 28 27 GLUCOSE 112* 108* BUN 19 16 CREATININE 0.89 0.88 Ionized Calcium: No results found for: IONCA Magnesium: No results found for: MG Phosphorus: No results found for: PHOS LIVER PROFILE: Recent Labs 08/03/20 1210 AST 24 ALT 12 BILITOT 0.3 ALKPHOS 92 LABALBU 4.4 PROT 7.5 PT/INR: No results for input(s): PROTIME, INR in the last 72 hours. CARDIAC ENZYMES: No results for input(s): TROPONINI in the last 72 hours. Procalcitonin: Lab Results Component Value Date PROCAL <0.10 08/04/2020 U/A: Lab Results Component Value Date COLORU Yellow 08/03/2020 WBCUA >100 08/03/2020 RBCUA 0-2 08/03/2020 BACTERIA Many 08/03/2020 LEUKOCYTESUR 500 08/03/2020 UROBILINOGEN Normal 08/03/2020 BILIRUBINUR Negative 08/03/2020 GLUCOSEU Normal 08/03/2020 Urine Culture: No results for input(s): LABURIN in the last 72 hours. Blood Culture: No results found for: BC IMAGINGS: CT HEAD WO CONTRAST Final Result Scheduled Meds: sodium chloride flush 3 mL Intravenous Q8H dilTIAZem 360 mg Oral Daily gabapentin 300 mg Oral Nightly labetalol 300 mg Oral BID meloxicam 15 mg Oral Daily metFORMIN 500 mg Oral QPM atorvastatin 20 mg Oral Daily sodium chloride flush 10 mL Intravenous 2 times per day enoxaparin 40 mg Subcutaneous Daily insulin lispro 0-6 Units Subcutaneous 4x Daily AC & HS QUEtiapine 12.5 mg Oral Nightly Continuous Infusions: dextrose sodium chloride 100 mL/hr at 08/03/204 PRN Meds:sodium chloride flush, acetaminophen OR acetaminophen, magnesium hydroxide, promethazine OR ondansetron, glucose, dextrose, glucagon (rDNA), dextrose, hydrALAZINE, haloperidol lactate DIET CARB CONTROL; Advance Directive: Full Code ASSESSMENT AND PLAN Aggressive behavior Visual hallucination Delusional parasitosis UTI with Ecoli Hypertension DM2 with neuropathy SSI, monitor BS seroquel PRN for agitation Appreciate psych and geriatric Resume Ativan to avoid withdrawal, will taper as able Empiric ceftriaxone, follow cultures Home meds reviewed and resumed Discharge planning: TBD Following past medical problems has been monitored in hospital Diagnosis Date Diabetes mellitus (HCC) Hyperlipidemia Hypertension Thyroid disease Kaitlin Segundo MD On 08/04/2020 at 9:01 AM documented in this encounter Assessments Diagnosis Delusion of infestation (HCC) Anxiety Anxiety state, unspecified Recurrent depression (HCC) Major depressive disorder, recurrent episode, unspecified Metabolic encephalopathy Cognitive impairment Unspecified persistent mental disorders due to conditions classified elsewhere 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 Advance Directives No Advanced Directives Records FoundDocuments on File Type Date Recorded 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 ACP-Advance Directive ACP-Power of Experience Designer Latest Code Status on File Code Status Date Activated Date Inactivated Comments Full Code 08/03/2020 6:45 PM Documents on File Type Date Recorded 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 Advance Directives and Living Will 03/18/2023 8:03 AM advanced directives Summary Purpose Family History No Family History Records FoundNo Family History Records FoundThere may be information available, but it has not been provided by the sender.No Family History Records FoundNo Family History Records FoundNo Family History Records Found No data available for this section No Family History Records Found Chief Complaint Chief Complaint Description Start Date left hip pain Preliminary chief co mplaint data, not yet signed by the author as of Reason for Referral Specialty Diagnoses / Procedures Referred By Aiyana elkins Referred To Contact Radiology Diagnoses Unilateral primary osteoarthritis, right hip Procedures IR Tremaine Morgan MD [address] [place] [address] Referral ID Status Reason Start Date Expiration Date Visits Re quested Visits Authorized [id number] Closed 02/26/2023 08/25/2023 1 1 Additional Source Comments Reason for Visit (unrecogniz ed section and content) Reason For Visit Description Start Date New - 1st visit with practice Preliminary reason f or visit data, not yet signed by the author as of left hip pain Specialty Diagnoses / Procedures Referred By Aiyana elkins Referred To Contact Radiology Diagnoses Unilateral primary osteoarthritis, right hip Procedures IR joint Tremaine Paniagua MD [address] [place] [address] Referral ID Status Reason Start Date Expiration Date Visits Re quested Visits Authorized [id number] Closed 02/26/2023 08/25/2023 1 1 Specialty Diagnoses / Procedures Referred By Contac t Referred To Contact Radiology Diagnoses Unilateral primary osteoarthritis, left hip Procedures IR joint Tremaine Paniagua MD [address] [place] [address] Referral ID Status Reason Start Date Expiration Date Visits Re quested Visits Authorized [id number] Closed 02/26/2023 08/25/2023 1 1 Specialty Diagnoses / Procedures Referred By Contac t Referred To Contact Oral Surgery Diagnoses Dental caries Ronny De La Torre, HONG [address] [place] [address] [facility] ORAL SURGERY [address] [place] [address] Referral ID Status Reason Start Date Expiration Date V isits Requested Visits Authorized [id number] Authorized 01/22/2023 01/23/2024 3 3 INFORMATION SOURCE (unrecogn ized section and content) DATE CREATED AUTHOR AUTHOR'S ORGANIZ ATION 09/10/2020 [facility] DATE CREATED AUTHOR AUTHOR'S ORGANIZ ATION [facility]18[facility]2022 [facility] DATE CREATED AUTHOR AUTHOR'S ORGANIZ ATION [facility]20[facility] DATE CREATED AUTHOR AUTHOR'S ORGANIZ ATION 04/23/2023 [facility] DATE CREATED AUTHOR AUTHOR'S ORGANIZ ATION 10/22/2023 [facility] ([place]) Care Team (unrecognized sect ion and content) Money Market Clerk Relationship Specialty Start Date End Date Linwood June DO [address] [place] [address] PCP - General 02/16/20 Money Market Clerk Relationship Specialty Start Date End Date Linwood June DO [address] [place] [id number] PCP - General 02/16/20 FOR RECORDS PERTAINING TO PATIENTS WHO ARE OR HAVE BEEN ENROLLED IN A CHEMICAL DEPENDENCY/SUBSTANCEABUSE PROGRAM, SOME INFORMATION MAY BE OMITTED. This clinical summary was aggregated from multiple sources. Caution should be exercised in using it in the provision of clinical care. This summary normalizes information from multiple sources, and as a consequence, information in this document may materially change the coding, format and clinical context of patient data. In addition, data may be omitted in some cases. CLINICAL DECISIONS SHOULD BE BASED ON THE PRIMARY CLINICAL RECORDS. [employer] [facility]. provides no warranty or guarantee of the accuracy or completeness of information in this document.
[2023-10-22 08:53] LABS: Hematocrit 33.7 % (37-47); Hemoglobin 10.3 g/dL (12.0-15.0); Mean Corp Hgb Conc 30.6 g/dL (32-36); Mean Corpuscular Hgb 27.8 pg (27.0-32.0); Mean Corpuscular Volume 91.1 fL (81-99); Mean Platelet Vol. 9.7 fl (6.2-12.0); Platelet Count 330 K/mm3 (150-450); RBC Distribution Width CV 14.5 % (11.6-14.6); RBC Distribution Width SD 48.5 fl (35.1-43.9)
== END ==
LOC: OLS.ACH 05:00
PROVIDERS: PCP Family Medicine; Visit Provider Internal Medicine
DX: D64.9 Anemia, unspecified (principal)
CPT/HCPCS: 36415; 85027

== ENCOUNTER → 2023-10-28 | Outpatient (REF) | payer MEDICARE, MEDICAID, SELFPAY ==
[2023-10-28 09:40] LABS: Potassium 4.5 mmol/L (3.5-5.1)
== END ==
LOC: OLS.ACH 05:00
PROVIDERS: PCP Family Medicine; Visit Provider Internal Medicine
DX: R60.9 Edema, unspecified (principal)
CPT/HCPCS: 36415; 84132

== ENCOUNTER 2023-11-14 15:01 | Emergency (ER) | payer MEDICARE, MEDICAID, SELFPAY ==
[2023-11-14 15:02] VITALS: BP 168/69; PULSE 85; RESP 18; TEMP 36; O2SAT 85; O2SAT 88; BMI 34.0
--- NOTE | 2023-11-14 15:17 | EX.ED.DYSGE1 ---
HPI History of Present Illness Chief Complaint: Hypertension Informant: patient and EMS Narrative Narrative: Patient was sent in by her nursing facility for sleeping more than normal this morning and possibly short of breath. When EMS arrived patient was not short of breath. Patient does state that for several weeks she has been a little bit more tired than normal. She has felt as though she is slightly ill. But no fevers. She states she does get short of breath if she lays down. That might be a little bit more than baseline. There is no reported history of CHF. Our med list does not show Lasix on it but the half-way med list does have Lasix at 20 mg a day. Patient states she is not coughing. She is not having chest pain or abdominal pain. She does not feel any different today than she has for the last several weeks. She was given an ex stress I believe Norvasc for blood sugar as it evidently was up. But her blood pressure here is reasonable. [facility] Medical History Anxiety Depression Diabetes type 2, controlled Dysphagia GERD (gastroesophageal reflux disease) History of stress test Hyperlipemia Hypertension Hypothyroid Insomnia Liver disease PTSD (post-traumatic stress disorder) Home Medications gabapentin 300 mg capsule (Neurontin) 300 mg PO QHS neuropathy 12/20/16 [History Last Taken 11/13/23] sertraline 50 mg tablet 100 mg PO DAILY depression 12/20/16 [History Last Taken 11/14/23] labetalol 300 mg tablet 300 mg PO BID HTN 12/25/18 [History Last Taken 11/14/23] losartan 50 mg tablet 100 mg PO DAILY HTN 09/30/21 [History Last Taken 11/14/23] melatonin 10 mg tablet 10 mg PO QHS sleep 09/30/21 [History Last Taken 11/13/23] diazepam 2 mg tablet (Valium) 2 mg PO BID depression 10/01/21 [History Last Taken 11/14/23] sennosides 8.6 mg capsule (senna) 8.6 mg PO DAILY constipation 10/01/21 [History Last Taken 11/14/23] acetaminophen 325 mg capsule 325 mg PO Q12H PRN PRN pain 11/14/23 [History Last Taken 11/12/23] acetaminophen 500 mg tablet 500 mg PO Q12H PRN pain 11/14/23 [History Last Taken 11/12/23] amlodipine 2.5 mg tablet 2.5 mg PO BID 11/14/23 [History Last Taken 11/14/23] aripiprazole 2 mg tablet 2 mg PO DAILY 11/14/23 [History Last Taken 11/14/23] ascorbic acid (vitamin C) 500 mg tablet (Vitamin C) 500 mg PO DAILY 11/14/23 [History Last Taken 11/13/23] cholecalciferol (vitamin D3) 25 mcg (1,000 unit) tablet 25 mcg PO DAILY 11/14/23 [History Last Taken 11/13/23] cranberry 400 mg capsule 400 mg PO DAILY 11/14/23 [History Last Taken 11/14/23] ferrous sulfate 325 mg (65 mg iron) tablet (FeroSul) 325 mg PO DAILY 11/14/23 [History Last Taken 11/14/23] furosemide 20 mg tablet 10 mg PO DAILY 11/14/23 [History Last Taken 11/14/23] gabapentin 400 mg capsule 400 mg PO QHS 11/14/23 [History Last Taken 11/13/23] hydralazine 100 mg tablet 100 mg PO TID 11/14/23 [History Last Taken 11/14/23] levothyroxine 88 mcg tablet 88 mcg PO DAILY 11/14/23 [History Last Taken 11/14/23] lidocaine 4 % topical patch (Aspercreme (lidocaine)) 1 patch topical BID 11/14/23 [History Last Taken 11/14/23] menthol 5 % topical gel (Biofreeze (menthol)) 1 ea topical QHS RIGHT SHOULDER PAIN 11/14/23 [History Last Taken 11/13/23] potassium chloride 10 mEq tablet,extended release 10 meq PO DAILY 11/14/23 [History Last Taken 11/14/23] tramadol 50 mg tablet 50 mg PO Q6H PRN pain 11/14/23 [History Last Taken 11/14/23] zinc sulfate 50 mg zinc (220 mg) capsule (Zinc-220) 50 mg PO DAILY 11/14/23 [History Last Taken 11/13/23] Allergy/AdvReac Type Severity Reaction Status Date / Time ANTIHISTAMINES Allergy PT UNABLE Uncoded 10/24/21 08:43 TO RESPOND-NEEDS F/U DECONGESTANTS Allergy Shortness Uncoded 10/24/21 08:43 of breath Surgical History History of ankle surgery S/P laparoscopic-assisted sigmoidectomy S/P partial thyroidectomy Social History Smoking Status: Never smoker ROS ROS ED ROS Narrative A complete review of systems was performed and is negative except as documented in the history of present illness. Some specific details below. Constitutional: No recent fevers or chills. She does have some malaise but has been going on for weeks or longer. EYE: No visual change. ENT: No difficulty swallowing. No swelling. No pain. No reflux symptoms. CV: She denies chest pain or palpitations. Respiratory: Patient states that she does feel little short of breath if she lays down flat. This is a little bit more than the baseline. She does not ambulate and moves around in a wheelchair. GI: No abdominal pain. No nausea vomiting diarrhea. No blood in stool. : No frequency dysuria or hematuria. Musculoskeletal: No recent trauma. No pains. No new swelling. She does have a history of chronic swelling of her lower extremities. Skin: No rash. Nondiaphoretic. Neuro: No weakness or numbness. Endocrine: No polyuria or polydipsia. EXAM Physical Exam Narrative Exam Narrative: CONSTITUTIONAL: Patient is nontoxic in appearance. The patient looks comfortable. Work of breathing looks normal. HEENT: No notable trauma. Mucous membranes moist. No sinus tenderness. No indication of pain with swallowing. EYES: No conjunctival injection. No proptosis. NECK:No JVD. No stridor. CARDIOVASCULAR: Regular rate. Regular rhythm. No notable murmur. No JVD. RESPIRATORY: No respiratory distress. Breathing is unlabored. She was recorded as 85% on room air. When I went in the room she had stabilized out to about 89% on room air. But even with this she did not look dyspneic. She was carrying on a normal conversation. On 2 L of oxygen she is about 94 to 96%. She does have crackles at the bases on both sides. There is no coughing. No pain with a deep breath. GASTROINTESTINAL: Not distended. Bowel sounds are normal. No tenderness. No guarding. No rebound. No palpable mass. No bruit is heard. GENITOURINARY: No tenderness over the bladder. No CVA tenderness. MUSCULOSKELETAL: Atraumatic. Trace bilateral peripheral edema. She states this is normal. NEUROLOGICAL: Patient is alert and appropriate. No focal deficit noted. SKIN: No noted rashes. No diaphoresis. PSYCHIATRIC: Patient is calm. Mood is appropriate. Const Vital Signs: 11/14/23 15:02 11/14/23 15:01 11/14/23 15:23 Temperature 96.8 F L Temperature Source Temporal Pulse Rate 85 Respiratory Rate 18 Respiratory Effort Normal Respiratory Pattern Normal Blood Pressure 168/69 H Blood Pressure Mean 102 Pulse Ox 85 94 Oxygen Delivery Method Room Air Nasal Cannula 11/14/23 16:39 Temperature Temperature Source Pulse Rate 78 Respiratory Rate 26 H Respiratory Effort Respiratory Pattern Tachypnea Blood Pressure Blood Pressure Mean Pulse Ox Oxygen Delivery Method MDM MDM MDM Narrative Medical decision making narrative: My independent interpretation of the patient's chest x-ray shows no acute process or infiltrate or pneumothorax and final reading is similar. Patient CBC shows mild anemia but normal white count and platelets Patient's electrolytes show mild elevation of her creatinine to 1.3 but really not off her baseline. Her glucose is minimally up at 155. BNP is normal at 56.5. Viral studies including flu COVID RSV are negative. We did give the patient a breathing treatment to see if this would help. It seemed to make her feel slightly better. She tells me she used to be on oxygen about a year ago after she had pneumonia. But she has not been on it for a while. She wonders if she does need it. But she feels comfortable. I turned off her oxygen and she is stabilized at 89%. But I did review her med list at the nursing facility. She is listed for 2 L of oxygen nasal cannula as needed for sats less than 92%. I do not think we need to keep her in the hospital. I think she may need baseline oxygen. Patient also probably needs some pulmonary toilet cough and deep breathing and motion. She is essentially bedbound and cannot walk. Her mobility is limited to a wheelchair. This certainly makes her breathing and pulmonary function a little bit poor. Lab Data Attestation: I reviewed the patient's lab results. Labs: Laboratory Results - last 24 hr 11/14/23 15:38 WBC 11.0 RBC 4.09 L Hgb 11.6 L Hct 37.2 MCV 91.0 MCH 28.4 MCHC 31.2 L RDW Std Deviation 49.4 H RDW Coeff of Tuan 14.7 H Plt Count 382 MPV 8.9 Immature Gran % (Auto) 0.700 Neut % (Auto) 74.9 H Lymph % (Auto) 12.4 L [place] % (Auto) 7.4 Eos % (Auto) 4.0 Baso % (Auto) 0.6 Absolute Neuts (auto) 8.3 H Absolute Lymphs (auto) 1.36 Nucleated RBC % 0 Sodium 139 Potassium 4.1 Chloride 102 Carbon Dioxide 31.0 Anion Gap 6 BUN 17 Creatinine 1.30 H Estim Creat Clear Calc 32.31 Est GFR (MDRD) Af Amer 51 L Est GFR (MDRD) Non-Af 42 L BUN/Creatinine Ratio 13.1 Glucose 155 H Calcium 9.3 B-Natriuretic Peptide 56.5 Radiography Diagnostic Testing: Clinical Impression(s) from Imaging Studies Chest X-Ray 11/14/23 15:18 IMPRESSION: No radiographic evidence of acute cardiopulmonary disease. Electronically Signed: Gorge Tse MD at 16:11 EST , EKG Initial EKG: Comments: My independent interpretation the patient's EKG done for intermittent dyspnea shows a normal sinus rhythm with overall rate of 79. Borderline LVH. Nonspecific changes but no sign of acute ST elevation or depression. No ectopy. DC interval, QRS duration and QTc are normal. Discharge Plan Triage Chief Complaint: Hypertension ED Provider: Juvencio Clemons Dx/Rx/DC Orders Clinical Impression: Elevated blood pressure reading, Hypoxia Instructions: Pulse Oximetry Prescriptions: No Action gabapentin [Neurontin] 300 MG capsule 300 mg PO QHS sertraline 50 MG tablet 100 mg PO DAILY labetalol 300 MG tablet 300 mg PO BID losartan 50 mg tablet 100 mg PO DAILY melatonin 10 mg Tablet 10 mg PO QHS diazepam [Valium] 2 mg Tablet 2 mg PO BID senna 8.6 mg Capsule 8.6 mg PO DAILY tramadol 50 mg tablet 50 mg PO Q6H PRN (Reason: pain) acetaminophen 325 mg capsule 325 mg PO Q12H PRN PRN (Reason: pain) ascorbic acid (vitamin C) [Vitamin C] 500 mg tablet 500 mg PO DAILY cholecalciferol (vitamin D3) 25 mcg (1,000 unit) tablet 25 mcg PO DAILY zinc sulfate [Zinc-220] 50 mg zinc (220 mg) capsule 50 mg PO DAILY amlodipine 2.5 mg tablet 2.5 mg PO BID hydralazine 100 mg tablet 100 mg PO TID acetaminophen 500 mg tablet 500 mg PO Q12H PRN (Reason: pain) aripiprazole 2 mg tablet 2 mg PO DAILY Biofreeze (menthol) 5 % gel 1 ea topical QHS cranberry 400 mg capsule 400 mg PO DAILY ferrous sulfate [FeroSul] 325 mg (65 mg iron) tablet 325 mg PO DAILY gabapentin 400 mg capsule 400 mg PO QHS furosemide 20 mg tablet 10 mg PO DAILY levothyroxine 88 mcg tablet 88 mcg PO DAILY lidocaine [Aspercreme (lidocaine)] 4 % adhesive patch,medicated 1 patch topical BID Rx Instructions: RIGHT SHOULDER potassium chloride 10 mEq tablet extended release 10 meq PO DAILY Primary Care Provider: Lucian Martínez Referrals: Linwood June DO [Non-Staff] - 3-5 Days Disposition Disposition: Detention Facility
--- NOTE | 2023-11-14 15:18 | RAD_ITS ---
EXAM: XR CHEST, 1 VIEW CLINICAL INDICATION: sob TECHNIQUE: Frontal view of the chest. COMPARISON: 12/09/2015 FINDINGS: LUNGS AND PLEURAL SPACES: Unremarkable. No consolidation or edema. No pneumothorax. No effusion. HEART: Unremarkable. Cardiac silhouette not enlarged. MEDIASTINUM: Central airways and mediastinal contour are unremarkable. BONES/JOINTS: Unremarkable. No acute fracture. SOFT TISSUES: Unremarkable. RAD/Chest 1 View (Portable) IMPRESSION: No radiographic evidence of acute cardiopulmonary disease. Electronically Signed: Gorge Tse MD at 16:11 EST ,
[2023-11-14 15:23] VITALS: O2SAT 94
[2023-11-14 15:56] LABS: Absolute Lymphocyte Count 1.36 X10^3/uL (0.83-4.51); Absolute Neutrophil Count 8.3 X10^3/uL (2.0-7.7); Basophil# 0.07 X10^3/uL; Basophil% 0.6 % (0-1); Eosinophil# 0.44 X10^3/uL; Hematocrit 37.2 % (37-47); Hemoglobin 11.6 g/dL (12.0-15.0); Lymphocyte # 1.36 X10^3/ul (0.83-4.51); Lymphocyte % 12.4 % (19-41); Mean Corp Hgb Conc 31.2 g/dL (32-36); Mean Corpuscular Hgb 28.4 pg (27.0-32.0); Mean Platelet Vol. 8.9 fl (6.2-12.0); Monocyte# 0.81 X10^3/uL; Monocyte% 7.4 % (0-10); NRBC Flagged by Analyzer 0 % (0-5); Neutrophil # 8.25 X10^3/uL (2.7-7.7); Neutrophil % 74.9 % (47-70); Platelet Count 382 K/mm3 (150-450); RBC Distribution Width CV 14.7 % (11.6-14.6); RBC Distribution Width SD 49.4 fl (35.1-43.9); Red Blood Count 4.09 M/mm3 (4.2-5.4)
[2023-11-14 16:10] LABS: Anion Gap 6 (5-15); BUN 17 mg/dL (7-18); BUN/Creat Ratio 13.1 RATIO (10-20); Calcium,Total 9.3 mg/dL (8.5-10.1); Chloride 102 mmol/L (98-107); EST Glomerular Filtration Rate 42 mL/min (>60); Est Glom Filt Rate - Afr Amer 51 mL/min (>60); Estimated Creatinine Clearance 32.31 ml/min; Glucose 155 mg/dL (74-106); Potassium 4.1 mmol/L (3.5-5.1); Sodium Level 139 mmol/L (136-145)
[2023-11-14 16:30] LABS: BNP,B-Type NATRIURETIC PEPTIDE 56.5 pg/mL (0-100)
[2023-11-14] MEDS: Ipratropium/Albuterol Sulfate 3 ML AMPUL.NEB INHALATION (16:37)
[2023-11-14 16:39] VITALS: PULSE 78; RESP 26
[2023-11-14 17:01] VITALS: BP 168/80; PULSE 74; RESP 18; O2SAT 95
--- NOTE | 2023-11-14 17:33 | ED.RN ---
[facility] CALLED, ETA 2-3 HOURS ([id number])
--- OUTSIDE RECORDS SUMMARY | 2023-11-14 18:45 | XMS RPT_ITS | CCD ---
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 Name Role Phone Linwood June Primary Care Provider TERRENCE TOMLINSON MD Primary Care Physician ([phone]) Dianelys PT, Suzi Unavailable Unavailable Philip Rodriguez MD Unavailable TERRENCE TOMLINSON MD Primary Care Physician ([phone]) Unavailable Primary Care Provider Unavailabl e Linwood June DO Primary Care Provider [phone] TREMAINE PANIAGUA Attending Unavailable TREMAINE PANIAGUA Referring [...] POLI WILSON, DR NEWMAN Primary Care Physician [phone] Luba Gordon Unavailable Unavailable POLI WILSON, DR NEWMAN Primary Care Unavailab gonzález WELLER MD, DR BEBE Sheth Admitting Haley WELLER MD, DR BEBE Sheth Attending Haley FOURNIER APRN-JAMI VICTORIA Admitting Unavailab le POLI WILSON, DR NEWMAN Primary Care Unavailab gonzález AL MD, AIDE Consulting Unavailable RODOLFO CORONA, AIDE Attending Unavailable NITHIN CORONA, DR BEBE Sheth Consulting Haley arechiga Allergies Allergy Classification Reported Allergen(s) Allergy Type Date of Onset Reaction(s) Facility (1 source) Pseudoephedrine Drug Allergy 8 [place], [place] (4 sources) Pseudoephedrine / Triprolidine; Translations: [pseudoephedrine-tr iprolidine] Drug Allergy COULDN'T BREATH VERY WELL [facility] (1 source) Antihistamines drug allergy [address] [facility] Work Phone: (1 source) DECONGESTANTS drug allergy 2 difficulty breathing [facility] Work Phone: (6 sources) Pseudoephedrine Drug Allergy 8 [facility] Medications Current Medications Medication Drug Class(es) Dates [...] aftercare (6 sources) Patient encounter status; Translations: [cigar bander hand (current) use of non-steroidal anti-inflammatories (NSAID)] Onset: [...] 11:43-0500 Body temperature 97.7 [degF] JAMI FOURNIER ENVIRONMENTAL SCIENTIST-TRACK LAYER [facility] 10-14-2023 11:43-0500 Diastolic Blood Pressure Non-Invasive 53 mm[Hg] JAMI FOURNIER ENVIRONMENTAL SCIENTIST-TRACK LAYER [facility] 10-14-2023 11:43-0500 Heart rate 74 /min JAMI FOURNIER ENVIRONMENTAL SCIENTIST-TRACK LAYER [facility] 10-14-2023 11:43-0500 Reason For Taking VItal Signs JAMI FOURNIER ENVIRONMENTAL SCIENTIST-TRACK LAYER [facility] 10-14-2023 11:43-0500 Respiratory rate 18 /min JAMI FOURNIER ENVIRONMENTAL SCIENTIST-TRACK LAYER [facility] 10-14-2023 11:43-0500 Systolic Blood Pressure Non-Invasive 140 mm[Hg] JAMI FOURNIER ENVIRONMENTAL SCIENTIST-TRACK LAYER [facility] 10-14-2023 10:02-0500 Diastolic Blood Pressure Non-Invasive 68 mm[Hg] JAMI FOURNIER ENVIRONMENTAL SCIENTIST-TRACK LAYER [facility] 10-14-2023 10:02-0500 Systolic Blood Pressure Non-Invasive 142 mm[Hg] JAMI FOURNIER ENVIRONMENTAL SCIENTIST-TRACK LAYER [facility] 10-14-2023 08:35-0500 Diastolic Blood Pressure Non-Invasive 82 mm[Hg] JAMI FOURNIER ENVIRONMENTAL SCIENTIST-TRACK LAYER [facility] 10-14-2023 08:35-0500 Heart rate 72 /min JAMI FOURNIER ENVIRONMENTAL SCIENTIST-TRACK LAYER [facility] 10-14-2023 08:35-0500 Systolic Blood Pressure Non-Invasive 178 mm[Hg] JAMI FOURNIER ENVIRONMENTAL SCIENTIST-TRACK LAYER [facility] 10-14-2023 08:17-0500 Body temperature 97.7 [degF] JAMI FOURNIER ENVIRONMENTAL SCIENTIST-TRACK LAYER [facility] 10-14-2023 08:17-0500 Heart rate 71 /min JAMI FOURNIER ENVIRONMENTAL SCIENTIST-TRACK LAYER [facility] 10-14-2023 08:17-0500 Reason For Taking VItal Signs JAMI FOURNIER ENVIRONMENTAL SCIENTIST-TRACK LAYER [facility] 10-14-2023 08:17-0500 Respiratory rate 18 /min JAMI FOURNIER ENVIRONMENTAL SCIENTIST-TRACK LAYER [facility] 10-14-2023 03:52-0500 Body temperature 97.7 [degF] JAMI FOURNIER ENVIRONMENTAL SCIENTIST-TRACK LAYER [facility] 10-14-2023 03:52-0500 Respiratory rate 18 /min JAMI FOURNIER ENVIRONMENTAL SCIENTIST-TRACK LAYER [facility] 10-13-2023 16:25-0500 Heart rate 66 /min JAMI FOURNIER ENVIRONMENTAL SCIENTIST-TRACK LAYER [facility] 10-13-2023 16:25-0500 Reason For Taking VItal Signs JAMI FOURNIER ENVIRONMENTAL SCIENTIST-TRACK LAYER [facility] 10-13-2023 07:35-0500 Heart rate 61 /min JAMI FOITH ENVIRONMENTAL SCIENTIST-TRACK LAYER [facility] 10-12-2023 22:28-0500 Heart rate 70 /min JAMI FOITH ENVIRONMENTAL SCIENTIST-TRACK LAYER [facility] 10-12-2023 19:51-0500 Heart rate 72 /min JAMI FOITH ENVIRONMENTAL SCIENTIST-TRACK LAYER [facility] 10-12-2023 04:02-0500 Heart rate 63 /min JAMI FOITH ENVIRONMENTAL SCIENTIST-TRACK LAYER [facility] 03-18-2023 09:39-0400 Heart rate 72 /min Tremaine Paniagua MD Work Phone: [facility] [employer] 03-18-2023 09:39-0400 SaO2% (BldA) [Mass fraction] 97 % Tremaine Paniagua MD Work Phone: [facility] [employer] 03-04-2023 11:15-0400 Heart rate 71 /min Tremaine Paniagua MD Work Phone: [facility] [employer] 03-04-2023 11:15-0400 SaO2% (BldA) [Mass fraction] 95 % Tremaine Paniagua MD Work Phone: [facility] [employer] 08-07-2022 08:34-0400 Diastolic blood pressure 66 mm[Hg] Nickolas Ernst DDS Work Phone: [facility] 08-07-2022 08:34-0400 Heart rate 62 /min Nickolas Ernst DDS Work Phone: [facility] 08-07-2022 08:34-0400 Systolic blood pressure 179 mm[Hg] Nickolas Ernst DDS Work Phone: [facility] 08-06-2020 08:00-0400 Body Temperature 98.29 [degF] [place] 08-06-2020 08:00-0400 BP Diastolic 75 mm[Hg] Harjit Wilson [facility]- [place] , [place] 08-06-2020 08:00-0400 BP Systolic 164 mm[Hg] [facility] [place] [facility] [place] 08-06-2020 08:00-0400 Pulse (Heart Rate) 57 /min [facility] [place] [place] 08-06-2020 08:00-0400 Pulse Oximetry 94 % [facility] [place] , [place] 08-06-2020 08:00-0400 Respiratory Rate 18 /min [facility]it [facility] [place] 08-03-2020 11:42-0400 Body weight 81.[address] [facility]- [place] , [place] NEGATED: Highlighted [id number] 13:45-0500 Body height 168 cm Jacinta Soto [facility] Work Phone: NEGATED: Highlighted [id number] 13:45-0500 Body height 167.64 cm Jacinta Soto [facility] Work Phone: NEGATED: Highlighted [id number] 13:45-0500 Body mass index (BMI) [Ratio] 29.97 kg/m2 Jacinta Soto [facility] Work Phone: NEGATED: Highlighted [id number] 13:45-0500 Body temperature 96.8 [degF] Jacinta Soto [facility] Work Phone: NEGATED: Highlighted [id number] 13:45-0500 Body weight 84 kg Jacinta Soto [facility] Work Phone: NEGATED: Highlighted [id number] 13:45-0500 Body weight 83.92 kg Jacinta Soto [facility] Work Phone: Encounters Encounter Date Encounter Type Care Provider Facility Start: 10-11-[address] LINWOOD IBARRA acility:A Start: 10-11-2023 End: 10-14-2023 Evaluation and management of inpatient JAMI FOURNIER ENVIRONMENTAL SCIENTIST-TRACK LAYER Facility:B Start: 10-11-2023 End: 10-14-2023 Evaluation and management of inpatient JAMI FOURNIER ENVIRONMENTAL SCIENTIST-TRACK LAYER [facility] Start: 04-15-2023 End: 04-18-2023 ambulatory UNKNOWN PROVIDER Facility:[facility] Start: 04-15-2023 End: 04-15-2023 Follow-up encounter Nickolas Ernst DDS Work Phone: [facility] Start: 04-15-2023 End: 04-15-2023 Patient encounter procedure Nickolas Ernst DDS Work Phone: [facility] Oral [facility] Procedures Date Procedure Procedure Detail Performing Clinician Start: 04-15-2023 panoramic radiograph ic image Jimmie Metz DMD Work Phone: Start: 03-18-2023 IR JOINT Tremaine andersen MD Work Phone: Start: 03-04-2023 IR JOINT Treamine andersen MD Work Phone: Start: 09-19-2022 Colonoscopy [...] 12-25-2021 End: 12-25-2021 Docrev cur meds by alisha Rodriguez MD Work Phone: Start: 12-25-2021 End: [...] Screening for malignant neoplasm of colon Colonoscopy [facility] Start: 09-20-2025 Screening for malignant neoplasm of colon [facility] Start: 01-12-2024 Glaucoma screening Diabetes: Retinopathy Screening [facility] Start: 08-13-2023 Hemoglobin A1c measurement Hemoglobin A1C [facility] Start: 04-01-2023 Basic metabolic 2000 panel - Serum or Plasma Basic Metabolic Panel [facility] Start: 04-01-2023 Creatinine measurement Creatinine Level [facility] Start: 04-01-2023 Potassium measurement Potassium Level [facility] Start: 03-18-2023 End: 03-18-2023 Patient encounter procedure 03/18/2023 Appointment Radiology [facility] Start: 03-04-2023 End: 03-04-2023 Patient encounter procedure 03/04/2023 Appointment Radiology [facility] Start: 09-11-2022 Annual wellness visit Annual Wellness Visit (G0438) [facility] Start: 09-04-2022 End: 09-04-2022 Patient encounter procedure 09/04/2022 Office Visit Oral Surgery Nickolas Ernst, RAMAS [address] [facility] [place] [address] [facility] Start: 08-11-2022 Influenza vaccination Influenza Vaccine (#1) [facility] Start: 08-07-2022 End: 08-07-2022 Patient encounter procedure 08/07/2022 Office Visit Oral Surgery Nickolas Ernst, DDS [address] [place] [address] [facility] Start: 01-08-2022 COVID-19 Vaccine (4 - Booster for Pfizer series) COVID-19 Vaccine (4 - Booster for Pfizer series) [facility] Start: 12-25-2021 End: 12-25-2021 Patient encounter procedure Appointment [facility] Work Phone: Start: 11-03-2021 COVID-19 Vaccine (4 - Booster for Pfizer series) COVID-19 Vaccine (4 - Booster for Pfizer series) [facility] Start: 09-11-2021 Welcome to Medicare Visit (G0402) Welcome to Medicare Visit (G0402) [facility] Start: 08-05-2021 Creatinine measurement Creatinine monitoring [place], [place] Start: 08-05-2021 Potassium monitoring Potassium monitoring [place], [place] Start: 08-04-2021 Thyroid stimulating hormone measurement TSH Level [facility] Start: 08-04-2021 TSH Qn TSH testing [place], [place] Start: 11-03-2020 Hemoglobin A1c measurement Diabetes: Hemoglobin A1C [facility] Start: 02-16-2020 Annual Wellness Visit (AWV) Annual Wellness Visit (AWV) [place], [place] Start: 11-23-2017 Pneumococcal vaccination [facility] Start: 01-18-2017 Pneumococcal vaccination Pneumococcal Vaccine(s) (65+ yrs) (2 - PPSV23 if available, else PCV20) [facility] Start: 01-06-2014 Zoster Vaccines (2 of 3) Zoster Vaccines (2 of 3) [facility] Start: 2008 Pneumococcal 65+ years Vaccine (1 of 1 - PPSV23) Pneumococcal 65+ years Vaccine (1 of 1 - PPSV23) [place], [place] Start: 2008 Screening for osteoporosis Bone Densitometry [facility] Start: 2003 Hepatitis B Vaccines (1 of 3 - Risk 3-dose series) Hepatitis B Vaccines (1 of 3 - Risk 3-dose series) [facility] Start: 1998 Screening for osteoporosis DEXA (modify frequency per FRAX score) [place], [place] Start: 1993 Shingles (RZV) Vaccine (1 of 2) Shingles (RZV) Vaccine (1 of 2) [facility] Start: 1993 Shingles Vaccine (1 of 2) Shingles Vaccine (1 of 2) [place], [place] Start: 1962 DTaP/Tdap/Td vaccine (1 - Tdap) DTaP/Tdap/Td vaccine (1 - Tdap) [place] Start: 1962 DTaP/Tdap/Td Vaccines (1 - Tdap) DTaP/Tdap/Td Vaccines (1 - Tdap) [facility] Start: 1962 Urine screening for protein Diabetes: Urine Protein Screening [facility] Start: 1961 [facility] Start: 1961 Tetanus + diphtheria + acellular pertussis vaccine (product) Tdap Booster [facility] Start: 1955 Depresssion Monitoring Depresssion Monitoring [facility] Start: 1953 Diabetic foot examination Diabetes: Foot Exam [facility] Start: 1953 Lipid panel Lipid screen [place], [place] Start: 1953 Preventive dental service Diabetes: Dental Exam [facility] Start: 1944 Hepatitis A Vaccines (1 of 2 - Risk 2-dose series) Hepatitis A Vaccines (1 of 2 - Risk 2-dose series) [facility] Start: 1943 Diabetic retinal eye exam Eye Exam [facility] Start: 1943 Lipid panel Lipid Profile [facility] Start: 1943 Urine screening for protein Microalbumin [facility] Start: 1943 Diabetic foot examination [facility] Start: 1943 Echocardiography Echocardiogram [facility] Start: 1943 Lipid panel Lipid Panel [facility] Start: 1943 Screening for malignant neoplasm of colon [facility] Start: 1943 Screening for osteoporosis Bone Density Scan [facility] Start: 1943 Thyroid Nodule Ultrasound Thyroid Nodule Ultrasound [facility] Start: 1943 Thyroid stimulating hormone measurement TSH [facility] End: 08-03-2020 Add On Lab Test Add On Lab Test Lab Add-On One Time for 1 Occurrences starting 08/03/2020 until 08/03/2020 [facility] [place], [place] Immunizations Immunization Date Immunization Notes Care Provider Linh dickinson 08-06-2023 influenza virus vaccine, unspecified formulation JAMI FOURNIER ENVIRONMENTAL SCIENTIST-TRACK LAYER [facility] 02-11-2023 Hemoglobin A1C Nickolas Ernst DDS Work Phone: [facility] 09-21-2022 influenza virus vaccine, unspecified formulation JAMI FOURNIER ENVIRONMENTAL SCIENTIST-TRACK LAYER [facility] 09-08-2021 Pfizer Monovalent (1 2+ yrs) SARS-COV-2 (COVID-19) vaccine, mRNA, spike protein, LNP, pres. free, 30 mcg/0.3mL dose (OIB=058) Nickolas Ernst DDS Work Phone: [facility] Payers Date Payer Category Payer Medicaid [id number] 2023 Medicare [id number] 2023 Medicare [id number] 2022 Medicaid [id number] 2021 Medicare [employer]IC[employer] UHC [employer] MEDICARE [id number] 2021-Present [address] [place] [address] Medicare HMO [id number] 2021 Private Health Insurance [facility] [id number] 2021-Present [phone] [address] [address] [place] [address] Medicare HMO [id number] 2020 Medicare [id number] 1943 Unknown [id number] 1943 Unknown [id number] 1943 Unknown [id number] 1943 Unknown [id number] 1943 Unknown [id number] 1943 Unknown [id number] Social History Date Type Detail Facility Start: 08-04-2020 End: 10-11-2023 Tobacco smoking status NHIS Never smoker [place], [place] Start: 08-04-2020 End: 02-15-2023 Alcohol intake Current non-drinker of alcohol (finding) [place], [place] Start: 1945 Sex Assigned At Not on file [place], [place] Start: 02-22-2023 End: 03-18-2023 Exposure to SARS-CoV-2 (event) Not sure [place], [place] Sex Assigned At Female [facility] Start: 06-26-2022 Tobacco use and exposure Smokeless tobacco non-user [facility] Start: 09-19-2022 History SDOH IPV Fear 2 [facility] Gender identity Not [facility] NEGATED: Highlighted rowStart: 12-25-2021 End: 12-25-2021 Alcohol use Alcohol use [facility] Work Phone: NEGATED: Highlighted rowStart: 12-25-2021 End: 12-25-2021 Details of drug misuse behavior Details of drug misuse behavior [facility] Work Phone: NEGATED: Highlighted rowStart: 12-25-2021 End: 12-25-2021 Assertion Never smoker [facility] Work Phone: Functional Status Date Assessment Result Facility 10-14-2023 Functional Status toileting refused [facility] 10-13-2023 Functional Status Returned to bed [facility] 10-13-2023 Functional Status [facility] 10-13-2023 Functional Status Positioning Repositione d back [facility] 10-13-2023 Functional Status 1st floor bedr oom, 1st floor bathroom [facility] 10-13-2023 Functional Status [facility] 10-13-2023 Functional Status [facility] 10-12-2023 Functional Status [facility] 10-12-2023 Functional Status [facility] 10-12-2023 Functional Status [facility] 10-12-2023 Functional Status [facility] 10-12-2023 Functional Status [facility] 10-11-2023 Functional Status None [facility] Mental Status Date Assessment Result Facility 10-14-2023 Mental Status Oriented x 4 [facility] 10-13-2023 Mental Status [facility] 10-13-2023 [facility] 10-11-2023 Mental Status [facility] Clinical Notes 11-20-2021 to 10-14-2023 Note Date & Type Note Facility 10-14-2023 Note Discharge Instructions Thank you for allowing [facility] to assist you with your healthcare needs. The following is important discharge information regarding your hospital visit. Your Care Team Suzi Ortiz ENVIRONMENTAL SCIENTIST Your Diagnosis COVID-19 HTN - Hypertension Hypothyroid Type 2 diabetes mellitus What to do next Instructions From Your Doctor Patient was admitted to [facility] due to hypoxia from COVID-19 infection. [...] in next week for post-hospitalization follow-up Where: [address] [place] [id number]- The Following Activity and Diet Have [...] to fight infection (immunocompromised). Live in a snf or long-term care facility. Have a long-term [...] managed at home with rest, fluids, and fscb-cpz-viihyzr medicines. Treatment for a serious infection usually [...] are safe for you. General instructions Take bify-ggk-gadfddj and prescription medicines only as told by [...] high-risk areas and travel restrictions, check the CDC travel website: wwwnc.cdc.gov/travel/notices If you live in, or must travel to, an area where COVID-19 is a risk, take precautions to avoid infection. ? Stay away from people who are sick. ? Wash your hands often with soap and water for 20 seconds. If soap and water are not available, use an alcohol-based hand luggage repairer. ? Avoid touching your mouth, face, eyes, [...] water are not available, use alcohol-based hand luggage repairer. Stay away from other members of your [...] have a weak immunity, live in a snf, or have chronic disease. There is no [...] to receive it can visit one of [facility] vaccine clinics. There are many vaccine clinic locations within the [facility]. For locations and available times, please visit https://gettheshot.coronavirus.o hio.gov/. It is important to note that some COVID mobile vaccine clinics are held outdoors and may be canceled in rainy or stormy conditions. To learn more about pediatric vaccinations (ages 5-11), we invite you to visit the [facility] webpage. https://[email or web address].org/p ages/6128-Sgxdq-Begjlgmyhuz-Freq xaagqc-Ooyut-Mzcjlenje.html To learn more about the COVID-19 vaccine, we invite you to visit the CDC website for a list of frequently asked questions.https://www.cdc.gov/co ronavirus/2019-ncov/vaccines/faq .html [employer] Patient Portal Access Instructions: Stay connected with your healthcare team and access your personal medical information anytime with the [employer] Patient Portal. Please follow the directions below to create your [employer] account: 1.Access the email account you provided upon registration to the hospital/physician office.2.Look for an invitation email from [facility].3.Open the email and access the invitation link: Accept Invitation to [employer].4.Fill in the required zuniga to create your account. To access your account, visit [email or web address]. Click the blue button labeled Access Patient [...] you will allow to register on the [employer] Patient Portal for access to your information. You can also access the [facility] Patient Portal on the [place] The [email or web address] alisa. Simply click on Patient Portal and then log into your account. If you would like to receive a full copy of your medical records, please contact the [facility] Medical Records Department by calling [phone], Saturday through Saturday between 8 a.m. and [...] Call your local pharmacy or go to [email or web address] to find one close to you.3.Make use of household items: Use cat litter or old coffee grounds to dispose medications if other options are not available. Mix your drugs with these household products, seal them in an airtight container and throw it into the garbage. Call [facility]: [phone] to be sure your drugs can be [...] aware that I should contact my doctor. 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 rn medical inpatient services waiting for reply from [facility] on when [...] patient, discussed plan of care with nursing, marriage and family social worker and therapy, collaborating with physician, and documenting in chart. Digitally Signed by SUZI ORTIZ on 10/14/2023 12:33 PM [facility] 10-14-2023 Hospital Discharg e instructions Patient Education [...] to fight infection (immunocompromised). Live in a snf or long-term care facility. Have a long-term [...] managed at home with rest, fluids, and gyfb-ilr-ppudauq medicines. Treatment for a serious infection usually [...] are safe for you. General instructions Take ymec-ksa-oxldyfs and prescription medicines only as told by [...] high-risk areas and travel restrictions, check the [facility] travel website: wwwnc.cdc.gov/travel/notices If you live in, or must travel to, an area where COVID-19 is a risk, take precautions to avoid infection. ?Stay away from people who are sick. ?Wash your hands often with soap and water for 20 seconds. If soap and water are not available, use an alcohol-based hand luggage repairer. ?Avoid touching your mouth, face, eyes, or [...] water are not available, use alcohol-based hand luggage repairer. Stay away from other members of your [...] have a weak immunity, live in a snf, or have chronic disease. There is no [...] 12/03/2019 Document Revised: 03/24/2020 Document Reviewed: 12/03/2019 [employer] Patient Education 2019 [employer]. Follow Up Care 10/11/2023 11:49:39 With:LINWOOD JUNE DO Address: [address] [place] [phone]- When:5 to 7 days Comments:follow-up with PCP in next week for post-hospitalization follow-up [facility] 10-13-2023 Note Date of Service 10/13/2023 Chief [...] can likely be discharged back to her snf tomorrow with or without oxygen. She denies [...] tab(s), Oral, BID fluticasone nasal 0.05 mg/inh [place] 50 mcg 1 spray(s), Nostril, each, BID [...] by SUZI ORTIZ on 10/13/2023 11:07 AM [facility] 1. COVID-19 Acute, new onset, accompanied by [...] collaborating with physician, and documenting in chart. [facility] 12-02-2023 Note Date of Service 10/12/2023 Chief [...] mellitus, hypertension, hypothyroidism, and depression, [facility] to [facility] [facility] with the chief complaint of hypoxia. Patient is a resident at [facility] and has reportedly been coughing more [...] and more confused [facility]. Patient denies any fever, [...] decompression: 09/30/21 Carpal tunnel release Thyroidectomy Cataract [place] tooth Eye Medications Home Medications (36) Active [...] by SUZI ORTIZ on 10/12/2023 12:21 PM [facility]12-01-2023 Note ORIGINAL EXAMINATION: ONE XRAY VIEW OF [...] Sign Date: 10/11/2023 12:44:32 PM [facility]ing [facility] Note Sinus rhythm Left ventricular hypertrophy Electronic Signature: IVAN EVANS MD 10/11/2023 12:07:37[facility] 06-08-2023 History of Present illness Narrative* Nickolas [...] dentist Jimmie Metz DMD documented in this [id number] Note- Schedule appointment with dentist for evaluation [...] be completed until updated referral is received.[employer] [id number] Instructions* Patient Instructions* Jimmie Metz DMD - [...] updated referral is received. documented in this [id number] Instructions* Patient Instructions* Jimmie Metz DMD - [...] updated referral is received. documented in this [id number] History of Present illness Narrative* Venita Jimenez [...] dentist Jimmie Metz DMD documented in this [id number] Nurse Note* Opal Zimmerman RN - 03/18/2023 [...] will be moved to discharge with family. [id number] Nurse Note* Opal Zimmerman RN - 03/18/2023 [...] to discharge with family. documented in this [facility]05-05-2023 Note* Care Coordination - Magda Snyder RN - 03/15/2023 11:57 AM EDT [facility] patient's hip injection scheduled at 10:00 am on 03/18/23. Aware patient needs to arrive 30 minutes prior to appointment. Patient may take medications and eat prior to procedure. [facility]. [facility] [id number] Miscellaneous Notes* Care Coordination - Magda Snyder RN - 03/15/2023 11:57 AM EDT Spoke with [facility] regarding patient's hip injection scheduled at 10:00 am on 03/18/23. Aware patient needs to arrive 30 minutes prior to appointment. Patient may take medications and eat prior to procedure. [facility] providing transportation. documented in this [facility]04-24-2023 Nurse Note* Meche Rocha RN - 03/04/2023 11:09 AM EDT Patient arrived from [facility] in to speak with the patient regarding right hip injection, consent obtained. Patient was placed supine on exam table prepped and draped in sterile fashion. Telemetry monitors placed, conscious sedation administered. Patient tolerated procedure well. Pt dischargedhome [facility]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
== END 2023-11-14 18:13 | disposition skilled nursing facility (03) ==
PROVIDERS: Emergency Provider Emergency Medicine; PCP Internal Medicine; Visit Provider Emergency Medicine
DX: I10 Essential (primary) hypertension (principal); E11.9 Type 2 diabetes mellitus without complications; J18.9 Pneumonia, unspecified organism; D64.9 Anemia, unspecified; R09.02 Hypoxemia; Z99.3 Dependence on wheelchair; R06.02 Shortness of breath; E78.5 Hyperlipidemia, unspecified
CPT/HCPCS: 71045; 80048; 83880; 85025; 87631; 93005; 94640; 99283

== ENCOUNTER → 2023-12-06 | Outpatient (REF) | payer MEDICARE, MEDICAID, SELFPAY ==
[2023-12-06 10:11] LABS: Hematocrit 33.2 % (37-47); Mean Corp Hgb Conc 30.1 g/dL (32-36); Mean Corpuscular Hgb 27.4 pg (27.0-32.0); Mean Platelet Vol. 9.6 fl (6.2-12.0); Platelet Count 331 K/mm3 (150-450); RBC Distribution Width CV 14.5 % (11.6-14.6); RBC Distribution Width SD 48.7 fl (35.1-43.9); Red Blood Count 3.65 M/mm3 (4.2-5.4); White Blood Count 10.1 K/mm3 (4.4-11.0)
[2023-12-06 10:47] LABS: AST(SGOT) 11 U/L (15-37); Alanine Aminotransfer ALT/SGPT 13 U/L (13-56); Albumin, Serum 3.2 g/dL (3.2-5.0); Alkaline Phosphatase 68 U/L (45-117); Anion Gap 4 (5-15); BUN 26 mg/dL (7-18); BUN/Creat Ratio 19.7 RATIO (10-20); Calcium,Total 8.6 mg/dL (8.5-10.1); Chloride 102 mmol/L (98-107); Creatinine, Serum 1.32 mg/dL (0.55-1.02); EST Glomerular Filtration Rate 41 mL/min (>60); Est Glom Filt Rate - Afr Amer 50 mL/min (>60); Globulin 3.2 g/dL (2.2-4.2); Glucose 154 mg/dL (74-106); Potassium 4.3 mmol/L (3.5-5.1); Protein, Total 6.4 g/dL (6.4-8.2); Sodium Level 134 mmol/L (136-145)
== END ==
LOC: OLS.ACH 05:00
PROVIDERS: PCP Internal Medicine; Visit Provider Internal Medicine
DX: E11.9 Type 2 diabetes mellitus without complications (principal); B97.4 Respiratory syncytial virus as the cause of diseases classified elsewhere
CPT/HCPCS: 36415; 80053; 85027

== ENCOUNTER → 2023-12-11 | Outpatient (REF) | payer MEDICARE, MEDICAID, SELFPAY ==
[2023-12-11 07:56] LABS: Hematocrit 34.3 % (37-47); Hemoglobin 10.2 g/dL (12.0-15.0); Mean Corp Hgb Conc 29.7 g/dL (32-36); Mean Corpuscular Hgb 27.4 pg (27.0-32.0); Mean Corpuscular Volume 92.2 fL (81-99); Mean Platelet Vol. 9.1 fl (6.2-12.0); Platelet Count 345 K/mm3 (150-450); RBC Distribution Width SD 46.7 fl (35.1-43.9); Red Blood Count 3.72 M/mm3 (4.2-5.4)
[2023-12-11 08:27] LABS: ALB/GLOB Ratio 0.8 RATIO (0.9-2.4); AST(SGOT) 7 U/L (15-37); Alanine Aminotransfer ALT/SGPT 12 U/L (13-56); Albumin, Serum 3.2 g/dL (3.2-5.0); Alkaline Phosphatase 75 U/L (45-117); Anion Gap 6 (5-15); BUN 24 mg/dL (7-18); BUN/Creat Ratio 14.4 RATIO (10-20); Calcium,Total 9.1 mg/dL (8.5-10.1); Chloride 104 mmol/L (98-107); Creatinine, Serum 1.67 mg/dL (0.55-1.02); EST Glomerular Filtration Rate 31 mL/min (>60); Est Glom Filt Rate - Afr Amer 38 mL/min (>60); Globulin 3.8 g/dL (2.2-4.2); Glucose 263 mg/dL (74-106); Potassium 4.5 mmol/L (3.5-5.1); Sodium Level 136 mmol/L (136-145)
== END ==
LOC: OLS.ACH 05:00
PROVIDERS: PCP Internal Medicine; Visit Provider Internal Medicine
DX: R06.9 Unspecified abnormalities of breathing (principal); Z87.01 Personal history of pneumonia (recurrent)
CPT/HCPCS: 36415; 80053; 85027

== ENCOUNTER → 2024-01-13 | Outpatient (REF) | payer MEDICARE, MEDICAID, SELFPAY ==
[2024-01-13 08:29] LABS: Absolute Lymphocyte Count 1.34 X10^3/uL (0.83-4.51); Absolute Neutrophil Count 4.9 X10^3/uL (2.0-7.7); Basophil# 0.06 X10^3/uL; Basophil% 0.9 % (0-1); Eosinophil# 0.12 X10^3/uL; Eosinophils% 1.7 % (0-5); Hemoglobin 10.7 g/dL (12.0-15.0); Lymphocyte # 1.34 X10^3/ul (0.83-4.51); Lymphocyte % 19.4 % (19-41); Mean Corp Hgb Conc 31.5 g/dL (32-36); Mean Corpuscular Hgb 27.8 pg (27.0-32.0); Mean Corpuscular Volume 88.3 fL (81-99); Mean Platelet Vol. 8.9 fl (6.2-12.0); Monocyte# 0.45 X10^3/uL; Monocyte% 6.5 % (0-10); NRBC Flagged by Analyzer 0 % (0-5); Neutrophil # 4.93 X10^3/uL (2.7-7.7); Neutrophil % 71.2 % (47-70); Platelet Count 339 K/mm3 (150-450); RBC Distribution Width CV 14.7 % (11.6-14.6); RBC Distribution Width SD 47.6 fl (35.1-43.9); Red Blood Count 3.85 M/mm3 (4.2-5.4); White Blood Count 6.9 K/mm3 (4.4-11.0)
[2024-01-13 08:54] LABS: ALB/GLOB Ratio 1.1 RATIO (0.9-2.4); AST(SGOT) 11 U/L (15-37); Alanine Aminotransfer ALT/SGPT 13 U/L (13-56); Albumin, Serum 3.6 g/dL (3.2-5.0); Alkaline Phosphatase 77 U/L (45-117); Anion Gap 3 (5-15); BUN 43 mg/dL (7-18); BUN/Creat Ratio 34.1 RATIO (10-20); Chloride 105 mmol/L (98-107); Creatinine, Serum 1.26 mg/dL (0.55-1.02); EST Glomerular Filtration Rate 43 mL/min (>60); Est Glom Filt Rate - Afr Amer 53 mL/min (>60); Globulin 3.4 g/dL (2.2-4.2); Glucose 113 mg/dL (74-106); Potassium 4.8 mmol/L (3.5-5.1); Sodium Level 136 mmol/L (136-145)
[2024-01-13 09:43] LABS: Hemoglobin A1c 7.6 % (3.8-5.6)
== END ==
LOC: OLS.ACH 04:00
PROVIDERS: PCP Internal Medicine; Referring Provider Internal Medicine; Visit Provider Internal Medicine
DX: E11.51 Type 2 diabetes mellitus with diabetic peripheral angiopathy without gangrene (principal); E87.1 Hypo-osmolality and hyponatremia
CPT/HCPCS: 36415; 80053; 83036; 85025

== ENCOUNTER → 2024-01-22 | Outpatient (REF) | payer MEDICARE, MEDICAID, SELFPAY ==
[2024-01-22 07:48] LABS: Hematocrit 33.8 % (37-47); Hemoglobin 10.7 g/dL (12.0-15.0); Mean Corp Hgb Conc 31.7 g/dL (32-36); Mean Corpuscular Hgb 28.2 pg (27.0-32.0); Mean Corpuscular Volume 88.9 fL (81-99); Mean Platelet Vol. 8.7 fl (6.2-12.0); Platelet Count 329 K/mm3 (150-450); RBC Distribution Width CV 14.8 % (11.6-14.6); RBC Distribution Width SD 48.2 fl (35.1-43.9)
[2024-01-22 08:08] LABS: ALB/GLOB Ratio 1.1 RATIO (0.9-2.4); AST(SGOT) 8 U/L (15-37); Alanine Aminotransfer ALT/SGPT 13 U/L (13-56); Albumin, Serum 3.6 g/dL (3.2-5.0); Alkaline Phosphatase 74 U/L (45-117); Anion Gap 6 (5-15); BUN 38 mg/dL (7-18); BUN/Creat Ratio 29.5 RATIO (10-20); Calcium,Total 8.9 mg/dL (8.5-10.1); Chloride 103 mmol/L (98-107); Creatinine, Serum 1.29 mg/dL (0.55-1.02); EST Glomerular Filtration Rate 42 mL/min (>60); Est Glom Filt Rate - Afr Amer 51 mL/min (>60); Globulin 3.4 g/dL (2.2-4.2); Glucose 137 mg/dL (74-106); Potassium 4.8 mmol/L (3.5-5.1); Sodium Level 138 mmol/L (136-145)
== END ==
LOC: OLS.ACH 05:00
PROVIDERS: PCP Internal Medicine; Visit Provider Internal Medicine
DX: R06.02 Shortness of breath (principal); I10 Essential (primary) hypertension; D64.9 Anemia, unspecified; I73.89 Other specified peripheral vascular diseases
CPT/HCPCS: 36415; 80053; 83880; 85027

== ENCOUNTER → 2024-02-11 05:00 | Outpatient (REF) | payer MEDICARE, MEDICAID, SELFPAY ==
[2024-02-11 09:54] LABS: Hematocrit 33.3 % (37-47); Hemoglobin 10.5 g/dL (12.0-15.0); Mean Corp Hgb Conc 31.5 g/dL (32-36); Mean Corpuscular Volume 88.8 fL (81-99); Mean Platelet Vol. 9.1 fl (6.2-12.0); Platelet Count 358 K/mm3 (150-450); RBC Distribution Width SD 48.2 fl (35.1-43.9); Red Blood Count 3.75 M/mm3 (4.2-5.4); White Blood Count 8.3 K/mm3 (4.4-11.0)
[2024-02-11 10:10] LABS: AST(SGOT) 13 U/L (15-37); Alanine Aminotransfer ALT/SGPT 16 U/L (13-56); Albumin, Serum 3.5 g/dL (3.2-5.0); Alkaline Phosphatase 85 U/L (45-117); Anion Gap 6 (5-15); BUN 32 mg/dL (7-18); BUN/Creat Ratio 24.4 RATIO (10-20); Calcium,Total 9.6 mg/dL (8.5-10.1); Chloride 102 mmol/L (98-107); Creatinine, Serum 1.31 mg/dL (0.55-1.02); EST Glomerular Filtration Rate 41 mL/min (>60); Est Glom Filt Rate - Afr Amer 50 mL/min (>60); Globulin 3.4 g/dL (2.2-4.2); Glucose 126 mg/dL (74-106); Potassium 4.3 mmol/L (3.5-5.1); Protein, Total 6.9 g/dL (6.4-8.2); Sodium Level 136 mmol/L (136-145)
== END ==
LOC: OLS.ACH 05:00
PROVIDERS: PCP Internal Medicine; Visit Provider Internal Medicine
DX: E87.1 Hypo-osmolality and hyponatremia (principal); E11.42 Type 2 diabetes mellitus with diabetic polyneuropathy
CPT/HCPCS: 36415; 80053; 85027

== ENCOUNTER → 2024-02-13 | Outpatient (CLI) | payer MEDICARE, MEDICAID, SELFPAY ==
--- NOTE | 2024-02-13 14:54 | CT_ITS ---
INDICATION: nodule on CXR EXAMINATION: CT CHEST WITHOUT CONTRAST - CT Chest W/O Contrast Injection TECHNIQUE: Helically acquired images were obtained of the chest. A radiation dose optimization technique was used for this scan. IV Contrast dosage and agent: None. RADIATION DOSAGE (If Supplied By Facility): CTDIvol = ( 13.77 ) mGy, DLP = ( 426.50 ) mGycm COMPARISON: Chest x-ray of 01/29/2024. FINDINGS: LUNGS, PLEURA AND LARGE AIRWAYS: Calcified granuloma in the lingula measuring about 8 mm. Adjacent 3 mm noncalcified nodule in the lingula seen on image 47 series 4. Moderate stranding in the lung bases worse on the left side could be due to atelectasis or scarring. No focal consolidation otherwise is seen. No pleural effusion or thickening. No pneumothorax. THYROID: No thyroid lesions. HEART AND PERICARDIUM: Borderline cardiomegaly. No pericardial effusion. CORONARY ARTERIES: Coronary artery calcification is seen. VESSELS: Atherosclerotic calcifications and mild tortuosity of the thoracic aorta without evidence of aneurysm. MEDIASTINUM AND ZEE: Slightly prominent anterior mediastinal node measuring about 1.3 cm. Esophagus is unremarkable. Small hiatal hernia. UPPER ABDOMEN: Partially calcified low-density mass in the posterior right lobe of the liver described on previous CT scan of 09/30/2021 and likely benign. BONES: No suspicious lytic or blastic abnormality. CT/Chest without Contrast IMPRESSION: 1. Calcified granuloma in the left lower lung corresponding to the chest x-ray abnormality. 2. No acute pulmonary infiltrate or pleural effusions. 3. Nonspecific prominent anterior mediastinal node. 4. Small hiatal hernia. 5. Partially calcified right lobe liver mass unchanged prior exam likely benign. Electronically Signed: Jorge Saunders MD at 11:58 EDT ,
== END | disposition home or self-care (01) ==
LOC: CT 14:51
PROVIDERS: PCP Internal Medicine; Referring Provider Internal Medicine Critical Care Medicine; Visit Provider Internal Medicine Critical Care Medicine
DX: R91.1 Solitary pulmonary nodule (principal)
CPT/HCPCS: 71250

== ENCOUNTER → 2024-02-17 | Outpatient (CLI) | payer MEDICARE, MEDICAID, SELFPAY ==
--- NOTE | 2024-02-17 07:01 | ECHOCS_ITS ---
Reason For Study: Dyspnea Procedure This was a 2D Doppler, Color Flow transthoracic echocardiogram. The study was technically difficult. Contrast injection was performed. Exam performed in department. Left Ventricle Normal size and thickness. The left ventricular ejection fraction is 65 %. Stage 2 diastolic dysfunction. Right Ventricle Normal right ventricle. Atria The left atrium is mildly enlarged. Normal right atrium. Mitral Valve Mild mitral annular calcification. Mild focal mitral valve calcification, bileaflet. Mild (1+) mitral valve insufficiency. Tricuspid Valve Trivial tricuspid valve insufficiency. Right ventricular systolic pressure estimated to be 40 mmHg. Aortic Valve Trisinus/trileaflet aortic valve. Pulmonic Valve The pulmonic valve is not well visualized. Great Vessels Normal sized aortic root. Pericardium/Pleural No pericardial effusion. Medication 22 gauge I.V. with prn adaptor inserted into left arm. Diluted definity 1ml given slow IV push to enhance endocardial definition. MMode/2D Measurements & Calculations LVIDd: 5.6 cm IVSd: 1.1 cm Ao root diam: 3.3 cm LVIDs: 3.4 cm LVPWd: 1.1 cm LA dimension: 4.0 cm RVDd: 3.8 cm FS: 38.3 % LAV(MOD-bp): 93.5 ml LVAd ap4: 34.1 cm2 SV(MOD-sp4): 66.7 ml LAV(MOD-bp) Indexed: 45.4 ml/m2 LVLd ap4: 8.4 cm LAV(MOD-sp2): 107.4 ml EDV(MOD-sp4): 112.4 ml LAV(MOD-sp4): 81.7 ml EDV(sp4-el): 117.4 ml LVAs ap4: 19.2 cm2 LVLs ap4: 6.5 cm ESV(MOD-sp4): 45.7 ml ESV(sp4-el): 48.1 ml EF(MOD-sp4): 59.3 % EF(sp4-el): 59.0 % SV(sp4-el): 69.3 ml LA A4 area: 25.8 cm2 RA A4 area: 18.9 cm2 TAPSE: 2.2 cm Time Measurements MV dec time: 0.27 sec Doppler Measurements & Calculations MV E max quincy: 82.2 cm/sec Lat Peak E' Quincy: 6.9 cm/sec Med Peak E' Quincy: 4.4 cm/sec MV A max quincy: 118.0 cm/sec E/E' lat: 11.8 E/E' med: 18.9 MV E/A: 0.70 MV V2 max: 121.4 cm/sec MV P1/2t max quincy: 95.9 cm/sec Ao V2 max: 143.0 cm/sec MV max P.9 mmHg MV P1/2t: 94.7 msec Ao max P.2 mmHg MV V2 mean: 68.0 cm/sec Ao V2 mean: 100.3 cm/sec MV mean P.2 mmHg MV dec slope: 296.5 cm/sec2 Ao mean P.6 mmHg MV V2 VTI: 36.5 cm MVA(P1/2t): 2.3 cm2 Ao V2 VTI: 40.2 cm AV (velocity ratio): 0.78 LV V1 max: 103.8 cm/sec PA V2 max: 86.2 cm/sec TR max quincy: 281.6 cm/sec LV V1 max P.3 mmHg PA V2 mean: 64.0 cm/sec TR max P.7 mmHg LV V1 mean P.5 mmHg LV V1 mean: 74.0 cm/sec LV V1 VTI: 31.2 cm ECHO/Echo Complete W/ Contrast Interpretation Summary The left ventricular ejection fraction is 65 %. Stage 2 diastolic dysfunction. The left atrium is mildly enlarged. Mild mitral annular calcification. Mild (1+) mitral valve insufficiency. Mild focal mitral valve calcification, bileaflet. Right ventricular systolic pressure estimated to be 40 mmHg. Ordering Physician: Prasanna Gonzales Referring Physician: Prasanna Gonzales Performed By: Jose Manuel Norris [facility]
--- NOTE | 2024-02-17 09:51 | STRESSREP_ITS ---
Stress Test Report Date: 02/17/2024 Procedure: Pharmacologic stress nuclear imaging study Indications: Dyspnea on exertion Consent: Per the patient Procedure: The patient underwent pharmacologic (Regadenoson 0.4mg ) evaluation with a peak heart rate of 79 beats per minute (56%predicted maximal heart rate) and a peak blood pressure of 176/80 mmHg. The baseline ECG demonstrated sinus rhythm. The peak pharmacologic ECG demonstrated no ischemic changes. There were no cardiac dysrhythmias pretest, during pharmacologic infusion, or recovery. There was no complaint of chest discomfort during pharmacologic infusion or recovery. The patient was injected with 11.7 millicuries of technetium 99m Cardiolite and subsequently rest SPECT Cardiolite nuclear imaging was obtained in the horizontal long, vertical long, and short axis views. The patient underwent pharmacologic (Regadenoson) evaluation. The patient was injected with 34.8 millicuries of technetium 99m Cardiolite and subsequently stress SPECT Cardiolite nuclear imaging was obtained in the horizontal long, vertical long, and short axis views. A gated Cardiolite study at peak stress was obtained. The examination was stopped secondary to completion of protocol. Rest and stress SPECT Cardiolite nuclear imaging status post realignment, normalization, and attenuation correction demonstrate no fixed or reversible perfusion defects. There is end systolic thickening and brightening. The gated Cardiolite study demonstrates myocardial thickening and inward wall motion. The reported LVEF is 78%. Impression: 1. Pharmacologic (Regadenoson) evaluation 2. Peak pharmacologic ECG with no ischemic changes. 3. There were no cardiac dysrhythmias pretest, during pharmacologic infusion, or recovery. 5. Rest and stress SPECT Cardiolite nuclear imaging demonstrate relative uniform tracer uptake and myocardial perfusion appearing within normal limits. 6. The gated Cardiolite study reports an LVEF of 78%. This note was generated with [employer] software. It may contain incorrect words, spelling, and punctuation that were not noted in checking the note before signing.
== END | disposition home or self-care (01) ==
LOC: CVS 07:00
PROVIDERS: PCP Internal Medicine; Referring Provider Internal Medicine Cardiovascular Disease; Visit Provider Internal Medicine Cardiovascular Disease
DX: R06.09 Other forms of dyspnea (principal)
CPT/HCPCS: 78452; 93017; 93306; A9500; Q9957; A4216; C8929; J2785

== ENCOUNTER → 2024-03-11 05:00 | Outpatient (REF) | payer MEDICARE, MEDICAID, SELFPAY ==
[2024-03-11 08:04] LABS: Anion Gap 6 (5-15); BUN 33 mg/dL (7-18); BUN/Creat Ratio 23.7 RATIO (10-20); Calcium,Total 8.7 mg/dL (8.5-10.1); Chloride 100 mmol/L (98-107); Creatinine, Serum 1.39 mg/dL (0.55-1.02); EST Glomerular Filtration Rate 39 mL/min (>60); Est Glom Filt Rate - Afr Amer 47 mL/min (>60); Glucose 163 mg/dL (74-106); Potassium 4.3 mmol/L (3.5-5.1); Sodium Level 134 mmol/L (136-145)
== END ==
LOC: OLS.ACH 05:00
PROVIDERS: PCP Internal Medicine; Visit Provider Internal Medicine
DX: E87.1 Hypo-osmolality and hyponatremia (principal)
CPT/HCPCS: 36415; 80048

== ENCOUNTER → 2024-04-07 05:00 | Outpatient (REF) | payer MEDICARE, MEDICAID, SELFPAY ==
[2024-04-07 09:36] LABS: Absolute Lymphocyte Count 1.56 X10^3/uL (0.83-4.51); Absolute Neutrophil Count 5.3 X10^3/uL (2.0-7.7); Basophil# 0.07 X10^3/uL; Basophil% 0.8 % (0-1); Eosinophil# 0.72 X10^3/uL; Eosinophils% 8.5 % (0-5); Hematocrit 34.6 % (37-47); Hemoglobin 10.7 g/dL (12.0-15.0); Lymphocyte # 1.56 X10^3/ul (0.83-4.51); Lymphocyte % 18.3 % (19-41); Mean Corp Hgb Conc 30.9 g/dL (32-36); Mean Corpuscular Hgb 28.3 pg (27.0-32.0); Mean Corpuscular Volume 91.5 fL (81-99); Mean Platelet Vol. 9.2 fl (6.2-12.0); Monocyte# 0.78 X10^3/uL; Monocyte% 9.2 % (0-10); NRBC Flagged by Analyzer 0 % (0-5); Neutrophil # 5.31 X10^3/uL (2.7-7.7); Neutrophil % 62.4 % (47-70); Platelet Count 355 K/mm3 (150-450); RBC Distribution Width CV 14.5 % (11.6-14.6); RBC Distribution Width SD 48.2 fl (35.1-43.9); Red Blood Count 3.78 M/mm3 (4.2-5.4); White Blood Count 8.5 K/mm3 (4.4-11.0)
[2024-04-07 09:50] LABS: ALB/GLOB Ratio 0.9 RATIO (0.9-2.4); AST(SGOT) 13 U/L (15-37); Alanine Aminotransfer ALT/SGPT 17 U/L (13-56); Albumin, Serum 3.4 g/dL (3.2-5.0); Alkaline Phosphatase 83 U/L (45-117); Anion Gap 8 (5-15); BUN 43 mg/dL (7-18); BUN/Creat Ratio 24.6 RATIO (10-20); Calcium,Total 9.2 mg/dL (8.5-10.1); Chloride 96 mmol/L (98-107); Creatinine, Serum 1.75 mg/dL (0.55-1.02); EST Glomerular Filtration Rate 30 mL/min (>60); Est Glom Filt Rate - Afr Amer 36 mL/min (>60); Globulin 3.7 g/dL (2.2-4.2); Glucose 180 mg/dL (74-106); Potassium 4.3 mmol/L (3.5-5.1); Protein, Total 7.1 g/dL (6.4-8.2); Sodium Level 135 mmol/L (136-145)
[2024-04-07 10:39] LABS: Hemoglobin A1c 7.9 % (3.8-5.6)
== END ==
LOC: OLS.ACH 05:00
PROVIDERS: PCP Internal Medicine; Visit Provider Internal Medicine
DX: E11.42 Type 2 diabetes mellitus with diabetic polyneuropathy (principal); R80.9 Proteinuria, unspecified; E78.5 Hyperlipidemia, unspecified
CPT/HCPCS: 36415; 80053; 83036; 85025

== ENCOUNTER → 2024-04-10 05:00 | Outpatient (REF) | payer MEDICARE, MEDICAID, SELFPAY ==
[2024-04-10 08:02] LABS: Anion Gap 5 (5-15); BUN 37 mg/dL (7-18); BUN/Creat Ratio 22.7 RATIO (10-20); Calcium,Total 9.2 mg/dL (8.5-10.1); Chloride 97 mmol/L (98-107); Creatinine, Serum 1.63 mg/dL (0.55-1.02); EST Glomerular Filtration Rate 32 mL/min (>60); Est Glom Filt Rate - Afr Amer 39 mL/min (>60); Glucose 222 mg/dL (74-106); Potassium 4.4 mmol/L (3.5-5.1); Sodium Level 135 mmol/L (136-145)
== END ==
LOC: OLS.ACH 05:00
PROVIDERS: PCP Internal Medicine; Visit Provider Internal Medicine
DX: I11.0 Hypertensive heart disease with heart failure (principal); E87.1 Hypo-osmolality and hyponatremia; I50.9 Heart failure, unspecified
CPT/HCPCS: 36415; 80048

== ENCOUNTER → 2024-04-16 05:00 | Outpatient (REF) | payer MEDICARE, MEDICAID, SELFPAY ==
[2024-04-16 09:06] LABS: Cholesterol 355 mg/dL (200); High Density Lipoprotein 44 mg/dL; Thyroid Stim Hormone (TSH) 1.45 uIU/mL (0.358-3.74); Triglycerides 346 mg/dL; Very Low Density Lipoprotein 69 mg/dL (5-40)
== END ==
LOC: OLS.ACH 05:00
PROVIDERS: PCP Internal Medicine; Visit Provider Internal Medicine
DX: E78.5 Hyperlipidemia, unspecified (principal)
CPT/HCPCS: 36415; 80061; 84443

== ENCOUNTER → 2024-04-20 05:00 | Outpatient (REF) | payer MEDICARE, MEDICAID, SELFPAY ==
[2024-04-20 09:16] LABS: Anion Gap 5 (5-15); BUN 26 mg/dL (7-18); BUN/Creat Ratio 19.3 RATIO (10-20); Calcium,Total 9.3 mg/dL (8.5-10.1); Chloride 100 mmol/L (98-107); Creatinine, Serum 1.35 mg/dL (0.55-1.02); EST Glomerular Filtration Rate 40 mL/min (>60); Est Glom Filt Rate - Afr Amer 48 mL/min (>60); Glucose 165 mg/dL (74-106); Potassium 4.1 mmol/L (3.5-5.1); Sodium Level 137 mmol/L (136-145)
== END ==
LOC: OLS.ACH 05:00
PROVIDERS: PCP Internal Medicine; Visit Provider Internal Medicine
DX: E11.51 Type 2 diabetes mellitus with diabetic peripheral angiopathy without gangrene (principal)
CPT/HCPCS: 36415; 80048

== ENCOUNTER → 2024-06-05 | Outpatient (REF) | payer MEDICARE, MEDICAID, SELFPAY ==
[2024-06-05 07:59] LABS: Hematocrit 32.9 % (37-47); Hemoglobin 10.1 g/dL (12.0-15.0); Mean Corp Hgb Conc 30.7 g/dL (32-36); Mean Corpuscular Hgb 28.1 pg (27.0-32.0); Mean Corpuscular Volume 91.6 fL (81-99); Mean Platelet Vol. 9.1 fl (6.2-12.0); Platelet Count 313 K/mm3 (150-450); RBC Distribution Width CV 14.1 % (11.6-14.6); RBC Distribution Width SD 47.2 fl (35.1-43.9); Red Blood Count 3.59 M/mm3 (4.2-5.4); White Blood Count 8.4 K/mm3 (4.4-11.0)
[2024-06-05 08:19] LABS: ALB/GLOB Ratio 0.9 RATIO (0.9-2.4); AST(SGOT) 16 U/L (15-37); Alanine Aminotransfer ALT/SGPT 19 U/L (13-56); Albumin, Serum 3.2 g/dL (3.2-5.0); Alkaline Phosphatase 80 U/L (45-117); Anion Gap 5 (5-15); BUN 26 mg/dL (7-18); BUN/Creat Ratio 17.9 RATIO (10-20); Calcium,Total 8.9 mg/dL (8.5-10.1); Chloride 102 mmol/L (98-107); Creatinine, Serum 1.45 mg/dL (0.55-1.02); EST Glomerular Filtration Rate 37 mL/min (>60); Est Glom Filt Rate - Afr Amer 45 mL/min (>60); Globulin 3.7 g/dL (2.2-4.2); Glucose 165 mg/dL (74-106); Potassium 4.3 mmol/L (3.5-5.1); Protein, Total 6.9 g/dL (6.4-8.2); Sodium Level 139 mmol/L (136-145)
== END ==
LOC: OLS.ACH 05:00
PROVIDERS: PCP Internal Medicine; Referring Provider Internal Medicine; Visit Provider Internal Medicine
DX: I11.0 Hypertensive heart disease with heart failure (principal); I50.9 Heart failure, unspecified; D64.9 Anemia, unspecified
CPT/HCPCS: 36415; 80053; 85027

== ENCOUNTER → 2024-06-30 05:00 | Outpatient (REF) | payer MEDICARE, MEDICAID, SELFPAY ==
[2024-06-30 09:58] LABS: Absolute Lymphocyte Count 1.35 X10^3/uL (0.83-4.51); Absolute Neutrophil Count 4.9 X10^3/uL (2.0-7.7); Basophil# 0.07 X10^3/uL; Basophil% 0.9 % (0-1); Eosinophil# 0.78 X10^3/uL; Hematocrit 32.5 % (37-47); Hemoglobin 9.8 g/dL (12.0-15.0); Lymphocyte # 1.35 X10^3/ul (0.83-4.51); Lymphocyte % 17.3 % (19-41); Mean Corp Hgb Conc 30.2 g/dL (32-36); Mean Corpuscular Volume 92.9 fL (81-99); Mean Platelet Vol. 9.4 fl (6.2-12.0); Monocyte# 0.64 X10^3/uL; Monocyte% 8.2 % (0-10); NRBC Flagged by Analyzer 0 % (0-5); Neutrophil # 4.92 X10^3/uL (2.7-7.7); Neutrophil % 63.2 % (47-70); Platelet Count 319 K/mm3 (150-450); RBC Distribution Width CV 13.9 % (11.6-14.6); RBC Distribution Width SD 46.5 fl (35.1-43.9); White Blood Count 7.8 K/mm3 (4.4-11.0)
[2024-06-30 10:11] LABS: ALB/GLOB Ratio 0.8 RATIO (0.9-2.4); AST(SGOT) 13 U/L (15-37); Alanine Aminotransfer ALT/SGPT 19 U/L (13-56); Albumin, Serum 3.2 g/dL (3.2-5.0); Alkaline Phosphatase 83 U/L (45-117); Anion Gap 5 (5-15); BUN 24 mg/dL (7-18); BUN/Creat Ratio 17.8 RATIO (10-20); Calcium,Total 9.2 mg/dL (8.5-10.1); Chloride 100 mmol/L (98-107); Creatinine, Serum 1.35 mg/dL (0.55-1.02); EST Glomerular Filtration Rate 40 mL/min (>60); Est Glom Filt Rate - Afr Amer 48 mL/min (>60); Globulin 3.9 g/dL (2.2-4.2); Glucose 159 mg/dL (74-106); Potassium 4.2 mmol/L (3.5-5.1); Protein, Total 7.1 g/dL (6.4-8.2); Sodium Level 137 mmol/L (136-145)
[2024-06-30 15:13] LABS: Hemoglobin A1c 7.9 % (3.8-5.6)
== END ==
LOC: OLS.ACH 05:00
PROVIDERS: PCP Internal Medicine; Visit Provider Internal Medicine
DX: E11.42 Type 2 diabetes mellitus with diabetic polyneuropathy (principal); R80.9 Proteinuria, unspecified; E78.5 Hyperlipidemia, unspecified
CPT/HCPCS: 36415; 80053; 82140; 83036; 85025

== ENCOUNTER → 2024-07-15 05:00 | Outpatient (REF) | payer MEDICARE, MEDICAID, SELFPAY ==
[2024-07-15 08:37] LABS: Hematocrit 32.6 % (37-47); Hemoglobin 10.2 g/dL (12.0-15.0); Mean Corp Hgb Conc 31.3 g/dL (32-36); Mean Corpuscular Hgb 28.4 pg (27.0-32.0); Mean Corpuscular Volume 90.8 fL (81-99); Mean Platelet Vol. 9.1 fl (6.2-12.0); Platelet Count 341 K/mm3 (150-450); RBC Distribution Width CV 13.7 % (11.6-14.6); RBC Distribution Width SD 45.2 fl (35.1-43.9); Red Blood Count 3.59 M/mm3 (4.2-5.4); White Blood Count 8.7 K/mm3 (4.4-11.0)
[2024-07-15 09:00] LABS: ALB/GLOB Ratio 0.9 RATIO (0.9-2.4); AST(SGOT) 9 U/L (15-37); Alanine Aminotransfer ALT/SGPT 17 U/L (13-56); Albumin, Serum 3.4 g/dL (3.2-5.0); Alkaline Phosphatase 93 U/L (45-117); Anion Gap 5 (5-15); BUN 25 mg/dL (7-18); BUN/Creat Ratio 20.8 RATIO (10-20); Calcium,Total 9.2 mg/dL (8.5-10.1); Chloride 102 mmol/L (98-107); EST Glomerular Filtration Rate 46 mL/min (>60); Est Glom Filt Rate - Afr Amer 55 mL/min (>60); Globulin 3.7 g/dL (2.2-4.2); Glucose 163 mg/dL (74-106); Potassium 4.3 mmol/L (3.5-5.1); Protein, Total 7.1 g/dL (6.4-8.2); Sodium Level 138 mmol/L (136-145)
== END ==
LOC: OLS.ACH 05:00
PROVIDERS: PCP Internal Medicine; Visit Provider Internal Medicine
DX: E11.42 Type 2 diabetes mellitus with diabetic polyneuropathy (principal); D64.9 Anemia, unspecified
CPT/HCPCS: 36415; 80053; 85027

== ENCOUNTER → 2024-08-03 | Outpatient (REF) | payer MEDICARE, MEDICAID, SELFPAY ==
[2024-08-03 08:57] LABS: AST(SGOT) 15 U/L (15-37); Alanine Aminotransfer ALT/SGPT 19 U/L (13-56); Albumin, Serum 3.5 g/dL (3.2-5.0); Alkaline Phosphatase 87 U/L (45-117); Bilirubin, Direct 0.06 mg/dL (0.00-0.30); Globulin 3.7 g/dL (2.2-4.2); Protein, Total 7.2 g/dL (6.4-8.2)
== END ==
LOC: OLS.ACH 05:00
PROVIDERS: PCP Internal Medicine; Visit Provider Internal Medicine
DX: E78.5 Hyperlipidemia, unspecified (principal)
CPT/HCPCS: 36415; 80076

== ENCOUNTER → 2024-08-11 | Outpatient (CLI) | payer MEDICARE, MEDICAID, SELFPAY ==
--- NOTE | 2024-08-11 14:46 | CT_ITS ---
EXAM: CT CHEST WITHOUT INTRAVENOUS CONTRAST CLINICAL INDICATION: lung nodule TECHNIQUE: Helically acquired images were obtained of the chest without intravenous contrast. This CT exam was performed using one or more of the following dose reduction techniques: automated exposure control, adjustment of the mA and/or kV according to patient size, and/or use of iterative reconstruction technique. COMPARISON: CT Chest dated 02/13/2024 FINDINGS: LUNGS AND PLEURAL SPACES: Stable 3 mm left upper lobe pulmonary nodule noted adjacent to the stable calcified granuloma. Minor bibasilar atelectasis. No pleural effusion or thickening. No pneumothorax. HEART: Stable borderline cardiomegaly. Coronary artery calcifications present. MEDIASTINUM: Stable small hiatal hernia. No mediastinal or hilar adenopathy. Esophagus is unremarkable. BONES/JOINTS: No suspicious lytic or blastic abnormality. VASCULATURE: No aortic aneurysm. Stable small reactive mediastinal lymph nodes. LIVER: Calcified lesion within the liver is stable. Mild hepatic steatosis. CT/Chest without Contrast IMPRESSION: No acute cardiopulmonary abnormality. No interval change. Electronically Signed: Yuri Vemra MD at 17:28 EDT ,
== END | disposition home or self-care (01) ==
PROVIDERS: PCP Internal Medicine; Referring Provider Nurse Practitioner Acute Care; Visit Provider Nurse Practitioner Acute Care
DX: R91.1 Solitary pulmonary nodule (principal)
CPT/HCPCS: 71250

== ENCOUNTER → 2024-08-19 | Outpatient (REF) | payer MEDICARE, MEDICAID, SELFPAY ==
[2024-08-19 09:52] LABS: Anion Gap 7 (5-15); BUN 35 mg/dL (7-18); BUN/Creat Ratio 23.6 RATIO (10-20); Chloride 98 mmol/L (98-107); Creatinine, Serum 1.48 mg/dL (0.55-1.02); EST Glomerular Filtration Rate 36 mL/min (>60); Est Glom Filt Rate - Afr Amer 44 mL/min (>60); Glucose 177 mg/dL (74-106); Potassium 4.2 mmol/L (3.5-5.1); Sodium Level 137 mmol/L (136-145)
== END ==
LOC: OLS.ACH 05:00
PROVIDERS: PCP Internal Medicine; Visit Provider Internal Medicine
DX: I11.0 Hypertensive heart disease with heart failure (principal); I50.9 Heart failure, unspecified
CPT/HCPCS: 36415; 80048

== ENCOUNTER → 2024-08-20 | Outpatient (CLI) | payer MEDICARE, MEDICAID, SELFPAY ==
--- NOTE | 2024-08-20 12:57 | CPS ---
Pt arrived to test in wheelchair from retirement. Pt was unable to get up out of chair and into box. Pre and post spirometry and DLCO only performed. Pt stated she felt very sleepy today also and it is noted at multiple times she had fallen asleep. Pt wears 2 lpm oxygen at retirement. Room air saturation for testing was 90-91%. Pt was asked if this fatigue was out of the normal range for her and she said no. Pt does arouse easily when talking to her.
== END | disposition home or self-care (01) ==
PROVIDERS: PCP Internal Medicine; Referring Provider Internal Medicine Cardiovascular Disease; Visit Provider Internal Medicine Cardiovascular Disease
DX: I51.89 Other ill-defined heart diseases (principal); R06.09 Other forms of dyspnea; R53.83 Other fatigue
CPT/HCPCS: 94060; 94729

== ENCOUNTER → 2024-09-08 | Outpatient (REF) | payer MEDICARE, MEDICAID, SELFPAY ==
[2024-09-08 08:27] LABS: Hematocrit 32.2 % (37-47); Hemoglobin 10.1 g/dL (12.0-15.0); Mean Corp Hgb Conc 31.4 g/dL (32-36); Mean Corpuscular Hgb 28.6 pg (27.0-32.0); Mean Corpuscular Volume 91.2 fL (81-99); Mean Platelet Vol. 9.1 fl (6.2-12.0); Platelet Count 324 K/mm3 (150-450); RBC Distribution Width CV 13.7 % (11.6-14.6); Red Blood Count 3.53 M/mm3 (4.2-5.4); White Blood Count 8.9 K/mm3 (4.4-11.0)
[2024-09-08 08:58] LABS: Anion Gap 7 (5-15); BUN 37 mg/dL (7-18); BUN/Creat Ratio 26.6 RATIO (10-20); Calcium,Total 8.8 mg/dL (8.5-10.1); Chloride 99 mmol/L (98-107); Creatinine, Serum 1.39 mg/dL (0.55-1.02); EST Glomerular Filtration Rate 39 mL/min (>60); Est Glom Filt Rate - Afr Amer 47 mL/min (>60); Glucose 201 mg/dL (74-106); Potassium 4.4 mmol/L (3.5-5.1); Sodium Level 138 mmol/L (136-145)
[2024-09-08 10:01] LABS: Hemoglobin A1c 8.5 % (3.8-5.6)
== END ==
LOC: OLS.ACH 05:00
PROVIDERS: PCP Internal Medicine; Visit Provider Internal Medicine
DX: E11.9 Type 2 diabetes mellitus without complications (principal)
CPT/HCPCS: 36415; 80048; 83036; 85027

== ENCOUNTER → 2024-09-22 | Outpatient (REF) | payer MEDICARE, MEDICAID, SELFPAY ==
[2024-09-22 09:22] LABS: Absolute Lymphocyte Count 1.27 X10^3/uL (0.83-4.51); Absolute Neutrophil Count 5.1 X10^3/uL (2.0-7.7); Basophil# 0.05 X10^3/uL; Basophil% 0.6 % (0-1); Eosinophil# 0.63 X10^3/uL; Eosinophils% 8.1 % (0-5); Hematocrit 32.4 % (37-47); Hemoglobin 9.9 g/dL (12.0-15.0); Lymphocyte # 1.27 X10^3/ul (0.83-4.51); Lymphocyte % 16.4 % (19-41); Mean Corp Hgb Conc 30.6 g/dL (32-36); Mean Corpuscular Volume 91.8 fL (81-99); Mean Platelet Vol. 9.3 fl (6.2-12.0); Monocyte# 0.64 X10^3/uL; Monocyte% 8.3 % (0-10); NRBC Flagged by Analyzer 0 % (0-5); Neutrophil # 5.12 X10^3/uL (2.7-7.7); Neutrophil % 66.1 % (47-70); Platelet Count 331 K/mm3 (150-450); RBC Distribution Width CV 13.7 % (11.6-14.6); RBC Distribution Width SD 45.9 fl (35.1-43.9); Red Blood Count 3.53 M/mm3 (4.2-5.4); White Blood Count 7.8 K/mm3 (4.4-11.0)
[2024-09-22 09:48] LABS: ALB/GLOB Ratio 0.9 RATIO (0.9-2.4); AST(SGOT) 16 U/L (15-37); Alanine Aminotransfer ALT/SGPT 22 U/L (13-56); Albumin, Serum 3.5 g/dL (3.2-5.0); Alkaline Phosphatase 98 U/L (45-117); Anion Gap 6 (5-15); BUN 36 mg/dL (7-18); BUN/Creat Ratio 24.5 RATIO (10-20); Calcium,Total 8.8 mg/dL (8.5-10.1); Chloride 100 mmol/L (98-107); Creatinine, Serum 1.47 mg/dL (0.55-1.02); EST Glomerular Filtration Rate 36 mL/min (>60); Est Glom Filt Rate - Afr Amer 44 mL/min (>60); Globulin 3.7 g/dL (2.2-4.2); Glucose 152 mg/dL (74-106); Potassium 4.2 mmol/L (3.5-5.1); Protein, Total 7.2 g/dL (6.4-8.2); Sodium Level 139 mmol/L (136-145)
[2024-09-22 11:33] LABS: Hemoglobin A1c 8.5 % (3.8-5.6)
== END ==
LOC: OLS.ACH 05:00
PROVIDERS: PCP Internal Medicine; Visit Provider Internal Medicine
DX: E11.42 Type 2 diabetes mellitus with diabetic polyneuropathy (principal); R80.9 Proteinuria, unspecified; E78.5 Hyperlipidemia, unspecified
CPT/HCPCS: 36415; 80053; 83036; 85025

== ENCOUNTER → 2024-10-06 | Outpatient (REF) | payer MEDICARE, MEDICAID, SELFPAY ==
[2024-10-07 07:38] LABS: Bacteria 0 SEEN /hpf (None Seen); Mucous, Urine 0 SEEN /hpf (<or=2+); Red Blood Cells-Urine 0 SEEN /hpf (0-5)
[2024-10-07 07:56] LABS: Color, Urine Yellow (Yellow); Glucose, Dipstick Normal (Normal); Ketone-Dipstick Negative (Negative); Leukocyte Esterase-Dipstick 25 /ul (Negative); Nitrite-Dipstick Negative (Negative); Occult Blood-Urine Negative /ul (Negative); Protein-Dipstick 15 mg/dl (Negative); Specific Gravity, Urine 1.015 (1.002-1.030); Urine Bilirubin Dipstick Negative (Negative); Urine Clarity Clear (Clear); Urine Urobilinogen Normal (Normal)
[2024-10-07 08:05] LABS: Squamous Epithelial Cells - UA 0-5 SEEN /hpf (5-10); White Blood Cells 0-5 SEEN /hpf (0-5)
== END ==
LOC: OLS.ACH 17:00
PROVIDERS: PCP Internal Medicine; Visit Provider Internal Medicine
DX: N32.81 Overactive bladder (principal)
CPT/HCPCS: 81001; 87086; 87088

== ENCOUNTER → 2024-12-15 05:00 | Outpatient (REF) | payer MEDICARE, MEDICAID, SELFPAY ==
[2024-12-15 09:51] LABS: Absolute Lymphocyte Count 0.38 X10^3/uL (0.83-4.51); Absolute Neutrophil Count 5.8 X10^3/uL (2.0-7.7); Basophil# 0.01 X10^3/uL; Basophil% 0.1 % (0-1); Hematocrit 35.5 % (37-47); Hemoglobin 10.9 g/dL (12.0-15.0); Lymphocyte # 0.38 X10^3/ul (0.83-4.51); Lymphocyte % 5.6 % (19-41); Mean Corp Hgb Conc 30.7 g/dL (32-36); Mean Corpuscular Hgb 27.8 pg (27.0-32.0); Mean Corpuscular Volume 90.6 fL (81-99); Mean Platelet Vol. 9.4 fl (6.2-12.0); Monocyte# 0.59 X10^3/uL; Monocyte% 8.7 % (0-10); NRBC Flagged by Analyzer 0 % (0-5); Neutrophil # 5.75 X10^3/uL (2.7-7.7); Neutrophil % 84.3 % (47-70); POSITIVE DIFFERENTIAL YES; Platelet Count 328 K/mm3 (150-450); RBC Distribution Width CV 14.1 % (11.6-14.6); Red Blood Count 3.92 M/mm3 (4.2-5.4); White Blood Count 6.8 K/mm3 (4.4-11.0)
[2024-12-15 10:14] LABS: ALB/GLOB Ratio 0.9 RATIO (0.9-2.4); AST(SGOT) 12 U/L (15-37); Alanine Aminotransfer ALT/SGPT 23 U/L (13-56); Albumin, Serum 3.6 g/dL (3.2-5.0); Alkaline Phosphatase 96 U/L (45-117); Anion Gap 7 (5-15); BUN 44 mg/dL (7-18); BUN/Creat Ratio 30.6 RATIO (10-20); Calcium,Total 8.7 mg/dL (8.5-10.1); Chloride 98 mmol/L (98-107); Creatinine, Serum 1.44 mg/dL (0.55-1.02); EST Glomerular Filtration Rate 37 mL/min (>60); Est Glom Filt Rate - Afr Amer 45 mL/min (>60); Glucose 204 mg/dL (74-106); Potassium 4.3 mmol/L (3.5-5.1); Protein, Total 7.6 g/dL (6.4-8.2); Sodium Level 135 mmol/L (136-145)
== END ==
LOC: OLS.ACH 05:00
PROVIDERS: PCP Internal Medicine; Visit Provider Internal Medicine
DX: E11.51 Type 2 diabetes mellitus with diabetic peripheral angiopathy without gangrene (principal); E03.9 Hypothyroidism, unspecified; E11.42 Type 2 diabetes mellitus with diabetic polyneuropathy
CPT/HCPCS: 36415; 80053; 85025

== ENCOUNTER 2024-12-19 19:12 | Inpatient (IN) | payer MEDICARE, MEDICAID, SELFPAY ==
[2024-12-19] VITALS (8 sets, daily range): BP systolic 131–137; BP diastolic 53–86; PULSE 54–59; RESP 21–29; TEMP 36–36.7; O2SAT 91–98; BMI 32.1
--- NOTE | 2024-12-19 19:44 | EKG12_ITS ---
Test Reason : DYSRHYTHMIA Blood Pressure : */* mmHG Vent. Rate : 56 BPM Atrial Rate : 56 BPM P-R Int : 176 ms QRS Dur : 84 ms QT Int : 462 ms P-R-T Axes : -10 -21 3 degrees QTcB Int : 445 ms Sinus bradycardia Moderate voltage criteria for LVH, may be normal variant ( R in aVL , Kvng product ) Inferior infarct , age undetermined Abnormal ECG Confirmed by KP CORONA, KRISTINA ([id number]), supervising editor trailer JABARI LUEVANO ([id number]) on 12/21/2024 6:34:25 AM Referred By: Confirmed By: KRISTINA GOODRICH MD
--- NOTE | 2024-12-19 19:45 | EDS_ITS ---
HPI History of Present Illness Chief Complaint: Shortness of Breath Detail of Chief Complaint: Increase shortness of breath and altered mental status Informant: other (Nurse informing that patient was sent to the ER because of decreased level of consciousness) Onset/Context/Timing Onset: - (Unknown did not receive report by EMS or fdc) Context: - (Unknown) Timing: Continuous Worsened by: Unknown/unable to obtain Relieved by: Presumed nothing Associated Symptoms Associated Symptoms: Unable to determine Narrative Narrative: Patient is AN 79-year-old female. She has history of dyslipidemia, coronary artery disease, mild cognitive impairment, diastolic dysfunction without heart failure, diabetes mellitus, peripheral vascular disease and anemia who was sent to the ER by ambulance from nursing facility because of decreased level c onsciousness. She had a positive influenza A 1 week ago. Patient is presently awake or alert. Prior similar symptoms: No Recent Illness/Hospitalization: No [facility] Medical History Other lack of coordination Unspecified lack of coordination Other specified disorders of bone density and structure, left ankle and foot Other specified disorders of bone density and structure, right ankle and foot Primary osteoarthritis, right ankle and foot Heart disease, unspecified Personal history of urinary (tract) infections Acquired absence of other specified parts of digestive tract Other symptoms and signs involving cognitive functions and awareness Other enthesopathies, not elsewhere classified Unspecified abnormalities of breathing Personal history of pneumonia (recurrent) Cognitive communication deficit Hypo-osmolality and hyponatremia Daytime sleepiness Hypersomnolence Diabetes mellitus Fatigue Dyspnea on exertion Resistant hypertension Hyperlipidemia PVD (peripheral vascular disease) Pain in left shoulder Pain in right shoulder Hypertensive retinopathy, bilateral Mild cognitive impairment of uncertain or unknown etiology Anemia Osteoarthritis of knees, bilateral Delusional disorder Osteoarthritis of hips, bilateral Weakness COVID-19 (~10/2023) Hypoxia Elevated blood pressure reading History of stress test PTSD (post-traumatic stress disorder) Insomnia Depression Dysphagia Diabetes type 2, controlled GERD (gastroesophageal reflux disease) Anxiety Liver disease Hypothyroid Hypertension Home Medications ?Medication ?Instructions ?Recorded ?Last Taken ?Type labetalol 300 mg tablet 300 mg PO BID HTN 12/25/18 0 11/14/23 History acetaminophen 325 mg capsule 325 mg PO DAILY pain 03/0411/12/23 History acetaminophen 500 mg tablet 500 mg PO DAILY pain 11/1411/12/23 History ferrous sulfate 325 mg (65 mg 325 mg PO DAILY 11/14/23 11/14/23 History iron) tablet (FeroSul) levothyroxine 88 mcg tablet 88 mcg PO DAILY 11/14/23 0 11/14/23 History menthol 5 % topical gel (Biofreeze 1 ea topical QHS RI GHT SHOULDER 11/14/23 11/13/23 History (menthol)) PAIN losartan 100 mg tablet 100 mg PO DAILY 11/18/23 Unk nown History melatonin 3 mg tablet 3 mg PO HS 11/18/23 Unknown History sertraline 100 mg tablet 100 mg PO DAILY 11/18/23 Unk nown History amlodipine 5 mg tablet 5 mg PO BID 12/05/23 Unknown History gabapentin 300 mg capsule 300 mg PO BID 12/05/23 Unkno wn History tramadol 50 mg tablet 50 mg PO QHS pain 12/05/23 U nknown History glucagon HCl 1 mg solution for 1 mg subcut Q20M PRN Unknown History injection (Glucagon (HCl) Emergency Kit) clonidine HCl 0.2 mg tablet 0.2 mg PO BID #60 tabs Unknown Rx glipizide 5 mg tablet 5 mg PO BID 06/26/24 Unknown History potassium chloride 20 mEq 10 meq PO DAILY 06/26/24 Unk nown History tablet,extended release(part/cryst) aripiprazole 5 mg tablet 2.5 mg PO QDAY 08/12/24 Unkn own History atorvastatin 10 mg tablet 10 mg PO QDAY 08/12/24 Unkno wn History clopidogrel 75 mg tablet (Plavix) 75 mg PO QDAY #90 ta bs 08/12/24 Unknown Rx furosemide 40 mg tablet 40 mg PO QDAY #90 tabs 08/12 Unknown Rx cranberry 400 mg capsule 450 mg PO DAILY 09/25/24 Unk nown History diazepam 2 mg tablet 2 mg PO QHS 09/25/24 Unknown History insulin lispro 100 unit/mL 1 sliding scale dose subcut 09/25/24 Unknown History subcutaneous pen USEASDIRECTD sennosides 8.6 mg-docusate sodium 1 tab-cap PO BID con stipation 09/25/24 Unknown History 50 mg tablet (Senexon-S) ipratropium 0.5 mg-albuterol 3 mg 3 ml inhalation 4X/D AY 12/19/24 Unknown History (2.5 mg base)/3 mL nebulization soln potassium chloride 10 mEq See Rx Instructions PO DAILY 12/19/24 Unknown History tablet,extended release Allergy/AdvReac Type Severity Reaction Status Date / Time diphenhydramine (From Allergy PT UNABLE Verified 12/19/24 19:18 Benadryl) TO RESPOND-NEEDS F/U prednisone AdvReac Intermediate Other Verified 12/19/24 19:18 ANTIHISTAMINES Allergy PT UNABLE Uncoded 09/25/24 14:28 TO RESPOND-NEEDS F/U DECONGESTANTS Allergy Shortness Uncoded 09/25/24 14:28 of breath Surgical History S/P laparoscopic-assisted sigmoidectomy S/P partial thyroidectomy History of ankle surgery Social History housing: fdc Smoking Status: Never smoker alcohol intake: never substance use type: does not use caffeine: No ROS ROS ED Review of Systems ROS Unobtainable: due to mental status EXAM Physical Exam Const Vital Signs: 12/19/24 19:13 12/19/24 20:17 12/19/24 20:45 Temperature 98 F 98.0 F Temperature Source Axillary Oral Pulse Rate 59 L 54 L Respiratory Rate 29 H 24 H Respiratory Effort Respiratory Pattern Blood Pressure 131/57 H 136/55 H Blood Pressure Mean 81 82 Pulse Ox 98 91 92 Oxygen Delivery Method Nasal Cannula Nasal Cannula High Flow Oxygen Flow Rate (L/min) 4 6 8 12/19/24 20:50 12/19/24 21:00 12/19/24 22:00 Temperature 96.8 F L Temperature Source Core Pulse Rate 54 L 55 L Respiratory Rate 25 H 23 H Respiratory Effort Normal Non-Labored Respiratory Pattern Tachypnea Blood Pressure 136/61 H 132/53 H Blood Pressure Mean 86 79 Pulse Ox 92 96 Oxygen Delivery Method Nasal Cannula High Flow High Flow Oxygen Flow Rate (L/min) 5 8 6 12/19/24 23:00 Temperature Temperature Source Pulse Rate 57 L Respiratory Rate 23 H Respiratory Effort Respiratory Pattern Blood Pressure 131/86 H Blood Pressure Mean 101 Pulse Ox 91 Oxygen Delivery Method Nasal Cannula Oxygen Flow Rate (L/min) 4 Positive well nourished and well developed Constitutional Narrative: BMI 32. Patient is tachypneic. Patient is leaning to the right with her mouth open and her tongue dangling from her mouth. General Appearance ED: well developed HEENT Reports dry mucous membranes HEENT Narrative: Head is atraumatic, cephalic. Ears normal. Nares patent. Mouth ED: Yes dry mucous membranes Mouth: dry mucous membranes Eyes PERRL and EOMs intact bilaterally General Eye ED: Yes pale conjunctiva; Negative for scleral icterus Neck no lymphadenopathy, supple and no JVD Neck Narrative: Trachea is midline. There is no stridor. Chest Wall inspection of chest normal and palpation of chest normal Resp normal respiratory effort and No clear to auscultation bilaterally Resp Narrative: Rales at the bases. Cardio regular rhythm, S1 normal heart sound, S2 normal heart sound and no murmurs Rate: bradycardia GI normal to inspection, nondistended, normoactive bowel sounds, non-tender, non-d istended and no masses; Negative for hepatosplenomegaly Palpation: soft Extremity Extremity Narrative: Edema of the lower extremities. There is no clubbing or cyanosis. Neuro No oriented x3 Neuro Narrative: Patient grunts to noxious stimuli and twitches her extremities. Psych Psych Narrative: Unable to determine Sepsis Attestation Sepsis Alert: Yes Sepsis Attestation: Agree w/Sepsis Date exam was performed: 12/19/24 Time exam was performed: 20:26 Possible Source of Sepsis: Pulmonary Sepsis Organ Dysfunction Criteria Present: New/Unexplained change in mental status Fluid Resuscitation Fluid resuscitation indicated?: Yes Amount of fluid ordered: 1,000 Reason for lesser fluid bolus:: Concern for fluid overload and Renal Failure MDM MDM MDM Narrative Medical decision making narrative: Patient with influenza A and altered mental status. Will obtain ABG to assess AA gradient as well as evaluate acid-base disturbance and specifically to determine if patient has hypercapnia. Chest x-ray to determine if patient has pneumonia which would raise concern for staph/post influenza pneumonia. Blood work to assess for endorgan dysfunction. Going through patient's fdc documents that accompanied her indicates she is a full go. She is unable to make a decision regarding CODE STATUS at this point. Lab Data Attestation: I reviewed the patient's lab results. Lab results narrative: White count is elevated 27.6 thousand with shift. There is no bandemia. H&H is 10.5 and 33.3. Comprehensive metabolic panel is remarkable for albumin of 3.1, glucose of 429 with a normal CO2 and anion gap. Sodium is 133. BUN to creatinine ratio is elevated at approximately 32 lactate is 2 which is upper end of normal. Clinically patient is septic. Sepsis order set for treatment was initiated. BUN/creatinine are elevated from prior. Patient has a acute on chronic kidney disease. Coags are unremarkable. Patient's UA is negative. Labs: Laboratory Results - last 24 hr 12/19/24 12/19/24 12/19/24 20:00 20:30 21:45 WBC 27.6 H RBC 3.64 L Hgb 10.5 L Hct 33.3 L MCV 91.5 MCH 28.8 MCHC 31.5 L RDW Std Deviation 48.9 H RDW Coeff of Tuan 14.6 Plt Count 314 MPV 9.8 Immature Gran % (Auto) 0.900 Neut % (Auto) 94.1 H Lymph % (Auto) 2.6 L Throckmorton % (Auto) 2.0 Eos % (Auto) 0.0 Baso % (Auto) 0.4 Absolute Neuts (auto) 26.0 H Absolute Lymphs (auto) 0.73 L Nucleated RBC % 0 Differential Comment SEE COMMENT Platelet Estimate ADEQUATE RBC Morphology N CHROM Anisocytosis RARE Macrocytosis RARE PT 15.4 H INR 1.2 APTT 26.5 Sodium 133 L Potassium 5.1 Chloride 98 Carbon Dioxide 27.0 Anion Gap 9 BUN 77 H Creatinine 2.42 H Estim Creat Clear Calc 20.61 Est GFR (MDRD) Af Amer 25 L Est GFR (MDRD) Non-Af 20 L BUN/Creatinine Ratio 31.8 H Glucose 429 H Lactic Acid 2.0 Calcium 8.6 Total Bilirubin 0.30 AST 9 L ALT 16 Alkaline Phosphatase 89 Total Protein 7.2 Albumin 3.1 L Globulin 4.1 Albumin/Globulin Ratio 0.8 L Urine Color Yellow Urine Clarity Clear Urine pH 5.0 Ur Specific [place] 1.015 Urine Protein 30 H Urine Glucose (UA) Normal Urine Ketones Negative Urine Occult Blood Negative Urine Nitrite Negative Urine Bilirubin Negative Urine Urobilinogen Normal Ur Leukocyte Esterase 25 H Urine RBC 0-5 SEEN Urine WBC 5-10 SEEN Ur Squamous Epith Cells 0-5 SEEN Urine Bacteria 0 SEEN Hyaline Casts 0-5 SEEN Urine Mucus 1+ ABG Data ABG results: ABG 12/19/24 20:03 Specimen Type ART Sample Site L Radial pH 7.35 Bicarbonate Actual 31.5 H Total CO2 33 Base Excess 6 H O2 Saturation 86 L O2 % 6.0 ABG pCO2 57.1 H ABG pO2 56 L Francisco Test Positive O2 Delivery Device Cannula Vent Mode Not entered Radiography Chest X-Ray - ED: 1 View and Read by ED Physician (Single view x-ray was obtained since patient's not able to stand up or sit up completely. There is increased opacification right hilum and possibly left lung mid field. There appears to be atelectasis right lower lobe. There is no effusion. This raises concern for post influenza pneumonia. Vanc) Diagnostic Testing: Clinical Impression(s) from Imaging Studies Chest X-Ray 12/19/24 20:07 IMPRESSION: 1. Hazy airspace opacity in the left midlung, possibly due to pneumonia or other infiltrate. 2. Patchy right basilar opacity, possibly due to atelectasis or infiltrate. Reading Location: [facility] EKG Initial EKG: Attestation: I personally reviewed and interpreted this EKG as follows: Interpretation: Sinus Bradycardia (Rate is 56. There is evidence of LVH by voltage criteria. Patient has a flipped T wave in lead III which is a normal variant. Rate is 56. [place] interval is 176 ms. QRS duration 84 ms. QT duration 462 ms. Alkol is normal.) Management Discussion w/another healthcare provider: Hospitalist (Case was discussed with Dr. Mei Tineo. Patient to be admitted to the ICU.) Critical Care Time Critical Care Time: Yes Critical care time (excluding procedures): 30-74 minutes (31), Including time spent: (History, physical, documentation, review of fdc records and CODE STATUS, independent rotation laboratory results and images), Discussing w/Consultants and Arranging Admission or Transfer Discharge Plan Triage Chief Complaint: Shortness of Breath ED Provider: Ancelmo Pradhan Dx/Rx/DC Orders Clinical Impression: Bilateral pneumonia, Anemia, Diastolic dysfunction without heart failure, Coronary artery disease, Influenza A, Acute kidney injury superimposed on stage 3a chronic kidney disease, Acute encephalopathy, Type 1 diabetes mellitus with hyperglycemia, Acute and chronic respiratory failure with hypoxia, DNR (do not resuscitate) discussion Primary Care Provider: Mauricio Mckeon,Lucian
[2024-12-19 20:07] LABS: Allen Test Positive; Base Excess 6 mmol/L (-2 to +2); Bicarbonate 31.5 mmol/L (22-26); Blood Gas Specimen Type ART; Mode Not entered; O2 Delivery Device Cannula; PO2 56 mmHG (75-100); SITE L Radial; SO2 86 % (95-99); Total Carbon Dioxide 33 mmol/L; pCO2 57.1 mmHg (35-45); pH 7.35 (7.35-7.45)
--- NOTE | 2024-12-19 20:07 | RAD_ITS ---
PROCEDURE: CHEST 1 VIEW (PORTABLE) REASON FOR EXAM: Influenza a, hypoxia, altered mental status TECHNIQUE: Frontal view of the chest. COMPARISON: 01/21/2024; 08/11/2024 FINDINGS: Hazy airspace opacity present in the left midlung region. There is also patchy consolidation in the right lung base. Low inspiratory volumes are present. No pleural effusion or pneumothorax. The cardiomediastinal silhouette is unremarkable. No acute osseous or soft tissue abnormality. RAD/Chest 1 View (Portable) IMPRESSION: 1. Hazy airspace opacity in the left midlung, possibly due to pneumonia or othe r infiltrate. 2. Patchy right basilar opacity, possibly due to atelectasis or infiltrate. Reading Location: [facility]
[2024-12-19 20:10] LABS: Absolute Lymphocyte Count 0.73 X10^3/uL (0.83-4.51); Basophil# 0.11 X10^3/uL; Basophil% 0.4 % (0-1); Hematocrit 33.3 % (37-47); Hemoglobin 10.5 g/dL (12.0-15.0); Lymphocyte # 0.73 X10^3/ul (0.83-4.51); Lymphocyte % 2.6 % (19-41); Mean Corp Hgb Conc 31.5 g/dL (32-36); Mean Corpuscular Hgb 28.8 pg (27.0-32.0); Mean Corpuscular Volume 91.5 fL (81-99); Mean Platelet Vol. 9.8 fl (6.2-12.0); Monocyte# 0.55 X10^3/uL; NRBC Flagged by Analyzer 0 % (0-5); Neutrophil # 25.97 X10^3/uL (2.7-7.7); Neutrophil % 94.1 % (47-70); POSITIVE DIFFERENTIAL YES; Platelet Count 314 K/mm3 (150-450); RBC Distribution Width CV 14.6 % (11.6-14.6); RBC Distribution Width SD 48.9 fl (35.1-43.9); Red Blood Count 3.64 M/mm3 (4.2-5.4); White Blood Count 27.6 K/mm3 (4.4-11.0)
[2024-12-19 20:14] LABS: Differential Indicated SCAN CRITERIA MET
[2024-12-19 20:28] LABS: ALB/GLOB Ratio 0.8 RATIO (0.9-2.4); AST(SGOT) 9 U/L (15-37); Alanine Aminotransfer ALT/SGPT 16 U/L (13-56); Albumin, Serum 3.1 g/dL (3.2-5.0); Alkaline Phosphatase 89 U/L (45-117); Anion Gap 9 (5-15); BUN 77 mg/dL (7-18); BUN/Creat Ratio 31.8 RATIO (10-20); Calcium,Total 8.6 mg/dL (8.5-10.1); Chloride 98 mmol/L (98-107); Creatinine, Serum 2.42 mg/dL (0.55-1.02); EST Glomerular Filtration Rate 20 mL/min (>60); Est Glom Filt Rate - Afr Amer 25 mL/min (>60); Estimated Creatinine Clearance 20.61 ml/min; Globulin 4.1 g/dL (2.2-4.2); Glucose 429 mg/dL (74-106); Potassium 5.1 mmol/L (3.5-5.1); Protein, Total 7.2 g/dL (6.4-8.2); Sodium Level 133 mmol/L (136-145)
[2024-12-19 20:32] LABS: Anisocytosis RARE; Macrocytosis RARE; Platelet Estimate ADEQUATE (ADEQ); Red Cell Morphology N CHROM NORMAL (NORM C&C)
[2024-12-19] MEDS: Ceftriaxone 2 GM in 0.9% Normal Saline (50mL MB+) 50 ML IV (20:46)
--- NOTE | 2024-12-19 20:51 | ED.RN ---
Critical Lactic Acid of 2.0. Dr. Pradhan notified.
[2024-12-19 21:02] LABS: International Normalized Ratio 1.2; Partial Thromboplast Time 26.5 Seconds (24.1-36.2); Prothrombin Time (Protime)PT. 15.4 SECONDS (11.7-14.9)
[2024-12-19] MEDS: Azithromycin 500 MG in 0.9% Normal Saline (250mL Bag) 250 ML 255 MG IV (21:22)
[2024-12-19] MEDS: Insulin Lispro 100 UNIT/ML INSULN.PEN 8 UNIT SC (21:23)
[2024-12-19 21:50] LABS: Bacteria 0 SEEN /hpf (None Seen)
[2024-12-19 21:55] LABS: Color, Urine Yellow (Yellow); Glucose, Dipstick Normal (Normal); Ketone-Dipstick Negative (Negative); Leukocyte Esterase-Dipstick 25 /ul (Negative); Nitrite-Dipstick Negative (Negative); Occult Blood-Urine Negative /ul (Negative); Protein-Dipstick 30 mg/dl (Negative); Specific Gravity, Urine 1.015 (1.002-1.030); Urine Bilirubin Dipstick Negative (Negative); Urine Clarity Clear (Clear); Urine Urobilinogen Normal (Normal)
[2024-12-19 22:11] LABS: Squamous Epithelial Cells - UA 0-5 SEEN /hpf (5-10)
[2024-12-19 22:12] LABS: Red Blood Cells-Urine 0-5 SEEN /hpf (0-5); White Blood Cells 5-10 SEEN /hpf (0-5)
[2024-12-19 22:14] LABS: Hyaline Cast 0-5 SEEN /lpf (0-5); Mucous, Urine 1+ /hpf (<or=2+)
[2024-12-19] MEDS: Vancomycin HCl 1,250 MG in 0.9% Normal Saline (250mL Bag) 250 ML 167 MG IV (23:04)
--- NOTE | 2024-12-19 23:21 | PCM.HP.STD ---
HPI - General General Date of Admission: 12/19/24 Date of Service: 12/19/24 Chief Complaint: Encephalopathy, dyspnea, hypoxia. 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, anxiety and depression/chronic insomnia/PTSD/mood disorder, GERD, chronic dysphagia, hypothyroidism, chronic anemia/iron deficiency anemia, CKD stage III unclear subtype per GFR trending, obesity, CAD with no history of PCI who presents to the [facility] ED on 12/19/2024 with history of recent diagnosis the week prior of influenza A with ongoing symptoms of fatigue, malaise, congestion, body aches although difficult assessment given communication deficits with underlying cognitive impairment however patient clinically worsens with decreased level of consciousness and worsening dyspnea with hypoxia prompting ED evaluation to be cautious. Workup in the ED included T98, heart rate 59, BP 131/57, respiratory rate 29, 98% on 4 L nasal cannula eventually desaturating requiring up to 8 L high flow maintaining 89 to 92% with most recent repeat vitals T97.5, heart rate 54, BP 137/61, CBC with WBC 27.6, hemoglobin 10.5, MCV 91.5, platelet 314 with left shift and lymphopenia, coags with PT 15.4 otherwise unremarkable, ABG with pH 7.35, bicarb 31.5, pCO2 57.1, pO2 56, CMP with sodium 133, BUN/creatinine 77/2.42, GFR 20, lactic acid 2.0, hepatic profile not marked appearing, urinalysis with no obvious evidence of UTI, chest x-ray with hazy airspace opacity in the left midlung possibly pneumonia, patchy right basilar opacity possibly atelectasis or infiltrate, EKG with sinus bradycardia with no acute evidence of ischemia. In the ED patient administered IV vancomycin, IV azithromycin and IV Rocephin in addition to insulin 8 units subcu x 1 and 1 L normal saline. In the ED facilities paperwork was reviewed and patient on her facility paperwork was noted to be full code. [facility] Medical History Other lack of coordination Unspecified lack of coordination Other specified disorders of bone density and structure, left ankle and foot Other specified disorders of bone density and structure, right ankle and foot Primary osteoarthritis, right ankle and foot Heart disease, unspecified Personal history of urinary (tract) infections Acquired absence of other specified parts of digestive tract Other symptoms and signs involving cognitive functions and awareness Other enthesopathies, not elsewhere classified Unspecified abnormalities of breathing Personal history of pneumonia (recurrent) Cognitive communication deficit Hypo-osmolality and hyponatremia Daytime sleepiness Hypersomnolence Diabetes mellitus Fatigue Dyspnea on exertion Resistant hypertension Hyperlipidemia PVD (peripheral vascular disease) Pain in left shoulder Pain in right shoulder Hypertensive retinopathy, bilateral Mild cognitive impairment of uncertain or unknown etiology Anemia Osteoarthritis of knees, bilateral Delusional disorder Osteoarthritis of hips, bilateral Weakness COVID-19 (~10/2023) Hypoxia Elevated blood pressure reading History of stress test PTSD (post-traumatic stress disorder) Insomnia Depression Dysphagia Diabetes type 2, controlled GERD (gastroesophageal reflux disease) Anxiety Liver disease Hypothyroid Hypertension Home Medications ?Medication ?Instructions ?Recorded ?Last Taken ?Type labetalol 300 mg tablet 300 mg PO BID HTN 12/25/18 11/14/23 History acetaminophen 325 mg capsule 325 mg PO DAILY pain 11/14/23 11/12/23 History acetaminophen 500 mg tablet 500 mg PO DAILY pain 11/14/23 11/12/23 History ferrous sulfate 325 mg (65 mg 325 mg PO DAILY 11/14/23 11/14/23 History iron) tablet (FeroSul) levothyroxine 88 mcg tablet 88 mcg PO DAILY 11/14/23 11/14/23 History menthol 5 % topical gel (Biofreeze 1 ea topical QHS RIGHT SHOULDER 11/14/23 11/13/23 History (menthol)) PAIN losartan 100 mg tablet 100 mg PO DAILY 11/18/23 Unknown History melatonin 3 mg tablet 3 mg PO HS 11/18/23 Unknown History sertraline 100 mg tablet 100 mg PO DAILY 11/18/23 Unknown History amlodipine 5 mg tablet 5 mg PO BID 12/05/23 Unknown History gabapentin 300 mg capsule 300 mg PO BID 12/05/23 Unknown History tramadol 50 mg tablet 50 mg PO QHS pain 12/05/23 Unknown History glucagon HCl 1 mg solution for 1 mg subcut Q20M PRN 01/28/24 Unknown History injection (Glucagon (HCl) Emergency Kit) clonidine HCl 0.2 mg tablet 0.2 mg PO BID #60 tabs 03/04/24 Unknown Rx glipizide 5 mg tablet 5 mg PO BID 06/26/24 Unknown History potassium chloride 20 mEq 10 meq PO DAILY 06/26/24 Unknown History tablet,extended release(part/cryst) aripiprazole 5 mg tablet 2.5 mg PO QDAY 08/12/24 Unknown History atorvastatin 10 mg tablet 10 mg PO QDAY 08/12/24 Unknown History clopidogrel 75 mg tablet (Plavix) 75 mg PO QDAY #90 tabs 08/12/24 Unknown Rx furosemide 40 mg tablet 40 mg PO QDAY #90 tabs 08/12/24 Unknown Rx cranberry 400 mg capsule 450 mg PO DAILY 09/25/24 Unknown History diazepam 2 mg tablet 2 mg PO QHS 09/25/24 Unknown History insulin lispro 100 unit/mL 1 sliding scale dose subcut 09/25/24 Unknown History subcutaneous pen USEASDIRECTD sennosides 8.6 mg-docusate sodium 1 tab-cap PO BID constipation 09/25/24 Unknown History 50 mg tablet (Senexon-S) ipratropium 0.5 mg-albuterol 3 mg 3 ml inhalation 4X/DAY 12/19/24 Unknown History (2.5 mg base)/3 mL nebulization soln potassium chloride 10 mEq See Rx Instructions PO DAILY 12/19/24 Unknown History tablet,extended release Allergy/AdvReac Type Severity Reaction Status Date / Time diphenhydramine (From Allergy PT UNABLE Verified 12/19/24 19:18 Benadryl) TO RESPOND-NEEDS F/U prednisone AdvReac Intermediate Other Verified 12/19/24 19:18 ANTIHISTAMINES Allergy PT UNABLE Uncoded 09/25/24 14:28 TO RESPOND-NEEDS F/U DECONGESTANTS Allergy Shortness Uncoded 09/25/24 14:28 of breath Family History unable to obtain unable to obtain Surgical History S/P laparoscopic-assisted sigmoidectomy S/P partial thyroidectomy History of ankle surgery Social History housing: [facility] Smoking Status: Never smoker alcohol intake: never substance use type: does not use caffeine: No ROS Review of Systems ROS Unobtainable: due to encephalopathy and due to mental condition Vital Signs Vital Signs Vital Signs: 12/19/24 19:13 12/19/24 20:17 12/19/24 20:45 Temperature 98 F 98.0 F Temperature Source Axillary Oral Pulse Rate 59 L 54 L Respiratory Rate 29 H 24 H Respiratory Effort Respiratory Pattern Blood Pressure 131/57 H 136/55 H Blood Pressure Mean 81 82 Pulse Ox 98 91 92 Oxygen Delivery Method Nasal Cannula Nasal Cannula High Flow Oxygen Flow Rate (L/min) 4 6 8 12/19/24 20:50 12/19/24 21:00 12/19/24 22:00 Temperature 96.8 F L Temperature Source Core Pulse Rate 54 L 55 L Respiratory Rate 25 H 23 H Respiratory Effort Normal Non-Labored Respiratory Pattern Tachypnea Blood Pressure 136/61 H 132/53 H Blood Pressure Mean 86 79 Pulse Ox 92 96 Oxygen Delivery Method Nasal Cannula High Flow High Flow Oxygen Flow Rate (L/min) 5 8 6 12/19/24 23:00 Temperature Temperature Source Pulse Rate 57 L Respiratory Rate 23 H Respiratory Effort Respiratory Pattern Blood Pressure 131/86 H Blood Pressure Mean 101 Pulse Ox 91 Oxygen Delivery Method Nasal Cannula Oxygen Flow Rate (L/min) 4 Weight Weight: 198 lb 10.184 oz Body Mass Index (BMI) 32.1 Physical Exam Narrative Physical Examination: General: Patient is significantly lethargic, does awaken to stimuli but takes significant intervention and patient very quickly closes her eyes again, laying in the ED bed on high flow. Skin: Normal color, normal turgor, no icterus, no cyanosis except very staged ecchymoses, abrasion. HEENT: AT/NC, EOM unable to be assessed well given encephalopathy, PERRLA, dry MM, no carotid bruits or JVD noted. Lungs: Significantly diminished, greater bases, tachypneic, on high flow, accessory muscle usage noted, rhonchorous bilaterally./Coarse Heart: Bradycardic with regular rhythm; no gallop, rub audible. Abdomen: Soft, obese, no grimacing with palpation, distant BS, no obvious distention or HSM. Extremities: No cyanosis, no clubbing, no marked peripheral distal edema noted. Neurological: Patient is significantly lethargic, does awaken to stimuli but takes significant intervention and patient very quickly closes her eyes again, laying in the ED bed on high flow, cognitive function not baseline intact but does have underlying cognitive impairment of unclear specific level, pupils equally reactive to light and accommodation, cranial nerves difficult to assess given encephalopathy, spontaneously moving extremities but very minimal given encephalopathy and presentation, strength severely globally decreased. Psychiatric: Affect appears flat, encephalopathic, no acute evidence of depressive or anxiety feelings but does have underlying significant psychiatric history. Results Lab / Micro Data 12/19/24 20:00 12/19/24 20:00 Labs: Laboratory Results - last 24 hr 12/19/24 20:00: WBC 27.6 H, RBC 3.64 L, Hgb 10.5 L, Hct 33.3 L, MCV 91.5, MCH 28.8, MCHC 31.5 L, RDW Std Deviation 48.9 H, RDW Coeff of Tuan 14.6, Plt Count 314, MPV 9.8, Immature Gran % (Auto) 0.900, Neut % (Auto) 94.1 H, Lymph % (Auto) 2.6 L, Anderson % (Auto) 2.0, Eos % (Auto) 0.0, Baso % (Auto) 0.4, Absolute Neuts (auto) 26.0 H, Absolute Lymphs (auto) 0.73 L, Nucleated RBC % 0, Differential Comment SEE COMMENT, Platelet Estimate ADEQUATE, RBC Morphology N CHROM, Anisocytosis RARE, Macrocytosis RARE, Sodium 133 L, Potassium 5.1, Chloride 98, Carbon Dioxide 27.0, Anion Gap 9, BUN 77 H, Creatinine 2.42 H, Estim Creat Clear Calc 20.61, Est GFR (MDRD) Af Amer 25 L, Est GFR (MDRD) Non-Af 20 L, BUN/Creatinine Ratio 31.8 H, Glucose 429 H, Lactic Acid 2.0, Calcium 8.6, Total Bilirubin 0.30, AST 9 L, ALT 16, Alkaline Phosphatase 89, Total Protein 7.2, Albumin 3.1 L, Globulin 4.1, Albumin/Globulin Ratio 0.8 L 12/19/24 20:30: PT 15.4 H, INR 1.2, APTT 26.5 12/19/24 21:45: Urine Color Yellow, Urine Clarity Clear, Urine pH 5.0, Ur Specific [place] 1.015, Urine Protein 30 H, Urine Glucose (UA) Normal, Urine Ketones Negative, Urine Occult Blood Negative, Urine Nitrite Negative, Urine Bilirubin Negative, Urine Urobilinogen Normal, Ur Leukocyte Esterase 25 H, Urine RBC 0-5 SEEN, Urine WBC 5-10 SEEN, Ur Squamous Epith Cells 0-5 SEEN, Urine Bacteria 0 SEEN, Hyaline Casts 0-5 SEEN, Urine Mucus 1+ ABG Data ABG results: ABG 12/19/24 20:03 Specimen Type ART Sample Site L Radial pH 7.35 Bicarbonate Actual 31.5 H Total CO2 33 Base Excess 6 H O2 Saturation 86 L O2 % 6.0 ABG pCO2 57.1 H ABG pO2 56 L Francisco Test Positive O2 Delivery Device Cannula Vent Mode Not entered Imaging Radiology Impression Chest X-Ray 12/19/24 20:07 IMPRESSION: 1. Hazy airspace opacity in the left midlung, possibly due to pneumonia or other infiltrate. 2. Patchy right basilar opacity, possibly due to atelectasis or infiltrate. 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, anxiety and depression/chronic insomnia/PTSD/mood disorder, GERD, chronic dysphagia, hypothyroidism, chronic anemia/iron deficiency anemia, CKD stage III unclear subtype per GFR trending, obesity, CAD with no history of PCI who presents to the [facility] ED on 12/19/2024 with history of recent diagnosis the week prior of influenza A with ongoing symptoms of fatigue, malaise, congestion, body aches although difficult assessment given communication deficits with underlying cognitive impairment however patient clinically worsens with decreased level of consciousness and worsening dyspnea with hypoxia prompting ED evaluation to be cautious. #1. Acute Sepsis (leukocytosis, tachypnea, hypoxic respiratory failure with high flow requirements, acute kidney injury) secondary to Acute Hypoxic and Hypercarbic Respiratory Failure secondary to recent Acute Influenza A Viral Syndrome now with Superimposed Bacterial Bilateral Pneumonia: Will admit to the ICU per facility protocol, will consult functional mental disability teacher also per facility protocol, maintain on oxygen with wean as tolerated to room air, continue ATC duonebs, PRN albuterol, will maintain on IV Zosyn, vancomycin, azithromycin with MRSA screen with de-escalation of antibiotics as able per severe pneumonia order set, maintain HOB, IS parameters w/ pending sputum cultures, full respiratory viral panel, procalcitonin and urine antigens. Will maintain on IV PPI given current encephalopathic status with n.p.o. status until clinically safe for oral intake. Bld cx x 2 obtained in the ED. #2. Acute kidney injury on CKD stage III unclear subtype per GFR trending: Secondary to acute presentation as noted #1 with likely recent poor oral intake concurrently. Admission BUN/Cr 77/2.42, GFR 20, prior baseline creatinine noted to be primarily 1.3-1.4. Will hydrate, hold nephrotoxic medications and repeat chemistry in AM. If no improvement will investigate further. #3. Chronic normocytic anemia/iron deficiency anemia: Admission hemoglobin 10.5, MCV 91.5, baseline hemoglobin 9-10 range, stable, continue to trend, holding oral iron supplement temporarily until oral intake safe, trend CBC. #4. Chronic cognitive impairment of uncertain etiology: Complicates presentation, unclear if underlying dementia and unclear specific etiology of cognitive impairment, will maintain on fall and aspiration precautions, PT/OT/case management consulted and once clinically appropriate may also be necessary to consult speech therapy. #5. Hypertension: BP despite septic presentation has maintained normal level, continue to cautiously monitor, holding all oral hypertensives but per review of records patient does have history of resistant hypertension, will have IV as needed hydralazine in interim. #6. Hyperlipidemia: Will hold statin therapy until oral intake safe, resume once clinically appropriate. #7. Diabetes mellitus type II with hyperglycemia with chronic neuropathy: Hold oral home regimen, n.p.o. status given unsafe oral intake currently, will maintain on accu checks w/ ISS, hemoglobin A1c requested. Temporarily holding oral gabapentin regimen, resume once clinically appropriate. #8. Anxiety and depression/chronic insomnia/PTSD/mood disorder: Unclear potential related with underlying cognitive impairment, on a significant amount of psychiatric medications, holding all regimen until oral intake safe, resume once clinically able and appropriate. #9. CAD: Patient with no history of PCI, per cardiology records appears as though Plavix has been started because of calcifications noted on imaging, will hold Plavix, transition in the interim to [place] aspirin, temporally holding statin, losartan and labetalol regimen, resume once clinically appropriate. Patient on monitor appears to have chronic bradycardia. #10. Hypothyroidism: Temporally holding oral levothyroxine regimen, if prolonged may need to consider one half IV dosing daily. #11. GERD: Will maintain on IV PPI. #12. Obesity: Weight loss and lifestyle changes will be encouraged. #13. DVT prophylaxis: Heparin. #14. CODE STATUS: Full code per facility paperwork. Sepsis Attestation Sepsis Alert: Yes Sepsis Attestation: Agree w/Sepsis Date exam was performed: 12/19/24 Time exam was performed: 23:41 Possible Source of Sepsis: Pulmonary Sepsis Organ Dysfunction Criteria Present: Acute Respiratory Failure (New need for BiPAP/CPAP or MV), Creatinine > 2.0 mg/dL and New/Unexplained change in mental status Fluid Resuscitation Fluid resuscitation indicated?: Yes Amount of fluid ordered: 2,000 Reason for lesser fluid bolus:: Other (ED initiated 1L NS, will give additional bolus, 30 cc/kg 2,700. Will assess following 2L and if no respiratory concern for overload will add additional 700 cc.) Charges/Coding Visit Charges Inpatient E&M: 90426 Init Hosp L3
[2024-12-19] MEDS: 0.9% Normal Saline (1000mL) 1,000 ML 1000 ML IV (23:35)
[2024-12-19 23:52] LABS: Magnesium 2.5 mg/dL (1.6-2.6); Phosphorus 3.9 mg/dL (2.5-4.9)
[2024-12-20] VITALS (36 sets, daily range): BP systolic 120–190; BP diastolic 51–77; PULSE 53–78; RESP 19–27; TEMP 34.9–37.1; O2SAT 88–98; BMI 30.5; BMI 30.4
[2024-12-20 00:02] LABS: Procalcitonin 40.01 ng/mL (0.00-0.09)
[2024-12-20 00:04] LABS: Reflex Lactate? Y
[2024-12-20] MEDS: 0.9% Normal Saline (1000mL) 1,000 ML 999 ML IV (01:00)
[2024-12-20] MEDS: Pantoprazole Sodium 40 MG in 0.9% Normal Saline (100mL MB+) 100 ML 330 MG IV ×3 (01:01→21:17)
[2024-12-20] MEDS: Insulin Lispro 100 UNIT/ML INSULN.PEN SC ×2 (01:01→05:32)
--- NOTE | 2024-12-20 01:08 | PCMCONS.TICU ---
HPI Consult Data Date of Consult: 12/20/24 HPI Narrative HPI Narrative: REHAN DUNLAP, is a 79 WF with a a hx of recent Flu A, chronic cognitive impairment of uncertain etiology, hypertension, hyperlipidemia, diabetes mellitus type 2, anxiety, depression, PTSD, GERD, hypothyroidism, chronic anemia, CKD, CAD who presented to the ER here with fatigue, malaise, congestion and myalgia and encephalopathy. Her CXR showed bilateral infiltrates c/w PNA. She was admitted to the ICU due her hypoxia (she was on 8 LPM) and encehalopathy. I was subsequently consulted. On interview tonight, the patient was somnolent but rousable. She denied any pain or discomfort but was obviously somnolent. Per nurse, the patient was making urine. She was hypothermic. On 6 LPM of O2. She had NS running at 100 cc/hr. She had no other drips infusing. [facility] Medical History Other lack of coordination Unspecified lack of coordination Other specified disorders of bone density and structure, left ankle and foot Other specified disorders of bone density and structure, right ankle and foot Primary osteoarthritis, right ankle and foot Heart disease, unspecified Personal history of urinary (tract) infections Acquired absence of other specified parts of digestive tract Other symptoms and signs involving cognitive functions and awareness Other enthesopathies, not elsewhere classified Unspecified abnormalities of breathing Personal history of pneumonia (recurrent) Cognitive communication deficit Hypo-osmolality and hyponatremia Daytime sleepiness Hypersomnolence Diabetes mellitus Fatigue Dyspnea on exertion Resistant hypertension Hyperlipidemia PVD (peripheral vascular disease) Pain in left shoulder Pain in right shoulder Hypertensive retinopathy, bilateral Mild cognitive impairment of uncertain or unknown etiology Anemia Osteoarthritis of knees, bilateral Delusional disorder Osteoarthritis of hips, bilateral Weakness COVID-19 (~10/2023) Hypoxia Elevated blood pressure reading History of stress test PTSD (post-traumatic stress disorder) Insomnia Depression Dysphagia Diabetes type 2, controlled GERD (gastroesophageal reflux disease) Anxiety Liver disease Hypothyroid Hypertension Home Medications ?Medication ?Instructions ?Recorded ?Last Taken ?Type labetalol 300 mg tablet 300 mg PO BID HTN 12/25/18 11/14/23 History acetaminophen 325 mg capsule 325 mg PO DAILY pain 11/14/23 11/12/23 History acetaminophen 500 mg tablet 500 mg PO DAILY pain 11/14/23 11/12/23 History ferrous sulfate 325 mg (65 mg 325 mg PO DAILY 11/14/23 11/14/23 History iron) tablet (FeroSul) levothyroxine 88 mcg tablet 88 mcg PO DAILY 11/14/23 11/14/23 History menthol 5 % topical gel (Biofreeze 1 ea topical QHS RIGHT SHOULDER 11/14/23 11/13/23 History (menthol)) PAIN losartan 100 mg tablet 100 mg PO DAILY 11/18/23 Unknown History melatonin 3 mg tablet 3 mg PO HS 11/18/23 Unknown History sertraline 100 mg tablet 100 mg PO DAILY 11/18/23 Unknown History amlodipine 5 mg tablet 5 mg PO BID 12/05/23 Unknown History gabapentin 300 mg capsule 300 mg PO BID 12/05/23 Unknown History tramadol 50 mg tablet 50 mg PO QHS pain 12/05/23 Unknown History glucagon HCl 1 mg solution for 1 mg subcut Q20M PRN 01/28/24 Unknown History injection (Glucagon (HCl) Emergency Kit) clonidine HCl 0.2 mg tablet 0.2 mg PO BID #60 tabs 03/04/24 Unknown Rx glipizide 5 mg tablet 5 mg PO BID 06/26/24 Unknown History potassium chloride 20 mEq 10 meq PO DAILY 06/26/24 Unknown History tablet,extended release(part/cryst) aripiprazole 5 mg tablet 2.5 mg PO QDAY 08/12/24 Unknown History atorvastatin 10 mg tablet 10 mg PO QDAY 08/12/24 Unknown History clopidogrel 75 mg tablet (Plavix) 75 mg PO QDAY #90 tabs 08/12/24 Unknown Rx furosemide 40 mg tablet 40 mg PO QDAY #90 tabs 08/12/24 Unknown Rx cranberry 400 mg capsule 450 mg PO DAILY 09/25/24 Unknown History diazepam 2 mg tablet 2 mg PO QHS 09/25/24 Unknown History insulin lispro 100 unit/mL 1 sliding scale dose subcut 09/25/24 Unknown History subcutaneous pen USEASDIRECTD sennosides 8.6 mg-docusate sodium 1 tab-cap PO BID constipation 09/25/24 Unknown History 50 mg tablet (Senexon-S) ipratropium 0.5 mg-albuterol 3 mg 3 ml inhalation 4X/DAY 12/19/24 Unknown History (2.5 mg base)/3 mL nebulization soln potassium chloride 10 mEq See Rx Instructions PO DAILY 12/19/24 Unknown History tablet,extended release Allergy/AdvReac Type Severity Reaction Status Date / Time diphenhydramine (From Allergy PT UNABLE Verified 12/19/24 19:18 Benadryl) TO RESPOND-NEEDS F/U prednisone AdvReac Intermediate Other Verified 12/19/24 19:18 ANTIHISTAMINES Allergy PT UNABLE Uncoded 09/25/24 14:28 TO RESPOND-NEEDS F/U DECONGESTANTS Allergy Shortness Uncoded 09/25/24 14:28 of breath Family History unable to obtain Surgical History S/P laparoscopic-assisted sigmoidectomy S/P partial thyroidectomy History of ankle surgery Social History housing: prison Smoking Status: Never smoker alcohol intake: never substance use type: does not use caffeine: No ROS ROS Narrative Positive only for features mentioned in the HPI. Objective Data Objective Data Vital Signs: Vital Signs Last response Temperature 36.4 C L 12/19/24 23:36 Temperature Source Core 12/19/24 22:00 Pulse Rate 54 L 12/19/24 23:36 Respiratory Rate 21 H 12/19/24 23:36 Respiratory Effort Normal, Non-Labored 12/19/24 20:50 Respiratory Pattern Tachypnea 12/19/24 20:50 Blood Pressure 137/61 H 12/19/24 23:36 Blood Pressure Mean 86 12/19/24 23:36 Pulse Ox 91 12/19/24 23:36 Oxygen Delivery Method High Flow 12/20/24 00:21 Oxygen Flow Rate (L/min) 4 12/19/24 23:00 I&O: I&O Last 24 Hours 12/19/24 12/19/24 12/20/24 11:59 23:59 11:59 Intake Total 305 / 305 1000 / 1000 Balance 305 / 305 1000 / 1000 I&O: Total Stay 12/19/24 19:12 thru 12/20/24 01:00 Intake Total 1305 Balance 1305 Current Meds Ordered / Administered: Current meds ordered / Administered Generic Name Dose Route Start Last Admin Trade Name Freq PRN Reason Stop Dose Admin Acetaminophen 650 mg 12/20/24 00:09 Acetaminophen 650 Mg Suppository RC Q4H PRN PRN Fever, pain 1-10 Albuterol Sulfate 2.5 mg 12/20/24 00:09 Albuterol 2.5 Mg/3 Ml Vial.Neb. INHALATION Q2H PRN PRN Dyspnea, wheezing Albuterol/Ipratropium 3 ml 12/20/24 00:09 Ipratropium/Albuterol Sulfate 3 Ml Ampul.Neb INHALATION Q4HWA.RT [facility] Aspirin 300 mg 12/20/24 10:00 Aspirin 300 Mg Suppository RC DAILY [facility] Calamine/Phenol 1 applic 12/20/24 10:00 Menthol/Lanolin/Calamine/Znox 113 Gm Tube TOPICAL 4X/DAY [facility] Protocol Glucagon 1 mg 12/20/24 00:09 Glucagon 1 Mg/Ml Syringe IM X1 PRN HYPOGLYCEMIA Protocol Heparin Sodium (Porcine) 5,000 unit 12/20/24 10:00 Heparin Injection (Vial) 5,000 Unit/Ml Vial SC Q12 [facility] Hydralazine HCl 10 mg 12/20/24 00:09 Hydralazine 20 Mg/Ml Vial IV Q4H PRN PRN SBP > 160 Protocol Sodium Chloride 1,000 mls @ 100 mls/hr 12/20/24 00:09 IV 12/20/24 10:08 .Q10H SARAH Protocol Azithromycin 500 mg/ Sodium 255 mls @ 255 mls/hr 12/20/24 22:00 Chloride IV Q24H SARAH Dextrose 250 mls @ 0 mls/hr 12/20/24 00:09 Dextrose 10%-Water IV .Q0M PRN HYPOGLYCEMIA Protocol As Directed Sodium Chloride 1,000 mls @ 999 mls/hr 12/20/24 00:09 12/20/24 01:00 IV 12/20/24 01:09 999 mls/hr .Q1H1M ONE Administration Protocol Pantoprazole Sodium 40 mg/ 110 mls @ 330 mls/hr 12/20/24 00:09 12/20/24 01:01 Sodium Chloride IV 330 mls/hr Q12 SARAH Administration Vancomycin IV-PHARMACY TO DOSE 500 mls @ 250 mls/hr 12/20/24 00:09 1 each/ Sodium Chloride IV X1 PRN Rx to Dose Protocol Piperacillin Sod/Tazobactam 50 mls @ 12.5 mls/hr 12/20/24 06:00 Sod 3.375 gm/ Sodium Chloride IV 12/27/24 06:01 Q8 SARAH Sodium Chloride 100 mls @ 15 mls/hr 12/20/24 00:14 IV .Q6H40M PRN Saline Flush Sodium Chloride 100 mls @ 15 mls/hr 12/20/24 00:14 IV .Q6H40M PRN Additional IVPB Infusion Insulin Human Lispro 0 unit 12/20/24 00:09 12/20/24 01:01 Insulin Lispro 100 Unit/Ml Insuln.Pen SC 3 units Q6H [facility] Administration Protocol Ondansetron HCl 4 mg 12/20/24 00:09 Ondansetron 4 Mg/2 Ml Vial IV Q8H PRN PRN NAUSEA/VOMITING Prochlorperazine Edisylate 5 mg 12/20/24 00:09 Prochlorperazine 10 Mg/2 Ml Vial IV Q4H PRN PRN Breakthrough Nausea/Vomiting Physical Exam Const no apparent distress Constitutional Narrative: Somnolent but easilly rousable. HEENT normocephalic, head/scalp atraumatic, external nose normal and nasal mucous membranes and turbinates normal Head and Scalp: normal to inspection Eyes conjunctivae normal General Eye: normal appearance of both eyes Neck General: normal visual inspection Resp Resp Narrative: +Crackles in B lungs. No w/ronchi. Cardio regular rate, regular rhythm, S1 normal heart sound, S2 normal heart sound, no murmurs, no rub, no gallops, no clicks, no JVD, peripheral pulses 2+ throughout and diaphoretic GI normal to inspection, nondistended, normoactive bowel sounds, soft to palpation, non-tender, non-distended, hepatosplenomegaly, no masses and no bruits Extremity normal to inspection, full ROM, normal capillary refill, no joint enlargement, no clubbing, cyanosis or edema, no calf tenderness and no pedal edema Lab / Micro Data 12/19/24 20:00 12/19/24 20:00 Labs: Laboratory Results - last 24 hr 12/19/24 20:00: WBC 27.6 H, RBC 3.64 L, Hgb 10.5 L, Hct 33.3 L, MCV 91.5, MCH 28.8, MCHC 31.5 L, RDW Std Deviation 48.9 H, RDW Coeff of Tuan 14.6, Plt Count 314, MPV 9.8, Immature Gran % (Auto) 0.900, Neut % (Auto) 94.1 H, Lymph % (Auto) 2.6 L, [place] % (Auto) 2.0, Eos % (Auto) 0.0, Baso % (Auto) 0.4, Absolute Neuts (auto) 26.0 H, Absolute Lymphs (auto) 0.73 L, Nucleated RBC % 0, Differential Comment SEE COMMENT, Platelet Estimate ADEQUATE, RBC Morphology N CHROM, Anisocytosis RARE, Macrocytosis RARE, Sodium 133 L, Potassium 5.1, Chloride 98, Carbon Dioxide 27.0, Anion Gap 9, BUN 77 H, Creatinine 2.42 H, Estim Creat Clear Calc 20.61, Est GFR (MDRD) Af Amer 25 L, Est GFR (MDRD) Non-Af 20 L, BUN/Creatinine Ratio 31.8 H, Glucose 429 H, Lactic Acid 2.0, Calcium 8.6, Total Bilirubin 0.30, AST 9 L, ALT 16, Alkaline Phosphatase 89, Total Protein 7.2, Albumin 3.1 L, Globulin 4.1, Albumin/Globulin Ratio 0.8 L 12/19/24 20:30: PT 15.4 H, INR 1.2, APTT 26.5 12/19/24 20:55: Phosphorus 3.9, Magnesium 2.5, Procalcitonin 40.01 H 12/19/24 21:45: Urine Color Yellow, Urine Clarity Clear, Urine pH 5.0, Ur Specific [place] 1.015, Urine Protein 30 H, Urine Glucose (UA) Normal, Urine Ketones Negative, Urine Occult Blood Negative, Urine Nitrite Negative, Urine Bilirubin Negative, Urine Urobilinogen Normal, Ur Leukocyte Esterase 25 H, Urine RBC 0-5 SEEN, Urine WBC 5-10 SEEN, Ur Squamous Epith Cells 0-5 SEEN, Urine Bacteria 0 SEEN, Hyaline Casts 0-5 SEEN, Urine Mucus 1+ Micro: Microbiology 12/19/24 21:45 Urine Catheter - Reynolds Legionella Antigen - Final 12/19/24 21:45 Urine Catheter - Reynolds Streptococcus pneumoniae Antigen (M - Final ABG Data ABG results: ABG 12/19/24 20:03 Specimen Type ART Sample Site L Radial pH 7.35 Bicarbonate Actual 31.5 H Total CO2 33 Base Excess 6 H O2 Saturation 86 L O2 % 6.0 ABG pCO2 57.1 H ABG pO2 56 L Francisco Test Positive O2 Delivery Device Cannula Vent Mode Not entered Imaging Radiology Impression Chest X-Ray 12/19/24 20:07 IMPRESSION: 1. Hazy airspace opacity in the left midlung, possibly due to pneumonia or other infiltrate. 2. Patchy right basilar opacity, possibly due to atelectasis or infiltrate. Reading [facility] Assessment and Plan . Assessment and plan: 1. Hypoxia 2. PNA 3. ELIO 4. Encephalopathy 5. [place] 6. HTN 7. HLD 8. T2DM 9. Anxiety 10. PTSD 11. GERD 12. Hypothyroidism 13. Anemia 14. CKD 15. CAD -Wean O2 as able. -Continue Vanc, Zosyn and Azithromycin. -F/U blood and sputum cx. -Change q4h atrovent to albuterol -On NS at 100 cc/hr. -Check CMP, Mg, phos and CBC tomorrow. -NPO. On subq BID heparin. -DNR Critical Care Time: 60 mins The entirety of this encounter was done via Telemedicine
[2024-12-20 01:21] LABS: Bedside Glucose 343 mg/dL (74-106)
--- NOTE | 2024-12-20 01:25 | PCM.RX.CS ---
Consult Antibiotic Management Pharmacy has been consulted to manage selected antibiotic: Vancomycin Type of Intervention Type of Consult: New start Labs Labs: Sodium 133 mmol/L (136-145) L 12/19/24 20:00 Potassium 5.1 mmol/L (3.5-5.1) 12/19/24 20:00 Chloride 98 mmol/L (98-107) 12/19/24 20:00 Carbon Dioxide 27.0 mmol/L (21.0-32.0) 12/19/24 20:00 Anion Gap 9 (5-15) 12/19/24 20:00 BUN 77 mg/dL (7-18) H 12/19/24 20:00 Creatinine 2.42 mg/dL (0.55-1.02) H 12/19/24 20:00 Est GFR (MDRD) Af Amer 25 mL/min (>60) L 12/19/24 20:00 Est GFR (MDRD) Non-Af 20 mL/min (>60) L 12/19/24 20:00 BUN/Creatinine Ratio 31.8 RATIO (10-20) H 12/19/24 20:00 Glucose 429 mg/dL (74-106) H 12/19/24 20:00 Microbiology Microbiology: Microbiology 12/19/24 21:45 Urine Catheter - Reynolds Legionella Antigen - Final 12/19/24 21:45 Urine Catheter - Reynolds Streptococcus pneumoniae Antigen (M - Final Dosing Weight Weight used for dosin.9 kg Estimated Creatinine Clearance Estimated Creatinine Clearance: 20.61 Goal Trough Goal Trough: 15-20 mcg/mL Pharmacy Plan for Drug Dosing Pharmacy Plan for Drug Dosing: Pharmacy Service will continue to monitor and adjust dosing as required. ER DOSE 1250MG GIVEN @ 4. START 750MG Q24H AND DRAW TROUGH PRIOR TO 3RD DOSE CrCl 20.61 NOT ON DIALYSIS Follow-Up Labs Follow-Up Labs: Trough: Vancomycin Date/Time Labs Ordered Labs to be done on [date and time ordered]: 12/21 @ 2230
[2024-12-20 01:39] LABS: Lactic Acid 1.1 mmol/L (0.4-1.9)
[2024-12-20] MEDS: 0.9% Normal Saline (1000mL) 1,000 ML 100 ML IV (02:00)
[2024-12-20] MEDS: Piperacil/Tazobactam 3.375 GM in 0.9% Normal Saline (50mL MB+) 50 ML IV ×3 (05:28→21:17)
[2024-12-20 05:42] LABS: Absolute Neutrophil Count 21.6 X10^3/uL (2.0-7.7); Basophil# 0.06 X10^3/uL; Basophil% 0.3 % (0-1); Hematocrit 31.6 % (37-47); Lymphocyte % 2.6 % (19-41); Mean Corp Hgb Conc 31.6 g/dL (32-36); Mean Corpuscular Hgb 28.8 pg (27.0-32.0); Mean Corpuscular Volume 91.1 fL (81-99); Mean Platelet Vol. 9.6 fl (6.2-12.0); Monocyte# 0.78 X10^3/uL; Monocyte% 3.4 % (0-10); NRBC Flagged by Analyzer 0 % (0-5); Neutrophil # 21.61 X10^3/uL (2.7-7.7); POSITIVE DIFFERENTIAL YES; Platelet Count 290 K/mm3 (150-450); RBC Distribution Width CV 14.5 % (11.6-14.6); RBC Distribution Width SD 48.7 fl (35.1-43.9); Red Blood Count 3.47 M/mm3 (4.2-5.4); White Blood Count 23.2 K/mm3 (4.4-11.0)
[2024-12-20 05:49] LABS: Differential Indicated SCAN CRITERIA MET
[2024-12-20 05:51] LABS: Bedside Glucose 240 mg/dL (74-106)
[2024-12-20 06:03] LABS: ALB/GLOB Ratio 0.7 RATIO (0.9-2.4); AST(SGOT) 7 U/L (15-37); Alanine Aminotransfer ALT/SGPT 15 U/L (13-56); Albumin, Serum 2.9 g/dL (3.2-5.0); Alkaline Phosphatase 85 U/L (45-117); Anion Gap 5 (5-15); BUN 67 mg/dL (7-18); BUN/Creat Ratio 36.2 RATIO (10-20); Calcium,Total 7.8 mg/dL (8.5-10.1); Chloride 106 mmol/L (98-107); Creatinine, Serum 1.85 mg/dL (0.55-1.02); EST Glomerular Filtration Rate 28 mL/min (>60); Est Glom Filt Rate - Afr Amer 34 mL/min (>60); Estimated Creatinine Clearance 26.35 ml/min; Globulin 3.9 g/dL (2.2-4.2); Glucose 274 mg/dL (74-106); Potassium 4.4 mmol/L (3.5-5.1); Protein, Total 6.8 g/dL (6.4-8.2); Sodium Level 138 mmol/L (136-145)
[2024-12-20 06:22] LABS: Free T4 0.88 ng/dL (0.76-1.46); Thyroid Stim Hormone (TSH) 0.456 uIU/mL (0.358-3.740)
[2024-12-20 08:42] LABS: Magnesium 2.4 mg/dL (1.6-2.6); Phosphorus 3.2 mg/dL (2.5-4.9)
[2024-12-20 09:11] LABS: Differential Comment SCANNED; Platelet Estimate ADEQUATE (ADEQ); Red Cell Morphology NORM C+C NORMAL (NORM C&C)
[2024-12-20] MEDS: Heparin Injection (Vial) 5,000 UNIT/ML VIAL 5000 UNIT SC ×2 (10:54→21:18)
[2024-12-20] MEDS: Aspirin 300 MG Suppository RC (10:54)
[2024-12-20] MEDS: Menthol/Lanolin/Calamine/Znox 113 GM Tube 1 APPLIC TOPICAL ×2 (10:54→21:18)
[2024-12-20] MEDS: Ipratropium/Albuterol Sulfate 3 ML AMPUL.NEB INHALATION ×4 (11:31→23:12)
--- NOTE | 2024-12-20 12:24 | PCMCONS.TICU ---
HPI Consult Data Date of Consult: 12/20/24 HPI Narrative Reason for Consultation: 79 yo HPI Narrative: REHAN DUNLAP, is a 79 F who presents [facility] Medical History Other lack of coordination Unspecified lack of coordination Other specified disorders of bone density and structure, left ankle and foot Other specified disorders of bone density and structure, right ankle and foot Primary osteoarthritis, right ankle and foot Heart disease, unspecified Personal history of urinary (tract) infections Acquired absence of other specified parts of digestive tract Other symptoms and signs involving cognitive functions and awareness Other enthesopathies, not elsewhere classified Unspecified abnormalities of breathing Personal history of pneumonia (recurrent) Cognitive communication deficit Hypo-osmolality and hyponatremia Daytime sleepiness Hypersomnolence Diabetes mellitus Fatigue Dyspnea on exertion Resistant hypertension Hyperlipidemia PVD (peripheral vascular disease) Pain in left shoulder Pain in right shoulder Hypertensive retinopathy, bilateral Mild cognitive impairment of uncertain or unknown etiology Anemia Osteoarthritis of knees, bilateral Delusional disorder Osteoarthritis of hips, bilateral Weakness COVID-19 (~10/2023) Hypoxia Elevated blood pressure reading History of stress test PTSD (post-traumatic stress disorder) Insomnia Depression Dysphagia Diabetes type 2, controlled GERD (gastroesophageal reflux disease) Anxiety Liver disease Hypothyroid Hypertension Home Medications ?Medication ?Instructions ?Recorded ?Last Taken ?Type labetalol 300 mg tablet 300 mg PO BID HTN 12/25/18 11/14/23 History acetaminophen 325 mg capsule 325 mg PO DAILY pain 11/14/23 11/12/23 History acetaminophen 500 mg tablet 500 mg PO DAILY pain 11/14/23 11/12/23 History ferrous sulfate 325 mg (65 mg 325 mg PO DAILY 11/14/23 11/14/23 History iron) tablet (FeroSul) levothyroxine 88 mcg tablet 88 mcg PO DAILY 11/14/23 11/14/23 History menthol 5 % topical gel (Biofreeze 1 ea topical QHS RIGHT SHOULDER 11/14/23 11/13/23 History (menthol)) PAIN losartan 100 mg tablet 100 mg PO DAILY 11/18/23 Unknown History melatonin 3 mg tablet 3 mg PO HS 11/18/23 Unknown History sertraline 100 mg tablet 100 mg PO DAILY 11/18/23 Unknown History amlodipine 5 mg tablet 5 mg PO BID 12/05/23 Unknown History gabapentin 300 mg capsule 300 mg PO BID 12/05/23 Unknown History tramadol 50 mg tablet 50 mg PO QHS pain 12/05/23 Unknown History glucagon HCl 1 mg solution for 1 mg subcut Q20M PRN 01/28/24 Unknown History injection (Glucagon (HCl) Emergency Kit) clonidine HCl 0.2 mg tablet 0.2 mg PO BID #60 tabs 03/04/24 Unknown Rx glipizide 5 mg tablet 5 mg PO BID 06/26/24 Unknown History potassium chloride 20 mEq 10 meq PO DAILY 06/26/24 Unknown History tablet,extended release(part/cryst) aripiprazole 5 mg tablet 2.5 mg PO QDAY 08/12/24 Unknown History atorvastatin 10 mg tablet 10 mg PO QDAY 08/12/24 Unknown History clopidogrel 75 mg tablet (Plavix) 75 mg PO QDAY #90 tabs 08/12/24 Unknown Rx furosemide 40 mg tablet 40 mg PO QDAY #90 tabs 08/12/24 Unknown Rx cranberry 400 mg capsule 450 mg PO DAILY 09/25/24 Unknown History diazepam 2 mg tablet 2 mg PO QHS 09/25/24 Unknown History insulin lispro 100 unit/mL 1 sliding scale dose subcut 09/25/24 Unknown History subcutaneous pen USEASDIRECTD sennosides 8.6 mg-docusate sodium 1 tab-cap PO BID constipation 09/25/24 Unknown History 50 mg tablet (Senexon-S) ipratropium 0.5 mg-albuterol 3 mg 3 ml inhalation 4X/DAY 12/19/24 Unknown History (2.5 mg base)/3 mL nebulization soln potassium chloride 10 mEq See Rx Instructions PO DAILY 12/19/24 Unknown History tablet,extended release Allergy/AdvReac Type Severity Reaction Status Date / Time diphenhydramine (From Allergy PT UNABLE Verified 12/19/24 19:18 Benadryl) TO RESPOND-NEEDS F/U prednisone AdvReac Intermediate Other Verified 12/19/24 19:18 ANTIHISTAMINES Allergy PT UNABLE Uncoded 09/25/24 14:28 TO RESPOND-NEEDS F/U DECONGESTANTS Allergy Shortness Uncoded 09/25/24 14:28 of breath Family History unable to obtain Surgical History S/P laparoscopic-assisted sigmoidectomy S/P partial thyroidectomy History of ankle surgery Social History housing: longterm Smoking Status: Never smoker alcohol intake: never substance use type: does not use caffeine: No ROS ROS Narrative Positive only for features mentioned in the HPI. Review of Systems ROS Unobtainable: due to encephalopathy, due to mental condition and due to mental status Objective Data Objective Data Vital Signs: Vital Signs Last response Temperature 36.5 C L 12/20/24 11:00 Temperature Source Core 12/20/24 11:00 Pulse Rate 63 12/20/24 11:31 Respiratory Rate 22 H 12/20/24 11:31 Respiratory Effort Non-Labored 12/20/24 08:00 Respiratory Depth Normal 12/20/24 08:00 Respiratory Pattern Normal 12/20/24 11:31 Blood Pressure 159/69 H 12/20/24 11:00 Blood Pressure Mean 99 12/20/24 11:00 Blood Pressure Source Monitor 12/20/24 11:00 Blood Pressure Position Semi-Fowlers 12/20/24 11:00 Blood Pressure Location Left Arm 12/20/24 11:00 Pulse Ox 95 12/20/24 11:00 Oxygen Delivery Method Nasal Cannula 12/20/24 11:00 Oxygen Flow Rate (L/min) 6 12/20/24 11:00 I&O: I&O Last 24 Hours 12/19/24 12/20/24 12/20/24 23:59 11:59 23:59 Intake Total 305 / 305 2545 / 3545 1000 / 3545 Output Total 600 / 600 Balance 305 / 305 1945 / 2945 1000 / 2945 I&O: Total Stay 12/19/24 19:12 thru 12/20/24 12:04 Intake Total 3850 Output Total 600 Balance 3250 Current Meds Ordered / Administered: Current meds ordered / Administered Generic Name Dose Route Start Last Admin Trade Name Freq PRN Reason Stop Dose Admin Acetaminophen 650 mg 12/20/24 00:09 Acetaminophen 650 Mg Suppository RC Q4H PRN PRN Fever, pain 1-10 Albuterol Sulfate 2.5 mg 12/20/24 00:09 Albuterol 2.5 Mg/3 Ml Vial.Neb. INHALATION Q2H PRN PRN Dyspnea, wheezing Albuterol/Ipratropium 3 ml 12/20/24 00:09 12/20/24 11:31 Ipratropium/Albuterol Sulfate 3 Ml Ampul.Neb INHALATION 3 ml Q4HWA.RT SARAH Administration Aspirin 300 mg 12/20/24 10:00 12/20/24 10:54 Aspirin 300 Mg Suppository RC 300 mg DAILY SARAH Administration Calamine/Phenol 1 applic 12/20/24 10:00 12/20/24 10:54 Menthol/Lanolin/Calamine/Znox 113 Gm Tube TOPICAL 1 applic 4X/DAY SARAH Administration Protocol Glucagon 1 mg 12/20/24 00:09 Glucagon 1 Mg/Ml Syringe IM X1 PRN HYPOGLYCEMIA Protocol Heparin Sodium (Porcine) 5,000 unit 12/20/24 10:00 12/20/24 10:54 Heparin Injection (Vial) 5,000 Unit/Ml Vial SC 5,000 unit Q12 SARAH Administration Hydralazine HCl 10 mg 12/20/24 00:09 Hydralazine 20 Mg/Ml Vial IV Q4H PRN PRN SBP > 160 Protocol Azithromycin 500 mg/ Sodium 255 mls @ 255 mls/hr 12/20/24 22:00 Chloride IV Q24H SARAH Dextrose 250 mls @ 0 mls/hr 12/20/24 00:09 Dextrose 10%-Water IV .Q0M PRN HYPOGLYCEMIA Protocol As Directed Pantoprazole Sodium 40 mg/ 110 mls @ 330 mls/hr 12/20/24 00:09 12/20/24 11:17 Sodium Chloride IV Infused Q12 SARAH Infusion Vancomycin IV-PHARMACY TO DOSE 500 mls @ 250 mls/hr 12/20/24 00:09 1 each/ Sodium Chloride IV X1 PRN Rx to Dose Protocol Piperacillin Sod/Tazobactam 50 mls @ 12.5 mls/hr 12/20/24 06:00 12/20/24 09:28 Sod 3.375 gm/ Sodium Chloride IV 12/27/24 06:01 Infused Q8 SARAH Infusion Sodium Chloride 100 mls @ 15 mls/hr 12/20/24 00:14 IV .Q6H40M PRN Saline Flush Sodium Chloride 100 mls @ 15 mls/hr 12/20/24 00:14 IV .Q6H40M PRN Additional IVPB Infusion Vancomycin HCl 750 mg/ Sodium 265 mls @ 250 mls/hr 12/20/24 23:00 Chloride IV Q24H SARAH Insulin Human Lispro 0 unit 12/20/24 00:09 12/20/24 05:32 Insulin Lispro 100 Unit/Ml Insuln.Pen SC 3 units Q6H [facility] Administration Protocol Ondansetron HCl 4 mg 12/20/24 00:09 Ondansetron 4 Mg/2 Ml Vial IV Q8H PRN PRN NAUSEA/VOMITING Prochlorperazine Edisylate 5 mg 12/20/24 00:09 Prochlorperazine 10 Mg/2 Ml Vial IV Q4H PRN PRN Breakthrough Nausea/Vomiting Vancomycin Protocol 1 lab 12/21/24 20:30 Vancomycin Trough/Random Due MC 12/22/24 00:30 DAILY [facility] Physical Exam Const alert and no apparent distress Constitutional Narrative: Somnolent but easilly rousable. General Appearance: lethargic and ill appearing Orientation / Consciousness: confused Exam Limitations: behavioral limitations HEENT normocephalic, head/scalp atraumatic, external nose normal and nasal mucous membranes and turbinates normal Eyes conjunctivae normal General Eye: normal appearance of both eyes Neck General: normal visual inspection Resp normal respiratory effort Resp Narrative: +Crackles in B lungs. No w/ronchi. Cardio regular rate, regular rhythm, S1 normal heart sound, S2 normal heart sound, no murmurs, no rub, no gallops, no clicks, no JVD, peripheral pulses 2+ throughout and diaphoretic GI normal to inspection, nondistended, normoactive bowel sounds, soft to palpation, non-tender, non-distended, hepatosplenomegaly, no masses and no bruits Extremity normal to inspection, full ROM, normal capillary refill, no joint enlargement, no clubbing, cyanosis or edema, no calf tenderness and no pedal edema Neuro Sensorium / Orientation: stuporous and fluctuating sensorium Psych Activity / Motor Behavior: psychomotor slowing Lab / Micro Data 12/20/24 05:20 12/20/24 05:20 Labs: Laboratory Results - last 24 hr 12/19/24 20:00: WBC 27.6 H, RBC 3.64 L, Hgb 10.5 L, Hct 33.3 L, MCV 91.5, MCH 28.8, MCHC 31.5 L, RDW Std Deviation 48.9 H, RDW Coeff of Tuan 14.6, Plt Count 314, MPV 9.8, Immature Gran % (Auto) 0.900, Neut % (Auto) 94.1 H, Lymph % (Auto) 2.6 L, [place] % (Auto) 2.0, Eos % (Auto) 0.0, Baso % (Auto) 0.4, Absolute Neuts (auto) 26.0 H, Absolute Lymphs (auto) 0.73 L, Nucleated RBC % 0, Differential Comment SEE COMMENT, Platelet Estimate ADEQUATE, RBC Morphology N CHROM, Anisocytosis RARE, Macrocytosis RARE, Sodium 133 L, Potassium 5.1, Chloride 98, Carbon Dioxide 27.0, Anion Gap 9, BUN 77 H, Creatinine 2.42 H, Estim Creat Clear Calc 20.61, Est GFR (MDRD) Af Amer 25 L, Est GFR (MDRD) Non-Af 20 L, BUN/Creatinine Ratio 31.8 H, Glucose 429 H, Lactic Acid 2.0, Calcium 8.6, Total Bilirubin 0.30, AST 9 L, ALT 16, Alkaline Phosphatase 89, Total Protein 7.2, Albumin 3.1 L, Globulin 4.1, Albumin/Globulin Ratio 0.8 L 12/19/24 20:30: PT 15.4 H, INR 1.2, APTT 26.5 12/19/24 20:55: Phosphorus 3.9, Magnesium 2.5, Procalcitonin 40.01 H 12/19/24 21:45: Urine Color Yellow, Urine Clarity Clear, Urine pH 5.0, Ur Specific [place] 1.015, Urine Protein 30 H, Urine Glucose (UA) Normal, Urine Ketones Negative, Urine Occult Blood Negative, Urine Nitrite Negative, Urine Bilirubin Negative, Urine Urobilinogen Normal, Ur Leukocyte Esterase 25 H, Urine RBC 0-5 SEEN, Urine WBC 5-10 SEEN, Ur Squamous Epith Cells 0-5 SEEN, Urine Bacteria 0 SEEN, Hyaline Casts 0-5 SEEN, Urine Mucus 1+ 12/20/24 00:30: Lactic Acid 1.1 12/20/24 00:59: POC Glucose 343 H 12/20/24 05:20: WBC 23.2 H, RBC 3.47 L, Hgb 10.0 L, Hct 31.6 L, MCV 91.1, MCH 28.8, MCHC 31.6 L, RDW Std Deviation 48.7 H, RDW Coeff of Tuan 14.5, Plt Count 290, MPV 9.6, Immature Gran % (Auto) 0.700, Neut % (Auto) 93.0 H, Lymph % (Auto) 2.6 L, [place] % (Auto) 3.4, Eos % (Auto) 0.0, Baso % (Auto) 0.3, Absolute Neuts (auto) 21.6 H, Absolute Lymphs (auto) 0.60 L, Nucleated RBC % 0, Differential Comment SCANNED, Platelet Estimate ADEQUATE, RBC Morphology NORM C+C, Sodium 138, Potassium 4.4, Chloride 106, Carbon Dioxide 27.0, Anion Gap 5, BUN 67 H, Creatinine 1.85 H, Estim Creat Clear Calc 26.35, Est GFR (MDRD) Af Amer 34 L, Est GFR (MDRD) Non-Af 28 L, BUN/Creatinine Ratio 36.2 H, Glucose 274 H, Calcium 7.8 L, Phosphorus 3.2, Magnesium 2.4, Total Bilirubin 0.10 L, AST 7 L, ALT 15, Alkaline Phosphatase 85, Total Protein 6.8, Albumin 2.9 L, Globulin 3.9, Albumin/Globulin Ratio 0.7 L, TSH 0.456, Free T4 0.88 12/20/24 05:31: POC Glucose 240 H Micro: Microbiology 12/19/24 23:38 Mucosa - Nasopharyngeal Respiratory Panel (PCR) - Final Influenzae A 12/20/24 00:30 Nasal Secretion MRSA (PCR) - Final 12/19/24 21:45 Urine Catheter - Reynolds Legionella Antigen - Final 12/19/24 21:45 Urine Catheter - Reynolds Streptococcus pneumoniae Antigen (M - Final ABG Data ABG results: ABG 12/19/24 20:03 Specimen Type ART Sample Site L Radial pH 7.35 Bicarbonate Actual 31.5 H Total CO2 33 Base Excess 6 H O2 Saturation 86 L O2 % 6.0 ABG pCO2 57.1 H ABG pO2 56 L Francisco Test Positive O2 Delivery Device Cannula Vent Mode Not entered Imaging Radiology Impression Chest X-Ray 12/19/24 20:07 IMPRESSION: 1. Hazy airspace opacity in the left midlung, possibly due to pneumonia or other infiltrate. 2. Patchy right basilar opacity, possibly due to atelectasis or infiltrate. Reading Location: [facility] Assessment and Plan . Assessment and plan: Critical Care Time: The entirety of this encounter was done via Telemedicine
--- NOTE | 2024-12-20 12:26 | PN.CC_ITS ---
Objective Data Objective Data Vital Signs: Vital Signs Last response 3 Temperature 36.5 C L 12/20/24 11:00 Temperature Source Core 12/20/24 11:00 Pulse Rate 63 12/20/24 11:31 Respiratory Rate 22 H 12/20/24 11:31 Respiratory Effort Non-Labored 12/20/24 08:00 Respiratory Depth Normal 12/20/24 08:00 Respiratory Pattern Normal 12/20/24 11:31 Blood Pressure 159/69 H 12/20/24 11:00 Blood Pressure Mean 99 12/20/24 11:00 Blood Pressure Source Monitor 12/20/24 11:00 Blood Pressure Position Semi-Fowlers 12/20/24 11:00 Blood Pressure Location Left Arm 12/20/24 11:00 Pulse Ox 95 12/20/24 11:00 Oxygen Delivery Method Nasal Cannula 12/20/24 11:00 Oxygen Flow Rate (L/min) 6 12/20/24 11:00 I&O: I&O Last 24 Hours 3 12/19/24 12/20/24 12/20/24 23:59 11:59 23:59 Intake Total 305 / 305 2545 / 3545 1000 / 3545 Output Total 600 / 600 Balance 305 / 305 1945 / 2945 1000 / 2945 I&O: Total Stay 3 12/19/24 19:12 thru 12/20/24 12:04 Intake Total 3850 Output Total 600 Balance 3250 Current Meds Ordered / Administered: Current meds ordered / Administered 3 Generic Name Dose Route Start Last Admin Trade Name Freq PRN Reason Stop Dose Admin Acetaminophen 650 mg 12/20/24 00:09 Acetaminophen 650 Mg Suppository RC Q4H PRN PRN Fever, pain 1-10 Albuterol Sulfate 2.5 mg 12/20/24 00:09 Albuterol 2.5 Mg/3 Ml Vial.Neb. INHALATION Q2H PRN PRN Dyspnea, wheezing Albuterol/Ipratropium 3 ml 12/20/24 00:09 12/20/24 11:31 Ipratropium/Albuterol Sulfate 3 Ml Ampul.Neb INHALATION 3 ml Q4HWA.RT SARAH Administration Aspirin 300 mg 12/20/24 10:00 12/20/24 10:54 Aspirin 300 Mg Suppository RC 300 mg DAILY SARAH Administration Calamine/Phenol 1 applic 12/20/24 10:00 12/20/24 10:54 Menthol/Lanolin/Calamine/Znox 113 Gm Tube TOPICAL 1 applic 4X/DAY SARAH Administration Protocol Glucagon 1 mg 12/20/24 00:09 Glucagon 1 Mg/Ml Syringe IM X1 PRN HYPOGLYCEMIA Protocol Heparin Sodium (Porcine) 5,000 unit 12/20/24 10:00 12/20/24 10:54 Heparin Injection (Vial) 5,000 Unit/Ml Vial SC 5,000 unit Q12 SARAH Administration Hydralazine HCl 10 mg 12/20/24 00:09 Hydralazine 20 Mg/Ml Vial IV Q4H PRN PRN SBP > 160 Protocol Azithromycin 500 mg/ Sodium 255 mls @ 255 mls/hr 12/20/24 22:00 Chloride IV Q24H SARAH Dextrose 250 mls @ 0 mls/hr 12/20/24 00:09 Dextrose 10%-Water IV .Q0M PRN HYPOGLYCEMIA Protocol As Directed Pantoprazole Sodium 40 mg/ 110 mls @ 330 mls/hr 12/20/24 00:09 12/20/24 11:17 Sodium Chloride IV Infused Q12 SARAH Infusion Vancomycin IV-PHARMACY TO DOSE 500 mls @ 250 mls/hr 12/20/24 00:09 1 each/ Sodium Chloride IV X1 PRN Rx to Dose Protocol Piperacillin Sod/Tazobactam 50 mls @ 12.5 mls/hr 12/20/24 06:00 12/20/24 09:28 Sod 3.375 gm/ Sodium Chloride IV 12/27/24 06:01 Infused Q8 SARAH Infusion Sodium Chloride 100 mls @ 15 mls/hr 12/20/24 00:14 IV .Q6H40M PRN Saline Flush Sodium Chloride 100 mls @ 15 mls/hr 12/20/24 00:14 IV .Q6H40M PRN Additional IVPB Infusion Vancomycin HCl 750 mg/ Sodium 265 mls @ 250 mls/hr 12/20/24 23:00 Chloride IV Q24H [facility] Insulin Human Lispro 0 unit 12/20/24 00:09 12/20/24 05:32 Insulin Lispro 100 Unit/Ml Insuln.Pen SC 3 units Q6H SARAH Administration Protocol Ondansetron HCl 4 mg 12/20/24 00:09 Ondansetron 4 Mg/2 Ml Vial IV Q8H PRN PRN NAUSEA/VOMITING Prochlorperazine Edisylate 5 mg 12/20/24 00:09 Prochlorperazine 10 Mg/2 Ml Vial IV Q4H PRN PRN Breakthrough Nausea/Vomiting Vancomycin Protocol 1 lab 12/21/24 20:30 Vancomycin Trough/Random Due MC 12/22/24 00:30 DAILY [facility] Lab / Micro Data Attestation: I reviewed the patient's lab results. 12/20/24 05:20 12/20/24 05:20 Labs: Laboratory Results - last 24 hr 12/19/24 20:00: WBC 27.6 H, RBC 3.64 L, Hgb 10.5 L, Hct 33.3 L, MCV 91.5, MCH 28.8, MCHC 31.5 L, RDW Std Deviation 48.9 H, RDW Coeff of Tuan 14.6, Plt Count 314, MPV 9.8, Immature Gran % (Auto) 0.900, Neut % (Auto) 94.1 H, Lymph % (Auto) 2.6 L, [place] % (Auto) 2.0, Eos % (Auto) 0.0, Baso % (Auto) 0.4, Absolute Neuts (auto) 26.0 H, Absolute Lymphs (auto) 0.73 L, Nucleated RBC % 0, Differential Comment SEE COMMENT, Platelet Estimate ADEQUATE, RBC Morphology N CHROM, Anisocytosis RARE, Macrocytosis RARE, Sodium 133 L, Potassium 5.1, Chloride 98, Carbon Dioxide 27.0, Anion Gap 9, BUN 77 H, Creatinine 2.42 H, Estim Creat Clear Calc 20.61, Est GFR (MDRD) Af Amer 25 L, Est GFR (MDRD) Non-Af 20 L, B UN/Creatinine Ratio 31.8 H, Glucose 429 H, Lactic Acid 2.0, Calcium 8.6, Total Bilirubin 0.30, AST 9 L, ALT 16, Alkaline Phosphatase 89, Total Protein 7.2, A lbumin 3.1 L, Globulin 4.1, Albumin/Globulin Ratio 0.8 L 12/19/24 20:30: PT 15.4 H, INR 1.2, APTT 26.5 12/19/24 20:55: Phosphorus 3.9, Magnesium 2.5, Procalcitonin 40.01 H 12/19/24 21:45: Urine Color Yellow, Urine Clarity Clear, Urine pH 5.0, Ur Specific [place] 1.015, Urine Protein 30 H, Urine Glucose (UA) Normal, Urine Ketones Negative, Urine Occult Blood Negative, Urine Nitrite Negative, Urine Bilirubin Negative, Urine Urobilinogen Normal, Ur Leukocyte Esterase 25 H, Urine RBC 0-5 SEEN, Urine WBC 5-10 SEEN, Ur Squamous Epith Cells 0-5 SEEN, Urine Bacteria 0 SEEN, Hyaline Casts 0-5 SEEN, Urine Mucus 1+ 12/20/24 00:30: Lactic Acid 1.1 12/20/24 00:59: POC Glucose 343 H 12/20/24 05:20: WBC 23.2 H, RBC 3.47 L, Hgb 10.0 L, Hct 31.6 L, MCV 91.1, MCH 28.8, MCHC 31.6 L, RDW Std Deviation 48.7 H, RDW Coeff of Tuan 14.5, Plt Count 290, MPV 9.6, Immature Gran % (Auto) 0.700, Neut % (Auto) 93.0 H, Lymph % (Auto) 2.6 L, [place] % (Auto) 3.4, Eos % (Auto) 0.0, Baso % (Auto) 0.3, Absolute Neuts (auto) 21.6 H, Absolute Lymphs (auto) 0.60 L, Nucleated RBC % 0, Differential Comment SCANNED, Platelet Estimate ADEQUATE, RBC Morphology NORM C+C, Sodium 138, Potassium 4.4, Chloride 106, Carbon Dioxide 27.0, Anion Gap 5, BUN 67 H, C reatinine 1.85 H, Estim Creat Clear Calc 26.35, Est GFR (MDRD) Af Amer 34 L, Est GFR (MDRD) Non-Af 28 L, BUN/Creatinine Ratio 36.2 H, Glucose 274 H, Calcium 7.8 L, Phosphorus 3.2, Magnesium 2.4, Total Bilirubin 0.10 L, AST 7 L, ALT 15, Alkaline Phosphatase 85, Total Protein 6.8, Albumin 2.9 L, Globulin 3.9, A lbumin/Globulin Ratio 0.7 L, TSH 0.456, Free T4 0.88 12/20/24 05:31: POC Glucose 240 H Micro: Microbiology 12/19/24 23:38 Mucosa - Nasopharyngeal Respiratory Panel (PCR) - Final Influenzae A 12/20/24 00:30 Nasal Secretion MRSA (PCR) - Final 12/19/24 21:45 Urine Catheter - Reynolds Legionella Antigen - Final 12/19/24 21:45 Urine Catheter - Reynolds Streptococcus pneumoniae Antigen (M - Final ABG Data ABG results: ABG 12/19/24 20:03 Specimen Type ART Sample Site L Radial pH 7.35 Bicarbonate Actual 31.5 H Total CO2 33 Base Excess 6 H O2 Saturation 86 L O2 % 6.0 ABG pCO2 57.1 H ABG pO2 56 L Francisco Test Positive O2 Delivery Device Cannula Vent Mode Not entered Imaging Radiology Impression Chest X-Ray 12/19/24 20:07 IMPRESSION: 1. Hazy airspace opacity in the left midlung, possibly due to pneumonia or other infiltrate. 2. Patchy right basilar opacity, possibly due to atelectasis or infiltrate. Reading Location: [facility] Assessment and Plan . Assessment and plan: 1. Hypoxia 2. PNA 3. ELIO 4. Encephalopathy-significant psychomotor retardation- ? baseline (unknown) 5. [place] 6. HTN 7. HLD 8. T2DM 9. Anxiety 10. PTSD 11. GERD 12. Hypothyroidism 13. Anemia 14. CKD 15. CAD -Wean O2 as able. -Continue Vanc, Zosyn and Azithromycin. -F/U blood and sputum cx. -Change q4h atrovent to albuterol -On NS at 100 cc/hr. -Check CMP, Mg, phos and CBC tomorrow. -NPO. On subq BID heparin. -DNR Critical Care Time: 50 minutes The entirety of this encounter was done via Telemedicine Physical Exam Const alert General Appearance: lethargic and ill appearing Orientation / Consciousness: confused Exam Limitations: behavioral limitations Neck General: normal visual inspection Resp normal respiratory effort Neuro Sensorium / Orientation: stuporous and fluctuating sensorium Psych Activity / Motor Behavior: psychomotor slowing Subjective Subjective Since admitted she has remained stable. She is amnestic for all the events surrounding her NH. Has loose cough
--- NOTE | 2024-12-20 13:01 | PN_ITS ---
Subjective Subjective Patient seen and examined. She is quite lethargic. She was able to wake up and answer a few questions but she was very weak. She denied being in pain but admitted feeling short of breath. It appears patient is a mouth breather as she had the oxygen prongs in her mouth. She is on 6 L of oxygen. She has remained With respiratory rate being around 25. Objective Data Objective Data Vital Signs: Vital Signs Temp Pulse Resp BP Pulse Ox O2 Del Method O2 Flow Rate 97.7 F L 63 22 H 159/69 H 95 Nasal Cannula 6 12/20/24 11:00 12/20/24 11:31 12/20/24 11:31 12/20/24 11:00 12/20/24 11:00 12/20/24 11:00 12/20/24 11:00 Oxygen Flow Rate (L/min) 6 Oxygen Delivery Method Nasal Cannula Weight: 189 lb 9.561 oz Body Mass Index (BMI) 30.4 Intake & Output: Intake and Output for Last 24 Hours 12/18/24 12/19/24 12/20/24 23:59 23:59 23:59 Intake Total 305 / 305 3545 / 3545 Output Total 600 / 600 Balance 305 / 305 2945 / 2945 Lab / Micro Data 12/20/24 05:20 12/20/24 05:20 Labs: Laboratory Results - last 24 hr 12/19/24 20:00: WBC 27.6 H, RBC 3.64 L, Hgb 10.5 L, Hct 33.3 L, MCV 91.5, MCH 28.8, MCHC 31.5 L, RDW Std Deviation 48.9 H, RDW Coeff of Tuan 14.6, Plt Count 314, MPV 9.8, Immature Gran % (Auto) 0.900, Neut % (Auto) 94.1 H, Lymph % (Auto) 2.6 L, Peach % (Auto) 2.0, Eos % (Auto) 0.0, Baso % (Auto) 0.4, Absolute Neuts (auto) 26.0 H, Absolute Lymphs (auto) 0.73 L, Nucleated RBC % 0, Differential Comment SEE COMMENT, Platelet Estimate ADEQUATE, RBC Morphology N CHROM, Anisocytosis RARE, Macrocytosis RARE, Sodium 133 L, Potassium 5.1, Chloride 98, Carbon Dioxide 27.0, Anion Gap 9, BUN 77 H, Creatinine 2.42 H, Estim Creat Clear Calc 20.61, Est GFR (MDRD) Af Amer 25 L, Est GFR (MDRD) Non-Af 20 L, B UN/Creatinine Ratio 31.8 H, Glucose 429 H, Lactic Acid 2.0, Calcium 8.6, Total Bilirubin 0.30, AST 9 L, ALT 16, Alkaline Phosphatase 89, Total Protein 7.2, A lbumin 3.1 L, Globulin 4.1, Albumin/Globulin Ratio 0.8 L 12/19/24 20:30: PT 15.4 H, INR 1.2, APTT 26.5 12/19/24 20:55: Phosphorus 3.9, Magnesium 2.5, Procalcitonin 40.01 H 12/19/24 21:45: Urine Color Yellow, Urine Clarity Clear, Urine pH 5.0, Ur Specific [place] 1.015, Urine Protein 30 H, Urine Glucose (UA) Normal, Urine Ketones Negative, Urine Occult Blood Negative, Urine Nitrite Negative, Urine Bilirubin Negative, Urine Urobilinogen Normal, Ur Leukocyte Esterase 25 H, Urine RBC 0-5 SEEN, Urine WBC 5-10 SEEN, Ur Squamous Epith Cells 0-5 SEEN, Urine Bacteria 0 SEEN, Hyaline Casts 0-5 SEEN, Urine Mucus 1+ 12/20/24 00:30: Lactic Acid 1.1 12/20/24 00:59: POC Glucose 343 H 12/20/24 05:20: WBC 23.2 H, RBC 3.47 L, Hgb 10.0 L, Hct 31.6 L, MCV 91.1, MCH 28.8, MCHC 31.6 L, RDW Std Deviation 48.7 H, RDW Coeff of Tuan 14.5, Plt Count 290, MPV 9.6, Immature Gran % (Auto) 0.700, Neut % (Auto) 93.0 H, Lymph % (Auto) 2.6 L, Peach % (Auto) 3.4, Eos % (Auto) 0.0, Baso % (Auto) 0.3, Absolute Neuts (auto) 21.6 H, Absolute Lymphs (auto) 0.60 L, Nucleated RBC % 0, Differential Comment SCANNED, Platelet Estimate ADEQUATE, RBC Morphology NORM C+C, Sodium 138, Potassium 4.4, Chloride 106, Carbon Dioxide 27.0, Anion Gap 5, BUN 67 H, C reatinine 1.85 H, Estim Creat Clear Calc 26.35, Est GFR (MDRD) Af Amer 34 L, Est GFR (MDRD) Non-Af 28 L, BUN/Creatinine Ratio 36.2 H, Glucose 274 H, Calcium 7.8 L, Phosphorus 3.2, Magnesium 2.4, Total Bilirubin 0.10 L, AST 7 L, ALT 15, Alkaline Phosphatase 85, Total Protein 6.8, Albumin 2.9 L, Globulin 3.9, A lbumin/Globulin Ratio 0.7 L, TSH 0.456, Free T4 0.88 12/20/24 05:31: POC Glucose 240 H Micro: Microbiology 12/19/24 23:38 Mucosa - Nasopharyngeal Respiratory Panel (PCR) - Final Influenzae A 12/20/24 00:30 Nasal Secretion MRSA (PCR) - Final 12/19/24 21:45 Urine Catheter - Reynolds Legionella Antigen - Final 12/19/24 21:45 Urine Catheter - Reynolds Streptococcus pneumoniae Antigen (M - Final ABG Data ABG results: ABG 12/19/24 20:03 Specimen Type ART Sample Site L Radial pH 7.35 Bicarbonate Actual 31.5 H Total CO2 33 Base Excess 6 H O2 Saturation 86 L O2 % 6.0 ABG pCO2 57.1 H ABG pO2 56 L Francisco Test Positive O2 Delivery Device Cannula Vent Mode Not entered Radiography Diagnostic Testing: Radiology Impression Chest X-Ray 12/19/24 20:07 IMPRESSION: 1. Hazy airspace opacity in the left midlung, possibly due to pneumonia or other infiltrate. 2. Patchy right basilar opacity, possibly due to atelectasis or infiltrate. Reading Location: [facility] Physical Exam Const Orientation / Consciousness: lethargic HEENT normocephalic and head/scalp atraumatic Mouth: dry mucous membranes Eyes PERRL and EOMs intact bilaterally Neck no lymphadenopathy and supple Lymph Lymphatic: no lymphadenopathy noted and no lymphedema noted Resp Resp Narrative: diminished breath sounds bilaterally, bilateral coarse crackles. On 6L of oxygen by canula which is positioned in the mouth. Cardio regular rate, regular rhythm, S1 normal heart sound, S2 normal heart sound and no murmurs GI normal to inspection, nondistended, normoactive bowel sounds, soft to palpation, non-tender and non-distended Extremity normal capillary refill, no clubbing, cyanosis or edema and no calf tenderness General Extremity: no tenderness to palpation of joints or extremities Skin General Skin Exam: no breakdown Neuro Neuro Narrative: very lethargic and weak. Minimally responsive Motor Exam: general weakness Assessment & Plan Assessment/Plan (1) Acute and chronic respiratory failure with hypoxia: (2) Type 1 diabetes mellitus with hyperglycemia: (3) Acute encephalopathy: (4) Acute kidney injury superimposed on stage 3a chronic kidney disease: (5) Bilateral pneumonia: PLAN: Plan #Sepsis due to influenza A infection with superimposed bacterial pneumonia * Patient on 6 L of oxygen. She remains very weak and lethargic. * On IV vancomycin, Zosyn and ceftriaxone. Blood and sputum cultures pending. * Critical care on board. * WBC today is down to 23.2 from 27.6. * Procalcitonin was markedly elevated at 14.1. #Acute encephalopathy due to influenza A infection with superimposed bacterial debility * As above * #Acute hypoxic respiratory failure due to influenza infection with superimposed bacterial pneumonia * Currently on 6 L of oxygen as above. Titrate oxygen to maintain saturation above 90%. On vancomycin, Zosyn and azithromycin. * Management as above. #ELIO on CKD stage III: * Creatinine is down to 1.85. Was 2.42 on admission. * He has a baseline creatinine of around 1.3. #Hypothyroidism: On Synthroid. TSH is 0.456 with free T4 of 0.88. #Anxiety and depression: On sertraline. Meds on hold as patient is n.p.o. due to encephalopathy. #Type 2 diabetes mellitus: Lantus hold due to patient's encephalopathy. Insulin sliding scale. ACcuchecks ACHS. #GERD: on PPI #Hypertension: BP meds on hold, namely amlodipine, clonidine and labetalol as well as furosemide and losartan #Hyperlipidemia: on statin #CAD: on statin. #DVT prophylaxis: heparin COde status: full code Charges/Coding Visit Charges Inpatient E&M: 60939 Subs Hosp L3
[2024-12-20 13:08] LABS: Allen Test Positive; Blood Gas Specimen Type ART; SITE L Radial
[2024-12-20 13:09] LABS: Base Excess -1 mmol/L (-2 to +2); Bicarbonate 24.7 mmol/L (22-26); O2 Delivery Device Cannula; PO2 91 mmHG (75-100); pCO2 41.8 mmHg (35-45); pH 7.38 (7.35-7.45)
[2024-12-20 13:10] LABS: SO2 97 % (95-99); Total Carbon Dioxide 26 mmol/L
[2024-12-20 13:48] LABS: Bedside Glucose 169 mg/dL (74-106)
[2024-12-20] MEDS: hydrALAZINE 20 MG/ML Vial 10 MG IV ×2 (16:53→21:16)
[2024-12-20 18:11] LABS: Bedside Glucose 137 mg/dL (74-106)
[2024-12-20 20:00] LABS: Hemoglobin A1c 7.9 % (3.8-5.6)
[2024-12-20] MEDS: 0.9% Normal Saline (100mL Bag) 100 ML 15 ML IV (21:17)
[2024-12-20] MEDS: Azithromycin 500 MG in 0.9% Normal Saline (250mL Bag) 250 ML 255 MG IV (22:33)
[2024-12-21] VITALS (20 sets, daily range): BP systolic 160–202; BP diastolic 64–89; PULSE 61–85; RESP 18–29; TEMP 36.8–37.1; O2SAT 25–100; BMI 30.9
[2024-12-21] MEDS: Vancomycin HCl 750 MG in 0.9% Normal Saline (250mL Bag) 250 ML 250 MG IV (00:09)
[2024-12-21 00:44] LABS: Bedside Glucose 116 mg/dL (74-106)
[2024-12-21] MEDS: Piperacil/Tazobactam 3.375 GM in 0.9% Normal Saline (50mL MB+) 50 ML IV (05:13)
[2024-12-21 05:32] LABS: Bedside Glucose 130 mg/dL (74-106)
--- NOTE | 2024-12-21 07:15 | PCM.PN.HOSP ---
Reason for Visit Reason for Visit: Diagnoses Type 1 diabetes mellitus with hyperglycemia (12/19/24) Encephalopathy, unspecified (12/19/24) Pneumonia, unspecified organism (12/19/24) Acute and chronic respiratory failure with hypoxia (12/19/24) Acute kidney failure, unspecified (12/19/24) Chronic kidney disease, stage 3a (12/19/24) Subjective Subjective constipated. Objective Data Objective Data Vital Signs: Vital Signs Temp Pulse Resp BP Pulse Ox O2 Del Method O2 Flow Rate 37.0 C 82 22 H 160/71 H 25 Nasal Cannula 5 12/21/24 05:53 12/21/24 05:53 12/21/24 05:53 12/21/24 05:53 12/21/24 05:53 12/21/24 05:53 12/21/24 05:53 Oxygen Flow Rate (L/min) 5 Oxygen Delivery Method Nasal Cannula Weight: 87.2 kg Body Mass Index (BMI) 30.9 Intake & Output: Intake and Output for Last 24 Hours 12/19/24 12/20/24 12/21/24 23:59 23:59 23:59 Intake Total 305 / 305 3705 / 3745.75 610.75 / 610.75 Output Total 1750 / 1750 1999 Balance 305 / 305 1955 / 1995.75 -1389.25 / -1389.25 Lab / Micro Data 12/20/24 05:20 12/20/24 05:20 Labs: Laboratory Results - last 24 hr 12/20/24 05:20: Differential Comment SCANNED, Platelet Estimate ADEQUATE, RBC Morphology NORM C+C, Hemoglobin A1c 7.9 H, Phosphorus 3.2, Magnesium 2.4 12/20/24 13:24: POC Glucose 169 H 12/20/24 17:49: POC Glucose 137 H 12/21/24 00:12: POC Glucose 116 H 12/21/24 05:14: POC Glucose 130 H Micro: Microbiology 12/19/24 21:45 Urine Catheter - Reynolds Legionella Antigen - Final 12/19/24 21:45 Urine Catheter - Reynolds Streptococcus pneumoniae Antigen (M - Final Streptococcus pneumonia Ag 12/19/24 23:38 Mucosa - Nasopharyngeal Respiratory Panel (PCR) - Final Influenzae A 12/20/24 00:30 Nasal Secretion MRSA (PCR) - Final ABG Data ABG results: ABG 12/20/24 02:38 Specimen Type ART Sample Site L Radial pH 7.38 Bicarbonate Actual 24.7 Total CO2 26 Base Excess -1 O2 Saturation 97 ABG pCO2 41.8 ABG pO2 91 Francisco Test Positive O2 Delivery Device Cannula Liter Flow 6.0 Physical Exam Const alert and no apparent distress HEENT head/scalp atraumatic and moist oral mucous membranes Resp normal respiratory effort, no retractions, no use of accessory muscles and clear to auscultation bilaterally Cardio regular rate, regular rhythm, S1 normal heart sound and S2 normal heart sound Neuro Sensorium / Orientation: awake and alert Assessment & Plan Assessment/Plan (1) Sepsis: PLAN: POA 2/2 influenza and pneumonia (2) Pneumonia: PLAN: pneumococcal abx with pip/tazo, azithromycin and vancomycin +Pneumococcal antigen. Legionella antigen negative (3) Influenza A: PLAN: unknown time of onset. Start oseltamivir (4) ELIO (acute kidney injury): PLAN: Received IVF. Monitor. (5) Acute encephalopathy: PLAN: metabolic and toxic from sepsis, pneumonia and influenza plus chronic dementia plus home medications including diazepam, gabapentin. potentiating medications held for now. (6) Dysphagia: PLAN: on modified textures at [facility], but noted coughing with water. ST to see currently NPO MBSS PLAN: Plan DM2: glargine held. continue SSI. VTE prophylaxis: SQ heparin. Charges/Coding Visit Charges Inpatient E&M: 82660 Subs Hosp L2
[2024-12-21] MEDS: hydrALAZINE 20 MG/ML Vial 10 MG IV ×4 (07:43→21:33)
[2024-12-21] MEDS: Ipratropium/Albuterol Sulfate 3 ML AMPUL.NEB INHALATION (07:57)
--- NOTE | 2024-12-21 08:06 | PN.CC_ITS ---
Assessment & Plan Assessment/Plan (1) Pneumonia: PLAN: Plan RECOMMENDATIONS: 1. Continue to wean supplemental oxygen as tolerated. 2. Okay to transition to ceftriaxone to complete a 7-day treatment course. 3. Continue Tamiflu to complete treatment course. 4. Continue scheduled bronchodilators. 5. Continue appropriate DVT prophylaxis. 6. Encourage incentive spirometer use and mobilize patient as tolerated. 7. Will sign off from a critical care perspective. Please call with any additional questions. IMPRESSIONS: 1. Acute on chronic hypoxemic respiratory failure Secondary to presenting influenza A infection coupled with pneumococcal pneumonia. The patient has improved clinically, with improving oxygen saturations. Plan to continue to wean oxygen as tolerated. Antimicrobials can be transition to ceftriaxone to complete 7 days of therapy. Recommend continuing Tamiflu to complete treatment course. Encourage incentive spirometer use and mobilize patient as tolerated. 2. Chronic kidney disease/anemia/underlying cognitive impairment/hypertension/hyperlipidemia/diabetes mellitus/CAD Complicates care, management, recovery and prognosis. Continue home medications as indicated. Physical therapy to work with the patient. This note was generated with [employer] dictation software. It may contain incorrect words, spelling, and punctuation that were not noted in checking the note before signing. Subjective Subjective The patient was seen and examined at the bedside this morning. Events from the last 24 hours have been reviewed. The patient is currently afebrile, hemodynamically stable and maintaining appropriate oxygen saturations on 3 L/min via nasal cannula. No new morning labs were completed today. The patient remains on antimicrobials and Tamiflu. The patient stated that she regularly utilizes 2 L/min of supplemental oxygen at her baseline. Objective Data Objective Data The patient's most recent lab work, culture data and imaging studies have all been personally reviewed. Respiratory viral panel was positive for influenza A. Streptococcus urinary antigen was positive on December 19. Vital Signs: Vital Signs Temp Pulse Resp BP Pulse Ox O2 Del Method O2 Flow Rate 98.6 F 76 22 H 186/71 H 25 Nasal Cannula 5 12/21/24 05:53 12/21/24 07:43 12/21/24 05:53 12/21/24 07:43 12/21/24 05:53 12/21/24 05:53 12/21/24 05:53 Oxygen Flow Rate (L/min) 5 Oxygen Delivery Method Nasal Cannula Weight: 192 lb 3.889 oz Body Mass Index (BMI) 30.9 Intake & Output: Intake and Output for Last 24 Hours 12/19/24 12/20/24 12/21/24 23:59 23:59 23:59 Intake Total 305 / 305 3705 / 3745.75 610.75 / 610.75 Output Total 1750 / 1750 1999 Balance 305 / 305 1955 / 1994.75 -1389.25 / -1389.25 Lab / Micro Data Attestation: I reviewed the patient's lab results. 12/20/24 05:20 12/20/24 05:20 Labs: Laboratory Results - last 24 hr 12/20/24 05:20: Differential Comment SCANNED, Platelet Estimate ADEQUATE, RBC Morphology NORM C+C, Hemoglobin A1c 7.9 H, Phosphorus 3.2, Magnesium 2.4 12/20/24 13:24: POC Glucose 169 H 12/20/24 17:49: POC Glucose 137 H 12/21/24 00:12: POC Glucose 116 H 12/21/24 05:14: POC Glucose 130 H Micro: Microbiology 12/19/24 21:45 Urine Catheter - Reynolds Legionella Antigen - Final 12/19/24 21:45 Urine Catheter - Reynolds Streptococcus pneumoniae Antigen (M - Final Streptococcus pneumonia Ag 12/19/24 23:38 Mucosa - Nasopharyngeal Respiratory Panel (PCR) - Final Influenzae A 12/20/24 00:30 Nasal Secretion MRSA (PCR) - Final ABG Data ABG results: ABG 12/20/24 02:38 Specimen Type ART Sample Site L Radial pH 7.38 Bicarbonate Actual 24.7 Total CO2 26 Base Excess -1 O2 Saturation 97 ABG pCO2 41.8 ABG pO2 91 Francisco Test Positive O2 Delivery Device Cannula Liter Flow 6.0 Physical Exam Const alert and no apparent distress Constitutional Narrative: Obese. Resting comfortably in bed. General Appearance: cooperative HEENT normocephalic and head/scalp atraumatic Eyes PERRL, EOMs intact bilaterally and conjunctivae normal Neck supple General: trachea midline Chest inspection of chest normal Resp normal respiratory effort Auscultation: Negative for rales, rhonchi or wheezes Cardio regular rate and regular rhythm GI normal to inspection, nondistended, normoactive bowel sounds Extremity no clubbing, cyanosis or edema Skin no rashes or lesions noted Neuro moves all extremities and no focal motor deficits Psych Mood & Affect: flat affect Charges/Coding Visit Charges Inpatient E&M: 42370 Subs Hosp L2
[2024-12-21] MEDS: Pantoprazole Sodium 40 MG in 0.9% Normal Saline (100mL MB+) 100 ML 330 MG IV ×2 (08:58→21:01)
[2024-12-21] MEDS: Menthol/Lanolin/Calamine/Znox 113 GM Tube 1 APPLIC TOPICAL ×2 (09:01→21:06)
[2024-12-21] MEDS: Aspirin 300 MG Suppository RC (09:01)
[2024-12-21] MEDS: Heparin Injection (Vial) 5,000 UNIT/ML VIAL 5000 UNIT SC ×2 (09:04→21:01)
--- NOTE | 2024-12-21 09:48 | CASEMGMT ---
Addendum entered by Montse Cornejo 12/21/24 10:09: JENNIFER called patient's sister and Healthcare Power of Supervisor [employer], Leila and confirmed the plan is for patient to return to [facility] at d/c. Montse MITCHELL Original Note: Patient is from [facility] ([facility]). SW met with patient. Introduced self and role at [facility]. Patient confirms her plan is to return to [facility] at discharge. SW let patient know SW will keep [facility] updated. Montse MITCHELL
--- NOTE | 2024-12-21 09:54 | CASEMGMT ---
Addendum entered by Eva Bhatti 12/21/24 10:51: Precert is not needed for pt to return. SW updated. Eva Bhatti DC Planning Asst. Original Note: Updates sent to [employer]. Asked if precert is needed. Awaiting response. Eva Bhatti DC Planning Asst.
[2024-12-21] MEDS: 0.9% Saline Lock 10 ML Syringe IV ×4 (10:48→13:49)
[2024-12-21] MEDS: Ceftriaxone 2 GM in 0.9% Normal Saline (50mL MB+) 50 ML IV (12:02)
[2024-12-21] MEDS: Insulin Lispro 100 UNIT/ML INSULN.PEN SC (12:04)
[2024-12-21 12:39] LABS: Bedside Glucose 193 mg/dL (74-106)
[2024-12-21 12:56] LABS: Absolute Lymphocyte Count 0.88 X10^3/uL (0.83-4.51); Absolute Neutrophil Count 16.4 X10^3/uL (2.0-7.7); Basophil# 0.11 X10^3/uL; Basophil% 0.6 % (0-1); Eosinophil# 0.05 X10^3/uL; Eosinophils% 0.3 % (0-5); Hemoglobin 11.5 g/dL (12.0-15.0); Lymphocyte # 0.88 X10^3/ul (0.83-4.51); Lymphocyte % 4.7 % (19-41); Mean Corp Hgb Conc 31.9 g/dL (32-36); Mean Corpuscular Hgb 28.6 pg (27.0-32.0); Mean Corpuscular Volume 89.6 fL (81-99); Mean Platelet Vol. 9.4 fl (6.2-12.0); Monocyte% 4.2 % (0-10); NRBC Flagged by Analyzer 0 % (0-5); Neutrophil # 16.43 X10^3/uL (2.7-7.7); Neutrophil % 86.9 % (47-70); Platelet Count 350 K/mm3 (150-450); RBC Distribution Width CV 14.7 % (11.6-14.6); RBC Distribution Width SD 48.1 fl (35.1-43.9); Red Blood Count 4.02 M/mm3 (4.2-5.4); White Blood Count 18.9 K/mm3 (4.4-11.0)
[2024-12-21 13:19] LABS: Anion Gap 10 (5-15); BUN 40 mg/dL (7-18); BUN/Creat Ratio 33.6 RATIO (10-20); Calcium,Total 9.5 mg/dL (8.5-10.1); Chloride 107 mmol/L (98-107); Creatinine, Serum 1.19 mg/dL (0.55-1.02); EST Glomerular Filtration Rate 46 mL/min (>60); Est Glom Filt Rate - Afr Amer 56 mL/min (>60); Estimated Creatinine Clearance 41.24 ml/min; Glucose 206 mg/dL (74-106); Potassium 3.8 mmol/L (3.5-5.1); Sodium Level 143 mmol/L (136-145)
[2024-12-21] MEDS: Ondansetron 4 MG/2 ML Vial IV (13:49)
--- NOTE | 2024-12-21 13:52 | SP.MBSS_ITS ---
Modified Barium Swallow Patient Information Study Date: 12/21/24 Study Time: 13:00 Direct Billable Minutes: 91 Total Minutes procedure & reportin Diagnosis: Dysphagia R13.10; PNA J18.9 Referring Physician: Feliz Tinsley Reason for Referral: Objectively assess swallow function, assess risk for aspiration, and determine recommendations for least restrictive diet textures and compensatory strategies to improve safety of swallow. 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 Surgical hx includes partial thyroidectomy. Pt presented to [facility] ED on 12/19/2024 with history of recent diagnosis the week prior of influenza A with ongoing symptoms of fatigue, malaise, congestion, body aches. Pt has underlying cognitive impairment, which was worse w/ dyspnea and hypoxia. In the ED, chest x-ray with hazy airspace opacity in the left midlung possibly pneumonia, patchy right basilar opacity possibly atelectasis or infiltrate. Pt admitted for management of PNA and sepsis. Pt made NPO w/ ST consult placed due to current PNA, hx of modified diet, and coughing w/ water. Current Diet Ordered: NPO Dentition: Edentulous Mental Status: Impaired Respiratory Status: Oxygenating on 2L/M nasal cannula Penetration-Aspiration Scale Penetration-Aspiration Scale: OBJECTIVE ASSESSMENT OF SWALLOW FUNCTION (QUANTITATIVE ? PER TRIAL): PENETRATION / ASPIRATION SCALE (SÁNCHEZ): 1 = does not enter airway 2 = enters airway/above vocal folds/ejected 3 = enters airway/above vocal folds/not ejected 4 = enters airway/contacts vocal folds/ejected 5 = enters airway/contacts vocal folds/not ejected 6 = enters airway/below vocal folds/ejected 7 = enters airway/below vocal folds/not ejected despite effort 8 = enters airway/below vocal folds/no effort VIDEOFLOROSCOPIC SCALE SCORE (SÁNCHEZ): Grade I = aspiration of material that has penetrated into the laryngeal vestibule, intact cough reflex Grade II = aspiration < 10 % of the bolus, intact cough reflex Grade III = aspiration of < 10 % of the bolus, reduced cough reflex or aspiration of > 10 % of the bolus, intact cough reflex Grade IV = aspiration of > 10 % of the bolus, reduced cough reflex Penetration-Aspiration Scale Score Thin Liquid via teaspoon: Result: 4= enters airway/contacts vocal folds/ejected Thin Liquid via teaspoon Trial 2: Result: 8= enters airway/below vocal folds/no effort Thin Liquid via small single sip: cup: Result: 7= enters airways/below vocal folds/not ejected despite effort Harmony Thick Liquid via teaspoon: Result: 1= does not enter airway Harmony Thick Liquid via teaspoon Trial 2: Result: 2= enter airway/above vocal folds/ejected Harmony Thick Liquid via small single sip: cup: Result: 1= does not enter airway Pudding via teaspoon: Result: 1= does not enter airway Comment: Esophageal screen - Complete clearance. Harmony Thick Liquid via single sip: straw: Result: 2= enter airway/above vocal folds/ejected Harmony Thick Liquid via single sip: straw Trial 2: Result: 1= does not enter airway Pudding via teaspoon Trial 2: Result: 1= does not enter airway Oral Phase Labial Seal: Escape beyond mid-chin Tongue Control During Bolus Hold: Posterior escape of less than half of bolus Bolus Transport/Lingual Motion: Repetitive/disorganized tongue motion Oral Residue: Trace residue lining oral structures Pharyngeal Phase Initiation of Pharyngeal Swallow: Bolus head in pyriforms Soft Palate Elevation: No bolus between soft palate and pharyngeal wall Laryngeal Elevation: Partial superior movement thyroid cart/partial apprx aryt- epig petiole Anterior Hyoid Excursion: Partial anterior movement (minimal) Epiglottic Movement: Complete inversion Laryngeal Vestibule Closure at Height of Swallow: Incomplete; narrow column of air/contrast in laryngeal vestibule Pharyngoesophageal Segment Opening: Complete distension and complete duration; no obstruction of flow Tongue Base Retraction: Trace column of contrast between tongue base & post. pharyngeal wall Pharyngeal Residue: Trace residue within or on pharyngeal structures Esophageal Phase Esophageal Clearance: Complete clearance Diagnosis/Impression Diagnosis: Moderate oropharyngeal dysphagia R13.12 Impression: BP high at start of study at 185/62. Per RN, pt had received all ordered BP medications. The oral phase is marked by... -Poor labial seal w/ anterior loss of thin and mildly thick liquids past mid- chin. -Decreased bolus control w/ posterior loss of thin and mildly thick liquids to the laryngeal vestibule prior to swallow onset, resulting in aspiration of thin liquids during the swallow. -Did not assess mastication of cookie due to pt declining Felisha Doone trials w/ edentulous status. The pharyngeal phase is marked by... -Delayed swallow onset. -Decreased airway closure during the swallow due to minimal anterior hyoid excursion and decreased laryngeal elevation. -Silent aspiration of thin by tsp. Aspiration of thin by cup w/ reflexive coughing productive of barium-tinged phlegm. After aspiration and coughing episode, BP elevated to 203/85. Immediately following completion of study. Pt began dry heaving. No vomiting, but pt complaining of nausea. RN was made aware of nausea. BP 197/73 ~5min after study and once dry heaving resolved. Recommendations Diet: NPO (Medications crushed in applesauce) Comment: CARDIOPULMONARY TECHNICIAN AND EEG TECH went to pt's room following MBSS (~30min after) for po trials at bedside w/ Zofran administered by RN; however, pt still dry heaving. RN administered Zofran. CARDIOPULMONARY TECHNICIAN AND EEG TECH will hold trials until 12/22/2024 to consider diet advancement if nausea is resolved. If tolerating trials w/ CARDIOPULMONARY TECHNICIAN AND EEG TECH w/o nausea in upcoming sessions, will recommend diet advanced to puree / mildly thick liquids w/ direct supervision and feeding assistance as needed to ensure SMALL SIPS, small bites, slow rate, sitting urpight during and 30min after po intake. Recommend Repeat Modified Barium Swallow: Yes (3-5 weeks after implementation of oropharyngeal exercise program to consider pt for diet advancement of liquids) Need for Skilled Speech Therapy Services: Yes Comment: -Follow for po trials at bedside to consider diet advancement in upcoming sessions. Once pt is consuming puree / mildly thick w/ good diet tolerance, will consider trials of soft solids w/ CARDIOPULMONARY TECHNICIAN AND EEG TECH at bedside to consider the patient for further diet advancement. -Train pt and staff in strategies to decrease risk for aspiration. -Implement oropharyngeal exercises to improve labial seal, bolus control, and airway closure (lip press, lingual resistance, effortful swallows). Education Completed: 1. Described result of evaluation. and 7. Pt requires further education on strategies & risks. Status Active ST Patient: Active Contact Information [facility] Speech Therapy:: Nanette Shore M.A. CCC-CARDIOPULMONARY TECHNICIAN AND EEG TECH? Speech-Language Pathologist?? [facility] [address] [place] [address]? [email or web address]?? [phone]
[2024-12-21] MEDS: proCHLORPERazine 10 MG/2 ML Vial 5 MG IV (15:48)
[2024-12-21 17:32] LABS: Bedside Glucose 178 mg/dL (74-106)
[2024-12-21 23:49] LABS: Bedside Glucose 160 mg/dL (74-106)
[2024-12-22] VITALS (25 sets, daily range): BP systolic 168–202; BP diastolic 65–98; PULSE 72–102; RESP 20–26; TEMP 36.5–37.1; O2SAT 84–97
[2024-12-22] MEDS: 0.9% Saline Lock 10 ML Syringe IV ×3 (04:15→08:39)
[2024-12-22] MEDS: hydrALAZINE 20 MG/ML Vial 10 MG IV ×4 (04:16→17:25)
[2024-12-22 04:25] LABS: Hematocrit 36.1 % (37-47); Hemoglobin 11.4 g/dL (12.0-15.0); Mean Corp Hgb Conc 31.6 g/dL (32-36); Mean Corpuscular Hgb 28.6 pg (27.0-32.0); Mean Corpuscular Volume 90.5 fL (81-99); Mean Platelet Vol. 9.4 fl (6.2-12.0); POSITIVE COUNT YES; POSITIVE MORPHOLOGY YES; Platelet Count 366 K/mm3 (150-450); RBC Distribution Width CV 15.1 % (11.6-14.6); RBC Distribution Width SD 50.6 fl (35.1-43.9); Red Blood Count 3.99 M/mm3 (4.2-5.4); White Blood Count 15.5 K/mm3 (4.4-11.0)
[2024-12-22 04:36] LABS: Differential Indicated MANUAL DIFF
[2024-12-22 04:43] LABS: Anion Gap 9 (5-15); BUN 39 mg/dL (7-18); BUN/Creat Ratio 33.1 RATIO (10-20); Calcium,Total 9.2 mg/dL (8.5-10.1); Chloride 109 mmol/L (98-107); Creatinine, Serum 1.18 mg/dL (0.55-1.02); EST Glomerular Filtration Rate 47 mL/min (>60); Est Glom Filt Rate - Afr Amer 57 mL/min (>60); Estimated Creatinine Clearance 40.94 ml/min; Glucose 178 mg/dL (74-106); Potassium 3.7 mmol/L (3.5-5.1); Sodium Level 143 mmol/L (136-145)
[2024-12-22] MEDS: Insulin Lispro 100 UNIT/ML INSULN.PEN SC ×4 (06:52→23:20)
[2024-12-22 07:11] LABS: Bedside Glucose 178 mg/dL (74-106)
[2024-12-22] MEDS: Ondansetron 4 MG/2 ML Vial IV ×2 (08:32→21:27)
[2024-12-22] MEDS: Oseltamivir Phosphate 30 MG Capsule PO (08:34)
[2024-12-22 08:42] LABS: Neutrophil-Segmented 84 % (47-70); Total Cells Counted 100 (MANUAL DIFF)
[2024-12-22 08:43] LABS: Eosinophil 2 % (0-5); Lymphocyte 6 % (19-41); Metamyelocyte 2 % (0-1); Monocyte 5 % (0-10); Myelocyte 1 % (0-0)
[2024-12-22] MEDS: Pantoprazole Sodium 40 MG in 0.9% Normal Saline (100mL MB+) 100 ML 330 MG IV (08:44)
[2024-12-22] MEDS: Heparin Injection (Vial) 5,000 UNIT/ML VIAL 5000 UNIT SC ×2 (08:46→21:17)
[2024-12-22] MEDS: Menthol/Lanolin/Calamine/Znox 113 GM Tube 1 APPLIC TOPICAL ×3 (08:48→21:18)
[2024-12-22] MEDS: Ipratropium/Albuterol Sulfate 3 ML AMPUL.NEB INHALATION ×3 (08:49→18:54)
--- NOTE | 2024-12-22 08:49 | PN.HOSP_ITS ---
Reason for Visit Reason for Visit: Diagnoses Sepsis, unspecified organism (12/19/24) Type 1 diabetes mellitus with hyperglycemia (12/19/24) Encephalopathy, unspecified (12/19/24) Influenza due to other identified influenza virus with other respiratory manifestations (12/19/24) Pneumonia, unspecified organism (12/19/24) Acute and chronic respiratory failure with hypoxia (12/19/24) Acute kidney failure, unspecified (12/19/24) Chronic kidney disease, stage 3a (12/19/24) Dysphagia, unspecified (12/19/24) Subjective Subjective Denies complaints. Objective Data Objective Data Vital Signs: Vital Signs Temp Pulse Resp BP Pulse Ox O2 Del Method O2 Flow Rate 36.5 C L 89 20 H 200/98 H 92 Nasal Cannula 3 12/22/24 06:00 12/22/24 08:37 12/22/24 06:00 12/22/24 08:37 12/22/24 06:00 12/22/24 06:00 12/22/24 06:00 Oxygen Flow Rate (L/min) 3 Oxygen Delivery Method Nasal Cannula Weight: 84.459 kg Body Mass Index (BMI) 30.0 Intake & Output: Intake and Output for Last 24 Hours 12/20/24 12/21/24 12/22/24 23:59 23:59 23:59 Intake Total 3705 / 3745.75 930.75 / 930.75 Output Total 1750 / 1750 3450 / 3750 800 / 800 Balance 195 / 1994.75 -2519.25 / -2819.25 -800 / -800 Lab / Micro Data 12/22/24 04:00 12/22/24 04:00 Labs: Laboratory Results - last 24 hr 12/21/24 11:59: POC Glucose 193 H 12/21/24 12:45: WBC 18.9 H, RBC 4.02 L, Hgb 11.5 L, Hct 36.0 L, MCV 89.6, MCH 28.6, MCHC 31.9 L, RDW Std Deviation 48.1 H, RDW Coeff of Tuan 14.7 H, Plt Count 350, MPV 9.4, Immature Gran % (Auto) 3.300 H, Neut % (Auto) 86.9 H, Lymph % (Auto) 4.7 L, [place] % (Auto) 4.2, Eos % (Auto) 0.3, Baso % (Auto) 0.6, Absolute Neuts (auto) 16.4 H, Absolute Lymphs (auto) 0.88, Nucleated RBC % 0, Sodium 143, Potassium 3.8, Chloride 107, Carbon Dioxide 26.0, Anion Gap 10, BUN 40 H, C reatinine 1.19 H, Estim Creat Clear Calc 41.24, Est GFR (MDRD) Af Amer 56 L, Est GFR (MDRD) Non-Af 46 L, BUN/Creatinine Ratio 33.6 H, Glucose 206 H, Calcium 9.5 12/21/24 17:15: POC Glucose 178 H 12/21/24 23:30: POC Glucose 160 H 12/22/24 04:00: WBC 15.5 H, RBC 3.99 L, Hgb 11.4 L, Hct 36.1 L, MCV 90.5, MCH 28.6, MCHC 31.6 L, RDW Std Deviation 50.6 H, RDW Coeff of Tuan 15.1 H, Plt Count 366, MPV 9.4, Neut % (Auto) Not Reportable, Absolute Neuts (auto) 13.0 H, Absolute Lymphs (auto) 0.90, Total Counted 100, Neutrophils % (Manual) 84 H, L ymphocytes % (Manual) 6 L, Monocytes % (Manual) 5, Eosinophils % (Manual) 2, M etamyelocytes % 2 H, Myelocytes % 1 H, Diff Path Review March, Sodium 143, Potassium 3.7, Chloride 109 H, Carbon Dioxide 25.0, Anion Gap 9, BUN 39 H, C reatinine 1.18 H, Estim Creat Clear Calc 40.94, Est GFR (MDRD) Af Amer 57 L, Est GFR (MDRD) Non-Af 47 L, BUN/Creatinine Ratio 33.1 H, Glucose 178 H, Calcium 9.2 12/22/24 06:51: POC Glucose 178 H Micro: Microbiology 12/19/24 20:05 Blood Culture (Wb) - Left Wrist Blood Culture - Preliminary No growth in 48 hours. 12/19/24 20:30 Blood Culture (Wb) - Right Forearm Blood Culture - Preliminary 12/19/24 21:45 Urine Catheter - Reynolds Legionella Antigen - Final 12/19/24 21:45 Urine Catheter - Reynolds Streptococcus pneumoniae Antigen (M - Final Streptococcus pneumonia Ag 12/19/24 23:38 Mucosa - Nasopharyngeal Respiratory Panel (PCR) - Final Influenzae A 12/20/24 00:30 Nasal Secretion MRSA (PCR) - Final Physical Exam Const alert and no apparent distress HEENT head/scalp atraumatic and moist oral mucous membranes Resp normal respiratory effort, no retractions, no use of accessory muscles and clear to auscultation bilaterally Cardio regular rate, regular rhythm, S1 normal heart sound and S2 normal heart sound GI normal to inspection, nondistended, normoactive bowel sounds, soft to palpation, non-tender and non-distended Extremity normal to inspection and full ROM Neuro Sensorium / Orientation: awake and alert Psych Psych Narrative: flat affect. Assessment & Plan Assessment/Plan (1) Sepsis: PLAN: POA 2/2 influenza and pneumonia (2) Pneumonia: PLAN: pneumococcal abx with pip/tazo, azithromycin. +Pneumococcal antigen. Legionella antigen negative (3) Influenza A: PLAN: unknown time of onset. Oseltamivir for 5 days. (4) ELIO (acute kidney injury): PLAN: Received IVF. Resolved. (5) Acute encephalopathy: PLAN: metabolic and toxic from sepsis, pneumonia and influenza plus chronic dementia plus home medications including diazepam, gabapentin. potentiating medications held for now. (6) Dysphagia: PLAN: on modified textures at [facility], but noted coughing with water. ST to see currently NPO MBSS (7) Hypertensive urgency: PLAN: PRN labetolol and hydralazine. Start scheduled enalprilat until can take oral meds. PLAN: Plan Dysphagia: had MBSS. meds crushed in apple sauce. DM2: glargine held. continue SSI. VTE prophylaxis: SQ heparin. Charges/Coding Visit Charges Inpatient E&M: 95341 Subs Hosp L2
[2024-12-22] MEDS: Enalaprilat 1.25 MG/ML Vial 0.625 MG IV ×2 (09:50→11:26)
[2024-12-22] MEDS: Ceftriaxone 2 GM in 0.9% Normal Saline (50mL MB+) 50 ML IV (09:53)
[2024-12-22] MEDS: Aspirin 300 MG Suppository RC (09:54)
[2024-12-22 12:00] LABS: Bedside Glucose 186 mg/dL (74-106)
--- NOTE | 2024-12-22 13:35 | CASEMGMT ---
Social Work SW sent updates to [facility] via [employer]. Pt is not yet ready for d/c. NICK Watts
[2024-12-22] MEDS: Losartan Potassium 100 MG Tablet PO (15:28)
[2024-12-22 17:48] LABS: Bedside Glucose 179 mg/dL (74-106)
[2024-12-22] MEDS: amLODIPine 5 MG Tablet PO (21:17)
[2024-12-22] MEDS: cloNIDine HCl 0.2 MG Tablet PO (21:17)
[2024-12-22 23:40] LABS: Bedside Glucose 166 mg/dL (74-106)
[2024-12-23] VITALS (22 sets, daily range): BP systolic 166–207; BP diastolic 65–97; PULSE 79–108; RESP 18–24; TEMP 36.6–37.2; O2SAT 93–95; BMI 28.8
[2024-12-23] MEDS: hydrALAZINE 20 MG/ML Vial 10 MG IV ×3 (03:12→14:42)
[2024-12-23] MEDS: 0.9% Saline Lock 10 ML Syringe IV ×3 (03:13→16:55)
[2024-12-23 06:17] LABS: Hematocrit 40.8 % (37-47); Hemoglobin 12.5 g/dL (12.0-15.0); Mean Corp Hgb Conc 30.6 g/dL (32-36); Mean Corpuscular Hgb 28.2 pg (27.0-32.0); Mean Corpuscular Volume 91.9 fL (81-99); Mean Platelet Vol. 9.2 fl (6.2-12.0); POSITIVE COUNT YES; POSITIVE MORPHOLOGY YES; Platelet Count 439 K/mm3 (150-450); RBC Distribution Width CV 15.3 % (11.6-14.6); RBC Distribution Width SD 52.4 fl (35.1-43.9); Red Blood Count 4.44 M/mm3 (4.2-5.4); White Blood Count 15.3 K/mm3 (4.4-11.0)
[2024-12-23 06:29] LABS: Differential Indicated MANUAL DIFF
[2024-12-23] MEDS: Insulin Lispro 100 UNIT/ML INSULN.PEN SC ×4 (06:29→23:23)
[2024-12-23] MEDS: Levothyroxine 88 MCG Tablet PO (06:29)
[2024-12-23 06:38] LABS: Anion Gap 8 (5-15); BUN 40 mg/dL (7-18); BUN/Creat Ratio 36.4 RATIO (10-20); Calcium,Total 9.7 mg/dL (8.5-10.1); Chloride 113 mmol/L (98-107); EST Glomerular Filtration Rate 51 mL/min (>60); Est Glom Filt Rate - Afr Amer 61 mL/min (>60); Estimated Creatinine Clearance 43.04 ml/min; Glucose 185 mg/dL (74-106); Potassium 3.5 mmol/L (3.5-5.1); Sodium Level 148 mmol/L (136-145)
--- NOTE | 2024-12-23 06:56 | PN.HOSP_ITS ---
Reason for Visit Reason for Visit: Diagnoses Sepsis, unspecified organism (12/19/24) Type 1 diabetes mellitus with hyperglycemia (12/19/24) Encephalopathy, unspecified (12/19/24) Hypertensive urgency (12/19/24) Influenza due to other identified influenza virus with other respiratory manifestations (12/19/24) Pneumonia, unspecified organism (12/19/24) Acute and chronic respiratory failure with hypoxia (12/19/24) Acute kidney failure, unspecified (12/19/24) Chronic kidney disease, stage 3a (12/19/24) Dysphagia, unspecified (12/19/24) Subjective Subjective Not eating much. Complaining of nausea. Objective Data Objective Data Vital Signs: Vital Signs Temp Pulse Resp BP Pulse Ox O2 Del Method O2 Flow Rate 36.8 C 88 20 H 186/82 H 94 Nasal Cannula 2 12/23/24 03:00 12/23/24 03:12 12/23/24 03:00 12/23/24 03:12 12/23/24 03:00 12/23/24 06:00 12/23/24 06:00 Oxygen Flow Rate (L/min) 2 Oxygen Delivery Method Nasal Cannula Weight: 80.966 kg Body Mass Index (BMI) 28.8 Intake & Output: Intake and Output for Last 24 Hours 12/21/24 12/22/24 12/23/24 23:59 23:59 23:59 Intake Total 930.75 / 930.75 160 / 160 Output Total 3450 / 3750 1950 / 1950 300 / 300 Balance -2519.25 / -2819.25 -1790 / -1790 -300 / -300 Lab / Micro Data 12/23/24 05:14 12/23/24 05:14 Labs: Laboratory Results - last 24 hr 12/22/24 04:00: Absolute Neuts (auto) 13.0 H, Absolute Lymphs (auto) 0.90, Total Counted 100, Neutrophils % (Manual) 84 H, Lymphocytes % (Manual) 6 L, Monocytes % (Manual) 5, Eosinophils % (Manual) 2, Metamyelocytes % 2 H, Myelocytes % 1 H, Diff Path Review March12/22/24 06:51: POC Glucose 178 H 12/22/24 11:26: POC Glucose 186 H 12/22/24 17:19: POC Glucose 179 H 12/22/24 23:18: POC Glucose 166 H 12/23/24 05:14: WBC 15.3 H, RBC 4.44, Hgb 12.5, Hct 40.8, MCV 91.9, MCH 28.2, M CHC 30.6 L, RDW Std Deviation 52.4 H, RDW Coeff of Tuan 15.3 H, Plt Count 439, MPV 9.2, Neut % (Auto) Not Reportable, Sodium 148 H, Potassium 3.5, Chloride 113 H, Carbon Dioxide 28.0, Anion Gap 8, BUN 40 H, Creatinine 1.10 H, Estim Creat Clear Calc 43.04, Est GFR (MDRD) Af Amer 61, Est GFR (MDRD) Non-Af 51 L, B UN/Creatinine Ratio 36.4 H, Glucose 185 H, Calcium 9.7 Micro: Microbiology 12/19/24 20:05 Blood Culture (Wb) - Left Wrist Blood Culture - Preliminary No growth in 48 hours. 12/19/24 20:30 Blood Culture (Wb) - Right Forearm Blood Culture - Preliminary 12/19/24 21:45 Urine Catheter - Reynolds Legionella Antigen - Final 12/19/24 21:45 Urine Catheter - Reynolds Streptococcus pneumoniae Antigen (M - Final Streptococcus pneumonia Ag 12/19/24 23:38 Mucosa - Nasopharyngeal Respiratory Panel (PCR) - Final Influenzae A 12/20/24 00:30 Nasal Secretion MRSA (PCR) - Final Physical Exam Const alert and no apparent distress Constitutional Narrative: on oxygen. no respiratory distress. no conversational dyspnea. HEENT head/scalp atraumatic and moist oral mucous membranes Resp normal respiratory effort, no retractions, no use of accessory muscles and clear to auscultation bilaterally Cardio regular rate, regular rhythm, S1 normal heart sound and S2 normal heart sound GI normal to inspection, nondistended, normoactive bowel sounds, soft to palpation, non-tender and non-distended Extremity normal to inspection, full ROM and no clubbing, cyanosis or edema Neuro Sensorium / Orientation: awake and alert Assessment & Plan Assessment/Plan (1) Sepsis: PLAN: POA 2/2 influenza and pneumonia (2) Pneumonia: PLAN: pneumococcal abx with CTX +Pneumococcal antigen. Legionella antigen negative (3) Influenza A: PLAN: unknown time of onset. Oseltamivir for 5 days. (4) ELIO (acute kidney injury): PLAN: Received IVF. Resolved. (5) Acute encephalopathy: PLAN: metabolic and toxic from sepsis, pneumonia and influenza plus chronic dementia plus home medications including diazepam, gabapentin. potentiating medications held for now. (6) Dysphagia: PLAN: on modified textures at [facility]CF, but noted coughing with water. meds to be crushed in applesauce. (7) Hypertensive urgency: PLAN: Overall improved. PRN labetolol and hydralazine. back on amlodipine 5 BID, clonide 0.2 BID, losartan 100/d. Start hydralazine 50 TID. PLAN: Plan Dysphagia: had MBSS. meds crushed in apple sauce. DM2: glargine held. continue SSI. VTE prophylaxis: SQ heparin. Charges/Coding Visit Charges Inpatient E&M: 81373 Subs Hosp L2
[2024-12-23 06:57] LABS: Bedside Glucose 190 mg/dL (74-106)
[2024-12-23] MEDS: Ipratropium/Albuterol Sulfate 3 ML AMPUL.NEB INHALATION ×2 (07:33→19:02)
[2024-12-23] MEDS: Ondansetron 4 MG/2 ML Vial IV (07:43)
[2024-12-23] MEDS: Losartan Potassium 100 MG Tablet PO (08:14)
[2024-12-23] MEDS: cloNIDine HCl 0.2 MG Tablet PO ×2 (08:14→21:01)
[2024-12-23] MEDS: Furosemide 40 MG Tablet PO (08:15)
[2024-12-23] MEDS: amLODIPine 5 MG Tablet PO ×2 (08:15→21:01)
[2024-12-23] MEDS: Oseltamivir Phosphate 30 MG Capsule PO (08:16)
[2024-12-23] MEDS: Clopidogrel Bisulfate 75 MG Tablet PO (08:16)
[2024-12-23 08:26] LABS: Metamyelocyte 3 % (0-1); Neutrophil-Segmented 86 % (47-70); Total Cells Counted 100 (MANUAL DIFF)
[2024-12-23 08:27] LABS: Eosinophil 1 % (0-5); Lymphocyte 3 % (19-41); Monocyte 6 % (0-10); Myelocyte 1 % (0-0)
[2024-12-23 08:29] LABS: Absolute Neutrophil Count 13.2 X10^3/uL (2.0-7.7)
[2024-12-23] MEDS: Ceftriaxone 2 GM in 0.9% Normal Saline (50mL MB+) 50 ML IV (09:25)
[2024-12-23] MEDS: Menthol/Lanolin/Calamine/Znox 113 GM Tube 1 APPLIC TOPICAL ×3 (09:26→21:02)
[2024-12-23] MEDS: Heparin Injection (Vial) 5,000 UNIT/ML VIAL 5000 UNIT SC ×2 (10:32→21:01)
[2024-12-23] MEDS: Ferrous Sulfate 325 MG Tablet PO (11:14)
[2024-12-23 11:34] LABS: Bedside Glucose 226 mg/dL (74-106)
[2024-12-23] MEDS: hydrALAZINE 50 MG Tablet PO ×2 (12:43→21:01)
[2024-12-23 15:28] LABS: Pathologist Review Reviewed
[2024-12-23 18:03] LABS: Bedside Glucose 170 mg/dL (74-106)
[2024-12-24] VITALS (8 sets, daily range): BP systolic 165–189; BP diastolic 56–76; PULSE 77–108; RESP 16–20; TEMP 36.4–36.6; O2SAT 94–95; BMI 28.8
[2024-12-24 01:20] LABS: Bedside Glucose 164 mg/dL (74-106)
[2024-12-24] MEDS: Ondansetron 4 MG/2 ML Vial IV ×2 (01:25→09:25)
[2024-12-24] MEDS: hydrALAZINE 20 MG/ML Vial 10 MG IV (02:23)
[2024-12-24] MEDS: Insulin Lispro 100 UNIT/ML INSULN.PEN SC ×2 (05:10→12:52)
[2024-12-24] MEDS: hydrALAZINE 50 MG Tablet PO ×2 (05:11→13:46)
[2024-12-24] MEDS: Levothyroxine 88 MCG Tablet PO (05:11)
[2024-12-24 05:25] LABS: Bedside Glucose 176 mg/dL (74-106)
[2024-12-24] MEDS: Ipratropium/Albuterol Sulfate 3 ML AMPUL.NEB INHALATION (07:07)
--- NOTE | 2024-12-24 07:08 | PCM.PN.HOSP ---
Reason for Visit Reason for Visit: Diagnoses Sepsis, unspecified organism (12/19/24) Type 1 diabetes mellitus with hyperglycemia (12/19/24) Encephalopathy, unspecified (12/19/24) Hypertensive urgency (12/19/24) Influenza due to other identified influenza virus with other respiratory manifestations (12/19/24) Pneumonia, unspecified organism (12/19/24) Acute and chronic respiratory failure with hypoxia (12/19/24) Acute kidney failure, unspecified (12/19/24) Chronic kidney disease, stage 3a (12/19/24) Dysphagia, unspecified (12/19/24) Subjective Subjective Still with nausea. Objective Data Objective Data Vital Signs: Vital Signs Temp Pulse Resp BP Pulse Ox O2 Del Method O2 Flow Rate 36.4 C L 90 20 H 165/56 H 94 Nasal Cannula 2 12/24/24 02:30 12/24/24 05:11 12/24/24 02:30 12/24/24 05:11 12/24/24 02:30 12/24/24 02:30 12/24/24 02:30 Oxygen Flow Rate (L/min) 2 Oxygen Delivery Method Nasal Cannula Weight: 80.9 kg Body Mass Index (BMI) 28.8 Intake & Output: Intake and Output for Last 24 Hours 12/22/24 12/23/24 12/24/24 23:59 23:59 23:59 Intake Total 160 / 160 229.25 / 229.25 Output Total 1950 / 1950 700 / 850 300 / 300 Balance -1790 / -1790 -470.75 / -620.75 -300 / -300 Lab / Micro Data 12/23/24 05:14 12/23/24 05:14 Labs: Laboratory Results - last 24 hr 12/22/24 04:00: Diff Path Review Reviewed 12/23/24 05:14: Absolute Neuts (auto) 13.2 H, Absolute Lymphs (auto) 0.50 L, Total Counted 100, Neutrophils % (Manual) 86 H, Lymphocytes % (Manual) 3 L, Monocytes % (Manual) 6, Eosinophils % (Manual) 1, Metamyelocytes % 3 H, Myelocytes % 1 H, Diff Path Review March12/23/24 11:12: POC Glucose 226 H 12/23/24 17:43: POC Glucose 170 H 12/23/24 23:21: POC Glucose 164 H 12/24/24 05:06: POC Glucose 176 H Micro: Microbiology 12/19/24 20:30 Blood Culture (Wb) - Right Forearm Blood Culture - Preliminary No growth in 48 hours. 12/19/24 20:05 Blood Culture (Wb) - Left Wrist Blood Culture - Preliminary No growth in 48 hours. 12/19/24 21:45 Urine Catheter - Reynolds Legionella Antigen - Final 12/19/24 21:45 Urine Catheter - Reynolds Streptococcus pneumoniae Antigen (M - Final Streptococcus pneumonia Ag 12/19/24 23:38 Mucosa - Nasopharyngeal Respiratory Panel (PCR) - Final Influenzae A 12/20/24 00:30 Nasal Secretion MRSA (PCR) - Final Physical Exam Const alert and no apparent distress Constitutional Narrative: more interactive today. HEENT head/scalp atraumatic and moist oral mucous membranes Resp normal respiratory effort, no retractions, no use of accessory muscles and clear to auscultation bilaterally Cardio regular rate, regular rhythm, S1 normal heart sound and S2 normal heart sound GI normal to inspection, nondistended, normoactive bowel sounds, soft to palpation, non-tender and non-distended Extremity normal to inspection and full ROM Neuro Sensorium / Orientation: awake and alert Assessment & Plan Assessment/Plan (1) Sepsis: PLAN: POA 2/2 influenza and pneumonia (2) Pneumonia: PLAN: pneumococcal abx with CTX +Pneumococcal antigen. Legionella antigen negative (3) Influenza A: PLAN: unknown time of onset. Oseltamivir discontinued for nausea (4) ELIO (acute kidney injury): PLAN: Received IVF. Resolved. (5) Acute encephalopathy: PLAN: metabolic and toxic from sepsis, pneumonia and influenza plus chronic dementia plus home medications including diazepam, gabapentin. potentiating medications held for now. (6) Dysphagia: PLAN: on modified textures at ECF, but noted coughing with water. meds to be crushed in applesauce. (7) Hypertensive urgency: PLAN: Overall improved. PRN labetolol and hydralazine. back on amlodipine 5 BID, clonide 0.2 BID, losartan 100/d. Start hydralazine 50 TID. PLAN: Plan Dysphagia: had MBSS. meds crushed in apple sauce. DM2: glargine held. continue SSI. VTE prophylaxis: SQ heparin. Pt to return to [facility] where she a baseline poor performance status.
--- NOTE | 2024-12-24 07:09 | CPS ---
pt became nauseous during her breathing treatment, unable to finish full treatment
--- NOTE | 2024-12-24 08:04 | NS ---
12/24/24: RDN notified by kitchen that Ensure Clear can't be thickened. RDN will d/c order. Tiffanie Moses RDN, LD
[2024-12-24] MEDS: Oseltamivir Phosphate 30 MG Capsule PO (09:01)
[2024-12-24] MEDS: cloNIDine HCl 0.2 MG Tablet PO (09:02)
[2024-12-24] MEDS: Ferrous Sulfate 325 MG Tablet PO (09:02)
[2024-12-24] MEDS: Losartan Potassium 100 MG Tablet PO (09:02)
[2024-12-24] MEDS: amLODIPine 5 MG Tablet PO (09:02)
[2024-12-24] MEDS: Clopidogrel Bisulfate 75 MG Tablet PO (09:02)
[2024-12-24] MEDS: Furosemide 40 MG Tablet PO (09:02)
[2024-12-24] MEDS: Ceftriaxone 2 GM in 0.9% Normal Saline (50mL MB+) 50 ML IV (09:03)
[2024-12-24] MEDS: Heparin Injection (Vial) 5,000 UNIT/ML VIAL 5000 UNIT SC (09:04)
--- NOTE | 2024-12-24 13:02 | TREXTCAR_ITS ---
Diet Diet Order/Speech Therapy: 12/22/24 08:51 Carb [Diet: Carbohydrate Controlled] Food consistency:: Soft & Bite Sized Liquid Consistency:: Ignacio/Mildly Thick Type of Dietary Supplement:: Magic Cup Dessert Diet Comments: Liquid by tsp,meds crushed in ,direct sup/assist feeding. w/L&D Routine Orders/Code Status Code Status: Full Code DC O2, CPAP, BIPAP needs Home O2 Discharge instructions: Yes Type of respiratory needs?: Oxygen Oxygen frequency: Continuous Continuous oxygen liters per minute: 2 Therapies Physical Therapy: Eval and Treat Occupational Therapy: Eval and Treat Speech Therapy: Eval and Treat Problem/Diagnosis (1) Sepsis: Status: Acute Code(s): A41.9 - Sepsis, unspecified organism Plan: POA 2/2 influenza and pneumonia (2) Pneumonia: Status: Acute Code(s): J18.9 - Pneumonia, unspecified organism Plan: pneumococcal abx with CTX +Pneumococcal antigen. Legionella antigen negative (3) Influenza A: Status: Acute Code(s): J10.1 - Influenza due to other identified influenza virus with other respiratory manifestations Plan: unknown time of onset. Oseltamivir discontinued for nausea (4) ELIO (acute kidney injury): Status: Acute Code(s): N17.9 - Acute kidney failure, unspecified Plan: Received IVF. Resolved. (5) Acute encephalopathy: Status: Acute Code(s): G93.40 - Encephalopathy, unspecified Plan: metabolic and toxic from sepsis, pneumonia and influenza plus chronic dementia plus home medications including diazepam, gabapentin. potentiating medications held for now. (6) Dysphagia: Status: Acute Code(s): R13.10 - Dysphagia, unspecified Plan: on modified textures at [facility], but noted coughing with water. meds to be crushed in applesauce. (7) Hypertensive urgency: Status: Acute Code(s): I16.0 - Hypertensive urgency Plan: Overall improved. PRN labetolol and hydralazine. back on amlodipine 5 BID, clonide 0.2 BID, losartan 100/d. Start hydralazine 50 TID. Plan Dysphagia: had MBSS. meds crushed in apple sauce. DM2: glargine held. continue SSI. VTE prophylaxis: SQ heparin. Pt to return to [facility] where she a baseline poor performance status. Allergies/Procedures Done in Hospital Allergies diphenhydramine (From Benadryl) Allergy (Verified 12/19/24 19:18) PT UNABLE TO RESPOND-NEEDS F/U prednisone Adverse Reaction (Intermediate, Verified 12/19/24 19:18) Other ANTIHISTAMINES Allergy (Uncoded 09/25/24 14:28) PT UNABLE TO RESPOND-NEEDS F/U DECONGESTANTS Allergy (Uncoded 09/25/24 14:28) Shortness of breath Type of Care/Length of Stay Estimated LOS: More Than 30 Days Type of Care Needed: Intermediate Rehab Potential: Fair Prognosis: Fair Additional Orders/Day of Discharge Day of Discharge: 12/24/24 Dietary and Speech Recommendations Dietitian Recommendations/Changes: Continue Consistent Carb diet with texture/consistency per PRE OWNED SALES CONSULTANT to manage blood sugars. Will order 120mL ensure clear (thickened) TID with meals to provide supplemental energy. Will order magic cup BID with meals to provide supplemental energy. Discharge Plan Admission Admit Date/Time: 12/19/24 23:21 Primary Reason for Your Visit: hypertensive urgency. Influenza. Attending Provider: Feliz Tinsley Primary Care Provider: Mauricio Mckeon,Lucian Consulting Providers: Mei Tineo; Goldie Graves Discharge Orders/Prescriptions Prescriptions: New acetaminophen 500 mg Tablet 1,000 mg PO Q8H PRN PRN (Reason: Pain 1-10 Or Fever) Qty: 0 0RF hydralazine 50 mg Tablet 50 mg PO TID Qty: 0 0RF amoxicillin 500 mg tablet 500 mg PO Q8H Qty: 9 0RF Rx Instructions: start 12/25/2024 Continued losartan 100 mg tablet 100 mg PO DAILY melatonin 3 mg tablet 3 mg PO HS sertraline 100 mg tablet 100 mg PO DAILY amlodipine 5 mg tablet 5 mg PO BID sennosides-docusate sodium [Senexon-S] 8.6-50 mg tablet 1 tab-cap PO BID clonidine HCl 0.2 mg tablet 0.2 mg PO BID Qty: 60 11RF glucagon HCl [Glucagon (HCl) Emergency Kit] 1 mg recon soln 1 mg subcut Q20M PRN (Reason: low glucose) Rx Instructions: until target blood sugar attained glipizide 5 mg tablet 5 mg PO BID potassium chloride 20 mEq tablet,ER particles/crystals 10 meq PO DAILY insulin lispro 100 unit/mL insulin pen 1 sliding scale dose subcut USEASDIRECTD aripiprazole 5 mg tablet 2.5 mg PO QDAY atorvastatin 10 mg tablet 10 mg PO QDAY clopidogrel [Plavix] 75 mg tablet 75 mg PO QDAY Qty: 90 3RF furosemide 40 mg tablet 40 mg PO QDAY Qty: 90 3RF labetalol 300 MG tablet 300 mg PO BID Biofreeze (menthol) 5 % gel 1 ea topical QHS ferrous sulfate [FeroSul] 325 mg (65 mg iron) tablet 325 mg PO DAILY levothyroxine 88 mcg tablet 88 mcg PO DAILY cranberry 400 mg capsule 450 mg PO DAILY ipratropium-albuterol 0.5 mg-3 mg(2.5 mg base)/3 mL solution for nebulization 3 ml inhalation 4X/DAY Patient Comments: [NO ORIGINAL SIG] Discontinued gabapentin 300 mg capsule 300 mg PO BID diazepam 2 mg tablet 2 mg PO QHS acetaminophen 325 mg capsule 325 mg PO DAILY acetaminophen 500 mg tablet 500 mg PO DAILY tramadol 50 mg tablet 50 mg PO QHS potassium chloride 10 mEq tablet extended release See Rx Instructions PO DAILY Rx Instructions: orally daily; given 40 mg daily x 3 days 12/14-12/17, give 30 mg daily x days 12/17-12/20, give 20 mg daily x 3 days 12/20-12/23, given 10 mg daily x 3 days 12/23- 12/26, given 5 mg daily x 3 days 12/26-12/29 Referrals / Follow Up: Mauricio Mckeon,Lucian, [Primary Care Provider] - Within 2 Weeks Disposition Disposition (needs filled in before D/C Order can be placed): NonSkilled NH/Intermed Care
[2024-12-24 13:11] LABS: Bedside Glucose 177 mg/dL (74-106)
--- NOTE | 2024-12-24 13:12 | DS.PCM_ITS ---
Providers Date of Admission: 12/19/24 Primary Care Physician: Dr. Lucian Martínez Sr., DO Consultations 12/20/24 00:09 Consult: Clinical Transformation Specialist / Pulmonary Medicine Routine Consulting Provider: Pulmonary Medicine tano Leon Reason for Consult: Sepsis, PNA, Resp Failure, ELIO EMERGENT Consult: No MD Notified: Yes Date Notified: 12/19/24 Time Notified: 23:25 Method of Notification: Text Reason For Visit: SEPSIS, ELIO, RESP FAILURE, PNA Diagnosis Discharge Diagnosis (1) Sepsis: Status: Acute Code(s): A41.9 - Sepsis, unspecified organism Plan: POA 2/2 influenza and pneumonia (2) Pneumonia: Status: Acute Code(s): J18.9 - Pneumonia, unspecified organism Plan: pneumococcal abx with CTX +Pneumococcal antigen. Legionella antigen negative (3) Influenza A: Status: Acute Code(s): J10.1 - Influenza due to other identified influenza virus with other respiratory manifestations Plan: unknown time of onset. Oseltamivir discontinued for nausea (4) ELIO (acute kidney injury): Status: Acute Code(s): N17.9 - Acute kidney failure, unspecified Plan: Received IVF. Resolved. (5) Acute encephalopathy: Status: Acute Code(s): G93.40 - Encephalopathy, unspecified Plan: metabolic and toxic from sepsis, pneumonia and influenza plus chronic dementia plus home medications including diazepam, gabapentin. potentiating medications held for now. (6) Dysphagia: Status: Acute Code(s): R13.10 - Dysphagia, unspecified Plan: on modified textures at [facility], but noted coughing with water. meds to be crushed in applesauce. (7) Hypertensive urgency: Status: Acute Code(s): I16.0 - Hypertensive urgency Plan: Overall improved. PRN labetolol and hydralazine. back on amlodipine 5 BID, clonide 0.2 BID, losartan 100/d. Start hydralazine 50 TID. Plan Dysphagia: had MBSS. meds crushed in apple sauce. DM2: glargine held. continue SSI. VTE prophylaxis: SQ heparin. Pt to return to [facility] where she a baseline poor performance status. Medications at Discharge Home Medications labetalol 300 mg tablet 300 mg PO BID HTN 12/25/18 ferrous sulfate 325 mg (65 mg iron) tablet (FeroSul) 325 mg PO DAILY 11/14/23 levothyroxine 88 mcg tablet 88 mcg PO DAILY 11/14/23 menthol 5 % topical gel (Biofreeze (menthol)) 1 ea topical QHS RIGHT SHOULDER PAIN 11/14/23 losartan 100 mg tablet 100 mg PO DAILY 11/18/23 melatonin 3 mg tablet 3 mg PO HS 11/18/23 sertraline 100 mg tablet 100 mg PO DAILY 11/18/23 amlodipine 5 mg tablet 5 mg PO BID 12/05/23 glucagon HCl 1 mg solution for injection (Glucagon (HCl) Emergency Kit) 1 mg subcut Q20M PRN low glucose 01/28/24 clonidine HCl 0.2 mg tablet 0.2 mg PO BID #60 tabs 03/04/24 glipizide 5 mg tablet 5 mg PO BID 06/26/24 potassium chloride 20 mEq tablet,extended release(part/cryst) 10 meq PO DAILY 06/26/24 aripiprazole 5 mg tablet 2.5 mg PO QDAY 08/12/24 atorvastatin 10 mg tablet 10 mg PO QDAY 08/12/24 clopidogrel 75 mg tablet (Plavix) 75 mg PO QDAY #90 tabs 08/12/24 furosemide 40 mg tablet 40 mg PO QDAY #90 tabs 08/12/24 cranberry 400 mg capsule 450 mg PO DAILY 09/25/24 insulin lispro 100 unit/mL subcutaneous pen 1 sliding scale dose subcut USEASDIRECTD 09/25/24 sennosides 8.6 mg-docusate sodium 50 mg tablet (Senexon-S) 1 tab-cap PO BID constipation 09/25/24 ipratropium 0.5 mg-albuterol 3 mg (2.5 mg base)/3 mL nebulization soln 3 ml inhalation 4X/DAY 12/19/24 acetaminophen 500 mg tablet 1,000 mg (2 x 500 mg) PO Q8H PRN PRN Pain 1-10 Or Fever #0 tabs 12/24/24 amoxicillin 500 mg tablet 500 mg PO Q8H #9 tabs 12/24/24 hydralazine 50 mg tablet 50 mg PO TID #0 tabs 12/24/24 Hospital Course Operations None Procedures None Summary of Care Provided Minutes Spent on Discharge: 32 Weight / BMI Weight Weight: 80.9 kg Body Mass Index (BMI) 28.8 ABG / Lab / Microbiology Data 12/23/24 05:14 12/23/24 05:14 Laboratory: Laboratory Results - last 24 hr 12/22/24 04:00: Diff Path Review Reviewed 12/23/24 17:43: POC Glucose 170 H 12/23/24 23:21: POC Glucose 164 H 12/24/24 05:06: POC Glucose 176 H 12/24/24 12:51: POC Glucose 177 H Microbiology: Microbiology 12/19/24 20:30 Blood Culture (Wb) - Right Forearm Blood Culture - Preliminary No growth in 48 hours. 12/19/24 20:05 Blood Culture (Wb) - Left Wrist Blood Culture - Preliminary No growth in 48 hours. 12/19/24 21:45 Urine Catheter - Reynolds Legionella Antigen - Final 12/19/24 21:45 Urine Catheter - Reynolds Streptococcus pneumoniae Antigen (M - Final Streptococcus pneumonia Ag 12/19/24 23:38 Mucosa - Nasopharyngeal Respiratory Panel (PCR) - Final Influenzae A 12/20/24 00:30 Nasal Secretion MRSA (PCR) - Final D/C Instructions DC O2, CPAP, BIPAP Needs Home O2 Discharge instructions: Yes Type of respiratory needs?: Oxygen Oxygen frequency: Continuous Continuous oxygen liters per minute: 2 DC home with Oxygen: Yes Home O2 MD Review: I have reviewed the oxygen testing, and the patient qualifies for home oxygen equipment and portability. The patient is mobile in the home and the community. Meaningful Use Info Meaningful Use Meaningful Use Diagnoses (Choose all that apply): None applicable Ischemic Stroke Statin Dosing Therapy Reference: STATIN DOSE THERAPY REFERENCE: * Patients > 75 years receive moderate or high dose statin therapy. * Patients 75 years or YOUNGER should receive HIGH intensity statin dose unless contraindicated. You will be required to document reason for non-treatment if statin daily dose does not meet guidelines. HIGH DOSE STATIN THERAPY DAILY Atorvastatin > than or = to 40 mg Rosuvastatin > than or = to 20 mg Amlodipine + Atorvastatin > than or = to 2.5/40 mg Ezetimibe + Simvastatin 10/80 mg Simvastatin 80mg Discharge Plan Admission Admit Date/Time: 12/19/24 23:21 Primary Reason for Your Visit: hypertensive urgency. Influenza. Attending Provider: Feliz Tinsley Primary Care Provider: Mauricio Mckeon,Lucian Consulting Providers: Mei Tineo; Goldie Graves Discharge Orders/Prescriptions Prescriptions: New acetaminophen 500 mg Tablet 1,000 mg PO Q8H PRN PRN (Reason: Pain 1-10 Or Fever) Qty: 0 0RF hydralazine 50 mg Tablet 50 mg PO TID Qty: 0 0RF amoxicillin 500 mg tablet 500 mg PO Q8H Qty: 9 0RF Rx Instructions: start 12/25/2024 Continued losartan 100 mg tablet 100 mg PO DAILY melatonin 3 mg tablet 3 mg PO HS sertraline 100 mg tablet 100 mg PO DAILY amlodipine 5 mg tablet 5 mg PO BID sennosides-docusate sodium [Senexon-S] 8.6-50 mg tablet 1 tab-cap PO BID clonidine HCl 0.2 mg tablet 0.2 mg PO BID Qty: 60 11RF glucagon HCl [Glucagon (HCl) Emergency Kit] 1 mg recon soln 1 mg subcut Q20M PRN (Reason: low glucose) Rx Instructions: until target blood sugar attained glipizide 5 mg tablet 5 mg PO BID potassium chloride 20 mEq tablet,ER particles/crystals 10 meq PO DAILY insulin lispro 100 unit/mL insulin pen 1 sliding scale dose subcut USEASDIRECTD aripiprazole 5 mg tablet 2.5 mg PO QDAY atorvastatin 10 mg tablet 10 mg PO QDAY clopidogrel [Plavix] 75 mg tablet 75 mg PO QDAY Qty: 90 3RF furosemide 40 mg tablet 40 mg PO QDAY Qty: 90 3RF labetalol 300 MG tablet 300 mg PO BID Biofreeze (menthol) 5 % gel 1 ea topical QHS ferrous sulfate [FeroSul] 325 mg (65 mg iron) tablet 325 mg PO DAILY levothyroxine 88 mcg tablet 88 mcg PO DAILY cranberry 400 mg capsule 450 mg PO DAILY ipratropium-albuterol 0.5 mg-3 mg(2.5 mg base)/3 mL solution for nebulization 3 ml inhalation 4X/DAY Patient Comments: [NO ORIGINAL SIG] Discontinued gabapentin 300 mg capsule 300 mg PO BID diazepam 2 mg tablet 2 mg PO QHS acetaminophen 325 mg capsule 325 mg PO DAILY acetaminophen 500 mg tablet 500 mg PO DAILY tramadol 50 mg tablet 50 mg PO QHS potassium chloride 10 mEq tablet extended release See Rx Instructions PO DAILY Rx Instructions: orally daily; given 40 mg daily x 3 days 12/14-12/17, give 30 mg daily x days 12/17-12/20, give 20 mg daily x 3 days 12/20-12/23, given 10 mg daily x 3 days 12/23- 12/26, given 5 mg daily x 3 days 12/26-12/29 Referrals / Follow Up: Mauricio Mckeon,Lucian, [Primary Care Provider] - Within 2 Weeks Disposition Disposition (needs filled in before D/C Order can be placed): NonSkilled NH/Intermed Care Charges/Coding Visit Charges Inpatient E&M: 65387 Disch Hosp >30min
--- NOTE | 2024-12-24 14:09 | CASEMGMT ---
Social Work Pt is admitted from [facility] where she is a [facility]. [facility] attempted to readmit pt under skilled level of care. SW received message from insurance that skilled stay is denied and peer to peer offered. SW discussed case with therapy and physician and pt is at baseline. Peer to Peer will not be completed at this time. Pt is ready for return to [facility] today. DC assistant guest services manager updated and will complete discharge. Disposition: Return to [facility], [facility] care ESTEBAN Calvert
--- NOTE | 2024-12-24 14:29 | CASEMGMT ---
Discharge orders, signed med list, and transport time sent to [facility]. Physicians will transport pt by cot at 3:30p. Nursing, SW, pt, and her sister/POA (Leila) updated. Eva Bhatti DC Planning Asst.
[2024-12-24 15:02] LABS: Pathologist Review Reviewed
== END 2024-12-24 16:15 | disposition intermediate care facility (04) | DRG 193 ==
LOC: ED 23:09 → ICU 23:29
PROVIDERS: Internal Medicine Pulmonary Disease; Student in an Organized Health Care Education/Training Program; Admitting Provider Family Medicine; Emergency Provider Emergency Medicine; PCP Internal Medicine
DX: J13 Pneumonia due to Streptococcus pneumoniae (principal); J96.21 Acute and chronic respiratory failure with hypoxia; G92.8 Other toxic encephalopathy; N17.9 Acute kidney failure, unspecified; J10.81 Influenza due to other identified influenza virus with encephalopathy; R13.10 Dysphagia, unspecified; E10.22 Type 1 diabetes mellitus with diabetic chronic kidney disease; N18.31 Chronic kidney disease, stage 3a; F03.90 Unspecified dementia, unspecified severity, without behavioral disturbance, psychotic disturbance, mood disturbance, and anxiety; D50.9 Iron deficiency anemia, unspecified; E89.0 Postprocedural hypothyroidism; I12.9 Hypertensive chronic kidney disease with stage 1 through stage 4 chronic kidney disease, or unspecified chronic kidney disease; F39 Unspecified mood [affective] disorder; F32.A Depression, unspecified; Z68.32 Body mass index [BMI] 32.0-32.9, adult; J10.08 Influenza due to other identified influenza virus with other specified pneumonia; E10.40 Type 1 diabetes mellitus with diabetic neuropathy, unspecified; E78.5 Hyperlipidemia, unspecified; K21.9 Gastro-esophageal reflux disease without esophagitis; E10.65 Type 1 diabetes mellitus with hyperglycemia; I25.10 Atherosclerotic heart disease of native coronary artery without angina pectoris; E10.51 Type 1 diabetes mellitus with diabetic peripheral angiopathy without gangrene; F41.9 Anxiety disorder, unspecified; Z79.4 Long term (current) use of insulin; I16.0 Hypertensive urgency; Z66 Do not resuscitate; F43.10 Post-traumatic stress disorder, unspecified; E66.9 Obesity, unspecified; Z79.899 Other long term (current) drug therapy; Z79.890 Hormone replacement therapy; Z79.84 Long term (current) use of oral hypoglycemic drugs; Z79.02 Long term (current) use of antithrombotics/antiplatelets
CPT/HCPCS: 36415; 36600; 51702; 71045; 74230; 80048; 80053; 81001; 82803; 82962; 83036; 83605; 83735; 84100; 84145; 84439; 84443; 85025; 85610; 85730; 87040; 87449; 87633; 87641; 92526; 92610; 92611; 93005; 94640; 94668; 94762; 97110; 97162; 97166; 97530; 97535; 97802; 99285; A4216; J0696; J2405

== ENCOUNTER → 2024-12-25 05:15 | Outpatient (REF) | payer MEDICARE, MEDICAID, SELFPAY ==
[2024-12-25 08:56] LABS: Hemoglobin A1c 7.7 % (3.8-5.6)
== END ==
LOC: OLS.ACH 05:15
PROVIDERS: PCP Internal Medicine; Visit Provider Internal Medicine
DX: E11.42 Type 2 diabetes mellitus with diabetic polyneuropathy (principal)
CPT/HCPCS: 36415; 83036

== ENCOUNTER → 2024-12-28 05:00 | Outpatient (REF) | payer MEDICARE, MEDICAID, SELFPAY ==
[2024-12-28 09:30] LABS: Hematocrit 37.3 % (37-47); Hemoglobin 11.1 g/dL (12.0-15.0); Mean Corp Hgb Conc 29.8 g/dL (32-36); Mean Corpuscular Hgb 28.2 pg (27.0-32.0); Mean Corpuscular Volume 94.9 fL (81-99); Mean Platelet Vol. 10.5 fl (6.2-12.0); Platelet Count 275 K/mm3 (150-450); RBC Distribution Width CV 15.3 % (11.6-14.6); RBC Distribution Width SD 53.6 fl (35.1-43.9); Red Blood Count 3.93 M/mm3 (4.2-5.4); White Blood Count 10.6 K/mm3 (4.4-11.0)
[2024-12-28 09:36] LABS: ALB/GLOB Ratio 0.8 RATIO (0.9-2.4); AST(SGOT) 24 U/L (15-37); Alanine Aminotransfer ALT/SGPT 33 U/L (13-56); Albumin, Serum 3.2 g/dL (3.2-5.0); Alkaline Phosphatase 96 U/L (45-117); Anion Gap 8 (5-15); BUN 74 mg/dL (7-18); BUN/Creat Ratio 22.2 RATIO (10-20); Calcium,Total 8.4 mg/dL (8.5-10.1); Chloride 110 mmol/L (98-107); Creatinine, Serum 3.34 mg/dL (0.55-1.02); EST Glomerular Filtration Rate 14 mL/min (>60); Est Glom Filt Rate - Afr Amer 17 mL/min (>60); Glucose 206 mg/dL (74-106); Potassium 3.6 mmol/L (3.5-5.1); Protein, Total 7.2 g/dL (6.4-8.2); Sodium Level 146 mmol/L (136-145)
== END ==
LOC: OLS.ACH 05:00
PROVIDERS: PCP Internal Medicine; Visit Provider Internal Medicine
DX: J09.X2 Influenza due to identified novel influenza A virus with other respiratory manifestations (principal); R65.20 Severe sepsis without septic shock; J12.89 Other viral pneumonia
CPT/HCPCS: 36415; 80053; 85027

== ENCOUNTER → 2024-12-30 05:00 | Outpatient (REF) | payer MEDICARE, MEDICAID, SELFPAY ==
[2024-12-30 09:20] LABS: Anion Gap 8 (5-15); BUN 82 mg/dL (7-18); BUN/Creat Ratio 22.2 RATIO (10-20); Calcium,Total 7.7 mg/dL (8.5-10.1); Chloride 109 mmol/L (98-107); Creatinine, Serum 3.69 mg/dL (0.55-1.02); EST Glomerular Filtration Rate 13 mL/min (>60); Est Glom Filt Rate - Afr Amer 15 mL/min (>60); Glucose 184 mg/dL (74-106); Potassium 3.8 mmol/L (3.5-5.1); Sodium Level 142 mmol/L (136-145)
== END ==
LOC: OLS.ACH 05:00
PROVIDERS: PCP Internal Medicine; Visit Provider Internal Medicine
DX: G93.41 Metabolic encephalopathy (principal)
CPT/HCPCS: 36415; 80048

== ENCOUNTER → 2025-01-01 | Outpatient (REF) | payer MEDICARE, MEDICAID, SELFPAY ==
[2025-01-01 08:59] LABS: Anion Gap 7 (5-15); BUN 77 mg/dL (7-18); BUN/Creat Ratio 19.6 RATIO (10-20); Calcium,Total 7.5 mg/dL (8.5-10.1); Chloride 108 mmol/L (98-107); Creatinine, Serum 3.92 mg/dL (0.55-1.02); EST Glomerular Filtration Rate 12 mL/min (>60); Est Glom Filt Rate - Afr Amer 14 mL/min (>60); Glucose 185 mg/dL (74-106); Potassium 4.3 mmol/L (3.5-5.1); Sodium Level 140 mmol/L (136-145)
== END ==
LOC: OLS.ACH 05:00
PROVIDERS: PCP Internal Medicine; Visit Provider Internal Medicine
DX: F10.99 Alcohol use, unspecified with unspecified alcohol-induced disorder (principal)
CPT/HCPCS: 36415; 80048

== ENCOUNTER → 2025-01-04 05:00 | Outpatient (REF) | payer MEDICARE, MEDICAID, SELFPAY ==
[2025-01-04 20:58] LABS: Anion Gap 8 (5-15); BUN 75 mg/dL (7-18); BUN/Creat Ratio 20.8 RATIO (10-20); Calcium,Total 7.3 mg/dL (8.5-10.1); Chloride 104 mmol/L (98-107); EST Glomerular Filtration Rate 13 mL/min (>60); Est Glom Filt Rate - Afr Amer 16 mL/min (>60); Glucose 132 mg/dL (74-106); Potassium 5.2 mmol/L (3.5-5.1); Sodium Level 136 mmol/L (136-145)
== END ==
LOC: OLS.ACH 05:00
PROVIDERS: PCP Internal Medicine; Visit Provider Nurse Practitioner Adult Health
DX: I10 Essential (primary) hypertension (principal)
CPT/HCPCS: 36415; 80048

== ENCOUNTER → 2025-01-07 | Outpatient (REF) | payer MEDICARE, MEDICAID, SELFPAY ==
[2025-01-07 10:48] LABS: Anion Gap 15 (5-15); BUN 77 mg/dL (4-19); BUN/Creat Ratio 21.1 RATIO (10-20); Calcium 7.5 mg/dL (7.6-11.0); Carbon Dioxide 22.1 mmol/L (22.0-29.0); Chloride 96 mmol/L (96-108); Creatinine, Serum 3.7 mg/dL (0.6-1.0); EST Glomerular Filtration Rate 12 (>60); Glucose 96 mg/dL (70-99); Potassium 5.4 mmol/L (3.3-5.1); Sodium Level 133 mmol/L (133-145)
== END ==
LOC: OLS.ACH 05:00
PROVIDERS: PCP Internal Medicine; Visit Provider Internal Medicine
DX: I10 Essential (primary) hypertension (principal)
CPT/HCPCS: 36415; 80048

== ENCOUNTER → 2025-03-09 | Outpatient (REF) | payer MEDICARE, MEDICAID, SELFPAY ==
[2025-03-09 09:14] LABS: Absolute Lymphocyte Count 1.26 X10^3/uL (0.83-4.51); Absolute Neutrophil Count 6.8 X10^3/uL (2.0-7.7); Basophil# 0.05 X10^3/uL; Basophil% 0.5 % (0-1); Eosinophil# 0.59 X10^3/uL; Eosinophils% 6.2 % (0-5); Hematocrit 27.4 % (37-47); Hemoglobin 8.3 g/dL (12.0-15.0); Lymphocyte # 1.26 X10^3/ul (0.83-4.51); Lymphocyte % 13.3 % (19-41); Mean Corp Hgb Conc 30.3 g/dL (32-36); Mean Corpuscular Volume 92.6 fL (81-99); Monocyte# 0.72 X10^3/uL; Monocyte% 7.6 % (0-10); NRBC Flagged by Analyzer 0 % (0-5); Neutrophil # 6.79 X10^3/uL (2.7-7.7); Neutrophil % 71.8 % (47-70); Platelet Count 396 K/mm3 (150-450); RBC Distribution Width CV 14.6 % (11.6-14.6); RBC Distribution Width SD 49.6 fl (35.1-43.9); Red Blood Count 2.96 M/mm3 (4.2-5.4); White Blood Count 9.5 K/mm3 (4.4-11.0)
[2025-03-09 09:46] LABS: ALB/GLOB Ratio 1.2 RATIO (0.9-2.4); AST(SGOT) 21 U/L (<=31); Alanine Aminotransfer ALT/SGPT 9 U/L (<=34); Albumin, Serum 3.6 g/dL (3.4-4.8); Alkaline Phosphatase 87 U/L (35-104); Anion Gap 13 (5-15); BUN 16 mg/dL (4-19); BUN/Creat Ratio 9.6 RATIO (10-20); Calcium,Total 8.8 mg/dL (7.6-11.0); Carbon Dioxide 27.8 mmol/L (21.0-32.0); Chloride 96 mmol/L (98-108); Creatinine, Serum 1.63 mg/dL (0.70-1.20); EST Glomerular Filtration Rate 31 (>60); Glucose 64 mg/dL (70-99); Potassium 3.2 mmol/L (3.3-5.1); Protein, Total 6.6 g/dL (5.9-8.4); Sodium Level 137 mmol/L (133-145); Total Bilirubin 0.23 mg/dL (0.00-1.30)
[2025-03-09 09:49] LABS: Hemoglobin A1c 5.4 % (<=5.6)
== END ==
LOC: OLS.ACH 04:00
PROVIDERS: PCP Internal Medicine; Referring Provider Internal Medicine; Visit Provider Internal Medicine
DX: N18.6 End stage renal disease (principal); E11.22 Type 2 diabetes mellitus with diabetic chronic kidney disease
CPT/HCPCS: 36415; 80053; 83036; 85025

== ENCOUNTER → 2025-03-16 05:00 | Outpatient (REF) | payer MEDICARE, MEDICAID, SELFPAY ==
[2025-03-16 09:16] LABS: Hemoglobin A1c 5.3 % (<=5.6)
== END ==
LOC: OLS.ACH 05:00
PROVIDERS: PCP Internal Medicine; Visit Provider Internal Medicine
DX: E11.51 Type 2 diabetes mellitus with diabetic peripheral angiopathy without gangrene (principal)
CPT/HCPCS: 36415; 83036